=== PATIENT | female | born 1940 | race Asian ===

== ENCOUNTER 2016-08-21 21:12 | Inpatient (IN) | payer MEDICARE, OTHER ==
[~2016-08-21] VITALS: Ht 154.9 cm; Wt 58.5 kg
[~2016-08-21 21:12] MED LIST: AMLO-147 PO; ATOR80TA18 PO; BENA20TA65 PO; BISO5TAB21 PO; FERR325T31 PO; ISOS60TA52 PO; LAS20 PO; METF500T4 PO; POTA10CA PO; ULT50 PO; WARF2TAB78 PO
[2016-08-21] MEDS ORDERED: CEFEPIME 2GM/50 ML (PMX) 50 ML IVPB STA (21:14)
[2016-08-21] MEDS ORDERED: SOD CHLORIDE 0.9% 1,000 ML IV STA ×2 (21:14)
[2016-08-21] MEDS ORDERED: VANCOMYCIN 1 GM (PMX) 250 ML IVPB ONE (21:30)
--- NOTE | 2016-08-21 22:21 | RADRPT ---
PROCEDURE: XR Chest. CLINICAL INDICATION: Sepsis. TECHNIQUE: Single frontal chest x-ray. COMPARISON: None. FINDINGS: The patient status post sternotomy and valve replacement.. The heart is enlarged.. There are athero sclerotic calcifications of the aortic knob.. There is mild left basilar probable atelectasis.. Th ere is no pneumothorax. 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 IMPRESSION: Cardiomegaly. Status post sternotomy and valve replacement. Mild left basilar probable atelectasis . Partially visualized left humeral enchondroma versus bone infarct. RPTAT: HMVK .Alexander Grimes MD, MD Date Time Electronically viewed and signed by .Alexander Grimes MD, on 08/21/2016 22:21 .K/
[2016-08-21 23:33] LABS: EOSINOPHILS % 0.2 % (0.0-7.0); HEMATOCRIT 25.3 % (37.0-47.0); HEMOGLOBIN 8.4 g/dl (12.0-16.0); LYMPHOCYTES % 6.6 % (15.0-51.0); MEAN CORPUSCULAR HEMOGLOBIN 32.3 pg (29.0-33.0); MEAN CORPUSCULAR HGB CONC 33.1 g/dl (32.0-37.0); MEAN CORPUSCULAR VOLUME 97.6 fl (82.0-101.0); MEAN PLATELET VOLUME 8.9 fl (7.4-10.4); MONOCYTES % 6.5 % (0.0-11.0); NEUTROPHIL # 13.2 10^3/ul (1.6-7.5); NEUTROPHILS % 86.7 % (39.0-77.0); PLATELET COUNT 263 10^3/UL (140-440); RED BLOOD COUNT 2.59 10^6/ul (4.20-5.40); RED CELL DISTRIBUTION WIDTH 15.1 % (11.5-14.5); UNCORRECTED WBC 15.2 10^3/ul (4.8-10.8); WHITE BLOOD COUNT 15.2 10^3/ul (4.8-10.8)
[2016-08-21 23:41] LABS: CONDITION 1; LH ANALYZER COMMENTS 1
[2016-08-21 23:49] LABS: ALBUMIN 3.4 g/dl (3.3-4.9)
[2016-08-21 23:50] LABS: POTASSIUM 4.4 mmol/L (3.5-5.1)
[2016-08-21 23:52] LABS: BILIRUBIN,INDIRECT 0.9 mg/dl (0-1.1); BILIRUBIN,TOTAL 0.9 mg/dl (0.2-1.3); CREATININE 1.82 mg/dl (0.44-1.00)
[2016-08-21 23:53] LABS: ALBUMIN/GLOBULIN RATIO 1.25; CALCIUM 7.7 mg/dl (8.4-10.2); PARTIAL THROMBOPLASTIN TIME 49.3 Sec (25.0-35.0); TOTAL PROTEIN 6.1 g/dl (6.1-8.1)
[2016-08-21] MEDS ORDERED: INSULIN LISPRO 100 UNIT/ML VIAL SC STA (23:57)
[2016-08-22] VITALS (41 sets, daily range): BP systolic 87–161; BP diastolic 45–131; PULSE 89–141; RESP 18–30; Ht 154.9 cm; Wt 58.5 kg
[2016-08-22 00:04] LABS: TROPONIN-I 0.035 ng/ml (0.00-0.12)
[2016-08-22 00:17] LABS: INR 5.03; PROTIME 47.6 Sec (12.2-14.2); PT RATIO 3.7
--- NOTE | 2016-08-22 01:32 | RADRPT ---
PROCEDURE: CT brain without contrast. CLINICAL INDICATION: Altered mental status. TECHNIQUE: CT of the brain was performed using a PhotoManiapeed 64-slice VCT scann er. Contiguous axial images using 5-mm slice thickness were obtained from the skull base to the thomas marclela without contrast. Coronal and sagittal reformatted images were also obtained. Images were review ed on a PACS workstation. Exam CTD/vol = 44.63 mGy. Total exam DLP = 720.23 mGy-cm. COMPARISON: None. FINDINGS: The ventricles and cortical sulci are prominent consistent with moderate age related volume loss. T here are patchy areas of low attenuation within the periventricular and subcortical white matter con sistent with moderate chronic ischemic changes secondary to small vessel disease. There is no mass effect or midline shift. There is no intracranial hemorrhage or abnormal extra-axial collection. Th ere are atherosclerotic calcifications within bilateral distal internal carotid arteries. The calvarium is intact. There is no evidence of fracture. Visualized paranasal sinuses and mastoi d air cells are clear. IMPRESSION: No acute intracranial abnormality identified. Moderate age related volume loss and chronic ischemic white matter disease. Cerebral atherosclerosis. .Benigno Caal MD, MD Date Time Electronically viewed and signed by .Benigno Caal MD, MD on 08/22/2016 01:31 .T/
--- NOTE | 2016-08-22 01:38 | RADRPT ---
PROCEDURE: CT Abdomen and pelvis without contrast. CLINICAL INDICATION: Abdominal pain. TECHNIQUE: CT scan of the abdomen and pelvis was performed on the [employer] LightSpeed 6 4 slice VCT scanner. Contiguous axial images using 2.5 mm slice thickness were obtained from the jeannie ng bases to the ischial tuberosities without intravenous contrast. Coronal and sagittal reformatted images were also obtained. Images were reviewed on the PACS workstation. Exam CTD/vol = 10.33 mGy. Total exam DLP = 537.89 mGy-cm. COMPARISON: None. FINDINGS: Evaluation of the lung bases demonstrates mild bibasilar atelectasis and small left pleural effusion . The heart is moderately enlarged with coronary artery calcifications. There is a prosthetic mitr al valve. There is a small hiatal hernia. Abdomen: The liver is normal in size. There is a hepatic cyst measuring 3.9 x 4.5 cm. There is no dilatation of the biliary tree. The gallbladder is not distended. The spleen, pancreas and bilate ral adrenal glands are within normal limits. Bilateral kidneys are normal in size with no contour d eforming mass identified. There is no radiopaque renal or ureteral calculus identified. There is n o hydronephrosis or hydroureter. There is no retroperitoneal adenopathy. The abdominal aorta is of normal caliber with scattered atherosclerotic calcifications. There is a large complex collection within the retroperitoneum extending along the left posterolater al wall and involving the left distal psoas and iliacus muscles which are enlarged. The collection measures approximately 7.6 cm AP by 7.9 cm transverse by 18.1 cm sagittal and contains a fluid-fluid level. There is surrounding stranding. There is no bowel obstruction or free air. A normal appen pj is identified. There is no diverticulosis or diverticulitis. Pelvis: The bladder is unremarkable. The uterus and adnexa are within normal limits. There is mil d pelvic free fluid. There is no significant pelvic adenopathy. Evaluation of the osseous structures demonstrates no suspicious lytic or blastic lesion. IMPRESSION: Large fluid collection within the left retroperitoneum extending along the left posterior lateral wa ll measuring 7.6 x 7.9 x 18.1 cm. Findings could represent a hematoma or abscess. There is involvem ent of the left distal psoas and iliacus muscles which are enlarged. Mild pelvic free fluid. Mild bibasilar atelectasis and small left pleural effusion. Moderate cardiomegaly. Small hiatal hernia. Hepatic cyst. Vascular calcifications reflective of atherosclerosis. A call report was made to Dr. Russell at 01:35 a.m. .Benigno Caal MD, Date Time Electronically viewed and signed by .Benigno Caal MD, on 08/22/2016 01:38 .T/
[2016-08-22] MEDS ORDERED: SOD CHLORIDE 0.9% 250 ML IV ONE (01:40)
[2016-08-22] MEDS ORDERED: ONDANSETRON 4 MG INJ IV PRN ×2 (02:00→11:30)
[2016-08-22] MEDS ORDERED: PHYTONADIONE 10 MG/ML INJ SC ONE (02:00)
[2016-08-22] MEDS ORDERED: ACETAMINOPHEN 325 MG TAB PO PRN (02:00)
--- NOTE | 2016-08-22 03:02 | ERA ---
ER Documentation Chief Complaint Date/Time DATE: 08/22/16 TIME: 03:01 Chief Complaint generalized weakness, hypotension,L hip pain HPI Patient is a 75-year-old female with diabetes and atrial fibrillation who presents with weakness. She had generalized weakness as well as low blood pressure and tachycardia. The paramedics that she was warm to touch. She came from home. She was brought in by ambulance. She felt sick for the last few days. She was complaining of left-sided hip pain. She said that she felt dizzy and could not get up today. She had a cough but no urinary symptoms. Upon review of old medical records the patient one previous visit to the ER in 2011. ROS All systems reviewed and are negative except as per history of present illness. Medications Home Meds Reported Medications Metformin* (Glucophage*) 500 Mg Tab, 1 TAB PO BID 10/30/11 Furosemide (Lasix) 20 Mg Tab, 1 TAB PO DAILY 10/30/11 Warfarin Sodium* (Coumadin*) 2 Mg Tablet, 1 TAB PO DAILY 10/30/11 Benazepril Hcl* (Lotensin*) 20 Mg Tablet, 1 TAB PO DAILY 10/30/11 Amlodipine Besylate* (Amlodipine Besylate*) 10 Mg Tablet, 2 TAB PO DAILY 10/30/11 Potassium Chloride (Micro-K) 10 Meq Capsule.sa, 1 TAB PO DAILY 10/30/11 Tramadol HCl (Tramadol HCl) 50 Mg Tablet, 1 - 2 TAB PO Q6 10/30/11 Ferrous Sulfate (Ferosul) 325 Mg Tablet, 1 TAB PO DAILY 10/30/11 Atorvastatin (Lipitor) 80 Mg Tablet, 1 TAB PO DAILY 10/30/11 Bisoprolol Fumarate* (Bisoprolol Fumarate*) 5 Mg Tablet, 1 TAB PO DAILY 10/30/11 Isosorbide Mononitrate* (Imdur*) 60 Mg Tab.sr.24h, 60 MG PO DAILY 10/30/11 Allergies Allergies: Coded Allergies: Allopurinol (Verified Allergy, 10/30/11) PMhx/Soc History of Surgery: Yes (biat cataract sx,valvular replacement) Anesthesia Reaction: No Hx Neurological Disorder: No (TIAS) Hx Respiratory Disorders: Yes (HX OF CHF) Hx Cardiac Disorders: Yes (CARDIAC HTN, AFIF) Hx Psychiatric Problems: No Hx Miscellaneous Medical Probl: Yes (vertigo,htn, DM, gout) Hx Alcohol Use: No Hx Substance Use: No Hx Tobacco Use: No Smoking Status: Never smoker FmHx Family History: No diabetes Physical Exam Vitals Vital Signs Date Time Temp Pulse Resp B/P Pulse Ox O2 Delivery O2 Flow Rate FiO2 08/21/16 23:11 Nasal Cannula 2 08/21/16 21:18 96.7 61 18 111/66 97 Physical Exam Const: Mild distress Head: Atraumatic Eyes: Normal Conjunctiva ENT: Normal External Ears, Nose and Mouth. Neck: Full range of motion..~ No meningismus. Resp: Clear to auscultation bilaterally Cardio: Regular rate and rhythm, no murmurs Abd: Soft, non tender, non distended. Normal bowel sounds Skin: Pale, patient has a large ecchymotic area to the left lower quadrant with induration Back: No midline or flank tenderness Ext: No cyanosis, or edema Neur: Awake and alert Psych: Normal Mood and Affect Result Diagram: 08/21/160 08/21/162299 Results 24 hrs Laboratory Tests Test 08/21/16 23:00 08/22/16 01:10 08/22/16 01:12 Activated Partial Thromboplast Time 49.3Sec Alanine Aminotransferase (ALT/SGPT) 94IU/L Albumin 3.4g/dl Albumin/Globulin Ratio 1.25 Alkaline Phosphatase 65IU/L Anion Gap 19 Aspartate Amino Transf (AST/SGOT) 42IU/L Basophils # 0.010^3/ul Basophils % 0.0% Blood Morphology Comment Blood Urea Nitrogen 38mg/dl Calcium Level 7.7mg/dl Carbon Dioxide Level 18mmol/L Chloride Level 105mmol/L Creatinine 1.82mg/dl Direct Bilirubin 0.00mg/dl Eosinophils # 0.010^3/ul Eosinophils % 0.2% Globulin 2.70g/dl Glucose Level 254mg/dl Hematocrit 25.3% Hemoglobin 8.4g/dl INR International Normalized Ratio 5.03 Indirect Bilirubin 0.9mg/dl Lactic Acid Level 2.5mmol/L 2.2mmol/L Lipase 187U/L Lymphocytes # 1.010^3/ul Lymphocytes % 6.6% Mean Corpuscular Hemoglobin 32.3pg Mean Corpuscular Hemoglobin Concent 33.1g/dl Mean Corpuscular Volume 97.6fl Mean Platelet Volume 8.9fl Monocytes # 1.010^3/ul Monocytes % 6.5% Neutrophils # 13.210^3/ul Neutrophils % 86.7% Nucleated Red Blood Cells # 0.010^3/ul Nucleated Red Blood Cells % 0.0/100WBC Platelet Count 13878^3/UL Potassium Level 4.4mmol/L Prothrombin Time 47.6Sec Prothrombin Time Ratio 3.7 Red Blood Count 2.5910^6/ul Red Cell Distribution Width 15.1% Sodium Level 138mmol/L Total Bilirubin 0.9mg/dl Total Protein 6.1g/dl Troponin I 0.035ng/ml White Blood Count 15.210^3/ul Bedside Glucose 241mg/dL Current Medications Medications (Trade) Dose Ordered Sig/Vince Route PRN Reason Start Time Stop Time Status Last Admin Dose Admin Cefepime HCl 50 ml @ 100 mls/hr ONCE STAT IVPB 08/21/16 21:14 08/21/16 21:43 DC 08/21/16 23:26 Vancomycin HCl 250 ml @ 125 mls/hr ONCE ONCE IVPB 08/21/16 21:30 08/21/16 23:29 DC 08/22/16 00:38 Sodium Chloride 1,000 ml @ 1,000 mls/hr Q1H STAT IV 08/21/16 21:14 08/21/16 22:13 DC 08/21/16 23:27 Sodium Chloride (NS) 1,000 ml @ 1,000 mls/hr Q1H STAT IV 08/21/16 21:14 08/21/16 22:13 DC 08/22/16 00:38 Insulin Human Lispro 5 unit 5 unit ONCE STAT SC 08/21/16 23:57 08/21/16 23:58 DC 08/22/16 01:12 Sodium Chloride (NS) 250 ml @ 0 mls/hr Q0M ONCE IV 08/22/16 01:40 08/22/16 01:42 DC Phytonadione (Vitamin K) 10 mg ONCE ONCE SC 08/22/16 02:00 08/22/16 02:01 DC 08/22/16 02:39 Ondansetron HCl (Zofran Inj) 4 mg ER BRIDGE PRN IV NAUSEA AND/OR VOMITING 08/22/16 02:00 08/22/16 03:00 DC Acetaminophen (Tylenol Tab) 650 mg ER BRIDGE PRN PO MILD PAIN/FEVER 08/22/16 02:00 08/22/16 03:01 DC 08/22/16 02:38 Amlodipine Besylate (Norvasc) 10 mg DAILY PO 08/22/16 09:00 Atorvastatin Calcium (Lipitor) 20 mg DAILY PO 08/22/16 09:00 UNV Benazepril HCl (Lotensin) 20 mg DAILY PO 08/22/16 09:00 Bisoprolol Fumarate (Zebeta) 5 mg DAILY PO 08/22/16 09:00 Furosemide (Lasix) 40 mg DAILY@06 PO 08/22/16 06:00 UNV Isosorbide Mononitrate (Imdur) 60 mg DAILY PO 08/22/16 09:00 Tramadol HCl (Ultram) 50 mg Q6 PRN PO pain 08/22/16 03:00 Furosemide (Lasix) 40 mg DAILY@06 PO 08/22/16 06:00 Atorvastatin Calcium (Lipitor) 20 mg HS PO 08/22/16 21:00 Procedures/MDM CT scan shows large retroperitoneal hematoma versus abscess per radiology. Patient is a 75-year-old female with atrial fibrillation on Coumadin who presents with large retroperitoneal hematoma on CT scan. I believe this is likely caused by her INR which is greater than 5 showing coagulopathy. The patient was given reversal with vitamin K subcutaneous and 4 units of FFP. The patient will need admission to a telemetry bed. I spoke with Dr. Grewal from general surgery who will see the patient in consultation but does not feel the patient will need an operation at this time. I initially called Dr. Umaña for admission based on the financial information provided however we later found out the patient's primary doctor was Dr. Castillo and therefore I have called Dr. Castillo for admission. The patient has anemia with a hemoglobin of 8.4 but does not require transfusion at this time. However if she drops her hemoglobin any further she may require transfusion. Patient has hyperglycemia but no signs of diabetic ketoacidosis at this time. The patient has an elevated white blood cell count of 15.2 and initially I gave fluids and antibiotics for potential sepsis but at this point I doubt sepsis and feel this is most likely retroperitoneal hematoma causing her symptoms. Critical Care: Time: 35 minutes excluding all billable procedures. Treatments/Evaluations: Close monitoring and treatment of unstable vital signs, cardiorespiratory, and neurologic status, while maintaining tight balance of fluid, respiratory, and cardiac interventions. Departure Diagnosis: Primary Impression: Acute weakness Additional Impressions: Retroperitoneal hematoma Coagulopathy Condition: Serious MERRY FARRIS MD Aug 22, 2016 03:02
[2016-08-22 03:05] LABS: ADD UMIC YES; URINE BILIRUBIN (Dip) 2+ (NEGATIVE); URINE BLOOD (Dip) NEGATIVE (NEGATIVE); URINE COLOR AMBER (YELLOW); URINE GLUCOSE (Dip) NEGATIVE (NEGATIVE); URINE KETONES (Dip) TRACE (NEGATIVE); URINE LEUKOCYTE ESTERASE (Dip) NEGATIVE (NEGATIVE); URINE NITRITE (Dip) POSITIVE (NEGATIVE); URINE UROBILINOGEN (Dip) 1.0 E.U./dL (0.1-1.0)
[2016-08-22 03:14] LABS: ICTOTEST NEGATIVE (NEGATIVE)
[2016-08-22 03:16] LABS: URINE TOTAL PROTEIN (Dip) 1+ (NEGATIVE)
[2016-08-22 03:21] LABS: SQUAMOUS EPITHELIAL CELL,UR MODERATE
[2016-08-22 03:22] LABS: BACTERIA,URINE MANY
[2016-08-22] MEDS: traMADol 50 MG TAB PO PRN (03:55)
[2016-08-22] MEDS: morphine 2 MG INJ IV PRN ×3 (04:18→21:10)
[2016-08-22] MEDS ORDERED: FUROSEMIDE 20 MG TAB PO SCH (06:00)
[2016-08-22] MEDS ORDERED: FUROSEMIDE 40 MG TAB PO SCH (06:00)
[2016-08-22] MEDS: FUROSEMIDE 20 MG INJ IV SCH (06:57)
[2016-08-22] MEDS ORDERED: ATORVASTATIN 80 MG TAB PO SCH (09:00)
[2016-08-22 09:24] LABS: HEMATOCRIT 18.6 % (37.0-47.0); MEAN CORPUSCULAR HEMOGLOBIN 32.5 pg (29.0-33.0); MEAN CORPUSCULAR HGB CONC 33.4 g/dl (32.0-37.0); MEAN CORPUSCULAR VOLUME 97.3 fl (82.0-101.0); MEAN PLATELET VOLUME 8.9 fl (7.4-10.4); PLATELET COUNT 201 10^3/UL (140-440); RED BLOOD COUNT 1.91 10^6/ul (4.20-5.40); RED CELL DISTRIBUTION WIDTH 15.1 % (11.5-14.5); UNCORRECTED WBC 14.9 10^3/ul (4.8-10.8); WHITE BLOOD COUNT 14.9 10^3/ul (4.8-10.8)
[2016-08-22 09:28] LABS: CONDITION 1; HEMOGLOBIN 6.2 g/dl (12.0-16.0); LH ANALYZER COMMENTS 1
[2016-08-22 09:39] LABS: ALBUMIN 3.5 g/dl (3.3-4.9)
[2016-08-22 09:40] LABS: POTASSIUM 4.6 mmol/L (3.5-5.1)
[2016-08-22 09:42] LABS: ALBUMIN/GLOBULIN RATIO 1.25; BILIRUBIN,INDIRECT 0.6 mg/dl (0-1.1); BILIRUBIN,TOTAL 0.6 mg/dl (0.2-1.3); TOTAL PROTEIN 6.3 g/dl (6.1-8.1)
[2016-08-22 09:43] LABS: CALCIUM 7.2 mg/dl (8.4-10.2)
[2016-08-22] MEDS: BENAZEPRIL 20 MG TAB PO SCH (09:46)
[2016-08-22] MEDS: AMLODIPINE 10 MG TAB PO SCH (09:46)
[2016-08-22] MEDS: ISOSORBIDE MONONITRATE(SR)60 MG TAB PO SCH (09:46)
[2016-08-22] MEDS: BISOPROLOL 5 MG TAB PO SCH (09:47)
[2016-08-22 10:30] LABS: PLATELET ESTIMATE PLT APPEAR ADEQUATE
[2016-08-22 10:34] LABS: LYMPHOCYTES # 1.3 10^3/ul (0.8-2.9); MONOCYTE # 1.3 10^3/ul (0.3-0.9); NEUTROPHIL # 11.9 10^3/ul (1.6-7.5); NUCLEATED RED BLOOD CELLS% 2.1 /100WBC (0.0-0.0)
--- NOTE | 2016-08-22 10:53 | HP ---
DATE OF ADMISSION: 08/22/2016 PRESENTING COMPLAINT: Abdominal pain and weakness. HISTORY OF PRESENTING COMPLAINT: This is a 75-year-old female who was brought in by her family with complaints of left lower quadrant/left hip, abdominal pain with generalized weakness. The patient has a history of chronic atrial fibrillation and is on Coumadin therapy for that and her family has complaint of abdominal pain and there has been a bruise noted in the left lower quadrant/flank area. Preliminary imaging in the emergency room on CT scan revealed the presence of a large retrop eritoneal fluid collection though to be blood, and the patient also is noted to have a supratherapeu tic INR at 5. She is being admitted for surgical review, correction of coagulopathy and further man agement. PAST MEDICAL HISTORY: Positive for: 1. High blood pressure. 2. Atrial fibrillation. 3. Congestive heart failure. 4. Diabetes mellitus. 5. Gout. 6. History of transient ischemic attack in the past. PAST SURGICAL HISTORY: Includes bilateral cataract surgery and heart valve replacement. She also h as a history of dyslipidemia. ALLERGIES: THE PATIENT HAS NO DOCUMENTED DRUG ALLERGY AT THIS TIME. SOCIAL HISTORY: Patient denies tobacco, alcohol or illicit drug use. FAMILY HISTORY: Noncontributory. REVIEW OF SYSTEMS: I did a 12-point review of systems. The patient does not have any blood in her urine or in her stool. She also denies black stool. There has been no fever. The abdominal pain _ ____ nausea as well as cramping, but she has not had any diarrhea. She also notes generalized weakn ess. PHYSICAL EXAMINATION: VITAL SIGNS: She was found to have a temperature of 96.7, pulse 61, respirations 18, blood pressure 111/66 and saturation is 97% on room air. GENERAL: An elderly female in mild painful distress. HEENT: Head is normocephalic. Pupils are equal and reactive. Mucous membranes are slightly dry. Posterior pharynx clear of exudate. NECK: Supple. CHEST: Clear to auscultation with clear breath sounds. CARDIOVASCULAR: S1 and S2, no murmurs. ABDOMEN: She has an ecchymotic-like lesion in her left lower abdomen and that area is tender to brian ch as well. Overall, she has good bowel sounds and her abdomen is soft. EXTREMITIES: Negative for edema. SKIN: Apart from the abdominal skin findings, does not have diffuse rash or ecchymoses. NEUROLOGIC: She has no focal deficits, alert and oriented x3. PSYCHIATRIC: She is cooperative with exam if not somewhat anxious. LABORATORY VALUES: As mentioned earlier, her INR was 5.3. Her hemoglobin was 8.3. She also had el evated lactic acid levels and she does have leukocytosis. Her serum glucose was also elevated and h er serum creatinine was elevated as well. IMAGING STUDIES: A chest x-ray showed cardiomegaly and the patient is status post sternotomy and va lve replacement. Prior CT scan of the abdomen and pelvis, as mentioned earlier, showed a large left -sided retroperitoneal fluid collection concerning for blood. EKG showed AFib with rapid ventricula r response. IMPRESSION: A 75-year-old female with: 1. Retroperitoneal bleed with probable hematoma formation, likely secondary to #2, which is thought to be spontaneous. 2. Supratherapeutic INR causing coagulopathy causing #1. 3. Chronic atrial fibrillation, now with rapid ventricular response. 4. Reactive leukocytosis. 5. Elevated lactic acid level. 6. Acute renal failure on chronic kidney disease. 7. Diabetes mellitus type 2 with suboptimal control. 8. Anemia, likely secondary to chronic disease superimposed by recent bleed. 9. Status post cardiac valve replacement. PLAN: The plan at this time is to admit the patient right way for serial hemoglobin and hematocrit and coagulopathy correction. She is to get 4 units of fresh frozen plasma and has received vitamin K in the emergency room. Surgical consultation has been obtained with Dr. Jd Grewal and will de jalen to his further recommendations regarding management of the fluid collection itself; IR drainage versus observation versus open surgery. In the meantime, supportive care will include pain control, antiemetics and antipyretics if those become needed, and we will commence antibiotic therapy as wel l if that becomes indicated. In the meantime, we will use only SCDs for prophylaxis as well as PPI. At this point, we will keep patient on a clear liquid diet only with a low threshold to stop that if she continues to have pain or she develops nausea or vomiting. The patient is quite ill and is g oing to require very close monitoring and management. For further information and clarification, pl ease review the patient's chart and my orders. Further interventions will depend on her clinical co urse. Dictated By: SALO MANUEL MD, BA/CHRISTEL Conf#: [id number] DID#: [id number]
[2016-08-22 12:55] LABS: HEMATOCRIT 12.9 % (37.0-47.0)
[2016-08-22 13:05] LABS: HEMOGLOBIN 4.3 g/dl (12.0-16.0)
[2016-08-22] MEDS ORDERED: LIDOCAINE 1% (MDV) 20 ML INJ SC ONE (15:00)
--- NOTE | 2016-08-22 16:57 | RADRPT ---
PROCEDURE: Ultrasound guidance for placement of needle in right upper extremity vein. CLINICAL INDICATION: Venous access. TECHNIQUE: Limited sonography of the right upper extremity was performed. Ultrasound images were recorded and stored in the patient's medical record. COMPARISON: None. FINDINGS: The ultrasound images demonstrate a patent right upper extremity vein. The PICC line was inserted b y the PICC line nurse. IMPRESSION: 1. Ultrasound guidance for a needle placement in a right upper extremity vein. 2. The visualized right upper extremity vein is patent. RPTAT: QQ .Isaiah Khanna MD, MD Date Time Electronically viewed and signed by .Isaiah Khanna MD, MD on 08/22/2016 16:56 .R/
--- NOTE | 2016-08-22 17:20 | RADRPT ---
PROCEDURE: XR Chest. CLINICAL INDICATION: Check PICC line position. TECHNIQUE: Single frontal view. COMPARISON: 08/21/2016. FINDINGS: There is a right arm PICC line with the tip in the mid superior vena cava. There is mild atelectasi s at the lung bases, unchanged. The lungs are otherwise clear. The heart is enlarged. There are sternal wires and mitral valve replacement. Calcification is pres ent in the aorta consistent with atherosclerosis. There is no pleural effusion. There is no pneumothorax. IMPRESSION: 1. Satisfactory position of right arm PICC line. 2. No other change from 08/21/2016. RPTAT: QQ .Isaiah Khanna MD, MD Date Time Electronically viewed and signed by .Isaiah Khanna MD, MD on 08/22/2016 17:20 .R/
--- NOTE | 2016-08-22 17:56 | CONS ---
[facility] INITIAL INPATIENT CONSULTATION NOTE PLACE OF SERVICE: [facility], 6th floor. DATE OF CONSULTATION: 08/22/2016 ASSESSMENT AND PLAN: A very pleasant, but unfortunate 75-year-old lady with multiple comorbid issues; including atrial fibrillation requiring anticoagulation, congestive heart failure and perhaps other heart disease status post heart valve replacement, and a number of medical issues such as diabetes mellitus, hypertension, hyperlipidemia and gout, with TIA in the past; who is presenting with, what appears to be, a left flank hematoma that appears to extend from the left hip area to mid flank region. The patient's overall clinical picture is consistent with that of a hematoma and not an abscess. Her hemoglobin drop could be due to the hematoma, although dehydration and dilutional factors should be considered as well. The patient does represent enough need for telemetry and I would have a low threshold for transfer to ICU if she has any more decompensation than what she is showing us. I do not see any indication for acute surgical intervention, but we should be watching the patient carefully and have interventional radiology available for possible angiography, if the bleeding continues. I explained all this to the patient, as well as the team, in detail and answered all their questions to the best of my ability. I believe that the patient understands and agrees with the plans. Note, there was no family present during my discussions with the patient. With above assessment, I have recommend the followin. Continue telemetry observation with low threshold to transfer to ICU. 2. I agree with blood product transfusions. 3. Interventional radiology on standby, for possible need for angiography, if the patient decompensates further. 4. Reversal of INR. 5. Check labs. 6. Consider cardiology evaluation. Thank you again for allowing us to participate in the care of this very pleasant lady and I am certain her wonderful family. If there are any questions , please feel free to call me at [phone]. TOTAL VISIT TIME: 45 minutes, of which more than half was spent in face-to- face discussion with the patient, as well as coordination of care between multiple physicians and providers. HISTORY OF PRESENT ILLNESS: The patient is a very pleasant 75-year-old lady with comorbid issues including atrial fibrillation for which the patient was on anticoagulation, as well as history of congestive heart failure, diabetes mellitus, gout, history of TIA in the past, and hypertension; who presented to [facility] when she was found to be weak and imaging studies including a CT scan of the abdomen and pelvis showed the presence of a left- sided retroperitoneal hematoma that extended from the left hip up to mid abdominal area. The size of this was 7.6 x 7.9 x 18.1 cm. This was thought to be fluid and consistent with either hematoma or abscess. The distal psoas and iliacus muscles were thought to be enlarged. There was also benign-appearing hepatic cyst disease, and vascular calcifications, reflective of atherosclerosis. She was promptly admitted to the hospital and I was kindly asked to consult. When I visited with the patient, her main complaint was weakness and she had some nausea and vomiting, and some abdominal discomfort, mainly on the left side. No recent changes in bowel or bladder habits. No blood in the stool or urine, and no other major complaints. PAST MEDICAL HISTORY: 1. Atrial fibrillation requiring anticoagulation. 2. Hypertension. 3. Congestive heart failure. 4. Diabetes mellitus. 5. Gout. 6. History of transient ischemic attacks in the past. 7. Dyslipidemia. PAST SURGICAL HISTORY 1. Bilateral cataract surgery. 2. History of heart valve replacement. ALLERGIES: NO KNOWN DRUG ALLERGIES. MEDICATIONS: 1. Amlodipine. 2. Atorvastatin. 3. Benazepril. 4. Bisoprolol. 5. Ferrous sulfate. 6. Furosemide. 7. Isosorbide. 8. Metformin. 9. Potassium chloride. 10. Tramadol. 11. Warfarin. SOCIAL HISTORY: The patient lives with her family and does not report any significant smoking, drinking, or intravenous drug use. FAMILY HISTORY: There is no mention of significant pertinent positives or pertinent negatives in the family history, and no most major surgical, oncologic , or medical issues noted. REVIEW OF SYSTEMS: Other than the above-mentioned, there are no other pertinent positives or pertinent negatives in a complete 14-point review of systems. PHYSICAL EXAMINATION: GENERAL: The patient appears to be a very pleasant lady, of perhaps [place] descent, lying in bed, in mild distress, with an emesis bag to the right of her head, and otherwise breathing comfortably and appearing stable. VITAL SIGNS: Temperature was 97.4, blood pressure 127/64, heart rate 100, but it was in the 100 to 110 range, respiratory rate was 20, and oxygen saturation was 95% on room air. Note that this was around 11:00 a.m. ,when I initially saw the patient. BMI: 24.4. HEENT: Normocephalic and atraumatic. Extraocular muscles and hearing are grossly intact bilaterally and symmetrically. Sclerae are nonicteric. Oral cavity is clear; oral mucosa appear to be pink and moist. Dentition: fair. NECK: Supple. There is no lymphadenopathy or JVD. There is no submental, submandibular or supraclavicular lymphadenopathy. CHEST: Rises symmetrically with each breath; patient is breathing comfortably. There are no audible wheezes, rales or rhonchi on the gross exam. HEART: Pulse is regular and palpable on the right wrist. Capillary refill is normal. Carotid pulses are palpable bilaterally and symmetrically in the neck. EXTREMITIES: Lower extremities contain no pitting edema around the ankles bilaterally and symmetrically. ABDOMEN: Showed a soft and, for the most part, nontender abdomen; although some tenderness present on the left flank side. No significant distention, no organomegaly, or caput medusae. No evidence of ascites or engorged subcutaneous veins. There are no peritoneal signs or guarding. SKIN: Appears to be pink and feels warm to touch. NEUROLOGIC: Awake, alert, and follows commands appropriately. LABORATORY DATA: White blood cell count 14.9, down from 15.2, hemoglobin 6.2, down from 8.4, platelet count 201. CO2 16, creatinine 2.0. Lactic acid was 5.2. Calcium 7.2. LFTs showed total bilirubin 0.6, AST 32, ALT 74, alkaline phosphatase 63, albumin 3.5, lipase 187. INR 5.03. Urinalysis showed positive nitrite, but no leukocyte esterase. IMAGING: Pertinent images were reviewed above. Dictated By: ROSELYN JONES/CHRISTEL Conf#: [id number] DID#: [id number] MTDD
[2016-08-22] MEDS ORDERED: NORepinephrine 8MG/250 ML (PMX 250 ML IV SCH (18:00)
[2016-08-22 18:06] LABS: HEMATOCRIT 22.5 % (37.0-47.0); HEMOGLOBIN 7.6 g/dl (12.0-16.0)
[2016-08-22 18:16] LABS: INR 1.47; PROTIME 17.9 Sec (12.2-14.2); PT RATIO 1.4
[2016-08-22] MEDS ORDERED: GLUCOSE GEL 15 GRAM TUBE PO PRN ×2 (21:00)
[2016-08-22] MEDS ORDERED: GLUCOSE GEL 15 GRAM TUBE BUCCAL PRN (21:00)
[2016-08-22] MEDS ORDERED: GLUCAGON 1 MG INJ IM PRN (21:00)
[2016-08-22] MEDS ORDERED: DEXTROSE 50% 50 ML SYRINGE IV PRN ×2 (21:00)
[2016-08-22] MEDS: ATORVASTATIN 20 MG TAB PO SCH (21:20)
[2016-08-22] MEDS: DILTIAZEM-D5W 125MG/125ML DRIP 125 ML IV SCH (21:29)
[2016-08-22] MEDS: Insulin NOVOLOG SS MILD Algorithm (NPO/TPN/ENTERAL FEEDS) SC SCH (22:34)
[2016-08-23] VITALS (72 sets, daily range): BP systolic 65–147; BP diastolic 33–135; PULSE 61–128; RESP 18–33
[2016-08-23] MEDS ORDERED: INSULIN ASPART [NOVOLOG] 3 ML PEN SC SCH
[2016-08-23 00:32] LABS: HEMATOCRIT 20.1 % (37.0-47.0)
[2016-08-23 00:43] LABS: HEMOGLOBIN 6.8 g/dl (12.0-16.0)
[2016-08-23] MEDS ORDERED: FUROSEMIDE 20 MG INJ IV ONE (01:30)
[2016-08-23] MEDS ORDERED: ACCUCHECK XX SCH (02:00)
[2016-08-23] MEDS: morphine 2 MG INJ IV PRN (03:04)
[2016-08-23] MEDS: PANTOPRAZOLE 40 MG INJ IV SCH (05:42)
[2016-08-23] MEDS: FUROSEMIDE 20 MG INJ IV SCH ×3 (05:54→19:21)
[2016-08-23] MEDS: Insulin NOVOLOG SS MILD Algorithm (NPO/TPN/ENTERAL FEEDS) SC SCH ×2 (06:02)
[2016-08-23 06:58] LABS: ALBUMIN 3.1 g/dl (3.3-4.9)
[2016-08-23 06:59] LABS: ALBUMIN 3.2 g/dl (3.3-4.9)
[2016-08-23 07:00] LABS: POTASSIUM 4.9 mmol/L (3.5-5.1)
[2016-08-23 07:01] LABS: TOTAL PROTEIN 5.5 g/dl (6.1-8.1)
[2016-08-23] MEDS: DILTIAZEM-D5W 125MG/125ML DRIP 125 ML IV SCH (07:01)
[2016-08-23 07:02] LABS: ALBUMIN/GLOBULIN RATIO 1.33; CREATININE 3.04 mg/dl (0.44-1.00); TOTAL PROTEIN 5.6 g/dl (6.1-8.1)
[2016-08-23 07:03] LABS: CALCIUM 6.4 mg/dl (8.4-10.2)
[2016-08-23 07:11] LABS: INR 1.67; PARTIAL THROMBOPLASTIN TIME 30.3 Sec (25.0-35.0); PROTIME 19.8 Sec (12.2-14.2); PT RATIO 1.5
[2016-08-23 08:23] LABS: BASOPHIL # 0.1 10^3/ul (0.0-0.1); BASOPHILS % 0.4 % (0.0-2.0); HEMOGLOBIN 8.2 g/dl (12.0-16.0); LYMPHOCYTES # 0.6 10^3/ul (0.8-2.9); LYMPHOCYTES % 3.8 % (15.0-51.0); MEAN CORPUSCULAR HEMOGLOBIN 30.5 pg (29.0-33.0); MEAN CORPUSCULAR HGB CONC 34.1 g/dl (32.0-37.0); MEAN CORPUSCULAR VOLUME 89.6 fl (82.0-101.0); MEAN PLATELET VOLUME 9.1 fl (7.4-10.4); MONOCYTE # 1.3 10^3/ul (0.3-0.9); MONOCYTES % 7.4 % (0.0-11.0); NEUTROPHILS % 88.4 % (39.0-77.0); PLATELET COUNT 140 10^3/UL (140-440); RED BLOOD COUNT 2.68 10^6/ul (4.20-5.40); RED CELL DISTRIBUTION WIDTH 15.8 % (11.5-14.5)
[2016-08-23 08:25] LABS: CONDITION 1; LH ANALYZER COMMENTS 1
[2016-08-23] MEDS: BENAZEPRIL 20 MG TAB PO SCH (09:00)
[2016-08-23] MEDS: AMLODIPINE 10 MG TAB PO SCH (09:00)
[2016-08-23] MEDS: ISOSORBIDE MONONITRATE(SR)60 MG TAB PO SCH (09:04)
[2016-08-23] MEDS: DILTIAZEM 60 MG TAB PO SCH ×2 (09:04→18:00)
[2016-08-23] MEDS ORDERED: SOD CHLORIDE 0.9% 1,000 ML IV ONE (10:30)
[2016-08-23] MEDS: BISOPROLOL 5 MG TAB PO SCH (10:42)
--- NOTE | 2016-08-23 11:07 | PN ---
Date/Time of Note Date/Time of Note DATE: 08/23/16 TIME: 11:07 Assessment/Plan Lines/Catheters IV C[facility]ter Type (from [facility]): PICC Line Assessment/Plan Assessment/Plan [facility] In[facility] Progress Note Date of Service: 08/23/2016 Today's Assessment & Plan: Overall stable. I believe the hemorrhage stopped more than 12 hours ago. Patient 's hemoglobin seems to be responding to blood transfusions and most of morbid be observed appears to be dilutional. Of concern is the patient's rising creatinine and lactic acid. Abdomen appears to be benign. No indication for acute surgical intervention. Do not suspect that we need interventional radiology but we do need to observe the patient very carefully in the ICU. With above assessment, I've recommended the following for today: 1. Continue current cares 2. Careful observation otherwise in those 3. Low threshold for nephrology consultation 4. I've asked Dr. Wilkinson to follow the patient from a critical care standpoint (much appreciated the input) 5. We'll follow with you Thank you again for your great care of this very pleasant lady and I'm certain her wonderful family. If there are any questions, please feel free to call me at [phone]. TOTAL VISIT TIME: 20 minutes of which more than half was spent in usin-[id number]-lasp discussion with the patient as well as coordination of care between multiple physicians and providers. Disclaimer: Inadvertent spelling and grammatical errors are likely due to EHR/ dictation software use and do not reflect on the quality of delivered patient care. Also, please note that the electronic time recorded on this node does not necessarily reflect the actual time of the visit. Updated Clinical Summary: Very pleasant, but unfortunate 75-year-old lady with multiple comorbid issues; including atrial fibrillation requiring anticoagulation, congestive heart failure and perhaps other heart disease status post heart valve replacement, and a number of medical issues such as diabetes mellitus, hypertension, hyperlipidemia and gout, with TIA in the past; admitted to [facility] through the emergency department 08/21/2016 with a left flank hematoma that appeared to extend from the left hip area to mid flank region. Past and present comorbidity list: 1. Atrial fibrillation requiring anticoagulation. 2. Hypertension. 3. Congestive heart failure. 4. Diabetes mellitus. 5. Gout. 6. History of transient ischemic attacks in the past. 7. Dyslipidemia. 8. Bilateral cataract surgery. 9. History of heart valve replacement. Subjective: No major events or complaints other than being transferred to the ICU and getting blood product transfusions; no significant increase in abd pain and under control with medications; no n/v/d; no sob or cp; - flatus; - BM; - activity Objective: Vitals: See below I's & O's: See below Exam: GENERAL: On exam, the patient was lying in bed and appeared to be comfortable and in no acute distress. ABDOMEN: Soft, tender to palpation in the left flank and slightly more distended than yesterday. There are no peritoneal signs or guarding. SKIN: Skin appears to be pink and feels warm to touch. NEUROLOGIC: Patient is awake, alert, and follows commands appropriately. Labs: See below Exam/Review of Systems Vital Signs Vitals Vital Signs Date Time Temp Pulse Resp B/P Pulse Ox O2 Delivery O2 Flow Rate FiO2 08/23/16 08:45 76 18 109/68 92 Nasal Cannula 2.0 08/23/16 07:30 96.8 Intake and Output 08/22/16 08/22/16 08/23/16 15:00 23:00 07:00 Intake Total 880 ml 907.5 ml 70 ml Output Total 200 ml 100 ml Balance 880 ml 707.5 ml -30 ml Results Result Diagram: 08/23/16 0758 08/23/16 0620 ROSELYN WALLIS M.D. Aug 23, 2016 11:07
[2016-08-23] MEDS ORDERED: FUROSEMIDE 20 MG TAB PO ONE (12:30)
--- NOTE | 2016-08-23 13:10 | RADRPT ---
PROCEDURE: XR Chest. CLINICAL INDICATION: Follow-up, shortness of breath TECHNIQUE: Single frontal view of the chest was obtained. COMPARISON: 08/22/2016 FINDINGS: The cardiomediastinal silhouette is moderate to severely enlarged. There is a valve annuloplasty an d sternotomy wires. There is prominent aortic calcification. There appears to be a small to modera te left pleural effusion. There is hazy density through the left mid lung. There is a right PICC l ine extending to the cavoatrial junction region. There may be elevation of the left hemidiaphragm. The osseous structures and soft tissues are unremarkable. IMPRESSION: 1. Moderate to severe appearing cardiomegaly. Status post valve annuloplasty. 2. Small to moderate appearing left pleural effusion. Possible elevation of the left hemidiaphragm . 3. Left base atelectasis, versus infiltrate. 4. Right PICC line in place. RPTAT: DD .Les Abreu MD, MD Date Time Electronically viewed and signed by .Les Abreu MD, on 08/23/2016 13:09 .T/
[2016-08-23 13:38] LABS: HEMATOCRIT 21.8 % (37.0-47.0); HEMOGLOBIN 7.1 g/dl (12.0-16.0)
[2016-08-23 15:28] LABS: POTASSIUM 5.2 mmol/L (3.5-5.1)
[2016-08-23 15:30] LABS: CREATININE 3.33 mg/dl (0.44-1.00)
[2016-08-23] MEDS ORDERED: SOD CHLORIDE 0.9% 500 ML IV ONE (15:30)
[2016-08-23 15:31] LABS: CALCIUM 6.2 mg/dl (8.4-10.2)
--- NOTE | 2016-08-23 16:08 | CONS ---
DATE OF ADMISSION: 08/22/2016 DATE OF CONSULTATION: TYPE OF CONSULTATION: Pulmonary. REASON FOR CONSULTATION: Critical care management. HISTORY OF PRESENT ILLNESS: This is an unfortunate 75-year-old lady with multiple medical problems, came in with abdominal pain, nausea, found to have significant anemia and CT scan confirming signif icant retroperitoneal bleed. Patient was evaluated by general surgery for possible exploratory lapa rotomy; however, hemoglobin currently remains stable. The patient continues to complain of left fla nk pain in addition has been noted to have decreasing urine output with worsening creatinine and lisa dence of metabolic acidosis. The patient has been noted to have decreased urine output in addition. PAST MEDICAL HISTORY: Includes atrial fibrillation on anticoagulation, hypertension, hyperlipidemia , congestive cardiac failure, history of TIAs and a history of heart valve replacement. MEDICATIONS: Per chart. ALLERGIES: NONE. SOCIAL HISTORY: Nonsmoker, no alcohol, no history of drug use. FAMILY HISTORY: Noncontributory. SYSTEMS REVIEW: A 12-point review of systems was negative other than that mentioned above. PHYSICAL EXAMINATION: GENERAL: Elderly [place] lady, comfortable at rest, no acute distress. VITAL SIGNS: Temperature 98, pulse 65, blood pressure 98/52, O2 saturation 96% on 2 L nasal cannula . NECK: Supple. No JVD or lymphadenopathy. CARDIAC: S1, S2, no added sounds or murmurs. CHEST: Diminished air entry bilaterally. ABDOMEN: Soft, nontender. No guarding or rebound. EXTREMITIES: No cyanosis, clubbing, edema. NEUROLOGIC: Grossly intact. No focal deficits. LABORATORY DATA: White count 7.1. Lactic acid initially 6.1 now 3.9, BUN 55, creatinine 3.05 up fr om 1.8. IMPRESSION AND PLAN: 1. Retroperitoneal bleed. 2. Acute renal failure with metabolic acidosis. 3. Evidence of pneumonia on chest CT. 4. History of atrial fibrillation. 5. History of anticoagulation. PATIENT WILL NEED: 1. Peraza catheter placement. 2. Aggressive volume resuscitation. 3. Further transfusion of packed red blood cells for increasing renal perfusion and hopefully impro ving creatinine. 4. Deep vein thrombosis prophylaxis and GI prophylaxis. Dictated By: NAYELI FARAH/CHRISTEL Conf#: [id number] DID#: [id number]
[2016-08-23] MEDS: traMADol 50 MG TAB PO PRN (16:22)
[2016-08-23] MEDS ORDERED: SOD CHLORIDE 0.9% 1,000 ML IV SCH (17:30)
--- NOTE | 2016-08-23 17:48 | RADRPT ---
PROCEDURE: Renal US. CLINICAL INDICATION: Acute kidney injury. TECHNIQUE: Multiple sonographic images of the kidneys and urinary bladder were obtained. The imag es were reviewed on a PACS workstation. COMPARISON: CT scan of the abdomen and pelvis dated 08/21/2016 FINDINGS: The right kidney measures 7.3 cm. The left kidney measures 5.8 cm. There is no renal mass. There is no hydronephrosis. There is no renal calculus. Both kidneys are hyperechoic and have thinning of the renal parenchyma consistent with medical renal disease. Both kidneys are atrophic with left worse than right. The perirenal regions are normal with no fluid collection or mass. There is a Peraza catheter in the urinary bladder. As seen on prior CT scan, there is a large hetero geneous fluid collection in the left flank consistent with a probable hematoma measuring 16.4 x 11.9 x 10.8 cm. IMPRESSION: 1. Bilateral small hyperechoic kidneys consistent with medical renal disease. 2. No hydronephrosis. 3. Peraza catheter in the bladder. 4. Probable large hematoma in the left flank. RPTAT: QQ .Isaiah Khanna MD, Date Time Electronically viewed and signed by .Isaiah Khanna MD, on 08/23/2016 17:47 .R/
[2016-08-23] MEDS: INSULIN ASPART [NOVOLOG] 3 ML PEN SC SCH ×2 (17:52→20:34)
[2016-08-23 18:00] LABS: AADO2 Arterial 68.9 mmHg (7.0-24.0); Arterial Base Excess -14.1 mmol/L (-3.0-3); Arterial COHb 0.3 % (0.0-3.0); Arterial Fraction of Oxyhgb 90.9 % (93.0-99.0); Arterial HCO3 11.7 mmol/L (22.0-26.0); Arterial MetHb 0.4 % (0.0-1.5); Arterial Total Hemglobin 7.7 g/dl (12.0-18.0); MODE NASAL CANNULA
--- NOTE | 2016-08-23 18:07 | CONS ---
DATE OF ADMISSION: 08/22/2016 DATE OF CONSULTATION: TYPE OF CONSULTATION: Nephrology. REASON FOR CONSULTATION: Acute kidney injury. REQUESTING PHYSICIAN: Dr. Fuentes HISTORY OF PRESENT ILLNESS: This is a 75-year-old female with a past medical history of hypertensio n, history of AFib, CHF, diabetes, history of gout, history of chronic kidney disease with a baselin e EGFR around 50 mL/minute who presents to [facility] with abdominal pain and weak ness. The patient stated she had noted having left quadrant and hip pain. The patient's symptoms p rogressed with noted bruising over her left flank. As a result, she came into the emergency room fo r evaluation. A CT scan at that time showed a large retroperitoneal fluid collection felt to be blo od. The patient also noted to have a supratherapeutic INR of 5. In the emergency room, the patient was noted to be anemic with a hemoglobin initially of 8.4 which then dropped down to 4.3 g/dL. The patient was transferred to intensive care unit, where she has been transfused with multiple blood p roducts; given FFP, vitamin K. The patient has been seen by surgeon, Dr. Grewal, as well as pulmono logist, Dr. Wilkinson. The patient's chest x-ray did show findings consistent with possible pneumonia , and the patient has been on IV antibiotics. In terms of the patient's renal history, the patient states she has underlying CKD with a baseline GFR around 50 mL/minute. The patient on admission was noted to have a creatinine of 1.82 mg/dL. During the course of next 48 hours, creatinine has incre ased to 3.3 mg/dL. During this time, the patient had been oliguric with a urinary output approximat refugio 300 mL. The patient was noted also during this time to be hypotensive with systolic pressures i n the low 80s and to have severe anemia with a hemoglobin level of 4 g/dL. The patient has had no e pisodes of hemoptysis, hemetemesis, hematochezia. There have been no rashes, no frothy urine. PAST MEDICAL HISTORY: Stated above. History of chronic kidney disease stage III, history of hypert ension, AFib, CHF, diabetes, history of gout. PAST SURGICAL HISTORY: Status post heart valve replacement, status post bilateral cataract surgery. ALLERGIES: NO KNOWN DRUG ALLERGIES. SOCIAL HISTORY: She does not drink, smoke or do drugs. FAMILY HISTORY: Noncontributory. MEDICATIONS: The patient's medications have been reviewed. REVIEW OF SYSTEMS: A 14-point review of systems was conducted. Pertinent positives stated in HPI, otherwise negative. PHYSICAL EXAMINATION: VITAL SIGNS: Blood pressure is 98/52, respirations 26, pulse 65, temperature 98.6. INPUT AND OUTPUT: The patient had 1.8 L in with 300 mL out. HEENT: Head is normocephalic. NECK: Supple. HEART: Regular rate. LUNGS: Diminished breath sounds at the base. ABDOMEN: Soft. Positive tenderness to palpation. There are noted ecchymoses on the patient's left flank. DERMATOLOGIC: No rashes. NEUROLOGIC: No focal deficits. MUSCULOSKELETAL: No joint effusion. LABORATORY DATA: Sodium 139, potassium 5.2, chloride 107, bicarbonate 15, BUN 63, creatinine 3.33, lactic acid 3.9, calcium 6.2. BNP 8000. Total protein ____, albumin 3.1. White count 17.0, hemogl obin 8.2, hematocrit 24.0 and platelet count of 140. The patient's chest x-ray shows cardiomegaly, pleural effusions, atelectasis at the base. Initial urinalysis showed positive nitrites, +2 bilirubin, moderate granular casts, moderate squamou s cells. ASSESSMENT AND PLAN: This is a 75-year-old female who presents with: 1. Oligoanuric acute kidney injury on top of chronic kidney disease with a baseline epidermal growt h factor receptor around 50 mL/minute per patient. Etiology of acute kidney injury secondary to acu te tubular necrosis due to ischemic hypoperfusion from severe anemia, hemodynamics. The patient's u rinalysis shows evidence of hyaline and granular casts consistent with tubular injury. Urinalysis d oes not show any significant pyuria or hematuria. Therefore, lower suspicion at this point for acut e glomerulonephritis, vasculitis or interstitial nephritis. Plan at this point is, however, to chec k a renal ultrasound to rule out obstruction in the setting of a retroperitoneal bleed. Will repeat urinalysis and will check urine electrolytes, calculate a FENa. I agree with continued IV fluids a nd blood transfusions in order to maintain hemoglobin levels greater than 8 g/dL. The patient is cu rrently in injury phase of acute tubular necrosis, and if patient's renal function continues to decl ine over the next 1 to 2 days, would consider renal replacement therapy. 2. Hyperkalemia. Etiology secondary to acute kidney injury in conjunction with blood transfusion. Will continue to monitor serial potassium levels. If potassium level should continue to rise, medi juan management with Kayexalate, insulin, dextrose, calcium gluconate. If potassium levels do not re spond to medical management, will consider starting renal replacement therapy. ABG would also be ch ecked to see if the patient is acidemic, which may be a contributing factor to hyperkalemia. 3. Metabolic acidosis, anion gap, etiology secondary to acute kidney injury, lactic acidosis. Plan is check an ABG to see if the patient is appropriately compensated. If there is evidence of signif icant acidemia, will start the patient on bicarbonate drip. 4. Mineral bone disorder. Continue to monitor calcium, phosphorus levels. No need for phosphate b inders at this time. 5. Acute retroperitoneal bleed. Etiology is secondary to coagulopathy. The patient has currently been evaluated by General Surgery. No plan for surgical intervention at this time. Will continue t o monitor closely, continue to monitor H and H levels. The patient is receiving multiple blood whitmore sfusions. 6. Anemia. Etiology secondary to retroperitoneal bleed. The patient's H and H levels will be she tored q.6. Continue blood transfusion. The patient is status post FFP, vitamin K. 7. Diabetes. Continue Accu-Cheks and sliding scale. 8. Chronic atrial fibrillation, now currently rate controlled. Continue current medical management . 9. History of congestive heart failure. Will continue to monitor I's and O's closely. Continue me dical management. 10. History of cardiac valve replacement. Continue to monitor. Will follow up 2D echo, follow up with Cardiology. 11. Pneumonia. The patient is currently on antibiotics. Will continue to follow up blood cultures , sputum culture. 12. History of hypertension. The patient is now normotensive to hypotensive. Would recommend to h old blood pressure medications. Continue volume expansion. Thank you, Dr. Fuentes, for this interesting consultation. It will be a pleasure to follow patient wit h chicho throughout the hospital course. Dictated By: GARRETT FISHMAN/CHRISTEL Conf#: [id number] [facility]#: [id number]
[2016-08-23 18:47] LABS: ADD UMIC YES; URINE BILIRUBIN (Dip) NEGATIVE (NEGATIVE); URINE BLOOD (Dip) TRACE (NEGATIVE); URINE COLOR YELLOW (YELLOW); URINE GLUCOSE (Dip) NEGATIVE (NEGATIVE); URINE KETONES (Dip) TRACE (NEGATIVE); URINE LEUKOCYTE ESTERASE (Dip) NEGATIVE (NEGATIVE); URINE NITRITE (Dip) NEGATIVE (NEGATIVE); URINE TOTAL PROTEIN (Dip) NEGATIVE (NEGATIVE); URINE UROBILINOGEN (Dip) 0.2 E.U./dL (0.1-1.0)
[2016-08-23] MEDS ORDERED: NA BICARBONATE 8.4% 50 ML SYG IV ONE ×2 (19:00)
[2016-08-23 19:09] LABS: SQUAMOUS EPITHELIAL CELL,UR MANY; URINE RBCS 0-2 /HPF (0)
[2016-08-23 19:10] LABS: BACTERIA,URINE MODERATE
[2016-08-23 19:28] LABS: HEMATOCRIT 25.5 % (37.0-47.0); HEMOGLOBIN 8.6 g/dl (12.0-16.0)
[2016-08-23] MEDS: ATORVASTATIN 20 MG TAB PO SCH (20:32)
[2016-08-23] MEDS: SODIUM BICARBONATE (IV ADD) 50 MEQ in SOD CHLORIDE 0.45% 950 ML IV SCH (20:33)
--- NOTE | 2016-08-23 23:59 | PN ---
Date/Time of Note Date/Time of Note DATE: 08/23/16 TIME: 23:59 Assessment/Plan VTE Prophylaxis VTE Prophylaxis Intervention: SCD's Lines/Catheters IV Catheter Type (from Nrsg): PICC Line Central line still needed: Yes Urinary Cath still in place: Yes Reason Cath still needed: other (indicate) Assessment/Plan Assessment/Plan 1. Retroperitoneal bleed with probable hematoma formation, likely secondary to #2, which is thought to be spontaneous. 2. Supratherapeutic INR causing coagulopathy causing #1. 3. Chronic atrial fibrillation, now with rapid ventricular response. 4. Reactive leukocytosis. 5. Elevated lactic acid level. 6. Acute renal failure on chronic kidney disease. 7. Diabetes mellitus type 2 with suboptimal control. 8. Anemia, likely secondary to chronic disease superimposed by recent bleed. 9. Status post cardiac valve replacement. PLAN Monitor coags and correct as needed monitor hgb closely and transfuse as needed cont rate control for afib Nephrology for renal insufficiency cont oxygen and bronchodilators cont current medical mgmt Subjective 24 Hr Interval Summary Free Text/Dictation c/o pain and SOB Exam/Review of Systems Vital Signs Vitals Vital Signs Date Time Temp Pulse Resp B/P Pulse Ox O2 Delivery O2 Flow Rate FiO2 08/23/16 20:00 75 08/23/16 20:00 97.9 23 117/50 98 Nasal Cannula 3.0 Intake and Output 08/22/16 08/22/16 08/23/16 15:00 23:00 07:00 Intake Total 880 ml 907.5 ml 70 ml Output Total 200 ml 100 ml Balance 880 ml 707.5 ml -30 ml Exam Constitutional: other (appears weak) Head: atraumatic, normocephalic Eyes: EOMI, PERRL Neck: non-tender, supple Respiratory: diminished breath sounds Cardiovascular: irregular rhythm Gastrointestinal: other (left lower quad hematoma) Extremities: normal pulses Results Result Diagram: 08/23/16 1901 08/23/16 1510 Results 24 hrs Laboratory Tests Test 08/23/16 00:10 08/23/16 00:16 08/23/16 01:34 08/23/16 05:59 Hematocrit 20.1 L Hemoglobin 6.8 *L Bedside Glucose 225 H 199 Lactic Acid Level 2.5 H Test 08/23/16 06:20 08/23/16 06:55 08/23/16 07:58 08/23/16 12:03 Alanine Aminotransferase (ALT/SGPT) 66 Albumin 3.1 L Albumin/Globulin Ratio 1.33 Alkaline Phosphatase 49 Anion Gap 24 H Aspartate Amino Transf (AST/SGOT) 45 B-Type Natriuretic Peptide 8070 H Blood Urea Nitrogen 55 H Calcium Level 6.4 L Carbon Dioxide Level 15 L Chloride Level 106 Creatinine 3.04 #H Direct Bilirubin 0.00 Globulin 2.40 Glucose Level 227 H Indirect Bilirubin 1.0 Lactic Acid Level 6.1 *H 3.9 H Potassium Level 4.9 Sodium Level 140 Total Bilirubin 1.0 Total Protein 5.5 L Activated Partial Thromboplast Time 30.3 INR International Normalized Ratio 1.67 Prothrombin Time 19.8 H Prothrombin Time Ratio 1.5 Basophils # 0.1 Basophils % 0.4 Blood Morphology Comment Eosinophils # 0.0 Eosinophils % 0.0 Hematocrit 24.0 L Hemoglobin 8.2 #L Lymphocytes # 0.6 L Lymphocytes % 3.8 L Mean Corpuscular Hemoglobin 30.5 Mean Corpuscular Hemoglobin Concent 34.1 Mean Corpuscular Volume 89.6 Mean Platelet Volume 9.1 Monocytes # 1.3 H Monocytes % 7.4 Neutrophils # 15.0 H Neutrophils % 88.4 H Nucleated Red Blood Cells # 0.0 Nucleated Red Blood Cells % 0.0 Platelet Count 140 # Red Blood Count 2.68 #L Red Cell Distribution Width 15.8 H White Blood Count 17.0 H Test 08/23/16 12:30 08/23/16 13:20 08/23/16 15:10 08/23/16 16:48 Bedside Glucose 152 Hematocrit 21.8 L Hemoglobin 7.1 L Anion Gap 22 H Blood Urea Nitrogen 63 H Calcium Level 6.2 L Carbon Dioxide Level 15 L Chloride Level 107 Creatinine 3.33 H Glucose Level 167 Potassium Level 5.2 H Sodium Level 139 Arterial Blood HCO3 11.7 L Arterial Blood Base Excess -14.1 L Arterial Blood Oxygen Saturation 91.5 L Fab Test N/A Arterial Blood Gas Puncture Site LB Arterial Blood Carboxyhemoglobin 0.3 Arterial Blood Date Drawn 08/23/2016 5:30:12 PM Arterial Blood Methemoglobin 0.4 Arterial Blood pCO2 (Temp correct) 26.6 L Arterial Blood pH (Temp corrected) 7.260 *L Arterial Blood pO2 (Temp corrected) 70.6 L Blood Gas A-a O2 Differential 68.9 H Blood Gas Critical Value Read Back NAHEED VICTOR Blood Gas Modality NASAL CANNULA Blood Gas Notified Time 08/23/2016 5:55:57 PM Blood Gas Notified Whom CW Blood Gas Specimen Source Blood arterial Blood Gas Temperature 37.0 FiO2 24.0 Oxyhemoglobin Percent 90.9 L Total Hemoglobin 7.7 L Test 08/23/16 17:47 08/23/16 18:00 08/23/16 19:01 08/23/16 20:33 Bedside Glucose 160 170 Urine Amorphous Urates MODERATE Urine Bacteria MODERATE Urine Bilirubin NEGATIVE Urine Clarity SLIGHTLY CLOUDY Urine Color YELLOW Urine Glucose NEGATIVE Urine Hemoglobin TRACE Urine Hyaline Casts MANY Urine Ketones TRACE H Urine Leukocyte Esterase NEGATIVE Urine Microscopic RBC 0-2 Urine Microscopic WBC NONE SEEN Urine Nitrite NEGATIVE Urine Random Creatinine 164.69 Urine Random Sodium 27 L Urine Specific [place] >=1.030 H Urine Squamous Epithelial Cells MANY Urine Total Protein Urine Urobilinogen 0.2 E.U./dL Urine pH 5.0 Hematocrit 25.5 L Hemoglobin 8.6 #L Lactic Acid Level 3.5 H Medications Medications Current Medications Amlodipine Besylate (Norvasc) 10 mg DAILY PO Last administered on 08/22/16 09: 46; Admin Dose 10 MG; Start 08/22/16 at 09:00 Benazepril HCl (Lotensin) 20 mg DAILY PO Last administered on 08/22/16 09:46; Admin Dose 20 MG; Start 08/22/16 at 09:00; Status Future Hold Bisoprolol Fumarate (Zebeta) 5 mg DAILY PO Last administered on 08/23/16 10:42 ; Admin Dose 5 MG; Start 08/22/16 at 09:00 Isosorbide Mononitrate (Imdur) 60 mg DAILY PO Last administered on 08/23/16 09: 04; Admin Dose 60 MG; Start 08/22/16 at 09:00 Tramadol HCl (Ultram) 50 mg Q6 PRN PO pain Last administered on 08/23/16 16:22 ; Admin Dose 50 MG; Start 08/22/16 at 03:00 Atorvastatin Calcium (Lipitor) 20 mg HS PO Last administered on 08/23/16 20:32 ; Admin Dose 20 MG; Start 08/22/16 at 21:00 Morphine Sulfate (morphine) 2 mg Q4 PRN IV mod pain Last administered on 03:04; Admin Dose 2 MG; Start 08/22/16 at 04:30 Furosemide (Lasix) 20 mg DAILY@06 IV Last administered on 08/23/16 05:54; Admin Dose 20 MG; Start 08/22/16 at 07:00 Ondansetron HCl (Zofran Inj) 4 mg Q6H PRN IV NAUSEA AND/OR VOMITING Last administered on 08/22/16 13:20; Admin Dose 4 MG; Start 08/22/16 at 11:30 IV Flush 10 ml 10 ml PRN PRN IV IV PROTOCOL; Start 08/22/16 at 17:30 Diltiazem HCl (Cardizem-D5W 125 Mg/125 ml Drip) 125 ml @ 5 mls/hr TITRATE IV Last administered on 08/23/16 07:01; Admin Dose 5 MLS/HR; Start 08/22/16 at 20:30 Pantoprazole 40 mg 40 mg DAILY@06 IV Last administered on 08/23/16 05:42; Admin Dose 40 MG; Start 08/23/16 at 06:00 Norepinephrine/ Dextrose (Levophed/D5W) 500 ml @ 1.87 mls/hr TITRATE IV ; Start 08/22/16 at 21:00 Miscellaneous Information 1 ea NOTE XX ; Start 08/22/16 at 21:00 Glucose (Glutose) 15 gm Q15M PRN PO DECREASED GLUCOSE; Start 08/22/16 at 21:00 Glucose (Glutose) 22.5 gm Q15M PRN PO DECREASED GLUCOSE; Start 08/22/16 at 21:00 Dextrose (D50w Syringe) 25 ml Q15M PRN IV DECREASED GLUCOSE; Start 08/22/16 at 21:00 Dextrose (D50w Syringe) 50 ml Q15M PRN IV DECREASED GLUCOSE; Start 08/22/16 at 21:00 Glucagon (Glucagen) 1 mg Q15M PRN IM DECREASED GLUCOSE; Start 08/22/16 at 21:00 Glucose (Glutose) 15 gm Q15M PRN BUCCAL DECREASED GLUCOSE; Start 08/22/16 at 21: 00 Diltiazem HCl (Cardizem) 60 mg Q6 PO Last administered on 08/23/16 18:00; Admin Dose 60 MG; Start 08/23/16 at 09:00 Furosemide (Lasix) 20 mg Q6 IV Last administered on 08/23/16 19:21; Admin Dose 20 MG; Start 08/23/16 at 12:00; Stop 08/24/16 at 06:01 Diagnostic Test (Pha) 1 ea 1 ea 02 XX ; Start 08/24/16 at 02:00 Sodium Bicarbonate/ Sodium Chloride (Na Bicarb//2 NS) 1,000 ml @ 75 mls/hr [id number] IV Last administered on 08/23/16 20:33; Admin Dose 75 MLS/HR; Start 08/23/16 at 20:00 ANGEL ASHLEY MD Aug 23, 2016 23:59
[2016-08-24] VITALS (14 sets, daily range): BP systolic 94–127; BP diastolic 46–95; PULSE 63–85; RESP 16–26
[2016-08-24 00:58] LABS: HEMATOCRIT 23.2 % (37.0-47.0); HEMOGLOBIN 7.9 g/dl (12.0-16.0)
[2016-08-24] MEDS: FUROSEMIDE 20 MG INJ IV SCH ×3 (01:00→06:00)
[2016-08-24] MEDS: ACCUCHECK XX SCH (02:00)
[2016-08-24] MEDS: PANTOPRAZOLE 40 MG INJ IV SCH (05:39)
[2016-08-24] MEDS: DILTIAZEM 60 MG TAB PO SCH ×4 (05:40→18:14)
[2016-08-24 06:19] LABS: BASOPHILS % 0.1 % (0.0-2.0); HEMATOCRIT 22.1 % (37.0-47.0); HEMOGLOBIN 7.6 g/dl (12.0-16.0); LYMPHOCYTES # 0.7 10^3/ul (0.8-2.9); LYMPHOCYTES % 3.8 % (15.0-51.0); MEAN CORPUSCULAR HEMOGLOBIN 31.3 pg (29.0-33.0); MEAN CORPUSCULAR HGB CONC 34.5 g/dl (32.0-37.0); MEAN CORPUSCULAR VOLUME 90.9 fl (82.0-101.0); MEAN PLATELET VOLUME 8.2 fl (7.4-10.4); MONOCYTE # 1.3 10^3/ul (0.3-0.9); MONOCYTES % 7.6 % (0.0-11.0); NEUTROPHIL # 15.3 10^3/ul (1.6-7.5); NEUTROPHILS % 88.5 % (39.0-77.0); PLATELET COUNT 110 10^3/UL (140-440); RED BLOOD COUNT 2.43 10^6/ul (4.20-5.40); RED CELL DISTRIBUTION WIDTH 16.5 % (11.5-14.5); UNCORRECTED WBC 17.3 10^3/ul (4.8-10.8); WHITE BLOOD COUNT 17.3 10^3/ul (4.8-10.8)
[2016-08-24 06:20] LABS: INR 1.52; PROTIME 18.4 Sec (12.2-14.2); PT RATIO 1.4
[2016-08-24 06:21] LABS: PARTIAL THROMBOPLASTIN TIME 31.3 Sec (25.0-35.0)
[2016-08-24 06:41] LABS: CONDITION 1; LH ANALYZER COMMENTS 1
[2016-08-24 06:53] LABS: POTASSIUM 4.4 mmol/L (3.5-5.1)
[2016-08-24 06:55] LABS: CREATININE 3.03 mg/dl (0.44-1.00)
[2016-08-24 06:56] LABS: MAGNESIUM 1.6 mg/dl (1.7-2.5); PHOSPHORUS 6.4 mg/dl (2.5-4.9)
[2016-08-24 07:01] LABS: CALCIUM 5.5 mg/dl (8.4-10.2)
[2016-08-24] MEDS ORDERED: MAGNESIUM SULFATE 2 GM/50 ML 50 ML IVPB ONE (08:00)
[2016-08-24 08:07] LABS: AADO2 Arterial 145.3 mmHg (7.0-24.0); Allen Test ACCEPTAB; Arterial Base Excess -4.9 mmol/L (-3.0-3); Arterial COHb 0.1 % (0.0-3.0); Arterial Fraction of Oxyhgb 93.8 % (93.0-99.0); Arterial HCO3 19.2 mmol/L (22.0-26.0); Arterial MetHb 0.4 % (0.0-1.5); Arterial Total Hemglobin 7.1 g/dl (12.0-18.0); MODE NASAL CANNULA
[2016-08-24] MEDS: INSULIN ASPART [NOVOLOG] 3 ML PEN SC SCH ×4 (08:48→21:57)
--- NOTE | 2016-08-24 08:57 | RADRPT ---
PROCEDURE: XR Chest. CLINICAL INDICATION: Shortness of breath. TECHNIQUE: Single frontal view. COMPARISON: 08/23/2016. FINDINGS: There are sternal wires and a mitral valve replacement. There is a right arm PICC line with the tip in the cavoatrial junction region. The heart is enlarged. There is left basilar atelectasis. There are sternal wires. There is left basilar atelectasis and a possible left pleural effusion, unchanged. There is no pneumothorax. IMPRESSION: 1. No change from 08/23/2016. RPTAT: QQ .Isaiah Khanna MD, MD Date Time Electronically viewed and signed by .Isaiah Khanna MD, MD on 08/24/2016 08:56 .R/
--- NOTE | 2016-08-24 09:08 | PN ---
DATE: 08/24/2016 NEPHROLOGY FOLLOWUP NOTE SUBJECTIVE: The patient is clinically stable overnight. The patient received 2 units of PRBC, tole rated it well. Hemoglobin levels have remained stable around 7 g/dL. No other acute events noted. The patient's urinary output has improved overnight. No episodes of hemoptysis, hematemesis, or he matochezia. OBJECTIVE: VITAL SIGNS: Blood pressure is 127/95, respirations 24, pulse 84, temperature 97.8. I'S AND O'S: The patient had 3 L in with 590 mL out. HEENT: Head is normocephalic. NECK: Supple. HEART: Regular rate, positive mechanical click. LUNGS: Show diminished breath sounds at the base. ABDOMEN: Soft, nontender to palpation. Noted ecchymosis on the left flank. EXTREMITIES: Negative for clubbing, cyanosis, or edema. DERMATOLOGIC: No rashes. MUSCULOSKELETAL: No joint effusions. NEUROLOGIC: No focal deficits. LABORATORY DATA: Shows sodium 138, potassium 4.4, chloride 101, bicarbonate 24, BUN 69, creatinine 3.03, lactic acid 1.0, calcium 5.5, phosphorus 6.4, magnesium 1.6. White count 17.3, hemoglobin 7.6 , hematocrit 32.1, platelet count is 110. The patient's ABG showed a pH 7.260 with a pCO2 of 26, pO 2 of 70. Repeat urinalysis shows less than 1%, no pyuria, no hematuria. A renal ultrasound s hows bilateral hyperechoic kidneys, no hydronephrosis, large hematoma on the left flank. Chest x-ra y on August 23 shows cardiomegaly, stable-appearing left pleural effusion. ASSESSMENT AND PLAN: 1. Nonoliguric acute kidney injury on top of chronic kidney disease stage IIIB/IV with a baseline c reatinine around 1.7 to 2 mg/dL which gives an estimated GFR around 25 mL per minute per CKD-EPI for mulation. Etiology of current acute kidney injury is secondary to acute tubular necrosis due to isc hemic hypoperfusion, prerenal volume depletion from retroperitoneal bleed, severe anemia. The patie nt's urinalysis shows evidence of granular casts consistent with tubular injury. Urinalysis is othe rwise not inactive. There is no pyuria or hematuria. The patient's renal ultrasound also shows no evidence of obstruction, but does show increased renal parenchyma consistent with chronic kidney dis ease. The patient's renal function has improved in the last 24 hours with continued supportive care , IV fluids, and blood transfusion. At this point, would continue current treatment plan, continue IV hydration, maintain MAP above 65, continue transfusing PRBCs as needed to maintain hemoglobin lev els around 8 g/dL. Would otherwise continue supportive care, renally dose all medications, avoid ne phrotoxins. 2. Hyperkalemia. Etiology secondary to acute kidney injury, azotemia, and multiple blood transfusi ons. The patient's potassium levels have normalized. Will continue to monitor. 3. Metabolic anion gap acidosis with respiratory compensation. The patient had a pH of 7.26 with a pCO2 of 26, and a bicarbonate level 15. The patient was placed on bicarbonate drip. Plan is to re peat an ABG today. If acidemia is improved, will discontinue bicarbonate drip. 4. Mineral bone disorder. The patient is hypocalcemic. Will check an ionized calcium. If calcium levels remain low, will give the patient calcium gluconate. The patient currently appears asymptom atic. 5. Acute retroperitoneal bleed, etiology secondary to coagulopathy. The patient was evaluated by a general surgeon. No plan for surgery at this time. Continue to monitor H and H levels, continue b lood transfusions. 6. Anemia secondary to retroperitoneal bleed in the setting of Coumadin use and coagulopathy. The patient continues to receive blood transfusions. Continue to monitor H and H levels. 7. Mechanical cardiac valve. The patient is currently off anticoagulation in the setting of bleed. Will monitor closely. Would recommend a cardiology consult for evaluation. 8. History of congestive heart failure. The patient appears compensated. Monitor I's and O's clos refugio. 9. Chronic atrial fibrillation, currently rate controlled. Continue to monitor. 10. Diabetes. Continue Accu-Cheks and insulin sliding scale. 11. Possible pneumonia. The patient is on antibiotic therapy, continue to monitor. 12. History of hypertension. The patient is currently now normotensive. Continue IV fluids. Woul d continue blood pressure medications, monitor closely. Dictated By: GARRETT FISHMAN/CHRISTEL Conf#: [id number] DID#: [id number]
[2016-08-24] MEDS: AMLODIPINE 10 MG TAB PO SCH (09:22)
[2016-08-24] MEDS: ISOSORBIDE MONONITRATE(SR)60 MG TAB PO SCH (09:23)
[2016-08-24] MEDS: BISOPROLOL 5 MG TAB PO SCH (09:23)
[2016-08-24 10:11] LABS: AADO2 Arterial 142.1 mmHg (7.0-24.0); Allen Test ACCEPTAB; Arterial Base Excess -6.4 mmol/L (-3.0-3); Arterial COHb 0.3 % (0.0-3.0); Arterial Fraction of Oxyhgb 93.2 % (93.0-99.0); Arterial HCO3 18.3 mmol/L (22.0-26.0); Arterial MetHb 0.2 % (0.0-1.5); Arterial Total Hemglobin 9.3 g/dl (12.0-18.0); MODE NASAL CANNULA
--- NOTE | 2016-08-24 10:41 | CONS ---
Date/Time of Note Date/Time of Note DATE: 08/24/16 TIME: 10:38 Consult Date/Type/Reason Admit Date/Time Aug 22, 2016 at 01:44 Initial Consult Date Type of Consultation: pulmonary Subjective Patient continues to remain tachypneic Continues nasal cannula oxygen Remains hemodynamically stable Objective Vital Signs Date Time Temp Pulse Resp B/P Pulse Ox O2 Delivery O2 Flow Rate FiO2 08/24/16 08:00 81 08/24/16 07:00 24 127/95 96 Nasal Cannula 3.0 08/24/16 04:00 97.8 Intake and Output 08/23/16 08/23/16 08/24/16 15:00 23:00 07:00 Intake Total 1260 ml 1407.5 ml 675 ml Output Total 130 ml 435 ml Balance 1260 ml 1277.5 ml 240 ml GENERAL: Elderly [place] lady mild respiratory distress VITAL SIGNS: per chart NECK: Supple. No JVD or lymphadenopathy. CARDIAC EXAM: S1, S2. No added sounds or murmurs. CHEST: clear bilaterally, No added sounds, rales or wheezes ABDOMEN: Soft, nontender. No guarding or rebound. EXTREMITIES: No cyanosis, clubbing or edema. NEUROLOGIC: Generalized weakness. No focal deficits. Results/Medications Result Diagram: 08/24/16 0600 08/24/16 0600 Results 24 hrs Laboratory Tests Test 08/23/16 12:03 08/23/16 12:30 08/23/16 13:20 08/23/16 15:10 Lactic Acid Level 3.9 H Bedside Glucose 152 Hematocrit 21.8 L Hemoglobin 7.1 L Anion Gap 22 H Blood Urea Nitrogen 63 H Calcium Level 6.2 L Carbon Dioxide Level 15 L Chloride Level 107 Creatinine 3.33 H Glucose Level 167 Potassium Level 5.2 H Sodium Level 139 Test 08/23/16 16:48 08/23/16 17:47 08/23/16 18:00 08/23/16 19:01 Arterial Blood HCO3 11.7 L Arterial Blood Base Excess -14.1 L Arterial Blood Oxygen Saturation 91.5 L Fab Test N/A Arterial Blood Gas Puncture Site LB Arterial Blood Carboxyhemoglobin 0.3 Arterial Blood Date Drawn 08/23/2016 5:30:12 PM Arterial Blood Methemoglobin 0.4 Arterial Blood pCO2 (Temp correct) 26.6 L Arterial Blood pH (Temp corrected) 7.260 *L Arterial Blood pO2 (Temp corrected) 70.6 L Blood Gas A-a O2 Differential 68.9 H Blood Gas Critical Value Read Back NAHEED VICTOR Blood Gas Modality NASAL CANNULA Blood Gas Notified Time 08/23/2016 5:55:57 PM Blood Gas Notified Whom CW Blood Gas Specimen Source Blood arterial Blood Gas Temperature 37.0 FiO2 24.0 Oxyhemoglobin Percent 90.9 L Total Hemoglobin 7.7 L Bedside Glucose 160 Urine Amorphous Urates MODERATE Urine Bacteria MODERATE Urine Bilirubin NEGATIVE Urine Clarity SLIGHTLY CLOUDY Urine Color YELLOW Urine Glucose NEGATIVE Urine Hemoglobin TRACE Urine Hyaline Casts MANY Urine Ketones TRACE H Urine Leukocyte Esterase NEGATIVE Urine Microscopic RBC 0-2 Urine Microscopic WBC NONE SEEN Urine Nitrite NEGATIVE Urine Random Creatinine 164.69 Urine Random Sodium 27 L Urine Specific [place] >=1.030 H Urine Squamous Epithelial Cells MANY Urine Total Protein Urine Urobilinogen 0.2 E.U./dL Urine pH 5.0 Hematocrit 25.5 L Hemoglobin 8.6 #L Lactic Acid Level 3.5 H Test 08/23/16 20:33 08/24/16 00:30 08/24/16 06:00 08/24/16 07:00 Bedside Glucose 170 Hematocrit 23.2 L 22.1 L Hemoglobin 7.9 L 7.6 L Lactic Acid Level 1.5 1.0 Activated Partial Thromboplast Time 31.3 Anion Gap 17 H Basophils # 0.0 Basophils % 0.1 Blood Morphology Comment Blood Urea Nitrogen 69 H Calcium Level 5.5 *L Carbon Dioxide Level 24 Chloride Level 101 Creatinine 3.03 H Eosinophils # 0.0 Eosinophils % 0.0 Glucose Level 160 INR International Normalized Ratio 1.52 Lymphocytes # 0.7 L Lymphocytes % 3.8 L Magnesium Level 1.6 L Mean Corpuscular Hemoglobin 31.3 Mean Corpuscular Hemoglobin Concent 34.5 Mean Corpuscular Volume 90.9 Mean Platelet Volume 8.2 Monocytes # 1.3 H Monocytes % 7.6 Neutrophils # 15.3 H Neutrophils % 88.5 H Nucleated Red Blood Cells # 0.0 Nucleated Red Blood Cells % 0.0 Phosphorus Level 6.4 H Platelet Count 110 #L Potassium Level 4.4 Prothrombin Time 18.4 H Prothrombin Time Ratio 1.4 Red Blood Count 2.43 L Red Cell Distribution Width 16.5 H Sodium Level 138 White Blood Count 17.3 H Arterial Blood HCO3 19.2 L Arterial Blood Base Excess -4.9 L Arterial Blood Oxygen Saturation 94.3 L Fab Test ACCEPTAB Arterial Blood Gas Puncture Site Right Radial Arterial Blood Carboxyhemoglobin 0.1 Arterial Blood Date Drawn 08/24/2016 7:20:08 AM Arterial Blood Methemoglobin 0.4 Arterial Blood pCO2 (Temp correct) 31.4 L Arterial Blood pH (Temp corrected) 7.405 Arterial Blood pO2 (Temp corrected) 75.0 L Blood Gas A-a O2 Differential 145.3 H Blood Gas Modality NASAL CANNULA Blood Gas Notified Time 08/24/2016 8:07:41 AM Blood Gas Notified Whom JLD Blood Gas Specimen Source Blood arterial Blood Gas Temperature 37.0 FiO2 36.0 Oxyhemoglobin Percent 93.8 Total Hemoglobin 7.1 L Test 08/24/16 08:09 08/24/16 08:10 08/24/16 10:03 Ionized Calcium (Measured) 0.8 L Bedside Glucose 165 Arterial Blood HCO3 18.3 L Arterial Blood Base Excess -6.4 L Arterial Blood Oxygen Saturation 93.7 L Fab Test ACCEPTAB Arterial Blood Gas Puncture Site Right Radial Arterial Blood Carboxyhemoglobin 0.3 Arterial Blood Date Drawn 08/24/2016 10:00:10 AM Arterial Blood Methemoglobin 0.2 Arterial Blood pCO2 (Temp correct) 33.0 L Arterial Blood pH (Temp corrected) 7.361 Arterial Blood pO2 (Temp corrected) 76.3 L Blood Gas A-a O2 Differential 142.1 H Blood Gas Modality NASAL CANNULA Blood Gas Notified Time 08/24/2016 10:10:48 AM Blood Gas Notified Whom JLD Blood Gas Specimen Source Blood arterial Blood Gas Temperature 37.0 FiO2 36.0 Oxyhemoglobin Percent 93.2 Total Hemoglobin 9.3 L Medications Current Medications Amlodipine Besylate (Norvasc) 10 mg DAILY PO Last administered on 08/24/16 09: 22; Admin Dose 10 MG; Start 08/22/16 at 09:00 Benazepril HCl (Lotensin) 20 mg DAILY PO Last administered on 08/22/16 09:46; Admin Dose 20 MG; Start 08/22/16 at 09:00; Status Future Hold Bisoprolol Fumarate (Zebeta) 5 mg DAILY PO Last administered on 08/24/16 09:23 ; Admin Dose 5 MG; Start 08/22/16 at 09:00 Isosorbide Mononitrate (Imdur) 60 mg DAILY PO Last administered on 08/24/16 09: 23; Admin Dose 60 MG; Start 08/22/16 at 09:00 Tramadol HCl (Ultram) 50 mg Q6 PRN PO pain Last administered on 08/23/16 16:22 ; Admin Dose 50 MG; Start 08/22/16 at 03:00 Atorvastatin Calcium (Lipitor) 20 mg HS PO Last administered on 08/23/16 20:32 ; Admin Dose 20 MG; Start 08/22/16 at 21:00 Morphine Sulfate (morphine) 2 mg Q4 PRN IV mod pain Last administered on 03:04; Admin Dose 2 MG; Start 08/22/16 at 04:30 Furosemide (Lasix) 20 mg DAILY@06 IV Last administered on 08/24/16 05:41; Admin Dose 20 MG; Start 08/22/16 at 07:00 Ondansetron HCl (Zofran Inj) 4 mg Q6H PRN IV NAUSEA AND/OR VOMITING Last administered on 08/22/16 13:20; Admin Dose 4 MG; Start 08/22/16 at 11:30 IV Flush 10 ml 10 ml PRN PRN IV IV PROTOCOL; Start 08/22/16 at 17:30 Diltiazem HCl (Cardizem-D5W 125 Mg/125 ml Drip) 125 ml @ 5 mls/hr TITRATE IV Last administered on 08/23/16 07:01; Admin Dose 5 MLS/HR; Start 08/22/16 at 20:30 Pantoprazole 40 mg 40 mg DAILY@06 IV Last administered on 08/24/16 05:39; Admin Dose 40 MG; Start 08/23/16 at 06:00 Norepinephrine/ Dextrose (Levophed/D5W) 500 ml @ 1.87 mls/hr TITRATE IV ; Start 08/22/16 at 21:00 Miscellaneous Information 1 ea NOTE XX ; Start 08/22/16 at 21:00 Glucose (Glutose) 15 gm Q15M PRN PO DECREASED GLUCOSE; Start 08/22/16 at 21:00 Glucose (Glutose) 22.5 gm Q15M PRN PO DECREASED GLUCOSE; Start 08/22/16 at 21:00 Dextrose (D50w Syringe) 25 ml Q15M PRN IV DECREASED GLUCOSE; Start 08/22/16 at 21:00 Dextrose (D50w Syringe) 50 ml Q15M PRN IV DECREASED GLUCOSE; Start 08/22/16 at 21:00 Glucagon (Glucagen) 1 mg Q15M PRN IM DECREASED GLUCOSE; Start 08/22/16 at 21:00 Glucose (Glutose) 15 gm Q15M PRN BUCCAL DECREASED GLUCOSE; Start 08/22/16 at 21: 00 Diltiazem HCl (Cardizem) 60 mg Q6 PO Last administered on 08/24/16 05:40; Admin Dose 60 MG; Start 08/23/16 at 09:00 Diagnostic Test (Pha) 1 ea 1 ea 02 XX ; Start 08/24/16 at 02:00 Sodium Bicarbonate/ Sodium Chloride (Na Bicarb/08/22 NS) 1,000 ml @ 75 mls/hr [id number] IV Last administered on 08/23/16 20:33; Admin Dose 75 MLS/HR; Start 08/23/16 at 20:00 Assessment/Plan Chief Complaint/Hosp Course IMPRESSION AND PLAN: 1. Retroperitoneal bleed. With significant anemia 2. Acute renal failure with metabolic acidosis. Likely ATN injury no evidence of hydronephrosis 3. Evidence of pneumonia on chest CT. 4. History of atrial fibrillation. 5. History of anticoagulation. PATIENT WILL NEED: 1. Continue renal recommendations 2. Aggressive volume resuscitation. May require hemodialysis 3. Further transfusion of packed red blood cells for increasing renal perfusion 4. Deep vein thrombosis prophylaxis and GI prophylaxis. Prognosis remains guarded Problems: NAYELI CARPENTER MD, [facility] Aug 24, 2016 10:41
[2016-08-24] MEDS: SODIUM BICARBONATE (IV ADD) 50 MEQ in SOD CHLORIDE 0.45% 950 ML IV SCH ×2 (11:22→22:40)
[2016-08-24 13:26] LABS: HEMATOCRIT 22.7 % (37.0-47.0); HEMOGLOBIN 7.7 g/dl (12.0-16.0)
--- NOTE | 2016-08-24 18:02 | PN ---
DATE: 08/24/2016 SUBJECTIVE: The patient remains in the ICU. Currently, she is hemodynamically stable with acceptab le blood pressure as well as her rate is controlled. She complains of weakness, shortness of breath , and also pain in her abdomen. OBJECTIVE: VITAL SIGNS: Blood pressure on the monitor is 113/60, heart rate in the 80s, respiratory rate 20, t emperature earlier was 97.8, oxygen saturation 95% on 3 liters. GENERAL: No acute distress, but she appears weak and also at times noted to be having slight diffic ulty breathing when she speaks. HEENT: No obvious head deformity. Pupils are reactive to light. Extraocular muscles intact. CARDIOVASCULAR: Irregularly irregular. PULMONARY: Lungs have good air movement. No wheezes or rhonchi. ABDOMEN: Soft. There is a left-sided hematoma which is somehow tender to touch. There are positiv e bowel sounds. EXTREMITIES: No edema. LABORATORY DATA: WBC 17.3, hemoglobin 7.6, platelet count 110. Sodium 138, potassium 4.4, chloride 101, bicarbonate 24, BUN 69, creatinine 3.3, glucose 160, phosphorus 6.4, magnesium 1.6. IMAGING: Chest x-ray shows left basilar atelectatic and possible left pleural effusion which is unc hanged from the chest x-ray from yesterday. IMPRESSION: 1. Retroperitoneal bleeding/hematoma. 2. Chronic atrial fibrillation, currently rate controlled. 3. Acute on chronic kidney disease. 4. Anemia, secondary to #1. 5. Coagulopathy with elevated INR, corrected. 6. Possible left pleural effusion. PLAN: Continue to monitor hemoglobin closely and transfuse as needed. Her latest INR from today is 1.52, from 5 on admission. We will monitor closely. Currently, she is hemodynamically stable with out any pressor support. Her rate also has been controlled on oral diltiazem. We will continue her current medical management. Nephrology is managing her renal insufficiency. Dr. Grewal from [facility] is also on board given the retroperitoneal bleeding. As far as her diabetes is concerned, she valdez s been hyperglycemic today. We will add Lantus to her current regimen and adjust as needed. Further workup and management per clinical course. Total critical time spent is about 35 minutes. Dictated By: ANGEL ANG/CHRISTEL Conf#: [id number] DID#: [id number]
[2016-08-24 19:13] LABS: HEMATOCRIT 21.1 % (37.0-47.0); HEMOGLOBIN 7.1 g/dl (12.0-16.0)
[2016-08-24] MEDS: ATORVASTATIN 20 MG TAB PO SCH (21:51)
[2016-08-24] MEDS: INSULIN GLARGINE [LANtus] 3 ML PEN SC SCH (21:54)
--- NOTE | 2016-08-24 22:31 | PN ---
Date/Time of Note Date/Time of Note DATE: 08/24/16 TIME: 16:30 Assessment/Plan Lines/Catheters IV Catheter Type (from Nrs): PICC Line Peraza in Place (from Nrs): Yes Assessment/Plan Assessment/Plan [facility] Progress Note Date of Service: 08/24/2016 Today's Assessment & Plan: Overall stable. Bleeding seems contained and stopped. No indication for acute surgical intervention. With above assessment, I've recommended the following for today: 1. Continue current cares 2. Careful observation otherwise in those 3. Will follow with you Thank you again for your great care of this very pleasant lady and I'm certain her wonderful family. If there are any questions, please feel free to call me at [phone]. TOTAL VISIT TIME: 20 minutes of which more than half was spent in [id number] discussion with the patient as well as coordination of care between multiple physicians and providers. Disclaimer: Inadvertent spelling and grammatical errors are likely due to EHR/ dictation software use and do not reflect on the quality of delivered patient care. Also, please note that the electronic time recorded on this node does not necessarily reflect the actual time of the visit. Updated Clinical Summary: Very pleasant, but unfortunate 75-year-old lady with multiple comorbid issues; including atrial fibrillation requiring anticoagulation, congestive heart failure and perhaps other heart disease status post heart valve replacement, and a number of medical issues such as diabetes mellitus, hypertension, hyperlipidemia and gout, with TIA in the past; admitted to [facility] through the emergency department 08/21/2016 with a left flank hematoma that appeared to extend from the left hip area to mid flank region. Past and present comorbidity list: 1. Atrial fibrillation requiring anticoagulation. 2. Hypertension. 3. Congestive heart failure. 4. Diabetes mellitus. 5. Gout. 6. History of transient ischemic attacks in the past. 7. Dyslipidemia. 8. Bilateral cataract surgery. 9. History of heart valve replacement. Subjective: No major events or complaints; no significant increase in abd pain and under control with medications; no n/v/d; no sob or cp; - flatus; - BM; - activity Objective: Vitals: See below I's & O's: See below Exam: GENERAL: On exam, the patient was lying in bed and appeared to be comfortable and in no acute distress. ABDOMEN: Soft, mild to mod tender to palpation in the left flank and not sig distended. There are no peritoneal signs or guarding. SKIN: Skin appears to be pink and feels warm to touch. NEUROLOGIC: Patient is awake, alert, and follows commands appropriately. Labs: See below Exam/Review of Systems Vital Signs Vitals Vital Signs Date Time Temp Pulse Resp B/P Pulse Ox O2 Delivery O2 Flow Rate FiO2 08/24/16 20:08 76 08/24/16 20:00 98.1 20 114/58 93 08/24/16 08:00 Nasal Cannula 3.0 Intake and Output 08/23/16 08/23/16 08/24/16 15:00 23:00 07:00 Intake Total 1260 ml 1407.5 ml 675 ml Output Total 130 ml 435 ml Balance 1260 ml 1277.5 ml 240 ml Results Result Diagram: 08/24/16 1900 08/24/16 0600 ROSELYN WALLIS M.D. Aug 24, 2016 22:31
[2016-08-25] VITALS (12 sets, daily range): BP systolic 103–123; BP diastolic 53–68; PULSE 52–78; RESP 18–20
[2016-08-25 01:21] LABS: HEMATOCRIT 20.7 % (37.0-47.0)
[2016-08-25] MEDS: ACCUCHECK XX SCH (02:00)
[2016-08-25] MEDS: PANTOPRAZOLE 40 MG INJ IV SCH (06:31)
[2016-08-25] MEDS: DILTIAZEM 60 MG TAB PO SCH ×4 (06:32→17:11)
[2016-08-25] MEDS: FUROSEMIDE 20 MG INJ IV SCH ×2 (06:33→17:18)
[2016-08-25 06:53] LABS: BASOPHIL # 0.1 10^3/ul (0.0-0.1); BASOPHILS % 0.5 % (0.0-2.0); HEMATOCRIT 19.6 % (37.0-47.0); LYMPHOCYTES # 0.5 10^3/ul (0.8-2.9); LYMPHOCYTES % 3.8 % (15.0-51.0); MEAN CORPUSCULAR HEMOGLOBIN 31.9 pg (29.0-33.0); MEAN CORPUSCULAR HGB CONC 34.2 g/dl (32.0-37.0); MEAN CORPUSCULAR VOLUME 93.3 fl (82.0-101.0); MEAN PLATELET VOLUME 8.2 fl (7.4-10.4); MONOCYTES % 7.3 % (0.0-11.0); NEUTROPHIL # 12.2 10^3/ul (1.6-7.5); NEUTROPHILS % 88.4 % (39.0-77.0); PLATELET COUNT 108 10^3/UL (140-440); RED CELL DISTRIBUTION WIDTH 16.4 % (11.5-14.5); UNCORRECTED WBC 13.8 10^3/ul (4.8-10.8); WHITE BLOOD COUNT 13.8 10^3/ul (4.8-10.8)
[2016-08-25 06:55] LABS: POTASSIUM 4.1 mmol/L (3.5-5.1)
[2016-08-25 06:58] LABS: CREATININE 2.79 mg/dl (0.44-1.00)
[2016-08-25 06:59] LABS: MAGNESIUM 2.2 mg/dl (1.7-2.5); PHOSPHORUS 4.7 mg/dl (2.5-4.9)
[2016-08-25 07:00] LABS: CONDITION 1; LH ANALYZER COMMENTS 1
[2016-08-25 07:04] LABS: HEMOGLOBIN 6.7 g/dl (12.0-16.0)
[2016-08-25 07:06] LABS: CALCIUM 5.4 mg/dl (8.4-10.2)
[2016-08-25 08:40] LABS: AADO2 Arterial 119.2 mmHg (7.0-24.0); Allen Test ACCEPTAB; Arterial Base Excess -3.1 mmol/L (-3.0-3); Arterial COHb 0.3 % (0.0-3.0); Arterial Fraction of Oxyhgb 95.9 % (93.0-99.0); Arterial MetHb 0.4 % (0.0-1.5); Arterial Total Hemglobin 6.7 g/dl (12.0-18.0); MODE NASAL CANNULA
--- NOTE | 2016-08-25 09:01 | RADRPT ---
PROCEDURE: XR Chest. CLINICAL INDICATION: Pneumonia/congestive heart failure TECHNIQUE: Chest AP portable. COMPARISON: 08/24/2016 FINDINGS: Sternotomy and mitral valve replacement. Right arm PICC line with tip at SVC / RA junction. The mediastinal structures are unremarkable. There is calcification of the thoracic aorta (consiste nt with atherosclerosis). There is moderate cardiac enlargement. There is pulmonary venous hyperte nsion. There is no change in the LLL retrocardiac density (consolidation/atelectasis/effusion). Th ere are senescent changes of the axial skeleton. IMPRESSION: Moderate cardiac enlargement. Pulmonary venous hypertension. No change in LLL retrocardiac density (consolidation/atelectasis/effusion). RPTAT: HGDB .Tc Mckenna MD, Date Time Electronically viewed and signed by .Tc Mckenna MD, on 08/25/2016 09:00 .B/
[2016-08-25] MEDS: INSULIN ASPART [NOVOLOG] 3 ML PEN SC SCH ×4 (09:29→21:21)
[2016-08-25] MEDS: BISOPROLOL 5 MG TAB PO SCH (10:49)
[2016-08-25] MEDS: ISOSORBIDE MONONITRATE(SR)60 MG TAB PO SCH (10:50)
[2016-08-25] MEDS: AMLODIPINE 10 MG TAB PO SCH (10:51)
[2016-08-25 12:30] LABS: HEMATOCRIT 20.2 % (37.0-47.0)
[2016-08-25 12:36] LABS: HEMOGLOBIN 6.8 g/dl (12.0-16.0)
--- NOTE | 2016-08-25 13:28 | CONS ---
Date/Time of Note Date/Time of Note DATE: 08/25/16 TIME: 13:25 Consult Date/Type/Reason Admit Date/Time Aug 22, 2016 at 01:44 Type of Consultation: pulmonary Subjective No new events Objective Vital Signs Date Time Temp Pulse Resp B/P Pulse Ox O2 Delivery O2 Flow Rate FiO2 08/25/16 12:31 Nasal Cannula 3.0 08/25/16 12:24 78 08/25/16 12:20 20 98 08/25/16 11:37 97.7 109/68 Intake and Output 08/24/16 08/24/16 08/25/16 15:00 23:00 07:00 Intake Total 250 ml 240 ml 250 ml Output Total 125 ml 300 ml 550 ml Balance 125 ml -60 ml -300 ml GENERAL: Elderly [place] lady mild respiratory distress VITAL SIGNS: per chart NECK: Supple. No JVD or lymphadenopathy. CARDIAC EXAM: S1, S2. No added sounds or murmurs. CHEST: clear bilaterally, No added sounds, rales or wheezes ABDOMEN: Soft, nontender. No guarding or rebound. EXTREMITIES: No cyanosis, clubbing or edema. NEUROLOGIC: Generalized weakness. No focal deficits. Results/Medications Result Diagram: 08/25/16 1212 08/25/16 0540 Results 24 hrs Laboratory Tests Test 08/24/16 18:08 08/24/16 19:00 08/24/16 20:07 08/25/16 00:30 Bedside Glucose 164 221 H Hematocrit 21.1 L 20.7 L Hemoglobin 7.1 L 7.0 L Lactic Acid Level 1.2 0.8 Test 08/25/16 03:12 08/25/16 05:40 08/25/16 07:00 08/25/16 09:18 Bedside Glucose 185 171 Anion Gap 16 Basophils # 0.1 Basophils % 0.5 Blood Morphology Comment Blood Urea Nitrogen 71 H Calcium Level 5.4 *L Carbon Dioxide Level 24 Chloride Level 100 Creatinine 2.79 H Eosinophils # 0.0 Eosinophils % 0.0 Glucose Level 164 Hematocrit 19.6 L Hemoglobin 6.7 *L Hemoglobin A1c 6.1 H Lactic Acid Level 0.6 Lymphocytes # 0.5 L Lymphocytes % 3.8 L Magnesium Level 2.2 Mean Corpuscular Hemoglobin 31.9 Mean Corpuscular Hemoglobin Concent 34.2 Mean Corpuscular Volume 93.3 Mean Platelet Volume 8.2 Monocytes # 1.0 H Monocytes % 7.3 Neutrophils # 12.2 H Neutrophils % 88.4 H Nucleated Red Blood Cells # 0.0 Nucleated Red Blood Cells % 0.0 Phosphorus Level 4.7 Platelet Count 108 L Potassium Level 4.1 Red Blood Count 2.10 L Red Cell Distribution Width 16.4 H Sodium Level 136 White Blood Count 13.8 #H Arterial Blood HCO3 21.0 L Arterial Blood Base Excess -3.1 L Arterial Blood Oxygen Saturation 96.6 Fab Test ACCEPTAB Arterial Blood Gas Puncture Site Left Radial Arterial Blood Carboxyhemoglobin 0.3 Arterial Blood Date Drawn 08/25/2016 8:30:10 AM Arterial Blood Methemoglobin 0.4 Arterial Blood pCO2 (Temp correct) 32.7 L Arterial Blood pH (Temp corrected) 7.425 Arterial Blood pO2 (Temp corrected) 99.6 H Blood Gas A-a O2 Differential 119.2 H Blood Gas Critical Value Read Back Jen ELLIOTT RN Blood Gas Modality NASAL CANNULA Blood Gas Notified Time 08/25/2016 8:39:45 AM Blood Gas Notified Whom NOD Blood Gas Specimen Source Blood arterial Blood Gas Temperature 37.0 FiO2 36.0 Oxyhemoglobin Percent 95.9 Total Hemoglobin 6.7 L Test 08/25/16 12:12 08/25/16 13:12 Hematocrit 20.2 L Hemoglobin 6.8 *L Lactic Acid Level 0.8 Bedside Glucose 227 H Medications Current Medications Amlodipine Besylate (Norvasc) 10 mg DAILY PO Last administered on 08/25/16 10: 51; Admin Dose 10 MG; Start 08/22/16 at 09:00 Benazepril HCl (Lotensin) 20 mg DAILY PO Last administered on 08/22/16 09:46; Admin Dose 20 MG; Start 08/22/16 at 09:00; Status Future Hold Bisoprolol Fumarate (Zebeta) 5 mg DAILY PO Last administered on 08/25/16 10:49 ; Admin Dose 5 MG; Start 08/22/16 at 09:00 Isosorbide Mononitrate (Imdur) 60 mg DAILY PO Last administered on 08/25/16 10: 50; Admin Dose 60 MG; Start 08/22/16 at 09:00 Tramadol HCl (Ultram) 50 mg Q6 PRN PO pain Last administered on 08/23/16 16:22 ; Admin Dose 50 MG; Start 08/22/16 at 03:00 Atorvastatin Calcium (Lipitor) 20 mg HS PO Last administered on 08/24/16 21:51 ; Admin Dose 20 MG; Start 08/22/16 at 21:00 Morphine Sulfate (morphine) 2 mg Q4 PRN IV mod pain Last administered on 03:04; Admin Dose 2 MG; Start 08/22/16 at 04:30 Furosemide (Lasix) 20 mg DAILY@06 IV Last administered on 08/25/16 06:33; Admin Dose 20 MG; Start 08/22/16 at 07:00 Ondansetron HCl (Zofran Inj) 4 mg Q6H PRN IV NAUSEA AND/OR VOMITING Last administered on 08/22/16 13:20; Admin Dose 4 MG; Start 08/22/16 at 11:30 IV Flush 10 ml 10 ml PRN PRN IV IV PROTOCOL; Start 08/22/16 at 17:30 Diltiazem HCl (Cardizem-D5W 125 Mg/125 ml Drip) 125 ml @ 5 mls/hr TITRATE IV Last administered on 08/23/16 07:01; Admin Dose 5 MLS/HR; Start 08/22/16 at 20:30 Pantoprazole (Protonix Iv) 40 mg DAILY@06 IV Last administered on 08/25/16 06: 31; Admin Dose 40 MG; Start 08/23/16 at 06:00 Miscellaneous Information 1 ea NOTE XX ; Start 08/22/16 at 21:00 Glucose (Glutose) 15 gm Q15M PRN PO DECREASED GLUCOSE; Start 08/22/16 at 21:00 Glucose (Glutose) 22.5 gm Q15M PRN PO DECREASED GLUCOSE; Start 08/22/16 at 21:00 Dextrose (D50w Syringe) 25 ml Q15M PRN IV DECREASED GLUCOSE; Start 08/22/16 at 21:00 Dextrose (D50w Syringe) 50 ml Q15M PRN IV DECREASED GLUCOSE; Start 08/22/16 at 21:00 Glucagon (Glucagen) 1 mg Q15M PRN IM DECREASED GLUCOSE; Start 08/22/16 at 21:00 Glucose (Glutose) 15 gm Q15M PRN BUCCAL DECREASED GLUCOSE; Start 08/22/16 at 21: 00 Diltiazem HCl (Cardizem) 60 mg Q6 PO Last administered on 08/25/16 06:32; Admin Dose 60 MG; Start 08/23/16 at 09:00 Diagnostic Test (Pha) 1 ea 1 ea 02 XX ; Start 08/24/16 at 02:00 Sodium Bicarbonate/ Sodium Chloride (Na Bicarb/1/2 NS) 1,000 ml @ 75 mls/hr [id number] IV Last administered on 08/24/16 11:22; Admin Dose 75 MLS/HR; Start 08/23/16 at 20:00 Insulin Glargine (Lantus) 12 unit QHS SC Last administered on 08/24/16 21:54; Admin Dose 12 UNIT; Start 08/24/16 at 21:00 Assessment/Plan Chief Complaint/Hosp Course IMPRESSION AND PLAN: 1. Retroperitoneal bleed. With significant anemia 2. Acute renal failure with metabolic acidosis. Likely ATN injury no evidence of hydronephrosis 3. Evidence of pneumonia on chest CT. 4. History of atrial fibrillation. 5. History of anticoagulation. PATIENT WILL NEED: 1. Continue renal recommendations, improved bicarb noted. 2. Aggressive volume resuscitation. May require hemodialysis 3. Further transfusion of packed red blood cells for increasing renal perfusion 4. Deep vein thrombosis prophylaxis and GI prophylaxis. Prognosis remains guarded surgical recommendations, IR eval ? continued bleeding noted. Problems: NAYELI CARPENTER MD, [facility] Aug 25, 2016 13:28
--- NOTE | 2016-08-25 14:12 | CONS ---
Date/Time of Note Date/Time of Note DATE: 08/25/16 TIME: 14:07 Consult Date/Type/Reason Admit Date/Time Aug 22, 2016 at 01:44 Initial Consult Date Type of Consultation: neph Subjective The patient is clinically stable overnight. The patient received 2 units of PRBC, tolerated it well. Hemoglobin levels have remained stable around 7 g/dL. No other acute events noted. The patient's urinary output has improved overnight. No episodes of hemoptysis, hematemesis, or hematochezia. OBJECTIVE: VITAL SIGNS: Blood pressure is 127/95, respirations 24, pulse 84, temperature 97.8. I'S AND O'S: The patient had 3 L in with 590 mL out. HEENT: Head is normocephalic. NECK: Supple. HEART: Regular rate, positive mechanical click. LUNGS: Show diminished breath sounds at the base. ABDOMEN: Soft, nontender to palpation. Noted ecchymosis on the left flank. EXTREMITIES: Negative for clubbing, cyanosis, or edema. DERMATOLOGIC: No rashes. MUSCULOSKELETAL: No joint effusions. NEUROLOGIC: No focal deficits. ASSESSMENT AND PLAN: 1. Nonoliguric acute kidney injury on top of chronic kidney disease stage IIIB/ IV with a baseline creatinine around 1.7 to 2 mg/dL which gives an estimated GFR around 25 mL per minute per CKD-EPI formulation. Etiology of current acute kidney injury is secondary to acute tubular necrosis due to ischemic hypoperfusion, prerenal volume depletion from retroperitoneal bleed, severe anemia. The patient's urinalysis shows evidence of granular casts consistent with tubular injury. Urinalysis is otherwise not inactive. There is no pyuria or hematuria. The patient's renal ultrasound also shows no evidence of obstruction, but does show increased renal parenchyma consistent with chronic kidney disease. The patient's renal function has improved in the last 24 hours with continued supportive care, IV fluids, and recent blood transfusion. At this point, would continue current treatment plan, continue IV hydration, maintain MAP above 65, continue transfusing PRBCs as needed to maintain hemoglobin levels around 8 g/dL. Would otherwise continue supportive care, renally dose all medications, avoid nephrotoxins. 2. Hyperkalemia. Etiology secondary to acute kidney injury, azotemia, and multiple blood transfusions. The patient's potassium levels have normalized. Will continue to monitor. 3. Metabolic anion gap acidosis with respiratory compensation. improved. will dc hco3 4. Mineral bone disorder. The patient is hypocalcemic. Will check an ionized calcium. If calcium levels remain low, will give the patient calcium gluconate. The patient currently appears asymptomatic. 5. Acute retroperitoneal bleed, etiology secondary to coagulopathy. The patient was evaluated by a general surgeon. No plan for surgery at this time. Continue to monitor H and H levels, continue blood transfusions. 6. Anemia secondary to retroperitoneal bleed in the setting of Coumadin use and coagulopathy. The patient continues to receive blood transfusions. Continue to monitor H and H levels. 7. Mechanical cardiac valve. The patient is currently off anticoagulation in the setting of bleed. Will monitor closely. Would recommend a cardiology consult for evaluation. 8. History of congestive heart failure. The patient appears compensated. Monitor I's and O's closely. 9. Chronic atrial fibrillation, currently rate controlled. Continue to monitor. 10. Diabetes. Continue Accu-Cheks and insulin sliding scale. 11. Possible pneumonia. The patient is on antibiotic therapy, continue to monitor. 12. History of hypertension. The patient is currently now normotensive. Continue IV fluids. Would continue current blood pressure medications, monitor closely. Objective Vital Signs Date Time Temp Pulse Resp B/P Pulse Ox O2 Delivery O2 Flow Rate FiO2 08/25/16 12:31 Nasal Cannula 3.0 08/25/16 12:24 78 08/25/16 12:20 20 98 08/25/16 11:37 97.7 109/68 Intake and Output 08/24/16 08/24/16 08/25/16 15:00 23:00 07:00 Intake Total 250 ml 240 ml 250 ml Output Total 125 ml 300 ml 550 ml Balance 125 ml -60 ml -300 ml Results/Medications Result Diagram: 08/25/16 1212 08/25/16 0540 Results 24 hrs Laboratory Tests Test 08/24/16 18:08 08/24/16 19:00 08/24/16 20:07 08/25/16 00:30 Bedside Glucose 164 221 H Hematocrit 21.1 L 20.7 L Hemoglobin 7.1 L 7.0 L Lactic Acid Level 1.2 0.8 Test 08/25/16 03:12 08/25/16 05:40 08/25/16 07:00 08/25/16 09:18 Bedside Glucose 185 171 Anion Gap 16 Basophils # 0.1 Basophils % 0.5 Blood Morphology Comment Blood Urea Nitrogen 71 H Calcium Level 5.4 *L Carbon Dioxide Level 24 Chloride Level 100 Creatinine 2.79 H Eosinophils # 0.0 Eosinophils % 0.0 Glucose Level 164 Hematocrit 19.6 L Hemoglobin 6.7 *L Hemoglobin A1c 6.1 H Lactic Acid Level 0.6 Lymphocytes # 0.5 L Lymphocytes % 3.8 L Magnesium Level 2.2 Mean Corpuscular Hemoglobin 31.9 Mean Corpuscular Hemoglobin Concent 34.2 Mean Corpuscular Volume 93.3 Mean Platelet Volume 8.2 Monocytes # 1.0 H Monocytes % 7.3 Neutrophils # 12.2 H Neutrophils % 88.4 H Nucleated Red Blood Cells # 0.0 Nucleated Red Blood Cells % 0.0 Phosphorus Level 4.7 Platelet Count 108 L Potassium Level 4.1 Red Blood Count 2.10 L Red Cell Distribution Width 16.4 H Sodium Level 136 White Blood Count 13.8 #H Arterial Blood HCO3 21.0 L Arterial Blood Base Excess -3.1 L Arterial Blood Oxygen Saturation 96.6 Fab Test ACCEPTAB Arterial Blood Gas Puncture Site Left Radial Arterial Blood Carboxyhemoglobin 0.3 Arterial Blood Date Drawn 08/25/2016 8:30:10 AM Arterial Blood Methemoglobin 0.4 Arterial Blood pCO2 (Temp correct) 32.7 L Arterial Blood pH (Temp corrected) 7.425 Arterial Blood pO2 (Temp corrected) 99.6 H Blood Gas A-a O2 Differential 119.2 H Blood Gas Critical Value Read Back Jen ELLIOTT RN Blood Gas Modality NASAL CANNULA Blood Gas Notified Time 08/25/2016 8:39:45 AM Blood Gas Notified Whom VI Blood Gas Specimen Source Blood arterial Blood Gas Temperature 37.0 FiO2 36.0 Oxyhemoglobin Percent 95.9 Total Hemoglobin 6.7 L Test 08/25/16 12:12 08/25/16 13:12 Hematocrit 20.2 L Hemoglobin 6.8 *L Lactic Acid Level 0.8 Bedside Glucose 227 H Medications Current Medications Amlodipine Besylate (Norvasc) 10 mg DAILY PO Last administered on 08/25/16 10: 51; Admin Dose 10 MG; Start 08/22/16 at 09:00 Benazepril HCl (Lotensin) 20 mg DAILY PO Last administered on 08/22/16 09:46; Admin Dose 20 MG; Start 08/22/16 at 09:00; Status Future Hold Bisoprolol Fumarate (Zebeta) 5 mg DAILY PO Last administered on 08/25/16 10:49 ; Admin Dose 5 MG; Start 08/22/16 at 09:00 Isosorbide Mononitrate (Imdur) 60 mg DAILY PO Last administered on 08/25/16 10: 50; Admin Dose 60 MG; Start 08/22/16 at 09:00 Tramadol HCl (Ultram) 50 mg Q6 PRN PO pain Last administered on 08/23/16 16:22 ; Admin Dose 50 MG; Start 08/22/16 at 03:00 Atorvastatin Calcium (Lipitor) 20 mg HS PO Last administered on 08/24/16 21:51 ; Admin Dose 20 MG; Start 08/22/16 at 21:00 Morphine Sulfate (morphine) 2 mg Q4 PRN IV mod pain Last administered on 03:04; Admin Dose 2 MG; Start 08/22/16 at 04:30 Furosemide (Lasix) 20 mg DAILY@06 IV Last administered on 08/25/16 06:33; Admin Dose 20 MG; Start 08/22/16 at 07:00 Ondansetron HCl (Zofran Inj) 4 mg Q6H PRN IV NAUSEA AND/OR VOMITING Last administered on 08/22/16 13:20; Admin Dose 4 MG; Start 08/22/16 at 11:30 IV Flush 10 ml 10 ml PRN PRN IV IV PROTOCOL; Start 08/22/16 at 17:30 Diltiazem HCl (Cardizem-D5W 125 Mg/125 ml Drip) 125 ml @ 5 mls/hr TITRATE IV Last administered on 08/23/16 07:01; Admin Dose 5 MLS/HR; Start 08/22/16 at 20:30 Pantoprazole (Protonix Iv) 40 mg DAILY@06 IV Last administered on 08/25/16 06: 31; Admin Dose 40 MG; Start 08/23/16 at 06:00 Miscellaneous Information 1 ea NOTE XX ; Start 08/22/16 at 21:00 Glucose (Glutose) 15 gm Q15M PRN PO DECREASED GLUCOSE; Start 08/22/16 at 21:00 Glucose (Glutose) 22.5 gm Q15M PRN PO DECREASED GLUCOSE; Start 08/22/16 at 21:00 Dextrose (D50w Syringe) 25 ml Q15M PRN IV DECREASED GLUCOSE; Start 08/22/16 at 21:00 Dextrose (D50w Syringe) 50 ml Q15M PRN IV DECREASED GLUCOSE; Start 08/22/16 at 21:00 Glucagon (Glucagen) 1 mg Q15M PRN IM DECREASED GLUCOSE; Start 08/22/16 at 21:00 Glucose (Glutose) 15 gm Q15M PRN BUCCAL DECREASED GLUCOSE; Start 08/22/16 at 21: 00 Diltiazem HCl (Cardizem) 60 mg Q6 PO Last administered on 08/25/16 06:32; Admin Dose 60 MG; Start 08/23/16 at 09:00 Diagnostic Test (Pha) 1 ea 1 ea 02 XX ; Start 08/24/16 at 02:00 Sodium Bicarbonate/ Sodium Chloride (Na Bicarb/1/2 NS) 1,000 ml @ 75 mls/hr [id number] IV Last administered on 08/24/16 11:22; Admin Dose 75 MLS/HR; Start 08/23/16 at 20:00 Insulin Glargine (Lantus) 12 unit QHS SC Last administered on 08/24/16 21:54; Admin Dose 12 UNIT; Start 08/24/16 at 21:00 NATHAN BRITTON MD Aug 25, 2016 14:12
[2016-08-25] MEDS: SOD CHLORIDE 0.45% 1,000 ML IV SCH (14:30)
[2016-08-25 16:15] LABS: MICROALBUMIN 0.5 mg/dL
[2016-08-25] MEDS ORDERED: ALBUMIN HUMAN 25% 100 ML IV ONE (16:30)
--- NOTE | 2016-08-25 17:45 | PN ---
Date/Time of Note Date/Time of Note DATE: 08/25/16 TIME: 17:43 Assessment/Plan Lines/Catheters IV Catheter Type (from [facility]): PICC Line Per[facility] in Place (from [facility]): Yes Assessment/Plan Assessment/Plan [facility] Progress Note Date of Service: 08/25/2016 Today's Assessment & Plan: Overall stable. No further evidence of major hemorrhage. No indication for acute surgical intervention. No indication for interventional radiology intervention. Hemoglobin remains low but seems to be stable. Would recommend blood transfusion if patient is symptomatic or if deemed necessary by other physicians. With above assessment, I've recommended the following for today: 1. Continue current cares 2. Careful observation otherwise in those 3. Will follow with you Thank you again for your great care of this very pleasant lady and I'm certain her wonderful family. If there are any questions, please feel free to call me at [phone]. TOTAL VISIT TIME: 20 minutes of which more than half was spent in [id number] discussion with the patient as well as coordination of care between multiple physicians and providers. Disclaimer: Inadvertent spelling and grammatical errors are likely due to EHR/ dictation software use and do not reflect on the quality of delivered patient care. Also, please note that the electronic time recorded on this node does not necessarily reflect the actual time of the visit. Updated Clinical Summary: Very pleasant, but unfortunate 75-year-old lady with multiple comorbid issues; including atrial fibrillation requiring anticoagulation, congestive heart failure and perhaps other heart disease status post heart valve replacement, and a number of medical issues such as diabetes mellitus, hypertension, hyperlipidemia and gout, with TIA in the past; admitted to [facility] through the emergency department 08/21/2016 with a left flank hematoma that appeared to extend from the left hip area to mid flank region. Past and present comorbidity list: 1. Atrial fibrillation requiring anticoagulation. 2. Hypertension. 3. Congestive heart failure. 4. Diabetes mellitus. 5. Gout. 6. History of transient ischemic attacks in the past. 7. Dyslipidemia. 8. Bilateral cataract surgery. 9. History of heart valve replacement. Subjective: No major events or complaints; no significant increase in abd pain and under control with medications; no n/v/d; no sob or cp; - flatus; - BM; - activity; being visited by her son and family. Objective: Vitals: See below I's & O's: See below Exam: GENERAL: On exam, the patient was lying in bed and appeared to be comfortable and in no acute distress. ABDOMEN: Soft, mild to mod tender to palpation in the left flank and not sig distended. There are no peritoneal signs or guarding. SKIN: Skin appears to be pink and feels warm to touch. NEUROLOGIC: Patient is awake, alert, and follows commands appropriately. Labs: See below Exam/Review of Systems Vital Signs Vitals Vital Signs Date Time Temp Pulse Resp B/P Pulse Ox O2 Delivery O2 Flow Rate FiO2 08/25/16 16:47 76 08/25/16 16:07 98.6 20 109/53 98 08/25/16 12:31 Nasal Cannula 3.0 Intake and Output 08/24/16 08/24/16 08/25/16 15:00 23:00 07:00 Intake Total 250 ml 240 ml 250 ml Output Total 125 ml 300 ml 550 ml Balance 125 ml -60 ml -300 ml Results Result Diagram: 08/25/16 1212 08/25/16 0540 ROSELYN WALLIS M.D. Aug 25, 2016 17:45
[2016-08-25 18:59] LABS: HEMATOCRIT 20.4 % (37.0-47.0)
[2016-08-25 19:08] LABS: HEMOGLOBIN 6.8 g/dl (12.0-16.0)
[2016-08-25] MEDS: ATORVASTATIN 20 MG TAB PO SCH (21:20)
[2016-08-25] MEDS: INSULIN GLARGINE [LANtus] 3 ML PEN SC SCH (21:22)
--- NOTE | 2016-08-25 22:52 | PN ---
Date/Time of Note Date/Time of Note DATE: 08/25/16 TIME: 22:52 Assessment/Plan VTE Prophylaxis VTE Prophylaxis Intervention: SCD's Lines/Catheters IV [facility]ter Type (from [facility]): PICC Line Urinary Cath still in place: Yes Assessment/Plan Assessment/Plan IMPRESSION: 1. Retroperitoneal bleeding/hematoma. 2. Chronic atrial fibrillation, currently rate controlled. 3. Acute on chronic kidney disease. 4. Anemia, secondary to #1. 5. Coagulopathy with elevated INR, corrected. 6. Possible left pleural effusion. PLAN: will increase dose of lasix Continue to monitor hemoglobin closely and transfuse as needed. INR has been corrected We will monitor closely. Currently, she is hemodynamically stable without any pressor support. Her rate also has been controlled on oral diltiazem. We will continue her current medical management. Nephrology is managing her renal insufficiency. Dr. Grewal from surgery is also on board given the retroperitoneal bleeding. Cont insulin and adjust as needed Further workup and management per clinical course. Total critical time spent is about 35 minutes. Subjective 24 Hr Interval Summary Free Text/Dictation c/o shortness of breath Exam/Review of Systems Vital Signs Vitals Vital Signs Date Time Temp Pulse Resp B/P Pulse Ox O2 Delivery O2 Flow Rate FiO2 08/25/16 20:30 Nasal Cannula 3.0 08/25/16 20:28 71 08/25/16 20:00 98.2 19 103/53 94 Intake and Output 08/24/16 08/24/16 08/25/16 15:00 23:00 07:00 Intake Total 250 ml 240 ml 250 ml Output Total 125 ml 300 ml 550 ml Balance 125 ml -60 ml -300 ml Exam GENERAL: No acute distress, but she appears weak and also at times noted to be having slight difficulty breathing when she speaks. HEENT: No obvious head deformity. Pupils are reactive to light. Extraocular muscles intact. CARDIOVASCULAR: Irregularly irregular. PULMONARY: Lungs have good air movement. No wheezes or rhonchi. ABDOMEN: Soft. There is a left-sided hematoma which is somehow tender to touch. There are positive bowel sounds. EXTREMITIES: No edema. Results Result Diagram: 08/25/16 1839 08/25/16 0540 Results 24 hrs Laboratory Tests Test 08/25/16 00:30 08/25/16 03:12 08/25/16 05:40 08/25/16 07:00 Hematocrit 20.7 L 19.6 L Hemoglobin 7.0 L 6.7 *L Lactic Acid Level 0.8 0.6 Bedside Glucose 185 Anion Gap 16 Basophils # 0.1 Basophils % 0.5 Blood Morphology Comment Blood Urea Nitrogen 71 H Calcium Level 5.4 *L Carbon Dioxide Level 24 Chloride Level 100 Creatinine 2.79 H Eosinophils # 0.0 Eosinophils % 0.0 Glucose Level 164 Hemoglobin A1c 6.1 H Lymphocytes # 0.5 L Lymphocytes % 3.8 L Magnesium Level 2.2 Mean Corpuscular Hemoglobin 31.9 Mean Corpuscular Hemoglobin Concent 34.2 Mean Corpuscular Volume 93.3 Mean Platelet Volume 8.2 Monocytes # 1.0 H Monocytes % 7.3 Neutrophils # 12.2 H Neutrophils % 88.4 H Nucleated Red Blood Cells # 0.0 Nucleated Red Blood Cells % 0.0 Phosphorus Level 4.7 Platelet Count 108 L Potassium Level 4.1 Red Blood Count 2.10 L Red Cell Distribution Width 16.4 H Sodium Level 136 White Blood Count 13.8 #H Arterial Blood HCO3 21.0 L Arterial Blood Base Excess -3.1 L Arterial Blood Oxygen Saturation 96.6 Fab Test ACCEPTAB Arterial Blood Gas Puncture Site Left Radial Arterial Blood Carboxyhemoglobin 0.3 Arterial Blood Date Drawn 08/25/2016 8:30:10 AM Arterial Blood Methemoglobin 0.4 Arterial Blood pCO2 (Temp correct) 32.7 L Arterial Blood pH (Temp corrected) 7.425 Arterial Blood pO2 (Temp corrected) 99.6 H Blood Gas A-a O2 Differential 119.2 H Blood Gas Critical Value Read Back Jen ELLIOTT RN Blood Gas Modality NASAL CANNULA Blood Gas Notified Time 08/25/2016 8:39:45 AM Blood Gas Notified Whom VI Blood Gas Specimen Source Blood arterial Blood Gas Temperature 37.0 FiO2 36.0 Oxyhemoglobin Percent 95.9 Total Hemoglobin 6.7 L Test 08/25/16 09:18 08/25/16 12:12 08/25/16 13:12 08/25/16 17:20 Bedside Glucose 171 227 H 260 H Hematocrit 20.2 L Hemoglobin 6.8 *L Lactic Acid Level 0.8 Test 08/25/16 18:39 08/25/16 20:50 Hematocrit 20.4 L Hemoglobin 6.8 *L Lactic Acid Level 2.8 H Bedside Glucose 238 H Medications Medications Current Medications Amlodipine Besylate (Norvasc) 10 mg DAILY PO Last administered on 08/25/16 10: 51; Admin Dose 10 MG; Start 08/22/16 at 09:00 Benazepril HCl (Lotensin) 20 mg DAILY PO Last administered on 08/22/16 09:46; Admin Dose 20 MG; Start 08/22/16 at 09:00; Status Future Hold Bisoprolol Fumarate (Zebeta) 5 mg DAILY PO Last administered on 08/25/16 10:49 ; Admin Dose 5 MG; Start 08/22/16 at 09:00 Isosorbide Mononitrate (Imdur) 60 mg DAILY PO Last administered on 08/25/16 10: 50; Admin Dose 60 MG; Start 08/22/16 at 09:00 Tramadol HCl (Ultram) 50 mg Q6 PRN PO pain Last administered on 08/23/16 16:22 ; Admin Dose 50 MG; Start 08/22/16 at 03:00 Atorvastatin Calcium (Lipitor) 20 mg HS PO Last administered on 08/25/16 21:20 ; Admin Dose 20 MG; Start 08/22/16 at 21:00 Morphine Sulfate (morphine) 2 mg Q4 PRN IV mod pain Last administered on 03:04; Admin Dose 2 MG; Start 08/22/16 at 04:30 Ondansetron HCl (Zofran Inj) 4 mg Q6H PRN IV NAUSEA AND/OR VOMITING Last administered on 08/22/16 13:20; Admin Dose 4 MG; Start 08/22/16 at 11:30 IV Flush 10 ml 10 ml PRN PRN IV IV PROTOCOL; Start 08/22/16 at 17:30 Diltiazem HCl (Cardizem-D5W 125 Mg/125 ml Drip) 125 ml @ 5 mls/hr TITRATE IV Last administered on 08/23/16 07:01; Admin Dose 5 MLS/HR; Start 08/22/16 at 20:30 Pantoprazole (Protonix Iv) 40 mg DAILY@06 IV Last administered on 08/25/16 06: 31; Admin Dose 40 MG; Start 08/23/16 at 06:00 Miscellaneous Information 1 ea NOTE XX ; Start 08/22/16 at 21:00 Glucose (Glutose) 15 gm Q15M PRN PO DECREASED GLUCOSE; Start 08/22/16 at 21:00 Glucose (Glutose) 22.5 gm Q15M PRN PO DECREASED GLUCOSE; Start 08/22/16 at 21:00 Dextrose (D50w Syringe) 25 ml Q15M PRN IV DECREASED GLUCOSE; Start 08/22/16 at 21:00 Dextrose (D50w Syringe) 50 ml Q15M PRN IV DECREASED GLUCOSE; Start 08/22/16 at 21:00 Glucagon (Glucagen) 1 mg Q15M PRN IM DECREASED GLUCOSE; Start 08/22/16 at 21:00 Glucose (Glutose) 15 gm Q15M PRN BUCCAL DECREASED GLUCOSE; Start 08/22/16 at 21: 00 Diltiazem HCl (Cardizem) 60 mg Q6 PO Last administered on 08/25/16 17:11; Admin Dose 60 MG; Start 08/23/16 at 09:00 Diagnostic Test (Pha) (Accucheck) 1 ea 02 XX ; Start 08/24/16 at 02:00 Insulin Glargine 12 unit 12 unit QHS SC Last administered on 08/25/16 21:22; Admin Dose 12 UNIT; Start 08/24/16 at 21:00 Sodium Chloride (1/2 NS) 1,000 ml @ 50 mls/hr Q20H IV Last administered on 08/25 14:30; Admin Dose 50 MLS/HR; Start 08/25/16 at 14:30 ANGEL ASHLEY MD Aug 25, 2016 22:52
[2016-08-26] VITALS (11 sets, daily range): BP systolic 110–132; BP diastolic 53–67; PULSE 62–87; RESP 16–19
[2016-08-26] MEDS ORDERED: ALBUTEROL/IPRATROPIUM (NEB) 3 ML AMP HHN PRN (00:11)
[2016-08-26] MEDS: DILTIAZEM 60 MG TAB PO SCH ×4 (01:04→17:05)
[2016-08-26] MEDS: ACCUCHECK XX SCH (02:00)
[2016-08-26] MEDS: FUROSEMIDE 20 MG INJ IV SCH ×2 (06:45→17:10)
[2016-08-26] MEDS: PANTOPRAZOLE 40 MG INJ IV SCH (06:45)
[2016-08-26] MEDS: INSULIN ASPART [NOVOLOG] 3 ML PEN SC SCH ×4 (07:44→21:00)
[2016-08-26 07:50] LABS: BASOPHILS % 0.1 % (0.0-2.0); EOSINOPHILS % 0.1 % (0.0-7.0); HEMATOCRIT 18.1 % (37.0-47.0); LYMPHOCYTES # 0.5 10^3/ul (0.8-2.9); MEAN CORPUSCULAR HEMOGLOBIN 31.6 pg (29.0-33.0); MEAN CORPUSCULAR HGB CONC 33.8 g/dl (32.0-37.0); MEAN CORPUSCULAR VOLUME 93.4 fl (82.0-101.0); MONOCYTE # 0.9 10^3/ul (0.3-0.9); MONOCYTES % 9.2 % (0.0-11.0); NEUTROPHIL # 8.8 10^3/ul (1.6-7.5); NEUTROPHILS % 85.6 % (39.0-77.0); PLATELET COUNT 106 10^3/UL (140-440); RED BLOOD COUNT 1.94 10^6/ul (4.20-5.40); UNCORRECTED WBC 10.3 10^3/ul (4.8-10.8); WHITE BLOOD COUNT 10.3 10^3/ul (4.8-10.8)
[2016-08-26 07:59] LABS: POTASSIUM 3.5 mmol/L (3.5-5.1)
[2016-08-26 08:00] LABS: CONDITION 1; HEMOGLOBIN 6.1 g/dl (12.0-16.0); LH ANALYZER COMMENTS 1
[2016-08-26 08:02] LABS: CREATININE 2.39 mg/dl (0.44-1.00)
[2016-08-26 08:09] LABS: CALCIUM 5.5 mg/dl (8.4-10.2)
[2016-08-26] MEDS: AMLODIPINE 10 MG TAB PO SCH (09:00)
[2016-08-26] MEDS: ISOSORBIDE MONONITRATE(SR)60 MG TAB PO SCH (09:00)
[2016-08-26] MEDS: BISOPROLOL 5 MG TAB PO SCH (09:20)
[2016-08-26] MEDS ORDERED: FUROSEMIDE 20 MG INJ IV ONE (09:30)
[2016-08-26] MEDS: SOD CHLORIDE 0.45% 1,000 ML IV SCH (10:30)
--- NOTE | 2016-08-26 12:20 | CONS ---
Date/Time of Note Date/Time of Note DATE: 08/26/16 TIME: 12:17 Consult Date/Type/Reason Admit Date/Time Aug 22, 2016 at 01:44 Type of Consultation: Pulm Subjective Appears comfortable. denies shortness of breath Objective Vital Signs Date Time Temp Pulse Resp B/P Pulse Ox O2 Delivery O2 Flow Rate FiO2 08/26/16 11:21 97.8 65 16 120/60 96 08/26/16 08:10 Nasal Cannula 3.0 08/26/16 01:14 32 Intake and Output 08/25/16 08/25/16 08/26/16 14:59 22:59 06:59 Intake Total 360 ml 850 ml Output Total 2000 ml 1200 ml Balance -1640 ml -350 ml GENERAL: Elderly [place] lady no respiratory distress VITAL SIGNS: per chart NECK: Supple. No JVD or lymphadenopathy. CARDIAC EXAM: S1, S2. No added sounds or murmurs. CHEST: clear bilaterally, No added sounds, rales or wheezes ABDOMEN: Soft, nontender. No guarding or rebound. EXTREMITIES: No cyanosis, clubbing or edema. NEUROLOGIC: Generalized weakness. No focal deficits. Results/Medications Result Diagram: 08/26/1615 08/26/16 0715 Results 24 hrs Laboratory Tests Test 08/25/16 13:12 08/25/16 17:20 08/25/16 18:39 08/25/16 20:50 Bedside Glucose 227 H 260 H 238 H Hematocrit 20.4 L Hemoglobin 6.8 *L Lactic Acid Level 2.8 H Test 08/26/16 02:14 08/26/16 07:15 08/26/16 07:40 08/26/16 09:13 Bedside Glucose 256 H 231 H Anion Gap 13 Basophils # 0.0 Basophils % 0.1 Blood Morphology Comment Blood Urea Nitrogen 55 H Calcium Level 5.5 *L Carbon Dioxide Level 27 Chloride Level 101 Creatinine 2.39 H Differential Comment AUTO w/SCAN Eosinophils # 0.0 Eosinophils % 0.1 Glucose Level 186 Hematocrit 18.1 L Hemoglobin 6.1 *L Lymphocytes # 0.5 L Lymphocytes % 5.0 L Mean Corpuscular Hemoglobin 31.6 Mean Corpuscular Hemoglobin Concent 33.8 Mean Corpuscular Volume 93.4 Mean Platelet Volume 8.0 Monocytes # 0.9 Monocytes % 9.2 Neutrophils # 8.8 H Neutrophils % 85.6 H Nucleated Red Blood Cells # 0.0 Nucleated Red Blood Cells % 0.0 Platelet Count 106 L Potassium Level 3.5 Red Blood Count 1.94 L Red Cell Distribution Width 16.0 H Sodium Level 137 White Blood Count 10.3 # Lab Scanned Report REFERENCE LAB Test 08/26/16 11:38 Bedside Glucose 172 Medications Current Medications Amlodipine Besylate (Norvasc) 10 mg DAILY PO Last administered on 08/25/16 10: 51; Admin Dose 10 MG; Start 08/22/16 at 09:00 Benazepril HCl (Lotensin) 20 mg DAILY PO Last administered on 08/22/16 09:46; Admin Dose 20 MG; Start 08/22/16 at 09:00; Status Future Hold Bisoprolol Fumarate (Zebeta) 5 mg DAILY PO Last administered on 08/26/16 09:20 ; Admin Dose 5 MG; Start 08/22/16 at 09:00 Isosorbide Mononitrate (Imdur) 60 mg DAILY PO Last administered on 08/25/16 10: 50; Admin Dose 60 MG; Start 08/22/16 at 09:00 Tramadol HCl (Ultram) 50 mg Q6 PRN PO pain Last administered on 08/23/16 16:22 ; Admin Dose 50 MG; Start 08/22/16 at 03:00 Atorvastatin Calcium (Lipitor) 20 mg HS PO Last administered on 08/25/16 21:20 ; Admin Dose 20 MG; Start 08/22/16 at 21:00 Morphine Sulfate (morphine) 2 mg Q4 PRN IV mod pain Last administered on 03:04; Admin Dose 2 MG; Start 08/22/16 at 04:30 Ondansetron HCl (Zofran Inj) 4 mg Q6H PRN IV NAUSEA AND/OR VOMITING Last administered on 08/22/16 13:20; Admin Dose 4 MG; Start 08/22/16 at 11:30 IV Flush 10 ml 10 ml PRN PRN IV IV PROTOCOL; Start 08/22/16 at 17:30 Diltiazem HCl (Cardizem-D5W 125 Mg/125 ml Drip) 125 ml @ 5 mls/hr TITRATE IV Last administered on 08/23/16 07:01; Admin Dose 5 MLS/HR; Start 08/22/16 at 20:30 Pantoprazole (Protonix Iv) 40 mg DAILY@06 IV Last administered on 08/26/16 06: 45; Admin Dose 40 MG; Start 08/23/16 at 06:00 Miscellaneous Information 1 ea NOTE XX ; Start 08/22/16 at 21:00 Glucose (Glutose) 15 gm Q15M PRN PO DECREASED GLUCOSE; Start 08/22/16 at 21:00 Glucose (Glutose) 22.5 gm Q15M PRN PO DECREASED GLUCOSE; Start 08/22/16 at 21:00 Dextrose (D50w Syringe) 25 ml Q15M PRN IV DECREASED GLUCOSE; Start 08/22/16 at 21:00 Dextrose (D50w Syringe) 50 ml Q15M PRN IV DECREASED GLUCOSE; Start 08/22/16 at 21:00 Glucagon (Glucagen) 1 mg Q15M PRN IM DECREASED GLUCOSE; Start 08/22/16 at 21:00 Glucose (Glutose) 15 gm Q15M PRN BUCCAL DECREASED GLUCOSE; Start 08/22/16 at 21: 00 Diltiazem HCl (Cardizem) 60 mg Q6 PO Last administered on 08/26/16 11:44; Admin Dose 60 MG; Start 08/23/16 at 09:00 Diagnostic Test (Pha) (Accucheck) 1 ea 02 XX ; Start 08/24/16 at 02:00 Insulin Glargine 12 unit 12 unit QHS SC Last administered on 08/25/16 21:22; Admin Dose 12 UNIT; Start 08/24/16 at 21:00 Sodium Chloride (1/2 NS) 1,000 ml @ 50 mls/hr Q20H IV Last administered on 08/25 14:30; Admin Dose 50 MLS/HR; Start 08/25/16 at 14:30 Assessment/Plan Chief Complaint/Hosp Course IMPRESSION AND PLAN: 1. Retroperitoneal bleed. With significant anemia, Hb continues to drift down. 2. Acute renal failure with metabolic acidosis. Likely ATN injury no evidence of hydronephrosis 3. Evidence of pneumonia on chest CT. 4. History of atrial fibrillation. 5. History of anticoagulation. PATIENT WILL NEED: 1. Continue renal recommendations, improved bicarb noted. 2. Aggressive volume resuscitation. May require hemodialysis 3. Further transfusion of packed red blood cells for increasing renal perfusion. Consider repeat transfusion. 4. Deep vein thrombosis prophylaxis and GI prophylaxis. Problems: NAYELI CARPENTER MD, [facility] Aug 26, 2016 12:19
--- NOTE | 2016-08-26 13:37 | PN ---
Date/Time of Note Date/Time of Note DATE: 08/26/16 TIME: 13:32 Assessment/Plan Lines/Catheters IV Catheter Type (from [facility]): PICC Line [place] in Place (from [facility]): Yes Assessment/Plan Assessment/Plan [facility] Progress Note Date of Service: 08/26/2016 Today's Assessment & Plan: Overall stable. No indication for acute surgical intervention. No indication for interventional radiology intervention. Hemoglobin remains low and one unit PRBC (#5) being transfused. With above assessment, I've recommended the following for today: 1. Continue current cares 2. Careful observation otherwise in those 3. Non-con CT to survey abdomen/pelvis 4. Will follow with you Thank you again for your great care of this very pleasant lady and I'm certain her wonderful family. If there are any questions, please feel free to call me at [phone]. TOTAL VISIT TIME: 20 minutes of which more than half was spent in [id number] discussion with the patient as well as coordination of care between multiple physicians and providers. Disclaimer: Inadvertent spelling and grammatical errors are likely due to EHR/ dictation software use and do not reflect on the quality of delivered patient care. Also, please note that the electronic time recorded on this node does not necessarily reflect the actual time of the visit. Updated Clinical Summary: Very pleasant, but unfortunate 75-year-old lady with multiple comorbid issues; including atrial fibrillation requiring anticoagulation, congestive heart failure and perhaps other heart disease status post heart valve replacement, and a number of medical issues such as diabetes mellitus, hypertension, hyperlipidemia and gout, with TIA in the past; admitted to [facility] through the emergency department 08/21/2016 with a left flank hematoma that appeared to extend from the left hip area to mid flank region. Past and present comorbidity list: 1. Atrial fibrillation requiring anticoagulation. 2. Hypertension. 3. Congestive heart failure. 4. Diabetes mellitus. 5. Gout. 6. History of transient ischemic attacks in the past. 7. Dyslipidemia. 8. Bilateral cataract surgery. 9. History of heart valve replacement. Subjective: No major events or complaints; no significant abd pain and under control with medications; no n/v/d; no sob or cp; - flatus; - BM; - activity; being transfused. Objective: Vitals: See below I's & O's: See below Exam: GENERAL: On exam, the patient was lying in bed and appeared to be comfortable and in no acute distress. ABDOMEN: Soft, mild to mod tender to palpation in the left flank and not sig distended. There are no peritoneal signs or guarding. SKIN: Skin appears to be pink and feels warm to touch. NEUROLOGIC: Patient is awake, alert, and follows commands appropriately. Labs: See below Exam/Review of Systems Vital Signs Vitals Vital Signs Date Time Temp Pulse Resp B/P Pulse Ox O2 Delivery O2 Flow Rate FiO2 08/26/16 12:33 62 08/26/16 11:21 97.8 16 120/60 96 08/26/16 08:10 Nasal Cannula 3.0 08/26/16 01:14 32 Intake and Output 08/25/16 08/25/16 08/26/16 15:00 23:00 07:00 Intake Total 360 ml 850 ml Output Total 2000 ml 1200 ml Balance -1640 ml -350 ml Results Result Diagram: 08/26/16 0715 08/26/16 0715 ROSELYN WALLIS M.D. Aug 26, 2016 13:37
--- NOTE | 2016-08-26 16:08 | CONS ---
Date/Time of Note Date/Time of Note DATE: 08/26/16 TIME: 16:06 Consult Date/Type/Reason Admit Date/Time Aug 22, 2016 at 01:44 Type of Consultation: neph Subjective The patient is clinically stable overnight. The patient received 2 units of PRBC 2 days ago, tolerated it well. Hemoglobin levels have dropped a bit. No other acute events noted. The patient's urinary output has remained adequate overnight. No episodes of hemoptysis, hematemesis, or hematochezia. OBJECTIVE: VITAL SIGNS: Blood pressure is 127/95, respirations 24, pulse 84, temperature 97.8. I'S AND O'S: The patient had 3 L in with 590 mL out. HEENT: Head is normocephalic. NECK: Supple. HEART: Regular rate, positive mechanical click. LUNGS: Show diminished breath sounds at the base. ABDOMEN: Soft, nontender to palpation. Noted ecchymosis on the left flank. EXTREMITIES: Negative for clubbing, cyanosis, or edema. DERMATOLOGIC: No rashes. MUSCULOSKELETAL: No joint effusions. NEUROLOGIC: No focal deficits. Objective Vital Signs Date Time Temp Pulse Resp B/P Pulse Ox O2 Delivery O2 Flow Rate FiO2 08/26/16 16:02 64 08/26/16 15:36 98.3 18 123/67 97 08/26/16 08:10 Nasal Cannula 3.0 08/26/16 01:14 32 Intake and Output 08/25/16 08/25/16 08/26/16 15:00 23:00 07:00 Intake Total 360 ml 850 ml Output Total 2000 ml 1200 ml Balance -1640 ml -350 ml Results/Medications Result Diagram: 08/26/16 0715 08/26/16 0715 Results 24 hrs Laboratory Tests Test 08/25/16 17:20 08/25/16 18:39 08/25/16 20:50 08/26/16 02:14 Bedside Glucose 260 H 238 H 256 H Hematocrit 20.4 L Hemoglobin 6.8 *L Lactic Acid Level 2.8 H Test 08/26/16 07:15 08/26/16 07:40 08/26/16 09:13 08/26/16 11:38 Anion Gap 13 Basophils # 0.0 Basophils % 0.1 Blood Morphology Comment Blood Urea Nitrogen 55 H Calcium Level 5.5 *L Carbon Dioxide Level 27 Chloride Level 101 Creatinine 2.39 H Differential Comment AUTO w/SCAN Eosinophils # 0.0 Eosinophils % 0.1 Glucose Level 186 Hematocrit 18.1 L Hemoglobin 6.1 *L Lymphocytes # 0.5 L Lymphocytes % 5.0 L Mean Corpuscular Hemoglobin 31.6 Mean Corpuscular Hemoglobin Concent 33.8 Mean Corpuscular Volume 93.4 Mean Platelet Volume 8.0 Monocytes # 0.9 Monocytes % 9.2 Neutrophils # 8.8 H Neutrophils % 85.6 H Nucleated Red Blood Cells # 0.0 Nucleated Red Blood Cells % 0.0 Platelet Count 106 L Potassium Level 3.5 Red Blood Count 1.94 L Red Cell Distribution Width 16.0 H Sodium Level 137 White Blood Count 10.3 # Bedside Glucose 231 H 172 Lab Scanned Report REFERENCE LAB Medications Current Medications Amlodipine Besylate (Norvasc) 10 mg DAILY PO Last administered on 08/25/16 10: 51; Admin Dose 10 MG; Start 08/22/16 at 09:00 Benazepril HCl (Lotensin) 20 mg DAILY PO Last administered on 08/22/16 09:46; Admin Dose 20 MG; Start 08/22/16 at 09:00; Status Future Hold Bisoprolol Fumarate (Zebeta) 5 mg DAILY PO Last administered on 08/26/16 09:20 ; Admin Dose 5 MG; Start 08/22/16 at 09:00 Isosorbide Mononitrate (Imdur) 60 mg DAILY PO Last administered on 08/25/16 10: 50; Admin Dose 60 MG; Start 08/22/16 at 09:00 Tramadol HCl (Ultram) 50 mg Q6 PRN PO pain Last administered on 08/23/16 16:22 ; Admin Dose 50 MG; Start 08/22/16 at 03:00 Atorvastatin Calcium (Lipitor) 20 mg HS PO Last administered on 08/25/16 21:20 ; Admin Dose 20 MG; Start 08/22/16 at 21:00 Morphine Sulfate (morphine) 2 mg Q4 PRN IV mod pain Last administered on 03:04; Admin Dose 2 MG; Start 08/22/16 at 04:30 Ondansetron HCl (Zofran Inj) 4 mg Q6H PRN IV NAUSEA AND/OR VOMITING Last administered on 08/22/16 13:20; Admin Dose 4 MG; Start 08/22/16 at 11:30 IV Flush 10 ml 10 ml PRN PRN IV IV PROTOCOL; Start 08/22/16 at 17:30 Diltiazem HCl (Cardizem-D5W 125 Mg/125 ml Drip) 125 ml @ 5 mls/hr TITRATE IV Last administered on 08/23/16 07:01; Admin Dose 5 MLS/HR; Start 08/22/16 at 20:30 Pantoprazole (Protonix Iv) 40 mg DAILY@06 IV Last administered on 08/26/16 06: 45; Admin Dose 40 MG; Start 08/23/16 at 06:00 Miscellaneous Information 1 ea NOTE XX ; Start 08/22/16 at 21:00 Glucose (Glutose) 15 gm Q15M PRN PO DECREASED GLUCOSE; Start 08/22/16 at 21:00 Glucose (Glutose) 22.5 gm Q15M PRN PO DECREASED GLUCOSE; Start 08/22/16 at 21:00 Dextrose (D50w Syringe) 25 ml Q15M PRN IV DECREASED GLUCOSE; Start 08/22/16 at 21:00 Dextrose (D50w Syringe) 50 ml Q15M PRN IV DECREASED GLUCOSE; Start 08/22/16 at 21:00 Glucagon (Glucagen) 1 mg Q15M PRN IM DECREASED GLUCOSE; Start 08/22/16 at 21:00 Glucose (Glutose) 15 gm Q15M PRN BUCCAL DECREASED GLUCOSE; Start 08/22/16 at 21: 00 Diltiazem HCl (Cardizem) 60 mg Q6 PO Last administered on 08/26/16 11:44; Admin Dose 60 MG; Start 08/23/16 at 09:00 Diagnostic Test (Pha) (Accucheck) 1 ea 02 XX ; Start 08/24/16 at 02:00 Insulin Glargine 12 unit 12 unit QHS SC Last administered on 08/25/16 21:22; Admin Dose 12 UNIT; Start 08/24/16 at 21:00 Sodium Chloride (1/2 NS) 1,000 ml @ 50 mls/hr Q20H IV Last administered on 08/25 14:30; Admin Dose 50 MLS/HR; Start 08/25/16 at 14:30 Assessment/Plan Chief Complaint/Hosp Course 1. Nonoliguric acute kidney injury on top of chronic kidney disease stage IIIB/ IV with a baseline creatinine around 1.7 to 2 mg/dL which gives an estimated GFR around 25 mL per minute per CKD-EPI formulation. Etiology of current acute kidney injury is secondary to acute tubular necrosis due to ischemic hypoperfusion, prerenal volume depletion from retroperitoneal bleed, severe anemia. The patient's urinalysis shows evidence of granular casts consistent with tubular injury. Urinalysis is otherwise not inactive. There is no pyuria or hematuria. The patient's renal ultrasound also shows no evidence of obstruction, but does show increased renal parenchyma consistent with chronic kidney disease. The patient's renal function has improved in the last 24 hours again with continued supportive care, IV fluids, and recent blood transfusion. At this point, would continue current treatment plan, continue IV hydration, maintain MAP above 65, continue transfusing PRBCs as needed to maintain hemoglobin levels around 8 g/dL. Would otherwise continue supportive care, renally dose all medications, avoid nephrotoxins. 2. Hyperkalemia. Etiology secondary to acute kidney injury, azotemia, and multiple blood transfusions. The patient's potassium levels have normalized. Will continue to monitor. 3. Metabolic anion gap acidosis with respiratory compensation. improved. will dc [id number] 4. Mineral bone disorder. The patient is hypocalcemic. Will check an ionized calcium. If calcium levels remain low, will give the patient calcium gluconate. The patient currently appears asymptomatic. 5. Acute retroperitoneal bleed, etiology secondary to coagulopathy. The patient was evaluated by a general surgeon. No plan for surgery at this time. Continue to monitor H and H levels, continue blood transfusions. dropped some again today. per surg recs. 6. Anemia secondary to retroperitoneal bleed in the setting of Coumadin use and coagulopathy. The patient continues to receive blood transfusions. Continue to monitor H and H levels. 7. Mechanical cardiac valve. The patient is currently off anticoagulation in the setting of bleed. Will monitor closely. Would recommend a cardiology consult for evaluation. 8. History of congestive heart failure. The patient appears compensated. Monitor I's and O's closely. 9. Chronic atrial fibrillation, currently rate controlled. Continue to monitor. 10. Diabetes. Continue Accu-Cheks and insulin sliding scale. 11. Possible pneumonia. The patient is on antibiotic therapy, continue to monitor. 12. History of hypertension. The patient is currently now normotensive. Continue IV fluids. Would continue current blood pressure medications, monitor closely. Problems: NATHAN BRITTON MD Aug 26, 2016 16:08
--- NOTE | 2016-08-26 16:22 | RADRPT ---
PROCEDURE: CT Chest without contrast. CLINICAL INDICATION: Shortness of breath. Pleural effusion. TECHNIQUE: Helical axial sections were obtained through the chest without intravenous contrast enh ancement. Coronal and sagittal reformatted images were obtained from the axial source images. Total exam DLP is 121.10 mGy-cm. CTDIvol is 6.93 mGy. One or more of the following dose reduction tech niques were used: Automated exposure control, adjustment of the mA and/or kV according to patient si ze, use of iterative reconstruction technique. COMPARISON: None FINDINGS: There is mild atelectasis at the right lung base and there is a very small right pleural effusion. There is moderate atelectasis at the left lung base and a small left pleural effusion. The lungs ar e otherwise clear with no other airspace or interstitial disease. There is no pulmonary nodule or mass lesion. There is no mediastinal or hilar lymphadenopathy or mass. There is no axillary, supraclavicular, or internal mammary lymphadenopathy. The thoracic aorta is not dilated. There is calcification in the aorta consistent with atherosclero sis. There is a right arm PICC line with the tip in the lower superior vena cava. The heart is markedly enlarged. There is a mitral valve replacement and there are sternal wires. There is no pericardial effusion. Images through the upper abdomen demonstrate a benign cyst in the right hepatic lobe measuring 4 cm in maximal diameter. The visualized portions of the liver, spleen, and adrenals are otherwise yg l. The osseous structures are unremarkable with no fracture or lytic lesion. IMPRESSION: 1. Mild atelectasis at the right lung base. 2. Moderate atelectasis at the left lung base. 3. Very small right pleural effusion and small left pleural effusion. 4. Atherosclerosis. 5. Right arm PICC line tip in the lower superior vena cava. 6. Marked cardiomegaly. 7. Mitral valve replacement and sternal wires. 8. Benign hepatic cyst. 9. Otherwise unremarkable study. RPTAT: QQ .Isaiah Khanna MD, Date Time Electronically viewed and signed by .Isaiah Khanna MD, on 08/26/2016 16:22 .R/
[2016-08-26] MEDS: ATORVASTATIN 20 MG TAB PO SCH (20:57)
[2016-08-26] MEDS: INSULIN GLARGINE [LANtus] 3 ML PEN SC SCH (20:59)
--- NOTE | 2016-08-26 23:36 | PN ---
Date/Time of Note Date/Time of Note DATE: 08/26/16 TIME: 23:34 Assessment/Plan VTE Prophylaxis VTE Prophylaxis Intervention: SCD's Lines/Catheters IV Catheter Type (from [place]): PICC Line Central line still needed: Yes Urinary Cath still in place: Yes Reason Cath still needed: other (indicate) Assessment/Plan Assessment/Plan IMPRESSION: 1. Retroperitoneal bleeding/hematoma. 2. Chronic atrial fibrillation, currently rate controlled. 3. Acute on chronic kidney disease. 4. Anemia, secondary to #1. 5. Coagulopathy with elevated INR, corrected. 6. Possible left pleural effusion. PLAN: will increase dose of lasix Continue to monitor hemoglobin closely and transfuse as needed. will give 1 unit today, with lasix INR has been corrected We will monitor closely. Currently, she is hemodynamically stable without any pressor support. Her rate also has been controlled on oral diltiazem. We will continue her current medical management. Nephrology is managing her renal insufficiency. Dr. Grewal from surgery is also on board given the retroperitoneal bleeding. Cont insulin and adjust as needed Further workup and management per clinical course. Subjective 24 Hr Interval Summary Free Text/Dictation stated breathing is better Exam/Review of Systems Vital Signs Vitals Vital Signs Date Time Temp Pulse Resp B/P Pulse Ox O2 Delivery O2 Flow Rate FiO2 08/26/16 21:14 3.0 08/26/16 20:34 98.1 64 18 132/66 94 08/26/16 20:03 Nasal Cannula 08/26/16 01:14 32 Intake and Output 08/25/16 08/25/16 08/26/16 15:00 23:00 07:00 Intake Total 360 ml 850 ml Output Total 2000 ml 1200 ml Balance -1640 ml -350 ml Exam GENERAL: No acute distress, but she appears weak and also at times noted to be having slight difficulty breathing when she speaks. HEENT: No obvious head deformity. Pupils are reactive to light. Extraocular muscles intact. CARDIOVASCULAR: Irregularly irregular. PULMONARY: Lungs have good air movement. No wheezes or rhonchi. ABDOMEN: Soft. There is a left-sided hematoma which is somehow tender to touch. There are positive bowel sounds. EXTREMITIES: No edema. Results Result Diagram: 08/26/16 0715 08/26/16 0715 Results 24 hrs Laboratory Tests Test 08/26/16 02:14 08/26/16 07:15 08/26/16 07:40 08/26/16 09:13 Bedside Glucose 256 H 231 H Anion Gap 13 Basophils # 0.0 Basophils % 0.1 Blood Morphology Comment Blood Urea Nitrogen 55 H Calcium Level 5.5 *L Carbon Dioxide Level 27 Chloride Level 101 Creatinine 2.39 H Differential Comment AUTO w/SCAN Eosinophils # 0.0 Eosinophils % 0.1 Glucose Level 186 Hematocrit 18.1 L Hemoglobin 6.1 *L Lymphocytes # 0.5 L Lymphocytes % 5.0 L Mean Corpuscular Hemoglobin 31.6 Mean Corpuscular Hemoglobin Concent 33.8 Mean Corpuscular Volume 93.4 Mean Platelet Volume 8.0 Monocytes # 0.9 Monocytes % 9.2 Neutrophils # 8.8 H Neutrophils % 85.6 H Nucleated Red Blood Cells # 0.0 Nucleated Red Blood Cells % 0.0 Platelet Count 106 L Potassium Level 3.5 Red Blood Count 1.94 L Red Cell Distribution Width 16.0 H Sodium Level 137 White Blood Count 10.3 # Lab Scanned Report REFERENCE LAB Test 08/26/16 11:38 08/26/16 17:04 08/26/16 20:43 Bedside Glucose 172 178 176 Medications Medications Current Medications Amlodipine Besylate (Norvasc) 10 mg DAILY PO Last administered on 08/25/16 10: 51; Admin Dose 10 MG; Start 08/22/16 at 09:00 Benazepril HCl (Lotensin) 20 mg DAILY PO Last administered on 08/22/16 09:46; Admin Dose 20 MG; Start 08/22/16 at 09:00; Status Future Hold Bisoprolol Fumarate (Zebeta) 5 mg DAILY PO Last administered on 08/26/16 09:20 ; Admin Dose 5 MG; Start 08/22/16 at 09:00 Isosorbide Mononitrate (Imdur) 60 mg DAILY PO Last administered on 08/25/16 10: 50; Admin Dose 60 MG; Start 08/22/16 at 09:00 Tramadol HCl (Ultram) 50 mg Q6 PRN PO pain Last administered on 08/23/16 16:22 ; Admin Dose 50 MG; Start 08/22/16 at 03:00 Atorvastatin Calcium (Lipitor) 20 mg HS PO Last administered on 08/25/16 21:20 ; Admin Dose 20 MG; Start 08/22/16 at 21:00 Morphine Sulfate (morphine) 2 mg Q4 PRN IV mod pain Last administered on 03:04; Admin Dose 2 MG; Start 08/22/16 at 04:30 Ondansetron HCl (Zofran Inj) 4 mg Q6H PRN IV NAUSEA AND/OR VOMITING Last administered on 08/22/16 13:20; Admin Dose 4 MG; Start 08/22/16 at 11:30 IV Flush 10 ml 10 ml PRN PRN IV IV PROTOCOL; Start 08/22/16 at 17:30 Diltiazem HCl (Cardizem-D5W 125 Mg/125 ml Drip) 125 ml @ 5 mls/hr TITRATE IV Last administered on 08/23/16 07:01; Admin Dose 5 MLS/HR; Start 08/22/16 at 20:30 Pantoprazole (Protonix Iv) 40 mg DAILY@06 IV Last administered on 08/26/16 06: 45; Admin Dose 40 MG; Start 08/23/16 at 06:00 Miscellaneous Information 1 ea NOTE XX ; Start 08/22/16 at 21:00 Glucose (Glutose) 15 gm Q15M PRN PO DECREASED GLUCOSE; Start 08/22/16 at 21:00 Glucose (Glutose) 22.5 gm Q15M PRN PO DECREASED GLUCOSE; Start 08/22/16 at 21:00 Dextrose (D50w Syringe) 25 ml Q15M PRN IV DECREASED GLUCOSE; Start 08/22/16 at 21:00 Dextrose (D50w Syringe) 50 ml Q15M PRN IV DECREASED GLUCOSE; Start 08/22/16 at 21:00 Glucagon (Glucagen) 1 mg Q15M PRN IM DECREASED GLUCOSE; Start 08/22/16 at 21:00 Glucose (Glutose) 15 gm Q15M PRN BUCCAL DECREASED GLUCOSE; Start 08/22/16 at 21: 00 Diltiazem HCl (Cardizem) 60 mg Q6 PO Last administered on 08/26/16 17:05; Admin Dose 60 MG; Start 08/23/16 at 09:00 Diagnostic Test (Pha) (Accucheck) 1 ea 02 XX ; Start 08/24/16 at 02:00 Insulin Glargine 12 unit 12 unit QHS SC Last administered on 08/26/16 20:59; Admin Dose 12 UNIT; Start 08/24/16 at 21:00 Sodium Chloride (1/2 NS) 1,000 ml @ 50 mls/hr Q20H IV Last administered on 08/25 14:30; Admin Dose 50 MLS/HR; Start 08/25/16 at 14:30 ANGEL ASHLEY MD Aug 26, 2016 23:36
[2016-08-27] VITALS (12 sets, daily range): BP systolic 118–142; BP diastolic 56–63; PULSE 61–79; RESP 16–20
[2016-08-27] MEDS ORDERED: FUROSEMIDE 20 MG INJ IV ONE
[2016-08-27] MEDS: DILTIAZEM 60 MG TAB PO SCH ×4 (00:18→17:12)
[2016-08-27] MEDS: traMADol 50 MG TAB PO PRN ×2 (00:18→21:02)
[2016-08-27] MEDS: ACCUCHECK XX SCH (02:00)
[2016-08-27] MEDS: FUROSEMIDE 20 MG INJ IV SCH ×2 (05:34→17:12)
[2016-08-27] MEDS: PANTOPRAZOLE 40 MG INJ IV SCH (05:34)
[2016-08-27] MEDS: SOD CHLORIDE 0.45% 1,000 ML IV SCH (05:35)
[2016-08-27] MEDS: INSULIN ASPART [NOVOLOG] 3 ML PEN SC SCH ×4 (07:20→21:05)
[2016-08-27 07:47] LABS: BASOPHIL # 0.1 10^3/ul (0.0-0.1); BASOPHILS % 0.5 % (0.0-2.0); EOSINOPHILS % 0.3 % (0.0-7.0); HEMATOCRIT 26.3 % (37.0-47.0); LYMPHOCYTES # 0.2 10^3/ul (0.8-2.9); LYMPHOCYTES % 2.3 % (15.0-51.0); MEAN CORPUSCULAR HEMOGLOBIN 31.1 pg (29.0-33.0); MEAN CORPUSCULAR HGB CONC 34.2 g/dl (32.0-37.0); MEAN CORPUSCULAR VOLUME 91.1 fl (82.0-101.0); MEAN PLATELET VOLUME 7.8 fl (7.4-10.4); MONOCYTES % 10.1 % (0.0-11.0); NEUTROPHIL # 8.3 10^3/ul (1.6-7.5); NEUTROPHILS % 86.8 % (39.0-77.0); PLATELET COUNT 126 10^3/UL (140-440); RED BLOOD COUNT 2.89 10^6/ul (4.20-5.40); RED CELL DISTRIBUTION WIDTH 17.3 % (11.5-14.5); UNCORRECTED WBC 9.6 10^3/ul (4.8-10.8); WHITE BLOOD COUNT 9.6 10^3/ul (4.8-10.8)
[2016-08-27 07:54] LABS: CONDITION 1; LH ANALYZER COMMENTS 1
[2016-08-27 08:03] LABS: ALBUMIN 3.5 g/dl (3.3-4.9)
[2016-08-27 08:04] LABS: POTASSIUM 3.1 mmol/L (3.5-5.1)
[2016-08-27 08:06] LABS: ALBUMIN/GLOBULIN RATIO 1.29; BILIRUBIN,DIRECT 0.1 mg/dl (0.00-0.20); BILIRUBIN,INDIRECT 1.7 mg/dl (0-1.1); BILIRUBIN,TOTAL 1.8 mg/dl (0.2-1.3); CREATININE 1.98 mg/dl (0.44-1.00); TOTAL PROTEIN 6.2 g/dl (6.1-8.1)
[2016-08-27 08:07] LABS: CALCIUM 6.1 mg/dl (8.4-10.2)
[2016-08-27] MEDS: AMLODIPINE 10 MG TAB PO SCH (08:44)
[2016-08-27] MEDS: ISOSORBIDE MONONITRATE(SR)60 MG TAB PO SCH (08:44)
[2016-08-27] MEDS: BISOPROLOL 5 MG TAB PO SCH (08:47)
--- NOTE | 2016-08-27 09:34 | CONS ---
Date/Time of Note Date/Time of Note DATE: 08/27/16 TIME: 09:24 Consult Date/Type/Reason Admit Date/Time Aug 22, 2016 at 01:44 Type of Consultation: neph Subjective The patient is clinically stable overnight. The patient received total 3 units of PRBC, tolerated it well. Hemoglobin levels have dropped a bit. No other acute events noted. The patient's urinary output has remained adequate overnight. No episodes of hemoptysis, hematemesis, or hematochezia. HEENT: Head is normocephalic. NECK: Supple. HEART: Regular rate, positive mechanical click. LUNGS: Show diminished breath sounds at the base. ABDOMEN: Soft, nontender to palpation. Noted ecchymosis on the left flank. EXTREMITIES: Negative for clubbing, cyanosis, or edema. DERMATOLOGIC: No rashes. MUSCULOSKELETAL: No joint effusions. NEUROLOGIC: No focal deficits. Objective Vital Signs Date Time Temp Pulse Resp B/P Pulse Ox O2 Delivery O2 Flow Rate FiO2 08/27/16 08:20 77 08/27/16 07:39 98.1 16 119/58 96 08/26/16 21:14 3.0 08/26/16 20:03 Nasal Cannula 08/26/16 01:14 32 Intake and Output 08/26/16 08/26/16 08/27/16 15:00 23:00 07:00 Intake Total 200 ml Output Total 1600 ml 1600 ml Balance -1600 ml -1400 ml Results/Medications Result Diagram: 08/27/16 0710 08/27/16 0710 Results 24 hrs Laboratory Tests Test 08/26/16 11:38 08/26/16 17:04 08/26/16 20:43 08/27/16 07:10 Bedside Glucose 172 178 176 Alanine Aminotransferase (ALT/SGPT) 148 H Albumin 3.5 Albumin/Globulin Ratio 1.29 Alkaline Phosphatase 59 Anion Gap 17 H Aspartate Amino Transf (AST/SGOT) 81 H Basophils # 0.1 Basophils % 0.5 Blood Morphology Comment Blood Urea Nitrogen 46 H Calcium Level 6.1 L Carbon Dioxide Level 30 Chloride Level 98 Creatinine 1.98 H Direct Bilirubin 0.10 Eosinophils # 0.0 Eosinophils % 0.3 Globulin 2.70 Glucose Level 130 # Hematocrit 26.3 #L Hemoglobin 9.0 #L Indirect Bilirubin 1.7 H Lymphocytes # 0.2 L Lymphocytes % 2.3 L Mean Corpuscular Hemoglobin 31.1 Mean Corpuscular Hemoglobin Concent 34.2 Mean Corpuscular Volume 91.1 Mean Platelet Volume 7.8 Monocytes # 1.0 H Monocytes % 10.1 Neutrophils # 8.3 H Neutrophils % 86.8 H Nucleated Red Blood Cells # 0.0 Nucleated Red Blood Cells % 0.0 Platelet Count 126 L Potassium Level 3.1 L Red Blood Count 2.89 #L Red Cell Distribution Width 17.3 H Sodium Level 142 Total Bilirubin 1.8 H Total Protein 6.2 White Blood Count 9.6 Test 08/27/16 07:17 Bedside Glucose 142 Medications Current Medications Amlodipine Besylate (Norvasc) 10 mg DAILY PO Last administered on 08/25/16 10: 51; Admin Dose 10 MG; Start 08/22/16 at 09:00 Benazepril HCl (Lotensin) 20 mg DAILY PO Last administered on 08/22/16 09:46; Admin Dose 20 MG; Start 08/22/16 at 09:00; Status Future Hold Bisoprolol Fumarate (Zebeta) 5 mg DAILY PO Last administered on 08/27/16 08:47 ; Admin Dose 5 MG; Start 08/22/16 at 09:00 Isosorbide Mononitrate (Imdur) 60 mg DAILY PO Last administered on 08/25/16 10: 50; Admin Dose 60 MG; Start 08/22/16 at 09:00 Tramadol HCl (Ultram) 50 mg Q6 PRN PO pain Last administered on 08/27/16 00:18 ; Admin Dose 50 MG; Start 08/22/16 at 03:00 Atorvastatin Calcium (Lipitor) 20 mg HS PO Last administered on 08/25/16 21:20 ; Admin Dose 20 MG; Start 08/22/16 at 21:00 Morphine Sulfate (morphine) 2 mg Q4 PRN IV mod pain Last administered on 03:04; Admin Dose 2 MG; Start 08/22/16 at 04:30 Ondansetron HCl (Zofran Inj) 4 mg Q6H PRN IV NAUSEA AND/OR VOMITING Last administered on 08/22/16 13:20; Admin Dose 4 MG; Start 08/22/16 at 11:30 IV Flush 10 ml 10 ml PRN PRN IV IV PROTOCOL; Start 08/22/16 at 17:30 Diltiazem HCl (Cardizem-D5W 125 Mg/125 ml Drip) 125 ml @ 5 mls/hr TITRATE IV Last administered on 08/23/16 07:01; Admin Dose 5 MLS/HR; Start 08/22/16 at 20:30 Pantoprazole (Protonix Iv) 40 mg DAILY@06 IV Last administered on 08/27/16 05: 34; Admin Dose 40 MG; Start 08/23/16 at 06:00 Miscellaneous Information 1 ea NOTE XX ; Start 08/22/16 at 21:00 Glucose (Glutose) 15 gm Q15M PRN PO DECREASED GLUCOSE; Start 08/22/16 at 21:00 Glucose (Glutose) 22.5 gm Q15M PRN PO DECREASED GLUCOSE; Start 08/22/16 at 21:00 Dextrose (D50w Syringe) 25 ml Q15M PRN IV DECREASED GLUCOSE; Start 08/22/16 at 21:00 Dextrose (D50w Syringe) 50 ml Q15M PRN IV DECREASED GLUCOSE; Start 08/22/16 at 21:00 Glucagon (Glucagen) 1 mg Q15M PRN IM DECREASED GLUCOSE; Start 08/22/16 at 21:00 Glucose (Glutose) 15 gm Q15M PRN BUCCAL DECREASED GLUCOSE; Start 08/22/16 at 21: 00 Diltiazem HCl (Cardizem) 60 mg Q6 PO Last administered on 08/27/16 05:35; Admin Dose 60 MG; Start 08/23/16 at 09:00 Diagnostic Test (Pha) (Accucheck) 1 ea 02 XX ; Start 08/24/16 at 02:00 Insulin Glargine 12 unit 12 unit QHS SC Last administered on 08/26/16 20:59; Admin Dose 12 UNIT; Start 08/24/16 at 21:00 Sodium Chloride (1/2 NS) 1,000 ml @ 50 mls/hr Q20H IV Last administered on 08/27 05:35; Admin Dose 50 MLS/HR; Start 08/25/16 at 14:30 Assessment/Plan Chief Complaint/Hosp Course 1. Nonoliguric acute kidney injury on top of chronic kidney disease stage IIIB/ IV with a baseline creatinine around 1.7 to 2 mg/dL which gives an estimated GFR around 25 mL per minute per CKD-EPI formulation. Etiology of current acute kidney injury is secondary to acute tubular necrosis due to ischemic hypoperfusion, prerenal volume depletion from retroperitoneal bleed, severe anemia. The patient's urinalysis shows evidence of granular casts consistent with tubular injury. Urinalysis is otherwise not inactive. There is no pyuria or hematuria. The patient's renal ultrasound also shows no evidence of obstruction, but does show increased renal parenchyma consistent with chronic kidney disease. The patient's renal function has improved in the last 24 hours again with continued supportive care, IV fluids, and recent blood transfusion. At this point, would continue current treatment plan, continue IV hydration, maintain MAP above 65, continue transfusing PRBCs as needed to maintain hemoglobin levels around 8 g/dL. Would otherwise continue supportive care, renally dose all medications, avoid nephrotoxins. 2. Hyperkalemia. Etiology secondary to acute kidney injury, azotemia, and multiple blood transfusions. The patient's potassium levels have normalized. Will continue to monitor. 3. Metabolic anion gap acidosis with respiratory compensation. improved. will dc hco3 4. Mineral bone disorder. The patient is hypocalcemic. Will check an ionized calcium. If calcium levels remain low, will give the patient calcium gluconate. The patient currently appears asymptomatic. 5. Acute retroperitoneal bleed, etiology secondary to coagulopathy. The patient was evaluated by a general surgeon. No plan for surgery at this time. Continue to monitor H and H levels, continue blood transfusions. dropped some again today. per surg recs. 6. Anemia secondary to retroperitoneal bleed in the setting of Coumadin use and coagulopathy. The patient continues to receive blood transfusions. Continue to monitor H and H levels. 7. Mechanical cardiac valve. The patient is currently off anticoagulation in the setting of bleed. Will monitor closely. Would recommend a cardiology consult for evaluation. 8. History of congestive heart failure. The patient appears compensated. Monitor I's and O's closely. 9. Chronic atrial fibrillation, currently rate controlled. Continue to monitor. 10. Diabetes. Continue Accu-Cheks and insulin sliding scale. 11. Possible pneumonia. The patient is on antibiotic therapy, continue to monitor. 12. History of hypertension. The patient is currently now normotensive. Continue IV fluids. Would continue current blood pressure medications, monitor closely. Problems: NATHAN BRITTON MD Aug 27, 2016 09:34
--- NOTE | 2016-08-27 09:36 | CONS ---
Date/Time of Note Date/Time of Note DATE: 08/27/16 TIME: 09:36 Consult Date/Type/Reason Admit Date/Time Aug 22, 2016 at 01:44 Type of Consultation: neph Subjective The patient off BiPAP for st eval. The patient on hemodialysis today, tolerated it well. No acute events noted. No hemoptysis, hematemesis or hematochezia. OBJECTIVE: HEENT: Head is normocephalic. NECK: Supple. HEART: Regular rate. LUNGS: Show diminished breath sounds at base. ABDOMEN: Soft, nontender to palpation without rebound or guarding. EXTREMITIES: Negative for clubbing, cyanosis. Trace edema. DERMATOLOGIC: No rashes. MUSCULOSKELETAL: No joint effusions. NEUROLOGIC: No change in exam. Objective Vital Signs Date Time Temp Pulse Resp B/P Pulse Ox O2 Delivery O2 Flow Rate FiO2 08/27/16 08:20 77 08/27/16 07:39 98.1 16 119/58 96 08/26/16 21:14 3.0 08/26/16 20:03 Nasal Cannula 08/26/16 01:14 32 Intake and Output 08/26/16 08/26/16 08/27/16 15:00 23:00 07:00 Intake Total 200 ml Output Total 1600 ml 1600 ml Balance -1600 ml -1400 ml Results/Medications Result Diagram: 08/27/16 0710 08/27/16 0710 Results 24 hrs Laboratory Tests Test 08/26/16 11:38 08/26/16 17:04 08/26/16 20:43 08/27/16 07:10 Bedside Glucose 172 178 176 Alanine Aminotransferase (ALT/SGPT) 148 H Albumin 3.5 Albumin/Globulin Ratio 1.29 Alkaline Phosphatase 59 Anion Gap 17 H Aspartate Amino Transf (AST/SGOT) 81 H Basophils # 0.1 Basophils % 0.5 Blood Morphology Comment Blood Urea Nitrogen 46 H Calcium Level 6.1 L Carbon Dioxide Level 30 Chloride Level 98 Creatinine 1.98 H Direct Bilirubin 0.10 Eosinophils # 0.0 Eosinophils % 0.3 Globulin 2.70 Glucose Level 130 # Hematocrit 26.3 #L Hemoglobin 9.0 #L Indirect Bilirubin 1.7 H Lymphocytes # 0.2 L Lymphocytes % 2.3 L Mean Corpuscular Hemoglobin 31.1 Mean Corpuscular Hemoglobin Concent 34.2 Mean Corpuscular Volume 91.1 Mean Platelet Volume 7.8 Monocytes # 1.0 H Monocytes % 10.1 Neutrophils # 8.3 H Neutrophils % 86.8 H Nucleated Red Blood Cells # 0.0 Nucleated Red Blood Cells % 0.0 Platelet Count 126 L Potassium Level 3.1 L Red Blood Count 2.89 #L Red Cell Distribution Width 17.3 H Sodium Level 142 Total Bilirubin 1.8 H Total Protein 6.2 White Blood Count 9.6 Test 08/27/16 07:17 Bedside Glucose 142 Medications Current Medications Amlodipine Besylate (Norvasc) 10 mg DAILY PO Last administered on 08/25/16 10: 51; Admin Dose 10 MG; Start 08/22/16 at 09:00 Benazepril HCl (Lotensin) 20 mg DAILY PO Last administered on 08/22/16 09:46; Admin Dose 20 MG; Start 08/22/16 at 09:00; Status Future Hold Bisoprolol Fumarate (Zebeta) 5 mg DAILY PO Last administered on 08/27/16 08:47 ; Admin Dose 5 MG; Start 08/22/16 at 09:00 Isosorbide Mononitrate (Imdur) 60 mg DAILY PO Last administered on 08/25/16 10: 50; Admin Dose 60 MG; Start 08/22/16 at 09:00 Tramadol HCl (Ultram) 50 mg Q6 PRN PO pain Last administered on 08/27/16 00:18 ; Admin Dose 50 MG; Start 08/22/16 at 03:00 Atorvastatin Calcium (Lipitor) 20 mg HS PO Last administered on 08/25/16 21:20 ; Admin Dose 20 MG; Start 08/22/16 at 21:00 Morphine Sulfate (morphine) 2 mg Q4 PRN IV mod pain Last administered on 03:04; Admin Dose 2 MG; Start 08/22/16 at 04:30 Ondansetron HCl (Zofran Inj) 4 mg Q6H PRN IV NAUSEA AND/OR VOMITING Last administered on 08/22/16 13:20; Admin Dose 4 MG; Start 08/22/16 at 11:30 IV Flush 10 ml 10 ml PRN PRN IV IV PROTOCOL; Start 08/22/16 at 17:30 Diltiazem HCl (Cardizem-D5W 125 Mg/125 ml Drip) 125 ml @ 5 mls/hr TITRATE IV Last administered on 08/23/16 07:01; Admin Dose 5 MLS/HR; Start 08/22/16 at 20:30 Pantoprazole (Protonix Iv) 40 mg DAILY@06 IV Last administered on 08/27/16 05: 34; Admin Dose 40 MG; Start 08/23/16 at 06:00 Miscellaneous Information 1 ea NOTE XX ; Start 08/22/16 at 21:00 Glucose (Glutose) 15 gm Q15M PRN PO DECREASED GLUCOSE; Start 08/22/16 at 21:00 Glucose (Glutose) 22.5 gm Q15M PRN PO DECREASED GLUCOSE; Start 08/22/16 at 21:00 Dextrose (D50w Syringe) 25 ml Q15M PRN IV DECREASED GLUCOSE; Start 08/22/16 at 21:00 Dextrose (D50w Syringe) 50 ml Q15M PRN IV DECREASED GLUCOSE; Start 08/22/16 at 21:00 Glucagon (Glucagen) 1 mg Q15M PRN IM DECREASED GLUCOSE; Start 08/22/16 at 21:00 Glucose (Glutose) 15 gm Q15M PRN BUCCAL DECREASED GLUCOSE; Start 08/22/16 at 21: 00 Diltiazem HCl (Cardizem) 60 mg Q6 PO Last administered on 08/27/16 05:35; Admin Dose 60 MG; Start 08/23/16 at 09:00 Diagnostic Test (Pha) (Accucheck) 1 ea 02 XX ; Start 08/24/16 at 02:00 Insulin Glargine 12 unit 12 unit QHS SC Last administered on 08/26/16 20:59; Admin Dose 12 UNIT; Start 08/24/16 at 21:00 Sodium Chloride (1/2 NS) 1,000 ml @ 50 mls/hr Q20H IV Last administered on 08/27 05:35; Admin Dose 50 MLS/HR; Start 08/25/16 at 14:30 Assessment/Plan Chief Complaint/Hosp Course 1. Nonoliguric acute kidney injury on top of chronic kidney disease stage IIIB/ IV with a baseline creatinine around 1.7 to 2 mg/dL which gives an estimated GFR around 25 mL per minute per CKD-EPI formulation. Etiology of current acute kidney injury is secondary to acute tubular necrosis due to ischemic hypoperfusion, prerenal volume depletion from retroperitoneal bleed, severe anemia. The patient's urinalysis shows evidence of granular casts consistent with tubular injury. Urinalysis is otherwise not inactive. There is no pyuria or hematuria. The patient's renal ultrasound also shows no evidence of obstruction, but does show increased renal parenchyma consistent with chronic kidney disease. The patient's renal function has improved in the last 24 hours again with continued supportive care, IV fluids, and recent blood transfusion. At this point, would continue current treatment plan, continue IV hydration, maintain MAP above 65, continue transfusing PRBCs as needed to maintain hemoglobin levels around 8 g/dL. Would otherwise continue supportive care, renally dose all medications, avoid nephrotoxins. 2. Hyperkalemia. Etiology secondary to acute kidney injury, azotemia, and multiple blood transfusions. The patient's potassium levels have normalized. Will continue to monitor. 3. Metabolic anion gap acidosis with respiratory compensation. improved. will dc hco3 4. Mineral bone disorder. The patient is hypocalcemic. Will check an ionized calcium. If calcium levels remain low, will give the patient calcium gluconate. The patient currently appears asymptomatic. 5. Acute retroperitoneal bleed, etiology secondary to coagulopathy. The patient was evaluated by a general surgeon. No plan for surgery at this time. Continue to monitor H and H levels, continue blood transfusions. dropped some again today. per surg recs. 6. Anemia secondary to retroperitoneal bleed in the setting of Coumadin use and coagulopathy. The patient continues to receive blood transfusions. Continue to monitor H and H levels. 7. Mechanical cardiac valve. The patient is currently off anticoagulation in the setting of bleed. Will monitor closely. Would recommend a cardiology consult for evaluation. 8. History of congestive heart failure. The patient appears compensated. Monitor I's and O's closely. 9. Chronic atrial fibrillation, currently rate controlled. Continue to monitor. 10. Diabetes. Continue Accu-Cheks and insulin sliding scale. 11. Possible pneumonia. The patient is on antibiotic therapy, continue to monitor. 12. History of hypertension. The patient is currently now normotensive. Continue IV fluids. Would continue current blood pressure medications, monitor closely. Problems: NATHAN BRITTON MD Aug 27, 2016 09:36
--- NOTE | 2016-08-27 10:49 | RADRPT ---
PROCEDURE: CT abdomen and pelvis without contrast. CLINICAL INDICATION: Abdominal pain. Retroperitoneal hematoma. TECHNIQUE: CT scan of the abdomen and pelvis without contrast was performed and is reconstructed a t 2.5 mm contiguous axial intervals from the dome of the diaphragm to the inferior pubic rami.. The patient was scanned without intravenous contrast. Sagittal and coronal reformatted images were obt ained from the axial source images. The calculated radiation dose measures 653 mGy centimeters. The CTDI measures 12 mGy. COMPARISON: CT abdomen pelvis August 21, 2016. FINDINGS: The patient is post CABG. There is cardiomegaly. Coronary artery calcifications are seen. There i s a mitral valve prosthesis. Noted is collapse of the visualized portion of the left lower lobe. T here is atelectasis deep in the right costophrenic recess. Minimal confluent interstitial infiltrat e is seen on the dorsal aspect of the right middle lobe. There are small bilateral pleural effusion s, left greater than right. The liver is of normal size with no solid mass or ductal dilatation. Noted is a 3.5 cm cyst on the superior left lobe. There is a 5 mm cyst on the inferior aspect of the right lobe of the liver. No gallstones are detected. No splenic, adrenal or pancreatic abnormality is seen. Kidneys are of no rmal size and contour. No hydronephrosis, calculus or solid renal masses present. There is 1 cm co rtical cyst in the left kidney. Ureters are of normal course and caliber with no stone. [place]aza cath eter is present and an empty urinary bladder. Atrophic postmenopausal uterus appears normal. Calci fication is present in the aorta and the iliac arteries. No aneurysm is present. No bowel mass or obstruction is visualized. The appendix is normal. There is diverticulosis. Noted is a small volu me of indeterminate fluid in the cul-de-sac. This may represent trace hemoperitoneum. It is stable when compared with the prior study. Again noted is a large extraperitoneal left flank hematoma. The hematoma has increased in volume in the inter now measuring approximately 12.9 cm TR by 7.1 cm AP by 19.1 cm CC in maximum diameter. Th ere is complex fluid compatible with clot and liquefied blood. There is mass effect on the adjacent spleen, left kidney and bowel. Infiltration is seen within the subcutaneous fat with edema of the muscle superficial to the hematoma. There is posterior and medial displacement of the external alejandra c vessels. Senescent degenerative changes are again seen in the spine. No fracture is present. Impression: Enlarging extraperitoneal left flank hematoma when compared with prior study. Stable small volume in determinate fluid peritoneal cavity likely representing trace hemoperitoneum. Vascular calcifications. Cardiomegaly. Post mitral valve replacement. Collapse visualized portion left lower lobe. Right basilar atelectasis. Small bilateral pleural ef fusions. Hepatic cysts. Left renal cyst. Diverticulosis. IMPRESSION: No evidence of urolithiasis, obstructive uropathy, diverticulitis or appendicitis. .Abel Brock MD, MD Date Time Electronically viewed and signed by .Abel Brock MD, MD on 08/27/2016 10:48 .A/
--- NOTE | 2016-08-27 13:27 | CONS ---
Date/Time of Note Date/Time of Note DATE: 08/27/16 TIME: 13:18 Consult Date/Type/Reason Admit Date/Time Aug 22, 2016 at 01:44 Initial Consult Date Type of Consultation: Pulm Subjective No events. Serial H/H noted. Objective Vital Signs Date Time Temp Pulse Resp B/P Pulse Ox O2 Delivery O2 Flow Rate FiO2 08/27/16 11:41 97.6 61 18 120/56 98 08/27/16 08:00 Nasal Cannula 3.0 08/26/16 01:14 32 Intake and Output 08/26/16 08/26/16 08/27/16 15:00 23:00 07:00 Intake Total 200 ml Output Total 1600 ml 1600 ml Balance -1600 ml -1400 ml DENNY: Supple. No JVD or lymphadenopathy. CARDIAC EXAM: Irreg Irreg mechanical S1 CHEST: Bibasilar rales ABDOMEN: Soft, nontender. No guarding or rebound. EXTREMITIES: No cyanosis, clubbing or edema. Results/Medications Result Diagram: 08/27/16 0710 08/27/16 0710 Results 24 hrs Laboratory Tests Test 08/26/16 17:04 08/26/16 20:43 08/27/16 07:10 08/27/16 07:17 Bedside Glucose 178 176 142 Alanine Aminotransferase (ALT/SGPT) 148 H Albumin 3.5 Albumin/Globulin Ratio 1.29 Alkaline Phosphatase 59 Anion Gap 17 H Aspartate Amino Transf (AST/SGOT) 81 H Basophils # 0.1 Basophils % 0.5 Blood Morphology Comment Blood Urea Nitrogen 46 H Calcium Level 6.1 L Carbon Dioxide Level 30 Chloride Level 98 Creatinine 1.98 H Direct Bilirubin 0.10 Eosinophils # 0.0 Eosinophils % 0.3 Globulin 2.70 Glucose Level 130 # Hematocrit 26.3 #L Hemoglobin 9.0 #L Indirect Bilirubin 1.7 H Lymphocytes # 0.2 L Lymphocytes % 2.3 L Mean Corpuscular Hemoglobin 31.1 Mean Corpuscular Hemoglobin Concent 34.2 Mean Corpuscular Volume 91.1 Mean Platelet Volume 7.8 Monocytes # 1.0 H Monocytes % 10.1 Neutrophils # 8.3 H Neutrophils % 86.8 H Nucleated Red Blood Cells # 0.0 Nucleated Red Blood Cells % 0.0 Platelet Count 126 L Potassium Level 3.1 L Red Blood Count 2.89 #L Red Cell Distribution Width 17.3 H Sodium Level 142 Total Bilirubin 1.8 H Total Protein 6.2 White Blood Count 9.6 Test 08/27/16 11:35 Bedside Glucose 146 Medications Current Medications Amlodipine Besylate (Norvasc) 10 mg DAILY PO Last administered on 08/25/16 10: 51; Admin Dose 10 MG; Start 08/22/16 at 09:00 Benazepril HCl (Lotensin) 20 mg DAILY PO Last administered on 08/22/16 09:46; Admin Dose 20 MG; Start 08/22/16 at 09:00; Status Future Hold Bisoprolol Fumarate (Zebeta) 5 mg DAILY PO Last administered on 08/27/16 08:47 ; Admin Dose 5 MG; Start 08/22/16 at 09:00 Isosorbide Mononitrate (Imdur) 60 mg DAILY PO Last administered on 08/25/16 10: 50; Admin Dose 60 MG; Start 08/22/16 at 09:00 Tramadol HCl (Ultram) 50 mg Q6 PRN PO pain Last administered on 08/27/16 00:18 ; Admin Dose 50 MG; Start 08/22/16 at 03:00 Atorvastatin Calcium (Lipitor) 20 mg HS PO Last administered on 08/25/16 21:20 ; Admin Dose 20 MG; Start 08/22/16 at 21:00 Morphine Sulfate (morphine) 2 mg Q4 PRN IV mod pain Last administered on 03:04; Admin Dose 2 MG; Start 08/22/16 at 04:30 Ondansetron HCl (Zofran Inj) 4 mg Q6H PRN IV NAUSEA AND/OR VOMITING Last administered on 08/22/16 13:20; Admin Dose 4 MG; Start 08/22/16 at 11:30 IV Flush 10 ml 10 ml PRN PRN IV IV PROTOCOL; Start 08/22/16 at 17:30 Diltiazem HCl (Cardizem-D5W 125 Mg/125 ml Drip) 125 ml @ 5 mls/hr TITRATE IV Last administered on 08/23/16 07:01; Admin Dose 5 MLS/HR; Start 08/22/16 at 20:30 Pantoprazole (Protonix Iv) 40 mg DAILY@06 IV Last administered on 08/27/16 05: 34; Admin Dose 40 MG; Start 08/23/16 at 06:00 Miscellaneous Information 1 ea NOTE XX ; Start 08/22/16 at 21:00 Glucose (Glutose) 15 gm Q15M PRN PO DECREASED GLUCOSE; Start 08/22/16 at 21:00 Glucose (Glutose) 22.5 gm Q15M PRN PO DECREASED GLUCOSE; Start 08/22/16 at 21:00 Dextrose (D50w Syringe) 25 ml Q15M PRN IV DECREASED GLUCOSE; Start 08/22/16 at 21:00 Dextrose (D50w Syringe) 50 ml Q15M PRN IV DECREASED GLUCOSE; Start 08/22/16 at 21:00 Glucagon (Glucagen) 1 mg Q15M PRN IM DECREASED GLUCOSE; Start 08/22/16 at 21:00 Glucose (Glutose) 15 gm Q15M PRN BUCCAL DECREASED GLUCOSE; Start 08/22/16 at 21: 00 Diltiazem HCl (Cardizem) 60 mg Q6 PO Last administered on 08/27/16 12:52; Admin Dose 60 MG; Start 08/23/16 at 09:00 Diagnostic Test (Pha) (Accucheck) 1 ea 02 XX ; Start 08/24/16 at 02:00 Insulin Glargine 12 unit 12 unit QHS SC Last administered on 08/26/16 20:59; Admin Dose 12 UNIT; Start 08/24/16 at 21:00 Sodium Chloride (1/2 NS) 1,000 ml @ 50 mls/hr Q20H IV Last administered on 08/27 05:35; Admin Dose 50 MLS/HR; Start 08/25/16 at 14:30 Assessment/Plan Additional Assessment/Plan IMPRESSION: 1. Spontaneous Retroperitoneal bleed. 2. Acute renal failure with metabolic acidosis. 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 4. History of atrial fibrillation. RECS: 1. Continue to monitor H/H; follow each PRBC with lasix 20 mg 2. Having a mechanical MV makes her very high risk being off anticoagulation, therefore, would consider upgrading her to a higher level of care (ie. ICU) once we have clearance from surgery to start heparin gtt. JOSE LOPEZ MD Aug 27, 2016 13:27
--- NOTE | 2016-08-27 14:35 | PN ---
Date/Time of Note Date/Time of Note DATE: 08/27/16 TIME: 14:12 Assessment/Plan Lines/Catheters IV Catheter Type (from [facility]): PICC Line Per[facility] in Place (from [facility]): Yes Assessment/Plan Assessment/Plan [facility] In[facility] Progress Note Date of Service: 08/27/2016 Today's Assessment & Plan: Overall stable. No indication for acute surgical intervention. No indication for interventional radiology intervention. Hemoglobin responding to PRBC. Repeat CT shows expected increase in size of hematoma but no other major new changes. Agree with start of anticoagulation and recommend starting with heparin and transitioning carefully to warfarin. With above assessment, I've recommended the following for today: 1. Continue current cares 2. Careful observation otherwise in those 3. Agree with start of anticoagulation for heart 4. Will follow with you Thank you again for your great care of this very pleasant lady and I'm certain her wonderful family. If there are any questions, please feel free to call me at [phone]. TOTAL VISIT TIME: 20 minutes of which more than half was spent in [id number] discussion with the patient as well as coordination of care between multiple physicians and providers. Disclaimer: Inadvertent spelling and grammatical errors are likely due to EHR/ dictation software use and do not reflect on the quality of delivered patient care. Also, please note that the electronic time recorded on this node does not necessarily reflect the actual time of the visit. Updated Clinical Summary: Very pleasant, but unfortunate 75-year-old lady with multiple comorbid issues; including atrial fibrillation requiring anticoagulation, congestive heart failure and perhaps other heart disease status post heart valve replacement, and a number of medical issues such as diabetes mellitus, hypertension, hyperlipidemia and gout, with TIA in the past; admitted to [facility] through the emergency department 08/21/2016 with a left flank hematoma that appeared to extend from the left hip area to mid flank region. Past and present comorbidity list: 1. Atrial fibrillation requiring anticoagulation. 2. Hypertension. 3. Congestive heart failure. 4. Diabetes mellitus. 5. Gout. 6. History of transient ischemic attacks in the past. 7. Dyslipidemia. 8. Bilateral cataract surgery. 9. History of heart valve replacement. Subjective: No major events or complaints; no significant abd pain and under control with medications; reports feeling well; no n/v/d; no sob or cp; - flatus; - BM; - activity; Objective: Vitals: See below I's & O's: See below Exam: GENERAL: On exam, the patient was lying in bed and appeared to be comfortable and in no acute distress. ABDOMEN: Soft, mild to mod tender to palpation in the left flank and not sig distended. There are no peritoneal signs or guarding. SKIN: Skin appears to be pink and feels warm to touch. NEUROLOGIC: Patient is awake, alert, and follows commands appropriately. Labs: See below Exam/Review of Systems Vital Signs Vitals Vital Signs Date Time Temp Pulse Resp B/P Pulse Ox O2 Delivery O2 Flow Rate FiO2 08/27/16 13:33 61 08/27/16 11:41 97.6 18 120/56 98 08/27/16 08:00 Nasal Cannula 3.0 08/26/16 01:14 32 Intake and Output 08/26/16 08/26/16 08/27/16 15:00 23:00 07:00 Intake Total 200 ml Output Total 1600 ml 1600 ml Balance -1600 ml -1400 ml Results Result Diagram: 08/27/16 0710 08/27/16 0710 ROSELYN WALLIS M.D. Aug 27, 2016 14:29
[2016-08-27] MEDS ORDERED: POTASSIUM CHLORIDE (SR) 20 MEQ TAB PO STA (15:41)
[2016-08-27] MEDS: ATORVASTATIN 20 MG TAB PO SCH (21:01)
[2016-08-27] MEDS: INSULIN GLARGINE [LANtus] 3 ML PEN SC SCH (21:04)
--- NOTE | 2016-08-27 23:58 | PN ---
Date/Time of Note Date/Time of Note DATE: 08/27/16 TIME: 23:58 Assessment/Plan VTE Prophylaxis VTE Prophylaxis Intervention: SCD's Lines/Catheters IV Catheter Type (from Nrs): PICC Line Central line still needed: Yes Urinary Cath still in place: Yes Reason Cath still needed: other (indicate) Assessment/Plan Assessment/Plan IMPRESSION: 1. Retroperitoneal bleeding/hematoma. 2. Chronic atrial fibrillation, currently rate controlled. 3. Acute on chronic kidney disease. 4. Anemia, secondary to #1. 5. Coagulopathy with elevated INR, corrected. 6. Possible left pleural effusion. 7. Hx of cardiac Valve replacement PLAN: Will place CT surg consult. Pt needs to be anticoagulated. Will need to decide when will be a good time to re-start anticoagulation will increase dose of lasix as needed. resp symptom is better Continue to monitor hemoglobin closely and transfuse as needed. will give 1 unit today, with lasix INR has been corrected We will monitor closely. Currently, she is hemodynamically stable without any pressor support. Her rate also has been controlled on oral diltiazem. We will continue her current medical management. Nephrology is managing her renal insufficiency. Dr. Grewal from surgery is also on board given the retroperitoneal bleeding. Cont insulin and adjust as needed Further workup and management per clinical course. Subjective 24 Hr Interval Summary Free Text/Dictation stated SOB is better. c/o intermittent abd pain Exam/Review of Systems Vital Signs Vitals Vital Signs Date Time Temp Pulse Resp B/P Pulse Ox O2 Delivery O2 Flow Rate FiO2 08/27/16 22:00 3.0 08/27/16 21:43 Nasal Cannula 08/27/16 20:29 98.3 66 16 130/58 100 08/26/16 01:14 32 Intake and Output 08/26/16 08/26/16 08/27/16 15:00 23:00 07:00 Intake Total 200 ml Output Total 1600 ml 1600 ml Balance -1600 ml -1400 ml Exam GENERAL: No acute distress, but she appears weak and also at times noted to be having slight difficulty breathing when she speaks. HEENT: No obvious head deformity. Pupils are reactive to light. Extraocular muscles intact. CARDIOVASCULAR: Irregularly irregular. PULMONARY: Lungs have good air movement. No wheezes or rhonchi. ABDOMEN: Soft. There is a left-sided hematoma which is somehow tender to touch. There are positive bowel sounds. EXTREMITIES: No edema. Results Result Diagram: 08/27/16 0710 08/27/16 0710 Results 24 hrs Laboratory Tests Test 08/27/16 07:10 08/27/16 07:17 08/27/16 11:35 08/27/16 17:10 Alanine Aminotransferase (ALT/SGPT) 148 H Albumin 3.5 Albumin/Globulin Ratio 1.29 Alkaline Phosphatase 59 Anion Gap 17 H Aspartate Amino Transf (AST/SGOT) 81 H Basophils # 0.1 Basophils % 0.5 Blood Morphology Comment Blood Urea Nitrogen 46 H Calcium Level 6.1 L Carbon Dioxide Level 30 Chloride Level 98 Creatinine 1.98 H Direct Bilirubin 0.10 Eosinophils # 0.0 Eosinophils % 0.3 Globulin 2.70 Glucose Level 130 # Hematocrit 26.3 #L Hemoglobin 9.0 #L Indirect Bilirubin 1.7 H Lymphocytes # 0.2 L Lymphocytes % 2.3 L Mean Corpuscular Hemoglobin 31.1 Mean Corpuscular Hemoglobin Concent 34.2 Mean Corpuscular Volume 91.1 Mean Platelet Volume 7.8 Monocytes # 1.0 H Monocytes % 10.1 Neutrophils # 8.3 H Neutrophils % 86.8 H Nucleated Red Blood Cells # 0.0 Nucleated Red Blood Cells % 0.0 Platelet Count 126 L Potassium Level 3.1 L Red Blood Count 2.89 #L Red Cell Distribution Width 17.3 H Sodium Level 142 Total Bilirubin 1.8 H Total Protein 6.2 White Blood Count 9.6 Bedside Glucose 142 146 154 Test 08/27/16 20:59 Bedside Glucose 224 H Medications Medications Current Medications Amlodipine Besylate (Norvasc) 10 mg DAILY PO Last administered on 08/25/16 10: 51; Admin Dose 10 MG; Start 08/22/16 at 09:00 Benazepril HCl (Lotensin) 20 mg DAILY PO Last administered on 08/22/16 09:46; Admin Dose 20 MG; Start 08/22/16 at 09:00; Status Future Hold Bisoprolol Fumarate (Zebeta) 5 mg DAILY PO Last administered on 08/27/16 08:47 ; Admin Dose 5 MG; Start 08/22/16 at 09:00 Isosorbide Mononitrate (Imdur) 60 mg DAILY PO Last administered on 08/25/16 10: 50; Admin Dose 60 MG; Start 08/22/16 at 09:00 Tramadol HCl (Ultram) 50 mg Q6 PRN PO pain Last administered on 08/27/16 21:02 ; Admin Dose 50 MG; Start 08/22/16 at 03:00 Atorvastatin Calcium (Lipitor) 20 mg HS PO Last administered on 08/27/16 21:01 ; Admin Dose 20 MG; Start 08/22/16 at 21:00 Morphine Sulfate (morphine) 2 mg Q4 PRN IV mod pain Last administered on 03:04; Admin Dose 2 MG; Start 08/22/16 at 04:30 Ondansetron HCl (Zofran Inj) 4 mg Q6H PRN IV NAUSEA AND/OR VOMITING Last administered on 08/22/16 13:20; Admin Dose 4 MG; Start 08/22/16 at 11:30 IV Flush 10 ml 10 ml PRN PRN IV IV PROTOCOL; Start 08/22/16 at 17:30 Diltiazem HCl (Cardizem-D5W 125 Mg/125 ml Drip) 125 ml @ 5 mls/hr TITRATE IV Last administered on 08/23/16 07:01; Admin Dose 5 MLS/HR; Start 08/22/16 at 20:30 Pantoprazole (Protonix Iv) 40 mg DAILY@06 IV Last administered on 08/27/16 05: 34; Admin Dose 40 MG; Start 08/23/16 at 06:00 Miscellaneous Information 1 ea NOTE XX ; Start 08/22/16 at 21:00 Glucose (Glutose) 15 gm Q15M PRN PO DECREASED GLUCOSE; Start 08/22/16 at 21:00 Glucose (Glutose) 22.5 gm Q15M PRN PO DECREASED GLUCOSE; Start 08/22/16 at 21:00 Dextrose (D50w Syringe) 25 ml Q15M PRN IV DECREASED GLUCOSE; Start 08/22/16 at 21:00 Dextrose (D50w Syringe) 50 ml Q15M PRN IV DECREASED GLUCOSE; Start 08/22/16 at 21:00 Glucagon (Glucagen) 1 mg Q15M PRN IM DECREASED GLUCOSE; Start 08/22/16 at 21:00 Glucose (Glutose) 15 gm Q15M PRN BUCCAL DECREASED GLUCOSE; Start 08/22/16 at 21: 00 Diltiazem HCl (Cardizem) 60 mg Q6 PO Last administered on 08/27/16 17:12; Admin Dose 60 MG; Start 08/23/16 at 09:00 Diagnostic Test (Pha) (Accucheck) 1 ea 02 XX ; Start 08/24/16 at 02:00 Insulin Glargine 12 unit 12 unit QHS SC Last administered on 08/27/16 21:04; Admin Dose 12 UNIT; Start 08/24/16 at 21:00 Sodium Chloride (1/2 NS) 1,000 ml @ 50 mls/hr Q20H IV Last administered on 08/27 05:35; Admin Dose 50 MLS/HR; Start 08/25/16 at 14:30 ANGEL ASHLEY MD Aug 27, 2016 23:58
[2016-08-28] VITALS (12 sets, daily range): BP systolic 119–133; BP diastolic 57–61; PULSE 64–90; RESP 18–20
[2016-08-28] MEDS: DILTIAZEM 60 MG TAB PO SCH ×4 (00:43→17:08)
[2016-08-28] MEDS: SOD CHLORIDE 0.45% 1,000 ML IV SCH (01:59)
[2016-08-28] MEDS: ACCUCHECK XX SCH (01:59)
[2016-08-28] MEDS: PANTOPRAZOLE 40 MG INJ IV SCH (05:32)
[2016-08-28] MEDS: FUROSEMIDE 20 MG INJ IV SCH ×2 (05:32→17:09)
[2016-08-28] MEDS: traMADol 50 MG TAB PO PRN ×2 (05:32→11:45)
[2016-08-28] MEDS: INSULIN ASPART [NOVOLOG] 3 ML PEN SC SCH ×4 (07:22→21:00)
[2016-08-28 07:57] LABS: ALBUMIN 3.3 g/dl (3.3-4.9)
[2016-08-28 07:58] LABS: POTASSIUM 3.3 mmol/L (3.5-5.1)
[2016-08-28 08:00] LABS: ALBUMIN/GLOBULIN RATIO 1.17; BILIRUBIN,DIRECT 0.3 mg/dl (0.00-0.20); BILIRUBIN,INDIRECT 1.8 mg/dl (0-1.1); BILIRUBIN,TOTAL 2.1 mg/dl (0.2-1.3); CREATININE 1.67 mg/dl (0.44-1.00); TOTAL PROTEIN 6.1 g/dl (6.1-8.1)
[2016-08-28 08:16] LABS: CALCIUM 5.7 mg/dl (8.4-10.2)
[2016-08-28 08:18] LABS: BASOPHILS % 0.1 % (0.0-2.0); EOSINOPHILS % 0.2 % (0.0-7.0); HEMATOCRIT 25.6 % (37.0-47.0); HEMOGLOBIN 8.8 g/dl (12.0-16.0); LYMPHOCYTES # 0.6 10^3/ul (0.8-2.9); LYMPHOCYTES % 5.7 % (15.0-51.0); MEAN CORPUSCULAR HEMOGLOBIN 31.5 pg (29.0-33.0); MEAN CORPUSCULAR HGB CONC 34.3 g/dl (32.0-37.0); MEAN CORPUSCULAR VOLUME 91.7 fl (82.0-101.0); MEAN PLATELET VOLUME 7.8 fl (7.4-10.4); MONOCYTE # 0.8 10^3/ul (0.3-0.9); MONOCYTES % 7.9 % (0.0-11.0); NEUTROPHIL # 8.8 10^3/ul (1.6-7.5); NEUTROPHILS % 86.1 % (39.0-77.0); PLATELET COUNT 142 10^3/UL (140-440); RED BLOOD COUNT 2.79 10^6/ul (4.20-5.40); RED CELL DISTRIBUTION WIDTH 17.5 % (11.5-14.5); UNCORRECTED WBC 10.2 10^3/ul (4.8-10.8); WHITE BLOOD COUNT 10.2 10^3/ul (4.8-10.8)
[2016-08-28 08:27] LABS: CONDITION 1; LH ANALYZER COMMENTS 1
[2016-08-28] MEDS: AMLODIPINE 10 MG TAB PO SCH (09:00)
[2016-08-28] MEDS: ISOSORBIDE MONONITRATE(SR)60 MG TAB PO SCH (09:00)
[2016-08-28] MEDS: BISOPROLOL 5 MG TAB PO SCH (09:18)
--- NOTE | 2016-08-28 11:11 | CONS ---
Date/Time of Note Date/Time of Note DATE: 08/28/16 TIME: 11:08 Consult Date/Type/Reason Admit Date/Time Aug 22, 2016 at 01:44 Type of Consultation: neph Subjective The patient is clinically stable overnight. The patient received total 3 units of PRBC, tolerated it well. Hemoglobin levels have dropped a bit. No other acute events noted. The patient's urinary output has remained adequate overnight. No episodes of hemoptysis, hematemesis, or hematochezia. HEENT: Head is normocephalic. NECK: Supple. HEART: Regular rate, positive mechanical click. LUNGS: Show diminished breath sounds at the base. ABDOMEN: Soft, nontender to palpation. Noted ecchymosis on the left flank. EXTREMITIES: Negative for clubbing, cyanosis, or edema. DERMATOLOGIC: No rashes. MUSCULOSKELETAL: No joint effusions. NEUROLOGIC: No focal deficits. Objective Vital Signs Date Time Temp Pulse Resp B/P Pulse Ox O2 Delivery O2 Flow Rate FiO2 08/28/16 08:19 64 08/28/16 08:10 Nasal Cannula 3.0 08/28/16 08:10 98.3 20 125/61 99 08/26/16 01:14 32 Intake and Output 08/27/16 08/27/16 08/28/16 15:00 23:00 07:00 Intake Total 400 ml 500 ml 650 ml Output Total 800 ml 750 ml Balance 400 ml -300 ml -100 ml Results/Medications Result Diagram: 08/28/16 0705 08/28/16 0705 Results 24 hrs Laboratory Tests Test 08/27/16 11:35 08/27/16 17:10 08/27/16 20:59 08/28/16 01:52 Bedside Glucose 146 154 224 H 119 Test 08/28/16 07:05 08/28/16 07:21 Alanine Aminotransferase (ALT/SGPT) 110 H Albumin 3.3 Albumin/Globulin Ratio 1.17 Alkaline Phosphatase 65 Anion Gap 14 Aspartate Amino Transf (AST/SGOT) 51 H Basophils # 0.0 Basophils % 0.1 Blood Morphology Comment Blood Urea Nitrogen 36 H Calcium Level 5.7 *L Carbon Dioxide Level 32 H Chloride Level 97 Creatinine 1.67 H Direct Bilirubin 0.30 #H Eosinophils # 0.0 Eosinophils % 0.2 Globulin 2.80 Glucose Level 78 # Hematocrit 25.6 L Hemoglobin 8.8 L Indirect Bilirubin 1.8 H Lymphocytes # 0.6 L Lymphocytes % 5.7 L Mean Corpuscular Hemoglobin 31.5 Mean Corpuscular Hemoglobin Concent 34.3 Mean Corpuscular Volume 91.7 Mean Platelet Volume 7.8 Monocytes # 0.8 Monocytes % 7.9 Neutrophils # 8.8 H Neutrophils % 86.1 H Nucleated Red Blood Cells # 0.0 Nucleated Red Blood Cells % 0.0 Platelet Count 142 Potassium Level 3.3 L Red Blood Count 2.79 L Red Cell Distribution Width 17.5 H Sodium Level 140 Total Bilirubin 2.1 H Total Protein 6.1 White Blood Count 10.2 Bedside Glucose 124 Medications Current Medications Amlodipine Besylate (Norvasc) 10 mg DAILY PO Last administered on 08/25/16 10: 51; Admin Dose 10 MG; Start 08/22/16 at 09:00 Benazepril HCl (Lotensin) 20 mg DAILY PO Last administered on 08/22/16 09:46; Admin Dose 20 MG; Start 08/22/16 at 09:00; Status Future Hold Bisoprolol Fumarate (Zebeta) 5 mg DAILY PO Last administered on 08/28/16 09:18 ; Admin Dose 5 MG; Start 08/22/16 at 09:00 Isosorbide Mononitrate (Imdur) 60 mg DAILY PO Last administered on 08/25/16 10: 50; Admin Dose 60 MG; Start 08/22/16 at 09:00 Tramadol HCl (Ultram) 50 mg Q6 PRN PO pain Last administered on 08/28/16 05:32 ; Admin Dose 50 MG; Start 08/22/16 at 03:00 Atorvastatin Calcium (Lipitor) 20 mg HS PO Last administered on 08/27/16 21:01 ; Admin Dose 20 MG; Start 08/22/16 at 21:00 Morphine Sulfate (morphine) 2 mg Q4 PRN IV mod pain Last administered on 03:04; Admin Dose 2 MG; Start 08/22/16 at 04:30 Ondansetron HCl (Zofran Inj) 4 mg Q6H PRN IV NAUSEA AND/OR VOMITING Last administered on 08/22/16 13:20; Admin Dose 4 MG; Start 08/22/16 at 11:30 IV Flush 10 ml 10 ml PRN PRN IV IV PROTOCOL; Start 08/22/16 at 17:30 Diltiazem HCl (Cardizem-D5W 125 Mg/125 ml Drip) 125 ml @ 5 mls/hr TITRATE IV Last administered on 08/23/16 07:01; Admin Dose 5 MLS/HR; Start 08/22/16 at 20:30 Pantoprazole (Protonix Iv) 40 mg DAILY@06 IV Last administered on 08/28/16 05: 32; Admin Dose 40 MG; Start 08/23/16 at 06:00 Miscellaneous Information 1 ea NOTE XX ; Start 08/22/16 at 21:00 Glucose (Glutose) 15 gm Q15M PRN PO DECREASED GLUCOSE; Start 08/22/16 at 21:00 Glucose (Glutose) 22.5 gm Q15M PRN PO DECREASED GLUCOSE; Start 08/22/16 at 21:00 Dextrose (D50w Syringe) 25 ml Q15M PRN IV DECREASED GLUCOSE; Start 08/22/16 at 21:00 Dextrose (D50w Syringe) 50 ml Q15M PRN IV DECREASED GLUCOSE; Start 08/22/16 at 21:00 Glucagon (Glucagen) 1 mg Q15M PRN IM DECREASED GLUCOSE; Start 08/22/16 at 21:00 Glucose (Glutose) 15 gm Q15M PRN BUCCAL DECREASED GLUCOSE; Start 08/22/16 at 21: 00 Diltiazem HCl (Cardizem) 60 mg Q6 PO Last administered on 08/28/16 05:32; Admin Dose 60 MG; Start 08/23/16 at 09:00 Diagnostic Test (Pha) (Accucheck) 1 ea 02 XX ; Start 08/24/16 at 02:00 Insulin Glargine 12 unit 12 unit QHS SC Last administered on 08/27/16 21:04; Admin Dose 12 UNIT; Start 08/24/16 at 21:00 Sodium Chloride (1/2 NS) 1,000 ml @ 50 mls/hr Q20H IV Last administered on 08/28 01:59; Admin Dose 50 MLS/HR; Start 08/25/16 at 14:30 Assessment/Plan Chief Complaint/Hosp Course 1. Nonoliguric acute kidney injury on top of chronic kidney disease stage IIIB/ IV with a baseline creatinine around 1.7 to 2 mg/dL which gives an estimated GFR around 25 mL per minute per CKD-EPI formulation. Etiology of current acute kidney injury is secondary to acute tubular necrosis due to ischemic hypoperfusion, prerenal volume depletion from retroperitoneal bleed, severe anemia. The patient's urinalysis shows evidence of granular casts consistent with tubular injury. Urinalysis is otherwise not inactive. There is no pyuria or hematuria. The patient's renal ultrasound also shows no evidence of obstruction, but does show increased renal parenchyma consistent with chronic kidney disease. The patient's renal function has improved in the last 24 hours again with continued supportive care, IV fluids, and recent blood transfusion. At this point, would continue current treatment plan, continue IV hydration, maintain MAP above 65, continue transfusing PRBCs as needed to maintain hemoglobin levels around 8 g/dL. Would otherwise continue supportive care, renally dose all medications, avoid nephrotoxins. 2. Hyperkalemia. Etiology secondary to acute kidney injury, azotemia, and multiple blood transfusions. The patient's potassium levels have normalized. Will continue to monitor. 3. Metabolic anion gap acidosis with respiratory compensation. improved. have already dced hco3 4. Mineral bone disorder. The patient is hypocalcemic. Will check an ionized calcium. If calcium levels remain low, will give the patient calcium gluconate. The patient currently appears asymptomatic. 5. Acute retroperitoneal bleed, etiology secondary to coagulopathy. The patient was evaluated by a general surgeon. No plan for surgery at this time. Continue to monitor H and H levels, continue blood transfusions. dropped some again today. per surg recs. 6. Anemia secondary to retroperitoneal bleed in the setting of Coumadin use and coagulopathy. The patient continues to receive blood transfusions. Continue to monitor H and H levels. 7. Mechanical cardiac valve. The patient is currently off anticoagulation in the setting of bleed. Will monitor closely. Would recommend a cardiology consult for evaluation. 8. History of congestive heart failure. The patient appears compensated. Monitor I's and O's closely. 9. Chronic atrial fibrillation, currently rate controlled. Continue to monitor. 10. Diabetes. Continue Accu-Cheks and insulin sliding scale. 11. Possible pneumonia. The patient is on antibiotic therapy, continue to monitor. 12. History of hypertension. The patient is currently now normotensive. Continue IV fluids. Would continue current blood pressure medications, monitor closely. Problems: NATHAN BRITTON MD Aug 28, 2016 11:11
[2016-08-28] MEDS: morphine 2 MG INJ IV PRN (11:31)
[2016-08-28] MEDS ORDERED: HEPARIN 1000 UNITS/ML 10 ML INJ IV ONE (12:30)
[2016-08-28] MEDS ORDERED: HEPARIN 1000 UNITS/ML 10 ML INJ IV PRN (12:30)
[2016-08-28] MEDS ORDERED: POTASSIUM CHLORIDE (SR) 20 MEQ TAB PO STA (12:35)
--- NOTE | 2016-08-28 12:35 | PN ---
Date/Time of Note Date/Time of Note DATE: 08/28/16 TIME: 12:31 Assessment/Plan VTE Prophylaxis VTE Prophylaxis Intervention: heparin Lines/Catheters IV Catheter Type (from Nrsg): PICC Line Central line still needed: Yes Urinary Cath still in place: Yes Reason Cath still needed: urinary retention Assessment/Plan Assessment/Plan 1. Retroperitoneal bleeding/hematoma - enlarging as per CT findings, monitor changes 2. Chronic atrial fibrillation, currently rate controlled - restarted heparin for now 3. Acute on chronic kidney disease - improving from ATN for possible CHF 4. Anemia, secondary to #1 - stable monitor for acute bleeding 5. Coagulopathy with elevated INR, corrected - stable currently 6. Possible left pleural effusion - improving 7. Hx of cardiac Valve replacement - appreciate cardiology consult, ECHO ordered 8. GI ppx - pepcid po 9. DVT ppx - heparin gtt dispo - f/u recs, as per clinical course. heparin gtt this progress note took greater than 30 minutes to complete Subjective 24 Hr Interval Summary Free Text/Dictation Patient had no overnight events. Spoke to the nurse in regards to the care plan. 15 minutes spent. Exam/Review of Systems Vital Signs Vitals Vital Signs Date Time Temp Pulse Resp B/P Pulse Ox O2 Delivery O2 Flow Rate FiO2 08/28/16 12:13 99.4 90 20 121/59 97 08/28/16 08:10 Nasal Cannula 3.0 08/26/16 01:14 32 Intake and Output 08/27/16 08/27/16 08/28/16 15:00 23:00 07:00 Intake Total 400 ml 500 ml 650 ml Output Total 800 ml 750 ml Balance 400 ml -300 ml -100 ml Exam Gen Kate: mild distress 2/2 to left sided abdominal pain, AAOx4 HEENT: NC/AT, PERRLA, EOMI, no pharyngeal erythema, no tonsillar exudates, no lymphadenopathy, no JVD, no carotid bruits NECK: supple, no thyromegaly THORAX: symmetrical, no obvious deformities CV: S1S2, RRR, no M/G/R Lungs: CTAB no W/C/R/R Abd: soft, ND, +BS, no rebound, no guarding, neg HSM, left ttp 2/2 to hematoma EXT: no edema, no ecchymosis, no clubbing, FROM Neuro: CN II-XII grossly intact, no focal deficits Psych: depressed mood Skin: C/D/I Results Result Diagram: 08/28/16 0705 08/28/16 07 Results 24 hrs Laboratory Tests Test 08/27/16 17:10 08/27/16 20:59 08/28/16 01:52 08/28/16 07:05 Bedside Glucose 154 224 H 119 Alanine Aminotransferase (ALT/SGPT) 110 H Albumin 3.3 Albumin/Globulin Ratio 1.17 Alkaline Phosphatase 65 Anion Gap 14 Aspartate Amino Transf (AST/SGOT) 51 H Basophils # 0.0 Basophils % 0.1 Blood Morphology Comment Blood Urea Nitrogen 36 H Calcium Level 5.7 *L Carbon Dioxide Level 32 H Chloride Level 97 Creatinine 1.67 H Direct Bilirubin 0.30 #H Eosinophils # 0.0 Eosinophils % 0.2 Globulin 2.80 Glucose Level 78 # Hematocrit 25.6 L Hemoglobin 8.8 L Indirect Bilirubin 1.8 H Lymphocytes # 0.6 L Lymphocytes % 5.7 L Mean Corpuscular Hemoglobin 31.5 Mean Corpuscular Hemoglobin Concent 34.3 Mean Corpuscular Volume 91.7 Mean Platelet Volume 7.8 Monocytes # 0.8 Monocytes % 7.9 Neutrophils # 8.8 H Neutrophils % 86.1 H Nucleated Red Blood Cells # 0.0 Nucleated Red Blood Cells % 0.0 Platelet Count 142 Potassium Level 3.3 L Red Blood Count 2.79 L Red Cell Distribution Width 17.5 H Sodium Level 140 Total Bilirubin 2.1 H Total Protein 6.1 White Blood Count 10.2 Test 08/28/16 07:21 08/28/16 11:28 Bedside Glucose 124 134 Medications Medications Current Medications Amlodipine Besylate (Norvasc) 10 mg DAILY PO Last administered on 08/25/16 10: 51; Admin Dose 10 MG; Start 08/22/16 at 09:00 Benazepril HCl (Lotensin) 20 mg DAILY PO Last administered on 08/22/16 09:46; Admin Dose 20 MG; Start 08/22/16 at 09:00; Status Future Hold Bisoprolol Fumarate (Zebeta) 5 mg DAILY PO Last administered on 08/28/16 09:18 ; Admin Dose 5 MG; Start 08/22/16 at 09:00 Isosorbide Mononitrate (Imdur) 60 mg DAILY PO Last administered on 08/25/16 10: 50; Admin Dose 60 MG; Start 08/22/16 at 09:00 Tramadol HCl (Ultram) 50 mg Q6 PRN PO pain Last administered on 08/28/16 11:45 ; Admin Dose 50 MG; Start 08/22/16 at 03:00 Atorvastatin Calcium (Lipitor) 20 mg HS PO Last administered on 08/27/16 21:01 ; Admin Dose 20 MG; Start 08/22/16 at 21:00 Morphine Sulfate (morphine) 2 mg Q4 PRN IV mod pain Last administered on 11:31; Admin Dose 2 MG; Start 08/22/16 at 04:30 Ondansetron HCl (Zofran Inj) 4 mg Q6H PRN IV NAUSEA AND/OR VOMITING Last administered on 08/22/16 13:20; Admin Dose 4 MG; Start 08/22/16 at 11:30 IV Flush 10 ml 10 ml PRN PRN IV IV PROTOCOL; Start 08/22/16 at 17:30 Diltiazem HCl (Cardizem-D5W 125 Mg/125 ml Drip) 125 ml @ 5 mls/hr TITRATE IV Last administered on 08/23/16 07:01; Admin Dose 5 MLS/HR; Start 08/22/16 at 20:30 Pantoprazole (Protonix Iv) 40 mg DAILY@06 IV Last administered on 08/28/16 05: 32; Admin Dose 40 MG; Start 08/23/16 at 06:00 Miscellaneous Information 1 ea NOTE XX ; Start 08/22/16 at 21:00 Glucose (Glutose) 15 gm Q15M PRN PO DECREASED GLUCOSE; Start 08/22/16 at 21:00 Glucose (Glutose) 22.5 gm Q15M PRN PO DECREASED GLUCOSE; Start 08/22/16 at 21:00 Dextrose (D50w Syringe) 25 ml Q15M PRN IV DECREASED GLUCOSE; Start 08/22/16 at 21:00 Dextrose (D50w Syringe) 50 ml Q15M PRN IV DECREASED GLUCOSE; Start 08/22/16 at 21:00 Glucagon (Glucagen) 1 mg Q15M PRN IM DECREASED GLUCOSE; Start 08/22/16 at 21:00 Glucose (Glutose) 15 gm Q15M PRN BUCCAL DECREASED GLUCOSE; Start 08/22/16 at 21: 00 Diltiazem HCl (Cardizem) 60 mg Q6 PO Last administered on 08/28/16 05:32; Admin Dose 60 MG; Start 08/23/16 at 09:00 Diagnostic Test (Pha) (Accucheck) 1 ea 02 XX ; Start 08/24/16 at 02:00 Insulin Glargine 12 unit 12 unit QHS SC Last administered on 08/27/16 21:04; Admin Dose 12 UNIT; Start 08/24/16 at 21:00 Sodium Chloride (1/2 NS) 1,000 ml @ 50 mls/hr Q20H IV Last administered on 08/28 01:59; Admin Dose 50 MLS/HR; Start 08/25/16 at 14:30 LANRE LEMUS MD Aug 28, 2016 12:35
--- NOTE | 2016-08-28 12:45 | CONS ---
Date/Time of Note Date/Time of Note DATE: 08/28/16 TIME: 12:36 Assessment/Plan Assessment/Plan Chief Complaint/Hosp Course Mechanical mitral valve: Though the valve is from ~10 yrs ago (newer valves have slightly lower risk of thrombosis), it is in the mitral position which is at higher risk for thrombosis. Furthermore her afib will cause stagnant atrial flow and further increase her risk. Anticoagulation has appropriately been held due to to significant retroperitoneal bleeding but most recent note from surgeon , Dr. Grewal, comments that it would be ok to restart anticoagulation. Acute on chronic ?diastolic heart failure: likely from blood products and not valve thrombosis/dysfunction. Will check echo. Diurese Chronic afib: rates controlled Retroperitoneal bleed: spontaneous in setting of supratherapeutic INR. Managed conservatively CKD DM HTN h/o TIA -start heparin drip as ok per surgery (consider starting with half dose bolus) -observe closely for bleeding -possibly start coumadin tomorrow if Hgb stable -check echo -increase lasix to 40mg IV BID -stop IV fluids -bisoprolol, diltiazem for rate control Problems: Consultation Date/Type/Reason Admit Date/Time Aug 22, 2016 at 01:44 Date of Consultation: Aug 28, 2016 Type of Consultation: Cardiology Reason for Consultation mechanical MVR Referring Provider: LANRE LEMUS MD Hx of Present Illness 75 yo F with a h/o mechanical MVR (2005), diastolic heart failure, chronic afib , CKD, DM, TIA, who presented with flank/abdominal hematoma and was found to have a retroperitoneal hematoma (INR 5) which was managed conservatively. Cardiology is being consulted for comment on anticoagulation. The patient notes that besides pain in her abdomen/flank, she also has mild SOB. No chest pain. per HPI Social History Smoking Status: Never smoker Exam/Review of Systems Vital Signs Vitals Vital Signs Date Time Temp Pulse Resp B/P Pulse Ox O2 Delivery O2 Flow Rate FiO2 08/28/16 12:12 90 08/28/16 08:10 Nasal Cannula 3.0 08/28/16 08:10 98.3 20 125/61 99 08/26/16 01:14 32 Intake and Output 08/27/16 08/27/16 08/28/16 14:59 22:59 06:59 Intake Total 400 ml 500 ml 650 ml Output Total 800 ml 750 ml Balance 400 ml -300 ml -100 ml Exam Constitutional: alert, oriented Psych: nl mood/affect Head: atraumatic, normocephalic Neck: jvd (10cm) Respiratory: crackles/rales, No clear to auscultation Cardiovascular: other (crisp mechanical S1), systolic murmur (2/6), No regular rate and rhythm Gastrointestinal: other (abdominal wall hematoma noted ), soft Extremities: edema (1+) Neurological: nl mental status, nl speech Skin: No rash or lesions Results Result Diagram: 08/28/1670408/28/16704 Results 24 hrs Laboratory Tests Test 08/27/16 17:10 08/27/16 20:59 08/28/16 01:52 08/28/16 07:05 Bedside Glucose 154 224 H 119 Alanine Aminotransferase (ALT/SGPT) 110 H Albumin 3.3 Albumin/Globulin Ratio 1.17 Alkaline Phosphatase 65 Anion Gap 14 Aspartate Amino Transf (AST/SGOT) 51 H Basophils # 0.0 Basophils % 0.1 Blood Morphology Comment Blood Urea Nitrogen 36 H Calcium Level 5.7 *L Carbon Dioxide Level 32 H Chloride Level 97 Creatinine 1.67 H Direct Bilirubin 0.30 #H Eosinophils # 0.0 Eosinophils % 0.2 Globulin 2.80 Glucose Level 78 # Hematocrit 25.6 L Hemoglobin 8.8 L Indirect Bilirubin 1.8 H Lymphocytes # 0.6 L Lymphocytes % 5.7 L Mean Corpuscular Hemoglobin 31.5 Mean Corpuscular Hemoglobin Concent 34.3 Mean Corpuscular Volume 91.7 Mean Platelet Volume 7.8 Monocytes # 0.8 Monocytes % 7.9 Neutrophils # 8.8 H Neutrophils % 86.1 H Nucleated Red Blood Cells # 0.0 Nucleated Red Blood Cells % 0.0 Platelet Count 142 Potassium Level 3.3 L Red Blood Count 2.79 L Red Cell Distribution Width 17.5 H Sodium Level 140 Total Bilirubin 2.1 H Total Protein 6.1 White Blood Count 10.2 Test 08/28/16 07:21 08/28/16 11:28 Bedside Glucose 124 134 Medications Medications Current Medications Amlodipine Besylate (Norvasc) 10 mg DAILY PO Last administered on 08/25/16t 10: 51; Admin Dose 10 MG; Start 08/22/16 at 09:00 Benazepril HCl (Lotensin) 20 mg DAILY PO Last administered on 08/22/16 09:46; Admin Dose 20 MG; Start 08/22/16 at 09:00; Status Future Hold Bisoprolol Fumarate (Zebeta) 5 mg DAILY PO Last administered on 08/28/16 09:18 ; Admin Dose 5 MG; Start 08/22/16 at 09:00 Isosorbide Mononitrate (Imdur) 60 mg DAILY PO Last administered on 08/25/16 10: 50; Admin Dose 60 MG; Start 08/22/16 at 09:00 Tramadol HCl (Ultram) 50 mg Q6 PRN PO pain Last administered on 08/28/16 11:45 ; Admin Dose 50 MG; Start 08/22/16 at 03:00 Atorvastatin Calcium (Lipitor) 20 mg HS PO Last administered on 08/27/16 21:01 ; Admin Dose 20 MG; Start 08/22/16 at 21:00 Morphine Sulfate (morphine) 2 mg Q4 PRN IV mod pain Last administered on 11:31; Admin Dose 2 MG; Start 08/22/16 at 04:30 Ondansetron HCl (Zofran Inj) 4 mg Q6H PRN IV NAUSEA AND/OR VOMITING Last administered on 08/22/16 13:20; Admin Dose 4 MG; Start 08/22/16 at 11:30 IV Flush 10 ml 10 ml PRN PRN IV IV PROTOCOL; Start 08/22/16 at 17:30 Diltiazem HCl (Cardizem-D5W 125 Mg/125 ml Drip) 125 ml @ 5 mls/hr TITRATE IV Last administered on 08/23/16 07:01; Admin Dose 5 MLS/HR; Start 08/22/16 at 20:30 Pantoprazole (Protonix Iv) 40 mg DAILY@06 IV Last administered on 08/28/16 05: 32; Admin Dose 40 MG; Start 08/23/16 at 06:00 Miscellaneous Information 1 ea NOTE XX ; Start 08/22/16 at 21:00 Glucose (Glutose) 15 gm Q15M PRN PO DECREASED GLUCOSE; Start 08/22/16 at 21:00 Glucose (Glutose) 22.5 gm Q15M PRN PO DECREASED GLUCOSE; Start 08/22/16 at 21:00 Dextrose (D50w Syringe) 25 ml Q15M PRN IV DECREASED GLUCOSE; Start 08/22/16 at 21:00 Dextrose (D50w Syringe) 50 ml Q15M PRN IV DECREASED GLUCOSE; Start 08/22/16 at 21:00 Glucagon (Glucagen) 1 mg Q15M PRN IM DECREASED GLUCOSE; Start 08/22/16 at 21:00 Glucose (Glutose) 15 gm Q15M PRN BUCCAL DECREASED GLUCOSE; Start 08/22/16 at 21: 00 Diltiazem HCl (Cardizem) 60 mg Q6 PO Last administered on 08/28/16 05:32; Admin Dose 60 MG; Start 08/23/16 at 09:00 Diagnostic Test (Pha) (Accucheck) 1 ea 02 XX ; Start 08/24/16 at 02:00 Insulin Glargine 12 unit 12 unit QHS SC Last administered on 08/27/16 21:04; Admin Dose 12 UNIT; Start 08/24/16 at 21:00 Sodium Chloride (1/2 NS) 1,000 ml @ 50 mls/hr Q20H IV Last administered on 08/28 01:59; Admin Dose 50 MLS/HR; Start 08/25/16 at 14:30 FR[place] Aug 28, 2016 12:45
[2016-08-28 15:03] LABS: BASOPHILS % 0.2 % (0.0-2.0); EOSINOPHILS % 0.2 % (0.0-7.0); HEMATOCRIT 26.8 % (37.0-47.0); LYMPHOCYTES # 0.5 10^3/ul (0.8-2.9); LYMPHOCYTES % 4.6 % (15.0-51.0); MEAN CORPUSCULAR HEMOGLOBIN 30.8 pg (29.0-33.0); MEAN CORPUSCULAR HGB CONC 33.5 g/dl (32.0-37.0); MEAN CORPUSCULAR VOLUME 92.1 fl (82.0-101.0); MEAN PLATELET VOLUME 7.9 fl (7.4-10.4); MONOCYTE # 0.8 10^3/ul (0.3-0.9); MONOCYTES % 6.5 % (0.0-11.0); NEUTROPHIL # 10.2 10^3/ul (1.6-7.5); NEUTROPHILS % 88.5 % (39.0-77.0); PLATELET COUNT 153 10^3/UL (140-440); RED BLOOD COUNT 2.91 10^6/ul (4.20-5.40); RED CELL DISTRIBUTION WIDTH 17.4 % (11.5-14.5); UNCORRECTED WBC 11.5 10^3/ul (4.8-10.8); WHITE BLOOD COUNT 11.5 10^3/ul (4.8-10.8)
[2016-08-28 15:12] LABS: CONDITION 1; LH ANALYZER COMMENTS 1
[2016-08-28 15:13] LABS: INR 1.14; PROTIME 14.6 Sec (12.2-14.2); PT RATIO 1.1
[2016-08-28 15:14] LABS: PARTIAL THROMBOPLASTIN TIME 32.6 Sec (25.0-35.0)
[2016-08-28] MEDS: HEPARIN 25000 UNITS/250 ML 250 ML IV SCH (15:49)
--- NOTE | 2016-08-28 16:15 | CONS ---
Date/Time of Note Date/Time of Note DATE: 08/28/16 TIME: 16:14 Consult Date/Type/Reason Admit Date/Time Aug 22, 2016 at 01:44 Type of Consultation: Pulm Ordering Provider: LANRE LEMUS MD Subjective Hgb stable. Started on heparin gtt Objective Vital Signs Date Time Temp Pulse Resp B/P Pulse Ox O2 Delivery O2 Flow Rate FiO2 08/28/16 12:13 99.4 90 20 121/59 97 08/28/16 08:10 Nasal Cannula 3.0 08/26/16 01:14 32 Intake and Output 08/27/16 08/27/16 08/28/16 15:00 23:00 07:00 Intake Total 400 ml 500 ml 650 ml Output Total 800 ml 750 ml Balance 400 ml -300 ml -100 ml DENNY: Supple. No JVD or lymphadenopathy. CARDIAC EXAM: Irreg Irreg mechanical S1 CHEST: Bibasilar rales ABDOMEN: Soft, nontender. No guarding or rebound. EXTREMITIES: No cyanosis, clubbing or edema. Results/Medications Result Diagram: 08/28/16 1340 08/28/16 0705 Results 24 hrs Laboratory Tests Test 08/27/16 17:10 08/27/16 20:59 08/28/16 01:52 08/28/16 07:05 Bedside Glucose 154 224 H 119 Alanine Aminotransferase (ALT/SGPT) 110 H Albumin 3.3 Albumin/Globulin Ratio 1.17 Alkaline Phosphatase 65 Anion Gap 14 Aspartate Amino Transf (AST/SGOT) 51 H Basophils # 0.0 Basophils % 0.1 Blood Morphology Comment Blood Urea Nitrogen 36 H Calcium Level 5.7 *L Carbon Dioxide Level 32 H Chloride Level 97 Creatinine 1.67 H Direct Bilirubin 0.30 #H Eosinophils # 0.0 Eosinophils % 0.2 Globulin 2.80 Glucose Level 78 # Hematocrit 25.6 L Hemoglobin 8.8 L Indirect Bilirubin 1.8 H Lymphocytes # 0.6 L Lymphocytes % 5.7 L Mean Corpuscular Hemoglobin 31.5 Mean Corpuscular Hemoglobin Concent 34.3 Mean Corpuscular Volume 91.7 Mean Platelet Volume 7.8 Monocytes # 0.8 Monocytes % 7.9 Neutrophils # 8.8 H Neutrophils % 86.1 H Nucleated Red Blood Cells # 0.0 Nucleated Red Blood Cells % 0.0 Platelet Count 142 Potassium Level 3.3 L Red Blood Count 2.79 L Red Cell Distribution Width 17.5 H Sodium Level 140 Total Bilirubin 2.1 H Total Protein 6.1 White Blood Count 10.2 Test 08/28/16 07:21 08/28/16 11:28 08/28/16 13:40 Bedside Glucose 124 134 Activated Partial Thromboplast Time 32.6 Basophils # 0.0 Basophils % 0.2 Blood Morphology Comment Eosinophils # 0.0 Eosinophils % 0.2 Hematocrit 26.8 L Hemoglobin 9.0 L INR International Normalized Ratio 1.14 Lymphocytes # 0.5 L Lymphocytes % 4.6 L Mean Corpuscular Hemoglobin 30.8 Mean Corpuscular Hemoglobin Concent 33.5 Mean Corpuscular Volume 92.1 Mean Platelet Volume 7.9 Monocytes # 0.8 Monocytes % 6.5 Neutrophils # 10.2 H Neutrophils % 88.5 H Nucleated Red Blood Cells # 0.0 Nucleated Red Blood Cells % 0.0 Platelet Count 153 Prothrombin Time 14.6 #H Prothrombin Time Ratio 1.1 Red Blood Count 2.91 L Red Cell Distribution Width 17.4 H White Blood Count 11.5 H Medications Current Medications Amlodipine Besylate (Norvasc) 10 mg DAILY PO Last administered on 08/25/16 10: 51; Admin Dose 10 MG; Start 08/22/16 at 09:00 Benazepril HCl (Lotensin) 20 mg DAILY PO Last administered on 08/22/16 09:46; Admin Dose 20 MG; Start 08/22/16 at 09:00; Status Future Hold Bisoprolol Fumarate (Zebeta) 5 mg DAILY PO Last administered on 08/28/16 09:18 ; Admin Dose 5 MG; Start 08/22/16 at 09:00 Isosorbide Mononitrate (Imdur) 60 mg DAILY PO Last administered on 08/25/16 10: 50; Admin Dose 60 MG; Start 08/22/16 at 09:00 Tramadol HCl (Ultram) 50 mg Q6 PRN PO pain Last administered on 08/28/16 11:45 ; Admin Dose 50 MG; Start 08/22/16 at 03:00 Atorvastatin Calcium (Lipitor) 20 mg HS PO Last administered on 08/27/16 21:01 ; Admin Dose 20 MG; Start 08/22/16 at 21:00 Morphine Sulfate (morphine) 2 mg Q4 PRN IV mod pain Last administered on 11:31; Admin Dose 2 MG; Start 08/22/16 at 04:30 Ondansetron HCl (Zofran Inj) 4 mg Q6H PRN IV NAUSEA AND/OR VOMITING Last administered on 08/22/16 13:20; Admin Dose 4 MG; Start 08/22/16 at 11:30 IV Flush 10 ml 10 ml PRN PRN IV IV PROTOCOL; Start 08/22/16 at 17:30 Diltiazem HCl (Cardizem-D5W 125 Mg/125 ml Drip) 125 ml @ 5 mls/hr TITRATE IV Last administered on 08/23/16 07:01; Admin Dose 5 MLS/HR; Start 08/22/16 at 20:30 Pantoprazole (Protonix Iv) 40 mg DAILY@06 IV Last administered on 08/28/16 05: 32; Admin Dose 40 MG; Start 08/23/16 at 06:00 Miscellaneous Information 1 ea NOTE XX ; Start 08/22/16 at 21:00 Glucose (Glutose) 15 gm Q15M PRN PO DECREASED GLUCOSE; Start 08/22/16 at 21:00 Glucose (Glutose) 22.5 gm Q15M PRN PO DECREASED GLUCOSE; Start 08/22/16 at 21:00 Dextrose (D50w Syringe) 25 ml Q15M PRN IV DECREASED GLUCOSE; Start 08/22/16 at 21:00 Dextrose (D50w Syringe) 50 ml Q15M PRN IV DECREASED GLUCOSE; Start 08/22/16 at 21:00 Glucagon (Glucagen) 1 mg Q15M PRN IM DECREASED GLUCOSE; Start 08/22/16 at 21:00 Glucose (Glutose) 15 gm Q15M PRN BUCCAL DECREASED GLUCOSE; Start 08/22/16 at 21: 00 Diltiazem HCl (Cardizem) 60 mg Q6 PO Last administered on 08/28/16 12:41; Admin Dose 60 MG; Start 08/23/16 at 09:00 Diagnostic Test (Pha) (Accucheck) 1 ea 02 XX ; Start 08/24/16 at 02:00 Insulin Glargine (Lantus) 12 unit QHS SC Last administered on 08/27/16 21:04; Admin Dose 12 UNIT; Start 08/24/16 at 21:00 Assessment/Plan Additional Assessment/Plan IMPRESSION: 1. Spontaneous Retroperitoneal bleed. 2. Acute renal failure with metabolic acidosis. Likely ATN injurys 3. 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 4. History of atrial fibrillation. RECS: 1. Continue to monitor H/H; follow each PRBC with lasix 20 mg 2. Having a mechanical MV makes her very high risk being off anticoagulation. Now on heparin--will monitor closely JOSE LOPEZ MD Aug 28, 2016 16:15
[2016-08-28] MEDS: ATORVASTATIN 20 MG TAB PO SCH (21:19)
[2016-08-28] MEDS: INSULIN GLARGINE [LANtus] 3 ML PEN SC SCH (21:20)
[2016-08-29] VITALS (12 sets, daily range): BP systolic 115–127; BP diastolic 56–63; PULSE 70–93; RESP 19–20
[2016-08-29] MEDS: DILTIAZEM 60 MG TAB PO SCH ×5 (00:52→23:51)
[2016-08-29] MEDS: HEPARIN 25000 UNITS/250 ML 250 ML IV SCH ×2 (00:57→12:30)
[2016-08-29] MEDS: ACCUCHECK XX SCH (02:00)
[2016-08-29] MEDS: PANTOPRAZOLE 40 MG INJ IV SCH (05:21)
[2016-08-29] MEDS: FUROSEMIDE 20 MG INJ IV SCH ×2 (05:21→17:09)
[2016-08-29 07:32] LABS: BASOPHILS % 0.1 % (0.0-2.0); EOSINOPHILS % 0.1 % (0.0-7.0); HEMATOCRIT 26.6 % (37.0-47.0); HEMOGLOBIN 9.2 g/dl (12.0-16.0); LYMPHOCYTES # 0.8 10^3/ul (0.8-2.9); LYMPHOCYTES % 6.8 % (15.0-51.0); MEAN CORPUSCULAR HEMOGLOBIN 31.5 pg (29.0-33.0); MEAN CORPUSCULAR HGB CONC 34.6 g/dl (32.0-37.0); MEAN CORPUSCULAR VOLUME 91.1 fl (82.0-101.0); MEAN PLATELET VOLUME 7.6 fl (7.4-10.4); MONOCYTE # 1.4 10^3/ul (0.3-0.9); MONOCYTES % 12.5 % (0.0-11.0); NEUTROPHIL # 8.9 10^3/ul (1.6-7.5); NEUTROPHILS % 80.5 % (39.0-77.0); PLATELET COUNT 166 10^3/UL (140-440); RED BLOOD COUNT 2.93 10^6/ul (4.20-5.40); RED CELL DISTRIBUTION WIDTH 17.6 % (11.5-14.5); UNCORRECTED WBC 11.1 10^3/ul (4.8-10.8); WHITE BLOOD COUNT 11.1 10^3/ul (4.8-10.8)
[2016-08-29 07:35] LABS: CONDITION 1; LH ANALYZER COMMENTS 1
[2016-08-29 07:48] LABS: ALBUMIN 3.3 g/dl (3.3-4.9)
[2016-08-29 07:49] LABS: POTASSIUM 3.3 mmol/L (3.5-5.1)
[2016-08-29 07:51] LABS: ALBUMIN/GLOBULIN RATIO 1.1; BILIRUBIN,DIRECT 1.5 mg/dl (0.00-0.20); BILIRUBIN,INDIRECT 2.2 mg/dl (0-1.1); BILIRUBIN,TOTAL 3.7 mg/dl (0.2-1.3); CREATININE 1.65 mg/dl (0.44-1.00); TOTAL PROTEIN 6.3 g/dl (6.1-8.1)
[2016-08-29 08:00] LABS: CALCIUM 5.6 mg/dl (8.4-10.2)
[2016-08-29] MEDS: INSULIN ASPART [NOVOLOG] 3 ML PEN SC SCH ×4 (08:00→21:05)
[2016-08-29] MEDS: AMLODIPINE 10 MG TAB PO SCH ×2 (08:16→08:21)
[2016-08-29] MEDS: ISOSORBIDE MONONITRATE(SR)60 MG TAB PO SCH (08:17)
[2016-08-29] MEDS: BISOPROLOL 5 MG TAB PO SCH (08:17)
[2016-08-29] MEDS ORDERED: POTASSIUM CHLORIDE (SR) 20 MEQ TAB PO STA (09:08)
[2016-08-29] MEDS: CALCIUM CARBONATE 1.25 GM TAB PO SCH (10:40)
[2016-08-29] MEDS: CALCITRIOL 0.25 MCG CAP PO SCH (10:40)
--- NOTE | 2016-08-29 11:33 | PN ---
DATE: 08/29/2016 SUBJECTIVE: The patient is stable, no acute events overnight. No fevers, chills, nausea, vomiting. OBJECTIVE: VITAL SIGNS: Blood pressure 120/58, respirations 20, pulse 83, temperature 98.2. HEENT: Head is normocephalic. NECK: Supple. HEART: Regular rate. LUNGS: Show diminished breath sounds at the base. ABDOMEN: Soft, nontender to palpation. No rebound or guarding. EXTREMITIES: Negative for clubbing, cyanosis, no edema. DERMATOLOGIC: No rashes. MUSCULOSKELETAL: No joint effusions. NEUROLOGIC: No change in exam. MEDICATIONS: The patient's medications have been reviewed. LABORATORY DATA: Shows a sodium 138, potassium is 3.3, chloride 96, BUN 34, creatinine 1.65. White count 11.1, hemoglobin 9.2, hematocrit 26.6, platelet count 166. ASSESSMENT AND PLAN: 1. Nonoliguric acute kidney injury on top of chronic kidney disease stage IIIB/IV with a baseline c reatinine of 1.7 to 2 mg/dL. Etiology of acute kidney injury is secondary to acute tubular necrosis . The patient's renal function has improved. At this point, will continue current treatment plan, supportive care, renally dose all meds, avoid nephrotoxins. 2. Hyperkalemia secondary to acute kidney injury, resolved. 3. Metabolic acidosis, improved. Will continue to monitor. 4. Hypokalemia. Replete potassium chloride. 5. Mineral bone disorder. The patient remains hypocalcemic. Will start the patient on vitamin D a nalogs, calcitriol, vitamin D supplementation, and calcium carbonate. 6. Acute retroperitoneal bleed secondary to coagulopathy improved. Will continue to monitor H and H levels. 7. Mechanical cardiac valve. The patient is on heparin drip. Will continue. [facility]. 8. History of congestive heart failure. Continue to monitor I's and O's closely. 9. Chronic atrial fibrillation, currently rate controlled. Continue to monitor. 10. Diabetes, continue Accu-Cheks and insulin sliding scale. 11. Possible pneumonia. The patient is on antibiotics, continue. 12. Hypertension. Continue current medical management. Dictated By: GARRETT FISHMAN/CHRISTEL Conf#: [id number] DID#: [id number]
--- NOTE | 2016-08-29 16:13 | RADRPT ---
Echocardiogram Report Patient Name: DYLAN ABEBE Gender: Female Date: 1940 Study Date: 29-Aug-2016 Mathematics Education Professor: Leslie Liang [facility] Location: 5545 Ref. Physician: FREDDY [place] Quality: Adequate Procedures: Transthoracic echocardiogram with complete 2D, M-Mode, and doppler examination. Indications: Congestive Heart Failure. Mechanical Mitral Valve Replacement. 2D/M Mode Doppler Measurement Value Normal Ranges Measurement Value Normal Ranges LVIDd 2D 4.8 3.5 - 5.6 cm BRETT Vmax 1.8 cm2 LVIDs 2D 3.6 2.1 - 4.1 cm BRETT VTI 1.6 cm2 FS 2D 25.5 % AV Mean Jose 1.5 m/sec LVPWd 2D 0.9 0.6 - 1.1 cm AV Mean PG 10.0 mmHg IVSd 2D 0.8 0.6 - 1.1 cm AV Peak Jose 2.2 m/sec IVS/LVPW 2D 0.9 AV Peak PG 19.0 mmHg AoR Diam 2D 2.8 2.0 - 3.7 cm AV VTI 38.9 cm LA/Ao 2D 2 0 - 1 AI Peak PG 77.0 mmHg EDV 2D 112.0 cm3 AI Peak Jose 4.4 m/sec ESV 2D 46.3 cm3 AI PHT 423.0 msec LA Dimen 2D 6.4 2.3 - 4.0 cm LVOT Mean Jose 0.9 m/sec LVOT Diam 1.9 cm LVOT Mean PG 4.0 mmHg LVOT Area 2.8 cm2 LVOT Peak Jose 1.4 m/sec LVOT Peak PG 7.0 mmHg LVOT VTI 22.5 cm MV E Peak Jose 1.6 m/sec MV PHT 69.0 msec MV Peak Jose 2.0 m/sec MV Peak PG 16.0 mmHg MV Mean Jose 0.9 m/sec MV Mean PG 4.0 mmHg MV Decel Time 201 msec MV Decel Barber 8 MV PHT Peak Jose 1.9 m/sec MV PHT 69.0 msec MV VTI 34.0 cm MVA PHT 3.2 cm2 MVA VTI 1.9 cm TR Peak Jose 3.5 m/sec TR Peak PG 48.0 mmHg RVSP 56.0 mmHg Findings Left Ventricle: Normal left ventricular cavity size. Normal left ventricular wall thickness. Moderate left ventricular systolic dysfunction. Ejection fraction is visually estimated at 4045 %. Tissue Doppler/Mitral Doppler indices are indeterminate in this study due to the presence of mitral valve replacement. These segments of the LV are akinetic mid septum segment and anteroseptum mid segment. Right Ventricle: Normal right ventricular size. Normal right ventricular systolic function. Left Atrium: There is severe enlargement of left atrium. Right Atrium: There is severe enlargement of right atrium. Mitral Valve: Mitral Valve Mechanical Prosthesis. Mitral valve Max Velocity 2.02 m/sec. MaxPG 16.00 mmHg. MeanPG 4.00 mmHg. Aortic Valve: Mild aortic stenosis. Aortic valve Max velocity 2.19 m/sec. Max PG 19.00 mmHg. Mean PG 10.00 mmHg. Aortic cusps appear moderately calcified. Moderate aortic valve regurgitation. Tricuspid Valve: Normal appearance of the tricuspid valve. Estimated peak PA systolic pressure 56 mmHg. There is moderate to severe tricuspid regurgitation. Pulmonic Valve: There is mild pulmonic regurgitation. Pericardium: Trivial pericardial effusion. Aorta: Normal aortic root. IVC: Normal size and normal respiratory collapse consistent with normal right atrial pressure. Conclusions 1.The left ventricle is normal in size with moderately reduced systolic function. The mid septum and mid anteroseptum are akinetic. 2.Estimated left ventricular ejection fraction of 40-45%. 3.Borderline to mild aortic stenosis. Moderate aortic regurgitation. 4.Mechanical mitral prosthesis with normal function. 5.Moderate to severe tricuspid regurgitation. 6.Severe bi-atrial enlargement. 7.Pulmonary hypertension with estimated RVSP of 56 mmHg. Electronically Signed By: Blayne Malcolm 29-Aug-2016 16:12:19 -0800 Patient Name: DYLAN ABEBE Study Date: 29-Aug-[id number]
--- NOTE | 2016-08-29 18:16 | CONS ---
Date/Time of Note Date/Time of Note DATE: 08/29/16 TIME: 18:11 Assessment/Plan Assessment/Plan Chief Complaint/Hosp Course Mechanical mitral valve replacement: normal function on echocardiogram Acute on chronic systolic and diastolic heart failure: LVEF 40-45% on echocardiogram Chronic atrial fibrillation: rates controlled Retroperitoneal bleed: spontaneous in setting of supratherapeutic INR, managed conservatively and now stable Acute kidney injury on chronic kidney disease Diabetes mellitus Hypertension History of transient ischemic attack -continue heparin drip and transition back to warfarin with goal INR 2.5-3.5, monitor for bleeding -continue Lasix 40mg IV BID -continue bisoprolol, diltiazem for rate control -echocardiogram reviewed Problems: Consultation Date/Type/Reason Admit Date/Time Aug 22, 2016 at 01:44 Initial Consult Date 08/28/16 Type of Consultation: Cardiology 24 HR Interval Summary Free Text/Dictation Shortness of breath improving. Detailed Summary Additional Comments 14 point review of systems without changes. Exam/Review of Systems Vital Signs Vitals Vital Signs Date Time Temp Pulse Resp B/P Pulse Ox O2 Delivery O2 Flow Rate FiO2 08/29/16 16:32 71 08/29/16 15:32 97.8 20 116/63 97 08/29/16 08:10 Nasal Cannula 3.0 08/26/16 01:14 32 Intake and Output 08/28/16 08/28/16 08/29/16 15:00 23:00 07:00 Intake Total 494 ml 275 ml Output Total 1000 ml 1200 ml Balance -506 ml -925 ml Exam Constitutional: alert, oriented Psych: nl mood/affect Head: atraumatic, normocephalic Neck: jvd (10cm) Respiratory: crackles/rales, No clear to auscultation Cardiovascular: other (crisp mechanical S1), systolic murmur (2/6), No regular rate and rhythm Gastrointestinal: other (abdominal wall hematoma noted ), soft Extremities: edema (1+) Neurological: nl mental status, nl speech Skin: No rash or lesions Results Result Diagram: 08/29/16 0705 08/29/16 0705 Results 24 hrs Laboratory Tests Test 08/28/16 21:18 08/28/16 22:22 08/29/16 07:05 08/29/16 08:09 Bedside Glucose 127 55 L Activated Partial Thromboplast Time 55.2 H > 180.0 *H Alanine Aminotransferase (ALT/SGPT) 83 H Albumin 3.3 Albumin/Globulin Ratio 1.10 Alkaline Phosphatase 66 Anion Gap 16 Aspartate Amino Transf (AST/SGOT) 41 Basophils # 0.0 Basophils % 0.1 Blood Morphology Comment Blood Urea Nitrogen 34 H Calcium Level 5.6 *L Carbon Dioxide Level 29 Chloride Level 96 L Creatinine 1.65 H Direct Bilirubin 1.50 #H Eosinophils # 0.0 Eosinophils % 0.1 Globulin 3.00 Glucose Level 73 Hematocrit 26.6 L Hemoglobin 9.2 L Indirect Bilirubin 2.2 H Lymphocytes # 0.8 Lymphocytes % 6.8 L Mean Corpuscular Hemoglobin 31.5 Mean Corpuscular Hemoglobin Concent 34.6 Mean Corpuscular Volume 91.1 Mean Platelet Volume 7.6 Monocytes # 1.4 H Monocytes % 12.5 H Neutrophils # 8.9 H Neutrophils % 80.5 H Nucleated Red Blood Cells # 0.0 Nucleated Red Blood Cells % 0.0 Platelet Count 166 Potassium Level 3.3 L Red Blood Count 2.93 L Red Cell Distribution Width 17.6 H Sodium Level 138 Total Bilirubin 3.7 H Total Protein 6.3 White Blood Count 11.1 H Test 08/29/16 09:01 08/29/16 11:23 08/29/16 12:02 08/29/16 17:02 Bedside Glucose 70 196 133 Activated Partial Thromboplast Time 37.7 H Medications Medications Current Medications Amlodipine Besylate (Norvasc) 10 mg DAILY PO Last administered on 08/25/16 10: 51; Admin Dose 10 MG; Start 08/22/16 at 09:00 Benazepril HCl (Lotensin) 20 mg DAILY PO Last administered on 08/22/16 09:46; Admin Dose 20 MG; Start 08/22/16 at 09:00; Status Future Hold Bisoprolol Fumarate (Zebeta) 5 mg DAILY PO Last administered on 08/29/16 08:17 ; Admin Dose 5 MG; Start 08/22/16 at 09:00 Isosorbide Mononitrate (Imdur) 60 mg DAILY PO Last administered on 08/25/16 10: 50; Admin Dose 60 MG; Start 08/22/16 at 09:00 Tramadol HCl (Ultram) 50 mg Q6 PRN PO pain Last administered on 08/28/16 11:45 ; Admin Dose 50 MG; Start 08/22/16 at 03:00 Atorvastatin Calcium (Lipitor) 20 mg HS PO Last administered on 08/28/16 21:19 ; Admin Dose 20 MG; Start 08/22/16 at 21:00; Status Future Hold Morphine Sulfate (morphine) 2 mg Q4 PRN IV mod pain Last administered on 11:31; Admin Dose 2 MG; Start 08/22/16 at 04:30 Ondansetron HCl (Zofran Inj) 4 mg Q6H PRN IV NAUSEA AND/OR VOMITING Last administered on 08/22/16 13:20; Admin Dose 4 MG; Start 08/22/16 at 11:30 IV Flush 10 ml 10 ml PRN PRN IV IV PROTOCOL; Start 08/22/16 at 17:30 Diltiazem HCl (Cardizem-D5W 125 Mg/125 ml Drip) 125 ml @ 5 mls/hr TITRATE IV Last administered on 08/23/16 07:01; Admin Dose 5 MLS/HR; Start 08/22/16 at 20:30 Pantoprazole (Protonix Iv) 40 mg DAILY@06 IV Last administered on 08/29/16 05: 21; Admin Dose 40 MG; Start 08/23/16 at 06:00 Miscellaneous Information 1 ea NOTE XX ; Start 08/22/16 at 21:00 Glucose (Glutose) 15 gm Q15M PRN PO DECREASED GLUCOSE Last administered on 08:16; Admin Dose 15 GM; Start 08/22/16 at 21:00 Glucose (Glutose) 22.5 gm Q15M PRN PO DECREASED GLUCOSE; Start 08/22/16 at 21:00 Dextrose (D50w Syringe) 25 ml Q15M PRN IV DECREASED GLUCOSE; Start 08/22/16 at 21:00 Dextrose (D50w Syringe) 50 ml Q15M PRN IV DECREASED GLUCOSE; Start 08/22/16 at 21:00 Glucagon (Glucagen) 1 mg Q15M PRN IM DECREASED GLUCOSE; Start 08/22/16 at 21:00 Glucose (Glutose) 15 gm Q15M PRN BUCCAL DECREASED GLUCOSE; Start 08/22/16 at 21: 00 Diltiazem HCl (Cardizem) 60 mg Q6 PO Last administered on 08/29/16 17:10; Admin Dose 60 MG; Start 08/23/16 at 09:00 Diagnostic Test (Pha) (Accucheck) 1 ea 02 XX ; Start 08/24/16 at 02:00 Insulin Glargine (Lantus) 12 unit QHS SC Last administered on 08/28/16 21:20; Admin Dose 12 UNIT; Start 08/24/16 at 21:00 Calcitriol (Rocaltrol) 0.25 mcg DAILY PO Last administered on 08/29/16 10:40; Admin Dose 0.25 MCG; Start 08/29/16 at 10:00 Calcium Carbonate (Oyster Shell Calcium) 1.25 gm DAILY PO Last administered on 08/29/16 10:40; Admin Dose 1.25 GM; Start 08/29/16 at 09:30 ARLYN LARIOS MD Aug 29, 2016 18:16
--- NOTE | 2016-08-29 18:31 | PN ---
DATE: 08/29/2016 SUBJECTIVE DATA: Denies any chest pain. OBJECTIVE DATA: VITAL SIGNS: Temperature 97.9, pulse rate 70, respiratory rate 20, blood pressure 115/60, oxygen saturation 97% on low flow O2. GENERAL: This is a thin, frail-looking [place] female lying in bed in no apparent distress. HEENT: Head normocephalic and atraumatic. Eyes: Icteric sclerae. Conjunctivae clear. ENT: Nasal septum is midline. Oral mucosa is moist. NECK: Supple. No JVD noticed. RESPIRATORY: Bilaterally diminished breath sounds. Use of accessory muscles of respiration (minimal). CARDIAC: Irregularly irregular rhythm. Grade II/ systolic ejection murmur heard at the left sternal border. ABDOMEN: Soft, nontender, and nondistended. Bowel sounds positive in all 4 quadrants. GENITOURINARY: Deferred. EXTREMITIES: No cyanosis, no clubbing, no edema. Peripheral pulses are palpable. NEUROLOGIC: The patient is awake, alert, and oriented. Cranial nerves are grossly intact. LABORATORY AND DIAGNOSTIC DATA: WBC 11.1, hemoglobin 9.0, hematocrit 26.6, platelet count 156. Sodium 138, potassium 3.3, chloride 96, carbon dioxide 20, anion gap 16, BUN 34, creatinine 1.6, glucose 103, calcium 5.6. Total bilirubin 3.7, direct bilirubin 1.5, indirect bilirubin 2.2. AST 41, ALT 83, alkaline phosphatase 66. ASSESSMENT AND PLAN: 1. Spontaneous retroperitoneal bleeding. Continue to monitor. General surgery on board. 2. Chronic atrial fibrillation. Rate controlled. On heparin drip. 3. Status post mitral valve replacement. Continue anticoagulation. 4. Acute on chronic kidney disease. Being followed by nephrology. Continue to monitor the BUN and creatinine closely. Avoid nephrotoxic medications. 5. Normocytic normochromic anemia. Acute. Most probably secondary to underlying bleeding. Status post 4 units of packed red blood cells transfusion. Stable hemoglobin and hematocrit. 6. Coagulopathy with elevated INR. Resolved. 7. Left pleural effusion. Continue diuretics. 8. Type 2 diabetes mellitus. Hemoglobin A1c 6.1. Continue sliding scale insulin. 9. Cardiomyopathy with ejection fraction of 40% to 45%. Continue beta- blockers. QUE inhibitors on hold because of worsening renal function. 10. Pulmonary hypertension. Pulmonary artery pressure of 56 mmHg as per 2D echocardiogram. Continue supplemental oxygen. Continue calcium channel blockers. 11. Hyperbilirubinemia. Etiology unclear. Will hold hepatotoxic medications. Will trend LFTs. 12. Hypocalcemia. Continue calcium supplements. Monitor for any tetany. 13. Fluid, electrolytes, and nutrition. Carbohydrate controlled, low cholesterol diet. 14. Deep venous thrombosis prophylaxis, on heparin drip. 15. Gastrointestinal prophylaxis. Proton pump inhibitors. 16. Continue current management. Will hold statins because of transaminitis and hyperbilirubinemia. Case discussed with Dr. Manuel. VIN MANUEL MD, AM/CHRISTEL Conf#: [id number] DID#: [id number] MTDD
[2016-08-29] MEDS: WARFARIN 5 MG TAB PO SCH (18:34)
[2016-08-29] MEDS: traMADol 50 MG TAB PO PRN (20:58)
[2016-08-29] MEDS: INSULIN GLARGINE [LANtus] 3 ML PEN SC SCH (21:04)
[2016-08-30] VITALS (13 sets, daily range): BP systolic 114–130; BP diastolic 57–71; PULSE 68–81; RESP 16–20
[2016-08-30] MEDS: ACCUCHECK XX SCH (01:37)
[2016-08-30 03:47] LABS: BASOPHILS % 0.1 % (0.0-2.0); EOSINOPHILS % 0.2 % (0.0-7.0); HEMATOCRIT 27.8 % (37.0-47.0); HEMOGLOBIN 9.6 g/dl (12.0-16.0); LYMPHOCYTES # 0.8 10^3/ul (0.8-2.9); LYMPHOCYTES % 9.4 % (15.0-51.0); MEAN CORPUSCULAR HEMOGLOBIN 31.3 pg (29.0-33.0); MEAN CORPUSCULAR HGB CONC 34.5 g/dl (32.0-37.0); MEAN CORPUSCULAR VOLUME 90.6 fl (82.0-101.0); MEAN PLATELET VOLUME 7.2 fl (7.4-10.4); MONOCYTE # 0.6 10^3/ul (0.3-0.9); MONOCYTES % 6.8 % (0.0-11.0); NEUTROPHIL # 7.5 10^3/ul (1.6-7.5); NEUTROPHILS % 83.5 % (39.0-77.0); PLATELET COUNT 191 10^3/UL (140-440); RED BLOOD COUNT 3.07 10^6/ul (4.20-5.40); RED CELL DISTRIBUTION WIDTH 17.9 % (11.5-14.5); UNCORRECTED WBC 8.9 10^3/ul (4.8-10.8); WHITE BLOOD COUNT 8.9 10^3/ul (4.8-10.8)
[2016-08-30 03:48] LABS: CONDITION 1; LH ANALYZER COMMENTS 1
[2016-08-30 03:58] LABS: ALBUMIN 3.4 g/dl (3.3-4.9)
[2016-08-30 04:01] LABS: ALBUMIN/GLOBULIN RATIO 1.09; BILIRUBIN,DIRECT 1.8 mg/dl (0.00-0.20); BILIRUBIN,INDIRECT 2.2 mg/dl (0-1.1); CREATININE 1.69 mg/dl (0.44-1.00); TOTAL PROTEIN 6.5 g/dl (6.1-8.1)
[2016-08-30 04:05] LABS: CALCIUM 5.7 mg/dl (8.4-10.2)
[2016-08-30] MEDS: traMADol 50 MG TAB PO PRN (04:13)
[2016-08-30 04:28] LABS: MAGNESIUM 1.3 mg/dl (1.7-2.5); PHOSPHORUS 2.6 mg/dl (2.5-4.9)
[2016-08-30 05:17] LABS: PROTIME 16.6 Sec (12.2-14.2); PT RATIO 1.3
[2016-08-30 05:18] LABS: INR 1.33
[2016-08-30] MEDS: PANTOPRAZOLE (EC) 40 MG TAB PO SCH (05:34)
[2016-08-30] MEDS: DILTIAZEM 60 MG TAB PO SCH ×4 (05:35→23:57)
[2016-08-30] MEDS: FUROSEMIDE 20 MG INJ IV SCH ×2 (05:35→17:29)
[2016-08-30] MEDS: INSULIN ASPART [NOVOLOG] 3 ML PEN SC SCH ×4 (08:00→21:09)
--- NOTE | 2016-08-30 08:47 | PN ---
Date/Time of Note Date/Time of Note DATE: 08/30/16 TIME: 08:41 Assessment/Plan Lines/Catheters IV Catheter Type (from Nrs): PICC Line [place] in Place (from Nrs): Yes Assessment/Plan Assessment/Plan [facility] In[facility] Progress Note Date of Service: 08/30/2016 Today's Assessment & Plan: Overall stable. No indication for acute surgical intervention. No indication for interventional radiology intervention. Hemoglobin responded to PRBC (2 units 08/22/16; 2 units 08/23/16; 1 unit 08/26/16) and stable. Mobility and lack of activity is a concern. Can likely benefit from PT. ? overall d/c plans (medical at this point). With above assessment, I've recommended the following for today: 1. Continue current cares 2. Consider PT and increase activity 3. Cont anticoagulation for heart 4. Will follow with you 5. D/c planning per primary team 6. L arm pain eval (? need for US) Thank you again for your great care of this very pleasant lady and I'm certain her wonderful family. If there are any questions, please feel free to call me at [phone]. TOTAL VISIT TIME: 20 minutes of which more than half was spent in [id number] discussion with the patient as well as coordination of care between multiple physicians and providers. Disclaimer: Inadvertent spelling and grammatical errors are likely due to EHR/ dictation software use and do not reflect on the quality of delivered patient care. Also, please note that the electronic time recorded on this node does not necessarily reflect the actual time of the visit. Updated Clinical Summary: Very pleasant, but unfortunate 75-year-old lady with multiple comorbid issues; including atrial fibrillation requiring anticoagulation, congestive heart failure and perhaps other heart disease status post heart valve replacement, and a number of medical issues such as diabetes mellitus, hypertension, hyperlipidemia and gout, with TIA in the past; admitted to [facility] through the emergency department 08/21/2016 with a left flank hematoma that appeared to extend from the left hip area to mid flank region. Past and present comorbidity list: 1. Atrial fibrillation requiring anticoagulation. 2. Hypertension. 3. Congestive heart failure. 4. Diabetes mellitus. 5. Gout. 6. History of transient ischemic attacks in the past. 7. Dyslipidemia. 8. Bilateral cataract surgery. 9. History of heart valve replacement. Subjective: No major events or complaints; no significant abd pain and under control with medications; reports feeling well; no n/v/d; no sob or cp; + flatus; + BM; - activity; ? left arm pain Objective: Vitals: See below I's & O's: See below Exam: GENERAL: On exam, the patient was lying in bed and appeared to be comfortable and in no acute distress. ABDOMEN: Soft, mild to no tender to palpation in the left flank and not distended. There are no peritoneal signs or guarding. SKIN: Skin appears to be pink and feels warm to touch. NEUROLOGIC: Patient is awake, alert, and follows commands appropriately. Labs: See below Exam/Review of Systems Vital Signs Vitals Vital Signs Date Time Temp Pulse Resp B/P Pulse Ox O2 Delivery O2 Flow Rate FiO2 08/30/16 08:18 3.0 08/30/16 08:08 70 08/30/16 08:07 98.0 18 119/60 98 08/29/16 19:30 Nasal Cannula Intake and Output 08/29/16 08/29/16 08/30/16 15:00 23:00 07:00 Intake Total 420 ml 269.0 ml Output Total 500 ml 1000 ml Balance -80 ml -731.0 ml Results Result Diagram: 08/30/16 0330 08/30/16 033 ROSELYN WALLIS M.D. Aug 30, 2016 08:47
[2016-08-30] MEDS: CALCITRIOL 0.25 MCG CAP PO SCH (08:53)
[2016-08-30] MEDS: AMLODIPINE 10 MG TAB PO SCH (08:54)
[2016-08-30] MEDS: ISOSORBIDE MONONITRATE(SR)60 MG TAB PO SCH (08:54)
[2016-08-30] MEDS: CALCIUM CARBONATE 1.25 GM TAB PO SCH (08:55)
[2016-08-30] MEDS: BISOPROLOL 5 MG TAB PO SCH (08:56)
[2016-08-30] MEDS: HEPARIN 25000 UNITS/250 ML 250 ML IV SCH ×2 (09:02→13:17)
[2016-08-30] MEDS ORDERED: MAGNESIUM SULFATE 2 GM/50 ML 50 ML IVPB ONE (10:00)
[2016-08-30 10:56] LABS: HAAIG REFLEX REFLEX FILED
[2016-08-30] MEDS ORDERED: CALCIUM GLUCONATE 10% 1 GM in SOD CHLORIDE 0.9% 100 ML IVPB ONE (11:00)
--- NOTE | 2016-08-30 11:05 | PN ---
DATE: 08/30/2016 SUBJECTIVE: The patient is stable, no acute events overnight. No fevers, chills, nausea or vomitin g. No shortness of breath. OBJECTIVE: VITAL SIGNS: Blood pressure 119/60, respiration 18, pulse 76, temperature 98.0. HEENT: Head is normocephalic. NECK: Supple. HEART: Regular rate. Positive mechanical click. LUNGS: Show diminished breath sounds at the base. ABDOMEN: Soft, nontender to palpation. No rebound or guarding. EXTREMITIES: Negative for clubbing, cyanosis. No edema. DERMATOLOGIC: No rashes. MUSCULOSKELETAL: No joint effusions. NEUROLOGIC: No change in exam. MEDICATIONS: The patient's medications have been reviewed. LABORATORY DATA: Shows sodium 137, potassium 4.0, chloride 95, BUN 34, creatinine 1.69, calcium 5.7 , magnesium 1.3. White count 8.9, hemoglobin 9.6, hematocrit 27.8, platelet count is 191. ASSESSMENT AND PLAN: 1. Nonoliguric acute kidney injury on top of chronic kidney disease stage IIIB/IV, with previous ba seline creatinine between 1.7 to 2 mg/dL. Etiology of acute kidney injury is secondary to acute tub ular necrosis. Renal function has stabilized. We will continue current treatment plan, supportive care, and renally dose all meds. 2. Hyperkalemia secondary to acute kidney injury, resolved. 3. Metabolic acidosis, improved. 4. Mineral bone disorder. The patient remains hypocalcemic. We will continue vitamin D analogs, C alcitriol and vitamin D supplementation and calcium carbonate. Please note that diuretic therapy is a contributing cause as it causes renal potassium wasting. We will monitor closely. 5. Acute retroperitoneal bleed secondary to coagulopathy, improved. Hemoglobin levels have been st able. 6. Mechanical cardiac valve. Continue heparin drip. Continue Coumadin. 7. History of congestive heart failure. The patient appears euvolemic. We will deescalate Lasix 2 0 mg b.i.d. 8. Chronic atrial fibrillation, continue current medical management. 9. Diabetes. Continue Accu-Cheks and sliding scale. 10. Possible pneumonia. The patient is completing antibiotic course. 11. Hypertension. Continue current blood pressure regimen. Dictated By: GARRETT FISHMAN/CHRISTEL Conf#: [id number] [facility]#: [id number]
[2016-08-30 12:37] LABS: HEPATITIS B CORE ANTIBODY NEGATIVE (NEGATIVE)
--- NOTE | 2016-08-30 13:13 | PN ---
Date/Time of Note Date/Time of Note DATE: 08/30/16 TIME: 13:10 Assessment/Plan VTE Prophylaxis VTE Prophylaxis Intervention: heparin Lines/Catheters IV C[facility] Type (from [facility]): PICC Line Central line still needed: Yes Urinary Cath still in place: Yes Reason Cath still needed: other (indicate) Assessment/Plan Chief Complaint/Hosp Course 1. Spontaneous retroperitoneal bleeding. Continue to monitor. General surgery on board. 2. Chronic atrial fibrillation. Rate controlled. On heparin drip. 3. Status post mitral valve replacement. Continue anticoagulation. 4. Acute on chronic kidney disease. Being followed by nephrology. Continue to monitor the BUN and creatinine closely. Avoid nephrotoxic medications. 5. Normocytic normochromic anemia. Acute. Most probably secondary to underlying bleeding. Status post 4 units of packed red blood cells transfusion. Stable hemoglobin and hematocrit. 6. Coagulopathy with elevated INR. Resolved. 7. Left pleural effusion. Continue diuretics. 8. Type 2 diabetes mellitus. Hemoglobin A1c 6.1. Continue sliding scale insulin. 9. Cardiomyopathy with ejection fraction of 40% to 45%. Continue beta- blockers. QUE inhibitors on hold because of worsening renal function. 10. Pulmonary hypertension. Pulmonary artery pressure of 56 mmHg as per 2D echocardiogram. Continue supplemental oxygen. Continue calcium channel blockers. 11. Hyperbilirubinemia. Etiology unclear. Will hold hepatotoxic medications. Will trend LFTs. 12. Hypocalcemia. Continue calcium supplements. Monitor fo any signs of tetany. 13. Fluid, electrolytes, and nutrition. Carbohydrate controlled, low cholesterol diet. 14. Deep venous thrombosis prophylaxis, on heparin drip. 15. Gastrointestinal prophylaxis. Proton pump inhibitors. 16. Plan. Continue current management. Replete magnesium. Case discussed with Dr. Umaña. Problems: Subjective 24 Hr Interval Summary Free Text/Dictation Denies any abdominal pain. Exam/Review of Systems Vital Signs Vitals Vital Signs Date Time Temp Pulse Resp B/P Pulse Ox O2 Delivery O2 Flow Rate FiO2 08/30/16 12:49 98.0 67 18 123/57 98 08/30/16 08:18 3.0 08/30/16 08:00 Nasal Cannula Intake and Output 08/29/16 08/29/16 08/30/16 15:00 23:00 07:00 Intake Total 420 ml 269.0 ml Output Total 500 ml 1000 ml Balance -80 ml -731.0 ml Exam GENERAL: This is a thin, frail-looking [place] female lying in bed in no apparent distress. HEENT: Head normocephalic and atraumatic. Eyes: Icteric sclerae. Conjunctivae clear. ENT: Nasal septum is midline. Oral mucosa is moist. NECK: Supple. No JVD noticed. RESPIRATORY: Bilaterally diminished breath sounds. Use of accessory muscles of respiration (minimal). CARDIAC: Irregularly irregular rhythm with a grade II/ systolic ejection murmur heard at the left sternal border. ABDOMEN: Soft, nontender, and nondistended. Bowel sounds positive in all 4 quadrants. GENITOURINARY: Deferred. EXTREMITIES: No cyanosis, no clubbing, no edema. Peripheral pulses are palpable. NEUROLOGIC: The patient is awake, alert, and oriented. Cranial nerves are grossly intact. Results Result Diagram: 08/30/16 0330 08/30/16 0330 Results 24 hrs Laboratory Tests Test 08/29/16 17:02 08/29/16 19:00 08/29/16 20:56 08/30/16 01:34 Bedside Glucose 133 223 H 205 Activated Partial Thromboplast Time 60.1 H Test 08/30/16 03:30 08/30/16 08:18 08/30/16 10:44 08/30/16 12:11 Activated Partial Thromboplast Time 49.2 H 134.5 *H Alanine Aminotransferase (ALT/SGPT) 69 Albumin 3.4 Albumin/Globulin Ratio 1.09 Alkaline Phosphatase 73 Anion Gap 19 H Aspartate Amino Transf (AST/SGOT) 35 Basophils # 0.0 Basophils % 0.1 Blood Morphology Comment Blood Urea Nitrogen 34 H Calcium Level 5.7 *L Carbon Dioxide Level 27 Chloride Level 95 L Creatinine 1.69 H Direct Bilirubin 1.80 H Eosinophils # 0.0 Eosinophils % 0.2 Globulin 3.10 Glucose Level 153 Hematocrit 27.8 L Hemoglobin 9.6 L INR International Normalized Ratio 1.33 Indirect Bilirubin 2.2 H Lymphocytes # 0.8 Lymphocytes % 9.4 L Magnesium Level 1.3 L Mean Corpuscular Hemoglobin 31.3 Mean Corpuscular Hemoglobin Concent 34.5 Mean Corpuscular Volume 90.6 Mean Platelet Volume 7.2 L Monocytes # 0.6 Monocytes % 6.8 Neutrophils # 7.5 Neutrophils % 83.5 H Nucleated Red Blood Cells # 0.0 Nucleated Red Blood Cells % 0.0 Phosphorus Level 2.6 Platelet Count 191 Potassium Level 4.0 Prothrombin Time 16.6 H Prothrombin Time Ratio 1.3 Red Blood Count 3.07 L Red Cell Distribution Width 17.9 H Sodium Level 137 Total Bilirubin 4.0 H Total Protein 6.5 White Blood Count 8.9 Bedside Glucose 123 137 Hepatitis B Core Total Antibody NEGATIVE Hepatitis B Surface Antigen NEGATIVE Hepatitis C Antibody Pending Medications Medications Current Medications Amlodipine Besylate (Norvasc) 10 mg DAILY PO Last administered on 08/25/16 10: 51; Admin Dose 10 MG; Start 08/22/16 at 09:00 Benazepril HCl (Lotensin) 20 mg DAILY PO Last administered on 08/22/16 09:46; Admin Dose 20 MG; Start 08/22/16 at 09:00; Status Future Hold Bisoprolol Fumarate (Zebeta) 5 mg DAILY PO Last administered on 08/30/16 08:56 ; Admin Dose 5 MG; Start 08/22/16 at 09:00 Isosorbide Mononitrate (Imdur) 60 mg DAILY PO Last administered on 08/25/16 10: 50; Admin Dose 60 MG; Start 08/22/16 at 09:00 Tramadol HCl (Ultram) 50 mg Q6 PRN PO pain Last administered on 08/30/16 04:13 ; Admin Dose 50 MG; Start 08/22/16 at 03:00 Atorvastatin Calcium (Lipitor) 20 mg HS PO Last administered on 08/28/16 21:19 ; Admin Dose 20 MG; Start 08/22/16 at 21:00; Status Future Hold Morphine Sulfate (morphine) 2 mg Q4 PRN IV mod pain Last administered on 11:31; Admin Dose 2 MG; Start 08/22/16 at 04:30 Ondansetron HCl (Zofran Inj) 4 mg Q6H PRN IV NAUSEA AND/OR VOMITING Last administered on 08/22/16 13:20; Admin Dose 4 MG; Start 08/22/16 at 11:30 IV Flush 10 ml 10 ml PRN PRN IV IV PROTOCOL; Start 08/22/16 at 17:30 Diltiazem HCl (Cardizem-D5W 125 Mg/125 ml Drip) 125 ml @ 5 mls/hr TITRATE IV Last administered on 08/23/16 07:01; Admin Dose 5 MLS/HR; Start 08/22/16 at 20:30 Miscellaneous Information 1 ea NOTE XX ; Start 08/22/16 at 21:00 Glucose (Glutose) 15 gm Q15M PRN PO DECREASED GLUCOSE Last administered on 08:16; Admin Dose 15 GM; Start 08/22/16 at 21:00 Glucose (Glutose) 22.5 gm Q15M PRN PO DECREASED GLUCOSE; Start 08/22/16 at 21:00 Dextrose (D50w Syringe) 25 ml Q15M PRN IV DECREASED GLUCOSE; Start 08/22/16 at 21:00 Dextrose (D50w Syringe) 50 ml Q15M PRN IV DECREASED GLUCOSE; Start 08/22/16 at 21:00 Glucagon (Glucagen) 1 mg Q15M PRN IM DECREASED GLUCOSE; Start 08/22/16 at 21:00 Glucose (Glutose) 15 gm Q15M PRN BUCCAL DECREASED GLUCOSE; Start 08/22/16 at 21: 00 Diltiazem HCl (Cardizem) 60 mg Q6 PO Last administered on 08/30/16 12:12; Admin Dose 60 MG; Start 08/23/16 at 09:00 Diagnostic Test (Pha) (Accucheck) 1 ea 02 XX Last administered on 08/30/16 01: 37; Admin Dose 1 EA; Start 08/24/16 at 02:00 Insulin Glargine (Lantus) 12 unit QHS SC Last administered on 08/29/16 21:04; Admin Dose 12 UNIT; Start 08/24/16 at 21:00 Calcitriol (Rocaltrol) 0.25 mcg DAILY PO Last administered on 08/30/16 08:53; Admin Dose 0.25 MCG; Start 08/29/16 at 10:00 Calcium Carbonate (Oyster Shell Calcium) 1.25 gm DAILY PO Last administered on 08/30/16 08:55; Admin Dose 1.25 GM; Start 08/29/16 at 09:30 Warfarin Sodium (Coumadin) 5 mg DAILY@17 PO Last administered on 08/29/16 18:34 ; Admin Dose 5 MG; Start 08/29/16 at 18:30 Pantoprazole (Protonix Tab) 40 mg DAILY@06 PO Last administered on 08/30/16 05 :34; Admin Dose 40 MG; Start 08/30/16 at 06:00 VIN GALLEGO NP Aug 30, 2016 13:12
[2016-08-30] MEDS ORDERED: BISACODYL (EC) 5 MG TAB PO PRN (13:30)
--- NOTE | 2016-08-30 14:56 | RADRPT ---
PROCEDURE: XR Chest. CLINICAL INDICATION: Shortness of breath. TECHNIQUE: Single frontal view. COMPARISON: 08/25/2016. FINDINGS: There is mild atelectasis at the lung bases, improved. The lungs are otherwise clear. The heart is enlarged. There is calcification in the aorta consistent with atherosclerosis. There is enlargement of the central pulmonary arteries consistent with pulmonary artery hypertension. The re are sternal wires and a mitral valve prosthesis. There is splaying of the autumn consistent with left atrial enlargement. There is no pleural effusion. There is no pneumothorax. IMPRESSION: 1. Improved appearance of the lungs. 2. No other change from 08/25/2016. RPTAT: QQ .Isaiah Khanna MD, MD Date Time Electronically viewed and signed by .Isaiah Khanna MD, on 08/30/2016 14:56 .R/
[2016-08-30] MEDS: WARFARIN 5 MG TAB PO SCH (17:28)
[2016-08-30] MEDS: POLYETHYLENE GLYCOL 17 GM PACKET PO SCH (20:59)
[2016-08-30] MEDS: DOCUSATE SODIUM 100 MG CAP PO SCH (21:00)
[2016-08-30] MEDS: INSULIN GLARGINE [LANtus] 3 ML PEN SC SCH (21:10)
[2016-08-31] VITALS (12 sets, daily range): BP systolic 100–132; BP diastolic 49–73; PULSE 73–90; RESP 18–21
[2016-08-31] MEDS: ACCUCHECK XX SCH (02:41)
[2016-08-31 03:56] LABS: BASOPHILS % 0.2 % (0.0-2.0); EOSINOPHILS % 0.4 % (0.0-7.0); HEMATOCRIT 26.4 % (37.0-47.0); HEMOGLOBIN 9.1 g/dl (12.0-16.0); LYMPHOCYTES # 0.4 10^3/ul (0.8-2.9); LYMPHOCYTES % 3.9 % (15.0-51.0); MEAN CORPUSCULAR HGB CONC 34.4 g/dl (32.0-37.0); MEAN CORPUSCULAR VOLUME 90.1 fl (82.0-101.0); MEAN PLATELET VOLUME 7.1 fl (7.4-10.4); MONOCYTE # 0.8 10^3/ul (0.3-0.9); NEUTROPHIL # 8.2 10^3/ul (1.6-7.5); NEUTROPHILS % 86.5 % (39.0-77.0); PLATELET COUNT 223 10^3/UL (140-440); RED BLOOD COUNT 2.93 10^6/ul (4.20-5.40); RED CELL DISTRIBUTION WIDTH 17.8 % (11.5-14.5); UNCORRECTED WBC 9.4 10^3/ul (4.8-10.8); WHITE BLOOD COUNT 9.4 10^3/ul (4.8-10.8)
[2016-08-31 03:59] LABS: CONDITION 1; LH ANALYZER COMMENTS 1
[2016-08-31 04:06] LABS: INR 1.65; PROTIME 19.6 Sec (12.2-14.2); PT RATIO 1.5
[2016-08-31 04:07] LABS: POTASSIUM 3.7 mmol/L (3.5-5.1)
[2016-08-31 04:09] LABS: CREATININE 1.84 mg/dl (0.44-1.00)
[2016-08-31 04:10] LABS: PHOSPHORUS 3.3 mg/dl (2.5-4.9)
[2016-08-31 04:32] LABS: CALCIUM 5.9 mg/dl (8.4-10.2)
[2016-08-31] MEDS: PANTOPRAZOLE (EC) 40 MG TAB PO SCH (05:36)
[2016-08-31] MEDS: DILTIAZEM 60 MG TAB PO SCH ×4 (05:36→23:34)
[2016-08-31] MEDS: FUROSEMIDE 20 MG INJ IV SCH (05:36)
[2016-08-31 06:35] LABS: ALBUMIN 3.3 g/dl (3.3-4.9)
[2016-08-31 06:37] LABS: BILIRUBIN,DIRECT 2.5 mg/dl (0.00-0.20); BILIRUBIN,TOTAL 4.5 mg/dl (0.2-1.3); TOTAL PROTEIN 6.7 g/dl (6.1-8.1)
[2016-08-31] MEDS: INSULIN ASPART [NOVOLOG] 3 ML PEN SC SCH ×4 (08:00→20:30)
--- NOTE | 2016-08-31 09:24 | PN ---
Date/Time of Note Date/Time of Note DATE: 08/31/16 TIME: 09:18 Assessment/Plan Lines/Catheters IV Catheter Type (from [facility]): PICC Line Peraza in Place (from [facility]): Yes Assessment/Plan Assessment/Plan [facility] In[facility] Progress Note Date of Service: 08/31/2016 Today's Assessment & Plan: Overall stable and doing well. No indication for acute surgical intervention. No indication for interventional radiology intervention. Hemoglobin stable on anticoagulation. ? overall d/c plans (medical at this point). With above assessment, I've recommended the following for today: 1. Cont current cares 2. Cont PT and increase activity 3. Cont anticoagulation for heart 4. Will follow with you 5. D/c planning per primary team Thank you again for your great care of this very pleasant lady and I'm certain her wonderful family. If there are any questions, please feel free to call me at [phone]. TOTAL VISIT TIME: 20 minutes of which more than half was spent in [id number] discussion with the patient as well as coordination of care between multiple physicians and providers. Disclaimer: Inadvertent spelling and grammatical errors are likely due to EHR/ dictation software use and do not reflect on the quality of delivered patient care. Also, please note that the electronic time recorded on this node does not necessarily reflect the actual time of the visit. Updated Clinical Summary: Very pleasant, but unfortunate 75-year-old lady with multiple comorbid issues; including atrial fibrillation requiring anticoagulation, congestive heart failure and perhaps other heart disease status post heart valve replacement, and a number of medical issues such as diabetes mellitus, hypertension, hyperlipidemia and gout, with TIA in the past; admitted to [facility] through the emergency department 08/21/2016 with a left flank hematoma that appeared to extend from the left hip area to mid flank region. Hemoglobin responded to PRBC (2 units 08/22/16; 2 units 08/23/16; 1 unit 08/26/16) and remained stable. Past and present comorbidity list: 1. Atrial fibrillation requiring anticoagulation. 2. Hypertension. 3. Congestive heart failure. 4. Diabetes mellitus. 5. Gout. 6. History of transient ischemic attacks in the past. 7. Dyslipidemia. 8. Bilateral cataract surgery. 9. History of heart valve replacement. Subjective: No major events or complaints; no significant abd pain and under control with medications; reports feeling well; no n/v/d; no sob or cp; + flatus; + BM; + activity; no left arm pain complaint this am Objective: Vitals: See below I's & O's: See below Exam: GENERAL: On exam, the patient was lying in bed and appeared to be comfortable and in no acute distress. ABDOMEN: Soft, non-tender to palpation in the left flank and not distended. There are no peritoneal signs or guarding. SKIN: Skin appears to be pink and feels warm to touch. NEUROLOGIC: Patient is awake, alert, and follows commands appropriately. Labs: See below Exam/Review of Systems Vital Signs Vitals Vital Signs Date Time Temp Pulse Resp B/P Pulse Ox O2 Delivery O2 Flow Rate FiO2 08/31/16 08:14 86 08/31/16 07:59 99.0 18 121/60 98 08/31/16 05:51 3.0 08/30/16 19:00 Nasal Cannula Intake and Output 08/30/16 08/30/16 08/31/16 15:00 23:00 07:00 Intake Total 192.5 ml 728.5 ml 550 ml Output Total 1400 ml 800 ml Balance 192.5 ml -671.5 ml -250 ml Results Result Diagram: 08/31/16 0340 08/31/16 0340 ROSELYN WALLIS M.D. Aug 31, 2016 09:24
[2016-08-31] MEDS: DOCUSATE SODIUM 100 MG CAP PO SCH ×2 (09:29→20:28)
[2016-08-31] MEDS: CALCITRIOL 0.25 MCG CAP PO SCH (09:29)
[2016-08-31] MEDS: ISOSORBIDE MONONITRATE(SR)60 MG TAB PO SCH (09:30)
[2016-08-31] MEDS: POLYETHYLENE GLYCOL 17 GM PACKET PO SCH ×2 (09:30→20:27)
[2016-08-31] MEDS: BISOPROLOL 5 MG TAB PO SCH (09:30)
[2016-08-31] MEDS: AMLODIPINE 10 MG TAB PO SCH (09:30)
[2016-08-31] MEDS: CALCIUM CARBONATE 1.25 GM TAB PO SCH (09:30)
[2016-08-31] MEDS ORDERED: CALCIUM GLUCONATE 10% 1 GM in SOD CHLORIDE 0.9% 100 ML IVPB SCH (10:30)
--- NOTE | 2016-08-31 11:30 | PN ---
DATE: 08/31/2016 SUBJECTIVE: The patient is clinically stable, no acute events overnight. No fevers, chills, nausea , vomiting, no shortness of breath. OBJECTIVE: VITAL SIGNS: Blood pressure is 120/60, respirations 18, pulse 75, temperature 99.0. HEENT: Head is normocephalic. NECK: Supple. HEART: Regular rate. LUNGS: Show diminished breath sounds at the base. ABDOMEN: Soft, nontender to palpation. No rebound or guarding. EXTREMITIES: Negative for clubbing, cyanosis, no edema. DERMATOLOGIC: No rashes. MUSCULOSKELETAL: No joint effusions. NEUROLOGIC: No change in exam. MEDICATIONS: The patient's medications have been reviewed. LABORATORY DATA: Sodium 135, potassium 3.7, chloride 94, BUN 37, creatinine 1.84. White count 9.4, hemoglobin 9.1, hematocrit 26.4, platelet count 223. ASSESSMENT AND PLAN: 1. Nonoliguric acute kidney injury on top of chronic kidney disease stage IIIB/IV, with previous ba seline creatinine 1.72 mg/dL. Etiology of acute kidney injury is secondary to acute tubular necrosi s. Renal function has stabilized. Continue current treatment plans for care, renally dose all meds , avoid nephrotoxins. 2. Mineral bone disorder. The patient remains hypocalcemic. Will continue vitamin D analogs, calc itriol, vitamin D supplementation, calcium carbonate. Will give an additional dose of calcium gluco pratik and monitor closely. 3. Acute retroperitoneal bleed, improved. Continue to monitor hemoglobin and hematocrit levels. 4. Mechanical cardiac valve. Continue Coumadin. 5. History of congestive heart failure. The patient appears euvolemic. Continue Lasix at a curren t dose. 6. Chronic atrial fibrillation, continue current medical management. 7. Diabetes. Continue Accu-Chek and insulin sliding scale. 8. Pneumonia. The patient is completing an antibiotic course hypertension. 9. Hypertension. Continue current blood pressure regimen. Dictated By: GARRETT FISHMAN/CHRISTEL Conf#: [id number] DID#: [id number]
--- NOTE | 2016-08-31 12:29 | PN ---
Date/Time of Note Date/Time of Note DATE: 08/31/16 TIME: 12:25 Assessment/Plan VTE Prophylaxis VTE Prophylaxis Intervention: heparin Lines/Catheters IV C[facility] Type ([facility] PICC Line Central line still needed: Yes Urinary Cath still in place: Yes Reason Cath still needed: other (indicate) Assessment/Plan Chief Complaint/Hosp Course 1. Spontaneous retroperitoneal bleeding. Continue to monitor. General surgery on board. 2. Chronic atrial fibrillation. Rate controlled. On heparin drip. 3. Status post mitral valve replacement. Continue anticoagulation. 4. Acute on chronic kidney disease. Being followed by nephrology. Continue to monitor the BUN and creatinine closely. Avoid nephrotoxic medications. 5. Normocytic normochromic anemia. Acute. Most probably secondary to underlying bleeding. Status post 4 units of packed red blood cells transfusion. Stable hemoglobin and hematocrit. 6. Coagulopathy with elevated INR. Resolved. 7. Left pleural effusion. Continue diuretics. 8. Type 2 diabetes mellitus. Hemoglobin A1c 6.1. Continue sliding scale insulin. 9. Cardiomyopathy with ejection fraction of 40% to 45%. Continue beta- blockers. QUE inhibitors on hold because of worsening renal function. 10. Pulmonary hypertension. Pulmonary artery pressure of 56 mmHg as per 2D echocardiogram. Continue supplemental oxygen. Continue calcium channel blockers. 11. Hyperbilirubinemia. Etiology unclear. Will hold hepatotoxic medications. Will trend LFTs. 12. Hypocalcemia. Continue calcium supplements. Monitor fo any signs of tetany. 13. Fluid, electrolytes, and nutrition. Carbohydrate controlled, low cholesterol diet. 14. Deep venous thrombosis prophylaxis, on heparin drip. 15. Gastrointestinal prophylaxis. Proton pump inhibitors. 16. Plan. Continue current management. Order PT evaluation. Case discussed with Dr. Umaña. Problems: Subjective 24 Hr Interval Summary Free Text/Dictation Denies any pain. Remains on Heparin gtt. Exam/Review of Systems Vital Signs Vitals Vital Signs Date Time Temp Pulse Resp B/P Pulse Ox O2 Delivery O2 Flow Rate FiO2 08/31/16 12:20 97.0 70 18 125/73 98 08/31/16 08:20 Nasal Cannula 3.0 Intake and Output 08/30/16 08/30/16 08/31/16 15:00 23:00 07:00 Intake Total 192.5 ml 728.5 ml 550 ml Output Total 1400 ml 800 ml Balance 192.5 ml -671.5 ml -250 ml Exam GENERAL: This is a thin, frail-looking [place] female lying in bed in no apparent distress. HEENT: Head normocephalic and atraumatic. Eyes: Icteric sclerae. Conjunctivae clear. ENT: Nasal septum is midline. Oral mucosa is moist. NECK: Supple. No JVD noticed. RESPIRATORY: Bilaterally diminished breath sounds. Use of accessory muscles of respiration (minimal). CARDIAC: Irregularly irregular rhythm with a grade II/ systolic ejection murmur heard at the left sternal border. ABDOMEN: Soft, nontender, and nondistended. Bowel sounds positive in all 4 quadrants. GENITOURINARY: Deferred. EXTREMITIES: No cyanosis, no clubbing, no edema. Peripheral pulses are palpable. NEUROLOGIC: The patient is awake, alert, and oriented. Cranial nerves are grossly intact. Results Result Diagram: 08/31/16 0340 08/31/16 0340 Results 24 hrs Laboratory Tests Test 08/30/16 16:58 08/30/16 19:10 08/30/16 21:03 08/31/16 02:37 Bedside Glucose 170 227 H 143 Activated Partial Thromboplast Time 50.2 H Test 08/31/16 03:40 08/31/16 08:25 08/31/16 11:40 08/31/16 12:01 Activated Partial Thromboplast Time 67.8 H 69.0 H Alanine Aminotransferase (ALT/SGPT) 54 Albumin 3.3 Alkaline Phosphatase 76 Anion Gap 16 Aspartate Amino Transf (AST/SGOT) 45 Basophils # 0.0 Basophils % 0.2 Blood Morphology Comment Blood Urea Nitrogen 37 H Calcium Level 5.9 *L Carbon Dioxide Level 29 Chloride Level 94 L Creatinine 1.84 H Direct Bilirubin 2.50 H Eosinophils # 0.0 Eosinophils % 0.4 Glucose Level 110 # Hematocrit 26.4 L Hemoglobin 9.1 L INR International Normalized Ratio 1.65 Indirect Bilirubin 2.0 H Lymphocytes # 0.4 L Lymphocytes % 3.9 L Magnesium Level 2.0 Mean Corpuscular Hemoglobin 31.0 Mean Corpuscular Hemoglobin Concent 34.4 Mean Corpuscular Volume 90.1 Mean Platelet Volume 7.1 L Monocytes # 0.8 Monocytes % 9.0 Neutrophils # 8.2 H Neutrophils % 86.5 H Nucleated Red Blood Cells # 0.0 Nucleated Red Blood Cells % 0.0 Phosphorus Level 3.3 Platelet Count 223 Potassium Level 3.7 Prothrombin Time 19.6 H Prothrombin Time Ratio 1.5 Red Blood Count 2.93 L Red Cell Distribution Width 17.8 H Sodium Level 135 Total Bilirubin 4.5 H Total Protein 6.7 White Blood Count 9.4 Bedside Glucose 86 110 Medications Medications Current Medications Amlodipine Besylate (Norvasc) 10 mg DAILY PO Last administered on 08/31/16 09: 30; Admin Dose 10 MG; Start 08/22/16 at 09:00 Benazepril HCl (Lotensin) 20 mg DAILY PO Last administered on 08/22/16 09:46; Admin Dose 20 MG; Start 08/22/16 at 09:00; Status Future Hold Bisoprolol Fumarate (Zebeta) 5 mg DAILY PO Last administered on 08/31/16 09:30 ; Admin Dose 5 MG; Start 08/22/16 at 09:00 Isosorbide Mononitrate (Imdur) 60 mg DAILY PO Last administered on 08/31/16 09 :30; Admin Dose 60 MG; Start 08/22/16 at 09:00 Tramadol HCl (Ultram) 50 mg Q6 PRN PO pain Last administered on 08/30/16 04:13 ; Admin Dose 50 MG; Start 08/22/16 at 03:00 Atorvastatin Calcium (Lipitor) 20 mg HS PO Last administered on 08/28/16 21:19 ; Admin Dose 20 MG; Start 08/22/16 at 21:00; Status Future Hold Morphine Sulfate (morphine) 2 mg Q4 PRN IV mod pain Last administered on 11:31; Admin Dose 2 MG; Start 08/22/16 at 04:30 Ondansetron HCl (Zofran Inj) 4 mg Q6H PRN IV NAUSEA AND/OR VOMITING Last administered on 08/22/16 13:20; Admin Dose 4 MG; Start 08/22/16 at 11:30 IV Flush 10 ml 10 ml PRN PRN IV IV PROTOCOL; Start 08/22/16 at 17:30 Diltiazem HCl (Cardizem-D5W 125 Mg/125 ml Drip) 125 ml @ 5 mls/hr TITRATE IV Last administered on 08/23/16 07:01; Admin Dose 5 MLS/HR; Start 08/22/16 at 20:30 Miscellaneous Information 1 ea NOTE XX ; Start 08/22/16 at 21:00 Glucose (Glutose) 15 gm Q15M PRN PO DECREASED GLUCOSE Last administered on 08:16; Admin Dose 15 GM; Start 08/22/16 at 21:00 Glucose (Glutose) 22.5 gm Q15M PRN PO DECREASED GLUCOSE; Start 08/22/16 at 21:00 Dextrose (D50w Syringe) 25 ml Q15M PRN IV DECREASED GLUCOSE; Start 08/22/16 at 21:00 Dextrose (D50w Syringe) 50 ml Q15M PRN IV DECREASED GLUCOSE; Start 08/22/16 at 21:00 Glucagon (Glucagen) 1 mg Q15M PRN IM DECREASED GLUCOSE; Start 08/22/16 at 21:00 Glucose (Glutose) 15 gm Q15M PRN BUCCAL DECREASED GLUCOSE; Start 08/22/16 at 21: 00 Diltiazem HCl (Cardizem) 60 mg Q6 PO Last administered on 08/31/16 05:36; Admin Dose 60 MG; Start 08/23/16 at 09:00 Diagnostic Test (Pha) (Accucheck) 1 ea 02 XX Last administered on 08/31/16 02: 41; Admin Dose 1 EA; Start 08/24/16 at 02:00 Insulin Glargine (Lantus) 12 unit QHS SC Last administered on 08/30/16 21:10; Admin Dose 12 UNIT; Start 08/24/16 at 21:00 Calcitriol (Rocaltrol) 0.25 mcg DAILY PO Last administered on 08/31/16 09:29; Admin Dose 0.25 MCG; Start 08/29/16 at 10:00 Calcium Carbonate (Oyster Shell Calcium) 1.25 gm DAILY PO Last administered on 08/31/16 09:30; Admin Dose 1.25 GM; Start 08/29/16 at 09:30 Warfarin Sodium (Coumadin) 5 mg DAILY@17 PO Last administered on 08/30/16 17: 28; Admin Dose 5 MG; Start 08/29/16 at 18:30 Pantoprazole (Protonix Tab) 40 mg DAILY@06 PO Last administered on 08/31/16 05 :36; Admin Dose 40 MG; Start 08/30/16 at 06:00 Polyethylene Glycol (Miralax) 17 gm BID PO Last administered on 08/31/16 09:30 ; Admin Dose 17 GM; Start 08/30/16 at 21:00 Docusate Sodium (Colace) 200 mg BID PO Last administered on 08/31/16 09:29; Admin Dose 200 MG; Start 08/30/16 at 21:00 Bisacodyl (Dulcolax) 10 mg DAILY PRN PO CONSTIPATION; Start 08/30/16 at 13:30 VIN GALLEGO NP Aug 31, 2016 12:29
--- NOTE | 2016-08-31 14:47 | CONS ---
Date/Time of Note Date/Time of Note DATE: 08/31/16 TIME: 14:45 Assessment/Plan Assessment/Plan Chief Complaint/Hosp Course Mechanical mitral valve replacement: normal function on echocardiogram Acute on chronic systolic and diastolic heart failure: LVEF 40-45% on echocardiogram, improved and euvolemic Chronic atrial fibrillation: rates controlled Retroperitoneal bleed: spontaneous in setting of supratherapeutic INR, managed conservatively and now stable Acute kidney injury on chronic kidney disease Diabetes mellitus Hypertension History of transient ischemic attack -continue heparin drip, transitioning back to warfarin with goal INR 2.5-3.5, monitor for bleeding -continue Lasix 20mg PO daily -continue bisoprolol, diltiazem for rate control -echocardiogram reviewed Problems: Consultation Date/Type/Reason Admit Date/Time Aug 22, 2016 at 01:44 Initial Consult Date 08/28/16 Type of Consultation: Cardiology 24 HR Interval Summary Free Text/Dictation No chest pain or shortness of breath. Hemoglobin stable. Detailed Summary Additional Comments 14 point review of systems without changes. Exam/Review of Systems Vital Signs Vitals Vital Signs Date Time Temp Pulse Resp B/P Pulse Ox O2 Delivery O2 Flow Rate FiO2 08/31/16 13:08 3.0 08/31/16 12:20 97.0 70 18 125/73 98 08/31/16 08:20 Nasal Cannula Intake and Output 08/30/16 08/30/16 08/31/16 15:00 23:00 07:00 Intake Total 192.5 ml 728.5 ml 550 ml Output Total 1400 ml 800 ml Balance 192.5 ml -671.5 ml -250 ml Exam Constitutional: alert, oriented Psych: nl mood/affect Head: atraumatic, normocephalic Neck: jvd (10cm) Respiratory: crackles/rales, No clear to auscultation Cardiovascular: other (crisp mechanical S1), systolic murmur (2/6), No regular rate and rhythm Gastrointestinal: other (abdominal wall hematoma noted ), soft Extremities: edema (1+) Neurological: nl mental status, nl speech Skin: No rash or lesions Results Result Diagram: 08/31/16 0340 08/31/16 0340 Results 24 hrs Laboratory Tests Test 08/30/16 16:58 08/30/16 19:10 08/30/16 21:03 08/31/16 02:37 Bedside Glucose 170 227 H 143 Activated Partial Thromboplast Time 50.2 H Test 08/31/16 03:40 08/31/16 08:25 08/31/16 11:40 08/31/16 12:01 Activated Partial Thromboplast Time 67.8 H 69.0 H Alanine Aminotransferase (ALT/SGPT) 54 Albumin 3.3 Alkaline Phosphatase 76 Anion Gap 16 Aspartate Amino Transf (AST/SGOT) 45 Basophils # 0.0 Basophils % 0.2 Blood Morphology Comment Blood Urea Nitrogen 37 H Calcium Level 5.9 *L Carbon Dioxide Level 29 Chloride Level 94 L Creatinine 1.84 H Direct Bilirubin 2.50 H Eosinophils # 0.0 Eosinophils % 0.4 Glucose Level 110 # Hematocrit 26.4 L Hemoglobin 9.1 L INR International Normalized Ratio 1.65 Indirect Bilirubin 2.0 H Lymphocytes # 0.4 L Lymphocytes % 3.9 L Magnesium Level 2.0 Mean Corpuscular Hemoglobin 31.0 Mean Corpuscular Hemoglobin Concent 34.4 Mean Corpuscular Volume 90.1 Mean Platelet Volume 7.1 L Monocytes # 0.8 Monocytes % 9.0 Neutrophils # 8.2 H Neutrophils % 86.5 H Nucleated Red Blood Cells # 0.0 Nucleated Red Blood Cells % 0.0 Phosphorus Level 3.3 Platelet Count 223 Potassium Level 3.7 Prothrombin Time 19.6 H Prothrombin Time Ratio 1.5 Red Blood Count 2.93 L Red Cell Distribution Width 17.8 H Sodium Level 135 Total Bilirubin 4.5 H Total Protein 6.7 White Blood Count 9.4 Bedside Glucose 86 110 Medications Medications Current Medications Amlodipine Besylate (Norvasc) 10 mg DAILY PO Last administered on 08/31/16 09: 30; Admin Dose 10 MG; Start 08/22/16 at 09:00 Benazepril HCl (Lotensin) 20 mg DAILY PO Last administered on 08/22/16 09:46; Admin Dose 20 MG; Start 08/22/16 at 09:00; Status Future Hold Bisoprolol Fumarate (Zebeta) 5 mg DAILY PO Last administered on 08/31/16 09:30 ; Admin Dose 5 MG; Start 08/22/16 at 09:00 Isosorbide Mononitrate (Imdur) 60 mg DAILY PO Last administered on 08/31/16 09 :30; Admin Dose 60 MG; Start 08/22/16 at 09:00 Tramadol HCl (Ultram) 50 mg Q6 PRN PO pain Last administered on 08/30/16 04:13 ; Admin Dose 50 MG; Start 08/22/16 at 03:00 Atorvastatin Calcium (Lipitor) 20 mg HS PO Last administered on 08/28/16 21:19 ; Admin Dose 20 MG; Start 08/22/16 at 21:00; Status Future Hold Morphine Sulfate (morphine) 2 mg Q4 PRN IV mod pain Last administered on 11:31; Admin Dose 2 MG; Start 08/22/16 at 04:30 Ondansetron HCl (Zofran Inj) 4 mg Q6H PRN IV NAUSEA AND/OR VOMITING Last administered on 08/22/16 13:20; Admin Dose 4 MG; Start 08/22/16 at 11:30 IV Flush 10 ml 10 ml PRN PRN IV IV PROTOCOL; Start 08/22/16 at 17:30 Diltiazem HCl (Cardizem-D5W 125 Mg/125 ml Drip) 125 ml @ 5 mls/hr TITRATE IV Last administered on 08/23/16 07:01; Admin Dose 5 MLS/HR; Start 08/22/16 at 20:30 Miscellaneous Information 1 ea NOTE XX ; Start 08/22/16 at 21:00 Glucose (Glutose) 15 gm Q15M PRN PO DECREASED GLUCOSE Last administered on 08:16; Admin Dose 15 GM; Start 08/22/16 at 21:00 Glucose (Glutose) 22.5 gm Q15M PRN PO DECREASED GLUCOSE; Start 08/22/16 at 21:00 Dextrose (D50w Syringe) 25 ml Q15M PRN IV DECREASED GLUCOSE; Start 08/22/16 at 21:00 Dextrose (D50w Syringe) 50 ml Q15M PRN IV DECREASED GLUCOSE; Start 08/22/16 at 21:00 Glucagon (Glucagen) 1 mg Q15M PRN IM DECREASED GLUCOSE; Start 08/22/16 at 21:00 Glucose (Glutose) 15 gm Q15M PRN BUCCAL DECREASED GLUCOSE; Start 08/22/16 at 21: 00 Diltiazem HCl (Cardizem) 60 mg Q6 PO Last administered on 08/31/16 12:45; Admin Dose 60 MG; Start 08/23/16 at 09:00 Diagnostic Test (Pha) (Accucheck) 1 ea 02 XX Last administered on 08/31/16 02: 41; Admin Dose 1 EA; Start 08/24/16 at 02:00 Insulin Glargine (Lantus) 12 unit QHS SC Last administered on 08/30/16 21:10; Admin Dose 12 UNIT; Start 08/24/16 at 21:00 Calcitriol (Rocaltrol) 0.25 mcg DAILY PO Last administered on 08/31/16 09:29; Admin Dose 0.25 MCG; Start 08/29/16 at 10:00 Calcium Carbonate (Oyster Shell Calcium) 1.25 gm DAILY PO Last administered on 08/31/16 09:30; Admin Dose 1.25 GM; Start 08/29/16 at 09:30 Warfarin Sodium (Coumadin) 5 mg DAILY@17 PO Last administered on 08/30/16 17: 28; Admin Dose 5 MG; Start 08/29/16 at 18:30 Pantoprazole (Protonix Tab) 40 mg DAILY@06 PO Last administered on 08/31/16 05 :36; Admin Dose 40 MG; Start 08/30/16 at 06:00 Polyethylene Glycol (Miralax) 17 gm BID PO Last administered on 08/31/16 09:30 ; Admin Dose 17 GM; Start 08/30/16 at 21:00 Docusate Sodium (Colace) 200 mg BID PO Last administered on 08/31/16 09:29; Admin Dose 200 MG; Start 08/30/16 at 21:00 Bisacodyl (Dulcolax) 10 mg DAILY PRN PO CONSTIPATION; Start 08/30/16 at 13:30 ARLYN LARIOS MD Aug 31, 2016 14:47
[2016-08-31] MEDS: FUROSEMIDE 20 MG TAB PO SCH (17:14)
[2016-08-31] MEDS: WARFARIN 5 MG TAB PO SCH (17:14)
[2016-08-31] MEDS: HEPARIN 25000 UNITS/250 ML 250 ML IV SCH ×2 (17:20→21:12)
[2016-08-31] MEDS: INSULIN GLARGINE [LANtus] 3 ML PEN SC SCH (20:29)
[2016-08-31 20:48] LABS: INR 2.06; PROTIME 23.4 Sec (12.2-14.2); PT RATIO 1.8
[2016-08-31 21:05] LABS: PARTIAL THROMBOPLASTIN TIME 85.5 Sec (25.0-35.0)
[2016-09-01] VITALS (11 sets, daily range): BP systolic 109–121; BP diastolic 56–69; PULSE 60–79; RESP 16–20
[2016-09-01] MEDS: ACCUCHECK XX SCH (02:06)
[2016-09-01] MEDS: ACETAMINOPHEN 325 MG TAB PO PRN (02:27)
[2016-09-01] MEDS: HEPARIN 25000 UNITS/250 ML 250 ML IV SCH (04:22)
[2016-09-01] MEDS: PANTOPRAZOLE (EC) 40 MG TAB PO SCH (05:33)
[2016-09-01] MEDS: FUROSEMIDE 20 MG TAB PO SCH (05:34)
[2016-09-01] MEDS: DILTIAZEM 60 MG TAB PO SCH ×4 (05:34→18:21)
[2016-09-01 07:29] LABS: HEMATOCRIT 23.2 % (37.0-47.0); MEAN CORPUSCULAR HEMOGLOBIN 31.3 pg (29.0-33.0); MEAN CORPUSCULAR HGB CONC 34.5 g/dl (32.0-37.0); MEAN CORPUSCULAR VOLUME 90.8 fl (82.0-101.0); MEAN PLATELET VOLUME 7.4 fl (7.4-10.4); PLATELET COUNT 233 10^3/UL (140-440); RED BLOOD COUNT 2.55 10^6/ul (4.20-5.40); RED CELL DISTRIBUTION WIDTH 17.8 % (11.5-14.5); UNCORRECTED WBC 7.4 10^3/ul (4.8-10.8); WHITE BLOOD COUNT 7.4 10^3/ul (4.8-10.8)
[2016-09-01 07:37] LABS: CONDITION 1; LH ANALYZER COMMENTS 1
[2016-09-01 07:43] LABS: INR 2.73; PROTIME 29.3 Sec (12.2-14.2); PT RATIO 2.3
[2016-09-01 07:53] LABS: POTASSIUM 3.1 mmol/L (3.5-5.1)
[2016-09-01 07:55] LABS: ALBUMIN/GLOBULIN RATIO 0.9; BILIRUBIN,DIRECT 3.5 mg/dl (0.00-0.20); BILIRUBIN,INDIRECT 1.8 mg/dl (0-1.1); BILIRUBIN,TOTAL 5.3 mg/dl (0.2-1.3); CREATININE 2.16 mg/dl (0.44-1.00); TOTAL PROTEIN 6.3 g/dl (6.1-8.1)
[2016-09-01] MEDS: INSULIN ASPART [NOVOLOG] 3 ML PEN SC SCH ×4 (08:00→20:20)
[2016-09-01 08:28] LABS: MAGNESIUM 1.9 mg/dl (1.7-2.5); PHOSPHORUS 3.7 mg/dl (2.5-4.9)
[2016-09-01] MEDS: AMLODIPINE 10 MG TAB PO SCH (09:00)
[2016-09-01] MEDS: ISOSORBIDE MONONITRATE(SR)60 MG TAB PO SCH (09:00)
[2016-09-01] MEDS: POLYETHYLENE GLYCOL 17 GM PACKET PO SCH ×3 (09:00→20:19)
[2016-09-01 09:35] LABS: ANISOCYTOSIS 1+; EOSINOPHILS # 0.1 10^3/ul (0.0-0.5); LYMPHOCYTES # 0.6 10^3/ul (0.8-2.9); MONOCYTE # 0.3 10^3/ul (0.3-0.9)
[2016-09-01] MEDS: CALCIUM CARBONATE 1.25 GM TAB PO SCH (09:48)
[2016-09-01] MEDS: CALCITRIOL 0.25 MCG CAP PO SCH (09:48)
[2016-09-01] MEDS: BISOPROLOL 5 MG TAB PO SCH (09:49)
[2016-09-01] MEDS: DOCUSATE SODIUM 100 MG CAP PO SCH ×2 (09:49→20:19)
[2016-09-01] MEDS ORDERED: POTASSIUM CHLORIDE (SR) 20 MEQ TAB PO STA (09:55)
[2016-09-01] MEDS: traMADol 50 MG TAB PO PRN (09:57)
[2016-09-01] MEDS: ALBUMIN HUMAN 25% 100 ML IV SCH ×2 (11:43→18:22)
--- NOTE | 2016-09-01 11:49 | PN ---
DATE: SUBJECTIVE: The patient is complaining about general pain, no other acute events noted. OBJECTIVE: VITAL SIGNS: Blood pressure is 112/59, respirations 20, pulse 53, temperature 97.6. HEENT: Head is normocephalic. NECK: Supple. HEART: Regular rate. LUNGS: Show diminished breath sounds at the base. ABDOMEN: Soft, nontender to palpation. No rebound or guarding. EXTREMITIES: Negative for clubbing, cyanosis. No edema. DERMATOLOGIC: No rashes. MUSCULOSKELETAL: No joint effusions. NEUROLOGIC: No change in exam. MEDICATIONS: Reviewed. LABORATORY DATA: Shows white count of 7.4, hemoglobin , hematocrit 23.2, platelet count 233. Sodium 134, potassium 3.1, chloride 34, BUN 39, creatinine 2.16. ASSESSMENT AND PLAN: 1. Nonoliguric acute kidney injury on top of chronic kidney disease stage IIIB/IV, with previous ba seline creatinine around 1.7 mg/dL. Etiology of acute is secondary to acute tubular necrosis. Joseline l function has stabilized. However, over the last 48 hours renal function has worsened. This is li uma due to diuretic therapy. Plan at this point is to hold Lasix. We will give patient a dose of albumin and monitor closely. 2. Acute congestive heart failure exacerbation. The patient now is euvolemic. Will hold the diure tic therapy as stated above due to worsening renal function and monitor. 3. Mineral bone disorder. Continue to monitor calcium and phosphorus levels. Calcium levels have been improving. Continue vitamin D analogs, calcitriol. 4. Acute retroperitoneal bleed secondary to coagulopathy. The patient has been stable, no plans fo r surgery. Continue to monitor H and H levels closely. 5. Mechanical heart valve. The patient is on Coumadin and heparin drip. Will continue. 6. Chronic atrial fibrillation, currently rate controlled. Continue current medical management. 7. Diabetes. Continue current insulin regimen. 8. Pneumonia. The patient is completing antibiotic course. 9. Hypertension. Blood pressure is currently well controlled. Continue to monitor closely. Dictated By: GARRETT FISHMAN/CHRISTEL Conf#: [id number] DID#: [id number]
--- NOTE | 2016-09-01 11:57 | PN ---
Date/Time of Note Date/Time of Note DATE: 09/01/16 TIME: 11:47 Assessment/Plan VTE Prophylaxis VTE Prophylaxis Intervention: other (Warfarin) Lines/Catheters IV Catheter Type (from [place]): PICC Line Central line still needed: Yes Urinary Cath still in place: Yes Reason Cath still needed: other (indicate) Assessment/Plan Chief Complaint/Hosp Course 1. Spontaneous retroperitoneal bleeding. Continue to monitor. General surgery on board. 2. Chronic atrial fibrillation. Rate controlled. Cardiology following. 3. Status post mitral valve replacement. Continue anticoagulation. 4. Acute on chronic kidney disease. Being followed by nephrology. Continue to monitor the BUN and creatinine closely. Avoid nephrotoxic medications. 5. Normocytic normochromic anemia. Acute. Most probably secondary to underlying bleeding. Status post 4 units of packed red blood cells transfusion. Stable hemoglobin and hematocrit. 6. Coagulopathy with elevated INR. Resolved. 7. Left pleural effusion. Continue diuretics. 8. Type 2 diabetes mellitus. Hemoglobin A1c 6.1. Continue sliding scale insulin. 9. Cardiomyopathy with ejection fraction of 40% to 45%. Continue beta- blockers. QUE inhibitors on hold because of worsening renal function. 10. Pulmonary hypertension. Pulmonary artery pressure of 56 mmHg as per 2D echocardiogram. Continue supplemental oxygen. Continue calcium channel blockers. 11. Hyperbilirubinemia. Etiology unclear. Will hold hepatotoxic medications. Will trend LFTs. 12. Hypocalcemia. Continue calcium supplements. Monitor fo any signs of tetany. 13. Fluid, electrolytes, and nutrition. Carbohydrate controlled, low cholesterol diet. 14. Deep venous thrombosis prophylaxis. On Warfarin. 15. Gastrointestinal prophylaxis. Proton pump inhibitors. 16. Plan. Continue current management. Replete potassium. Will hold the p.m. Coumadin dose since the patient has a history of spontaneous retroperitoneal bleed and coagulopathy. The patient's INR today is therapeutic. Case discussed with Dr. Umaña. The case was discussed with the surgeon. Problems: Subjective 24 Hr Interval Summary Free Text/Dictation Complains of abdominal pain. Exam/Review of Systems Vital Signs Vitals Vital Signs Date Time Temp Pulse Resp B/P Pulse Ox O2 Delivery O2 Flow Rate FiO2 09/01/16 08:22 65 09/01/16 08:16 97.6 20 112/59 98 09/01/16 04:58 3.0 08/31/16 23:30 Nasal Cannula Intake and Output 08/31/16 08/31/16 09/01/16 15:00 23:00 07:00 Intake Total 600 ml 120 ml Output Total 1000 ml 750 ml Balance -400 ml -630 ml Exam GENERAL: This is a thin, frail-looking [place] Citizen female lying in bed in no apparent distress. HEENT: Head normocephalic and atraumatic. Eyes: Icteric sclerae. Conjunctivae clear. ENT: Nasal septum is midline. Oral mucosa is moist. NECK: Supple. No JVD noticed. RESPIRATORY: Bilaterally diminished breath sounds. Use of accessory muscles of respiration (minimal). CARDIAC: Irregularly irregular rhythm with a grade II/ systolic ejection murmur heard at the left sternal border. ABDOMEN: Soft, nontender, and nondistended. Bowel sounds positive in all 4 quadrants. GENITOURINARY: Deferred. EXTREMITIES: No cyanosis, no clubbing, no edema. Peripheral pulses are palpable. NEUROLOGIC: The patient is awake, alert, and oriented. Cranial nerves are grossly intact. Results Result Diagram: 09/01/1638 09/01/1638 Results 24 hrs Laboratory Tests Test 08/31/16 12:01 08/31/16 18:01 08/31/16 20:20 08/31/16 20:25 Bedside Glucose 110 200 188 Activated Partial Thromboplast Time 85.5 *H INR International Normalized Ratio 2.06 Prothrombin Time 23.4 H Prothrombin Time Ratio 1.8 Test 09/01/16 02:50 09/01/16 06:30 09/01/16 06:38 09/01/16 08:02 Activated Partial Thromboplast Time 72.9 *H INR International Normalized Ratio 2.73 Prothrombin Time 29.3 #H Prothrombin Time Ratio 2.3 Alanine Aminotransferase (ALT/SGPT) 41 Albumin 3.0 L Albumin/Globulin Ratio 0.90 Alkaline Phosphatase 80 Anion Gap 14 Anisocytosis 1+ Aspartate Amino Transf (AST/SGOT) 29 Band Neutrophils % 6.0 H Blood Morphology Comment Blood Urea Nitrogen 39 H Calcium Level 6.0 L Carbon Dioxide Level 30 Chloride Level 93 L Creatinine 2.16 H Differential Comment MANUAL DIFF Direct Bilirubin 3.50 #H Eosinophils # 0.1 Eosinophils % 1.0 Globulin 3.30 H Glucose Level 86 Hematocrit 23.2 L Hemoglobin 8.0 L Indirect Bilirubin 1.8 H Lymphocytes # 0.6 L Lymphocytes % 8.0 L Magnesium Level 1.9 Mean Corpuscular Hemoglobin 31.3 Mean Corpuscular Hemoglobin Concent 34.5 Mean Corpuscular Volume 90.8 Mean Platelet Volume 7.4 Monocytes # 0.3 Monocytes % 4.0 Neutrophils # 6.0 Neutrophils % 81.0 H Phosphorus Level 3.7 Platelet Count 233 Potassium Level 3.1 L Red Blood Count 2.55 L Red Cell Distribution Width 17.8 H Sodium Level 134 L Total Bilirubin 5.3 H Total Protein 6.3 White Blood Count 7.4 # Bedside Glucose 109 Test 09/01/16 11:38 Bedside Glucose 161 Medications Medications Current Medications Amlodipine Besylate (Norvasc) 10 mg DAILY PO Last administered on 08/31/16 09: 30; Admin Dose 10 MG; Start 08/22/16 at 09:00 Benazepril HCl (Lotensin) 20 mg DAILY PO Last administered on 08/22/16 09:46; Admin Dose 20 MG; Start 08/22/16 at 09:00; Status Future Hold Bisoprolol Fumarate (Zebeta) 5 mg DAILY PO Last administered on 09/01/16 09:49 ; Admin Dose 5 MG; Start 08/22/16 at 09:00 Isosorbide Mononitrate (Imdur) 60 mg DAILY PO Last administered on 08/31/16 09 :30; Admin Dose 60 MG; Start 08/22/16 at 09:00 Tramadol HCl (Ultram) 50 mg Q6 PRN PO pain Last administered on 09/01/16 09:57 ; Admin Dose 50 MG; Start 08/22/16 at 03:00 Atorvastatin Calcium (Lipitor) 20 mg HS PO Last administered on 08/28/16 21:19 ; Admin Dose 20 MG; Start 08/22/16 at 21:00; Status Future Hold Morphine Sulfate (morphine) 2 mg Q4 PRN IV mod pain Last administered on 11:31; Admin Dose 2 MG; Start 08/22/16 at 04:30 Ondansetron HCl (Zofran Inj) 4 mg Q6H PRN IV NAUSEA AND/OR VOMITING Last administered on 08/22/16 13:20; Admin Dose 4 MG; Start 08/22/16 at 11:30 IV Flush 10 ml 10 ml PRN PRN IV IV PROTOCOL; Start 08/22/16 at 17:30 Diltiazem HCl (Cardizem-D5W 125 Mg/125 ml Drip) 125 ml @ 5 mls/hr TITRATE IV Last administered on 08/23/16 07:01; Admin Dose 5 MLS/HR; Start 08/22/16 at 20:30 Miscellaneous Information 1 ea NOTE XX ; Start 08/22/16 at 21:00 Glucose (Glutose) 15 gm Q15M PRN PO DECREASED GLUCOSE Last administered on 08:16; Admin Dose 15 GM; Start 08/22/16 at 21:00 Glucose (Glutose) 22.5 gm Q15M PRN PO DECREASED GLUCOSE; Start 08/22/16 at 21:00 Dextrose (D50w Syringe) 25 ml Q15M PRN IV DECREASED GLUCOSE; Start 08/22/16 at 21:00 Dextrose (D50w Syringe) 50 ml Q15M PRN IV DECREASED GLUCOSE; Start 08/22/16 at 21:00 Glucagon (Glucagen) 1 mg Q15M PRN IM DECREASED GLUCOSE; Start 08/22/16 at 21:00 Glucose (Glutose) 15 gm Q15M PRN BUCCAL DECREASED GLUCOSE; Start 08/22/16 at 21: 00 Diltiazem HCl (Cardizem) 60 mg Q6 PO Last administered on 09/01/16 05:34; Admin Dose 60 MG; Start 08/23/16 at 09:00 Diagnostic Test (Pha) (Accucheck) 1 ea 02 XX Last administered on 09/01/16 02: 06; Admin Dose 1 EA; Start 08/24/16 at 02:00 Insulin Glargine (Lantus) 12 unit QHS SC Last administered on 08/31/16 20:29; Admin Dose 12 UNIT; Start 08/24/16 at 21:00 Calcitriol (Rocaltrol) 0.25 mcg DAILY PO Last administered on 09/01/16 09:48; Admin Dose 0.25 MCG; Start 08/29/16 at 10:00 Calcium Carbonate (Oyster Shell Calcium) 1.25 gm DAILY PO Last administered on 09/01/16 09:48; Admin Dose 1.25 GM; Start 08/29/16 at 09:30 Warfarin Sodium (Coumadin) 5 mg DAILY@17 PO Last administered on 08/31/16 17: 14; Admin Dose 5 MG; Start 08/29/16 at 18:30 Pantoprazole (Protonix Tab) 40 mg DAILY@06 PO Last administered on 09/01/16 05 :33; Admin Dose 40 MG; Start 08/30/16 at 06:00 Polyethylene Glycol (Miralax) 17 gm BID PO Last administered on 09/01/16 09:47 ; Admin Dose 17 GM; Start 08/30/16 at 21:00 Docusate Sodium (Colace) 200 mg BID PO Last administered on 09/01/16 09:49; Admin Dose 200 MG; Start 08/30/16 at 21:00 Bisacodyl (Dulcolax) 10 mg DAILY PRN PO CONSTIPATION; Start 08/30/16 at 13:30 Acetaminophen 650 mg 650 mg Q4H PRN PO PAIN AND OR ELEVATED TEMP Last administered on 09/01/16 02:27; Admin Dose 650 MG; Start 09/01/16 at 01:30 Albumin Human (Albumin Human 25%) 100 ml @ 100 mls/hr Q8H IV ; Start 09/01/16 at 10:00; Stop 09/02/16 at 02:59 VIN GALLEGO NP Sep 01, 2016 11:57
--- NOTE | 2016-09-01 14:52 | CONS ---
Date/Time of Note Date/Time of Note DATE: 09/01/16 TIME: 14:48 Assessment/Plan Assessment/Plan Additional Assessment/Plan Hyperbilirubinemia * CT abdomen: 3.5 cm cyst on the superior left lobe. There is a 5 mm cyst on the inferior aspect of the right lobe of the liver. No gallstones are detected. No splenic, adrenal or pancreatic abnormality is seen. Kidneys are of normal size and contour. There is diverticulosis. Large extraperitoneal left flank hematoma * Trend labs * Acute hepatitis serology negative * Review autoimmune hepatitis serology (antinuclear antibodies, anti-smooth muscle antibodies, anti-liver/kidney microsomal antibodies type 1) Jaundice Anemia Coagulopathy Consultation Date/Type/Reason Admit Date/Time Aug 22, 2016 at 01:44 Hx of Present Illness 75-year-old female with elevation of bilirubin without transaminitis. CT abdomen notes: 3.5 cm cyst on the superior left lobe. There is a 5 mm cyst on the inferior aspect of the right lobe of the liver. No gallstones are detected. No splenic, adrenal or pancreatic abnormality is seen. Kidneys are of normal size and contour. There is diverticulosis. Large extraperitoneal left flank hematoma. Acute hepatitis serology negative. Elevation in bilirubin likely secondary to hematoma. Psychological: nl mood/affect Social History Smoking Status: Never smoker Exam/Review of Systems Vital Signs Vitals Vital Signs Date Time Temp Pulse Resp B/P Pulse Ox O2 Delivery O2 Flow Rate FiO2 09/01/16 12:44 60 09/01/16 08:16 97.6 20 112/59 98 09/01/16 04:58 3.0 08/31/16 23:30 Nasal Cannula Intake and Output 08/31/16 08/31/16 09/01/16 15:00 23:00 07:00 Intake Total 600 ml 120 ml Output Total 1000 ml 750 ml Balance -400 ml -630 ml Exam Constitutional: alert, oriented, other (Thin) Psych: no complaints Head: normocephalic Eyes: EOMI, icteric ENMT: nl external ears & nose, nl lips & teeth, nl nasal mucosa & septum Respiratory: normal air movement Cardiovascular: regular rate and rhythm Gastrointestinal: non-tender, soft Musculoskeletal: nl extremities to inspection Neurological: RN [facility] II-XII intact Results Result Diagram: 09/01/16 0638 09/01/16 0638 Results 24 hrs Laboratory Tests Test 08/31/16 18:01 08/31/16 20:20 08/31/16 20:25 09/01/16 02:50 Bedside Glucose 200 188 Activated Partial Thromboplast Time 85.5 *H 72.9 *H INR International Normalized Ratio 2.06 Prothrombin Time 23.4 H Prothrombin Time Ratio 1.8 Test 09/01/16 06:30 09/01/16 06:38 09/01/16 08:02 09/01/16 11:38 INR International Normalized Ratio 2.73 Prothrombin Time 29.3 #H Prothrombin Time Ratio 2.3 Alanine Aminotransferase (ALT/SGPT) 41 Albumin 3.0 L Albumin/Globulin Ratio 0.90 Alkaline Phosphatase 80 Anion Gap 14 Anisocytosis 1+ Aspartate Amino Transf (AST/SGOT) 29 Band Neutrophils % 6.0 H Blood Morphology Comment Blood Urea Nitrogen 39 H Calcium Level 6.0 L Carbon Dioxide Level 30 Chloride Level 93 L Creatinine 2.16 H Differential Comment MANUAL DIFF Direct Bilirubin 3.50 #H Eosinophils # 0.1 Eosinophils % 1.0 Globulin 3.30 H Glucose Level 86 Hematocrit 23.2 L Hemoglobin 8.0 L Indirect Bilirubin 1.8 H Lymphocytes # 0.6 L Lymphocytes % 8.0 L Magnesium Level 1.9 Mean Corpuscular Hemoglobin 31.3 Mean Corpuscular Hemoglobin Concent 34.5 Mean Corpuscular Volume 90.8 Mean Platelet Volume 7.4 Monocytes # 0.3 Monocytes % 4.0 Neutrophils # 6.0 Neutrophils % 81.0 H Phosphorus Level 3.7 Platelet Count 233 Potassium Level 3.1 L Red Blood Count 2.55 L Red Cell Distribution Width 17.8 H Sodium Level 134 L Total Bilirubin 5.3 H Total Protein 6.3 White Blood Count 7.4 # Bedside Glucose 109 161 Medications Medications Current Medications Amlodipine Besylate (Norvasc) 10 mg DAILY PO Last administered on 08/31/16 09: 30; Admin Dose 10 MG; Start 08/22/16 at 09:00 Benazepril HCl (Lotensin) 20 mg DAILY PO Last administered on 08/22/16 09:46; Admin Dose 20 MG; Start 08/22/16 at 09:00; Status Future Hold Bisoprolol Fumarate (Zebeta) 5 mg DAILY PO Last administered on 09/01/16 09:49 ; Admin Dose 5 MG; Start 08/22/16 at 09:00 Isosorbide Mononitrate (Imdur) 60 mg DAILY PO Last administered on 08/31/16 09 :30; Admin Dose 60 MG; Start 08/22/16 at 09:00 Tramadol HCl (Ultram) 50 mg Q6 PRN PO pain Last administered on 09/01/16 09:57 ; Admin Dose 50 MG; Start 08/22/16 at 03:00 Atorvastatin Calcium (Lipitor) 20 mg HS PO Last administered on 08/28/16 21:19 ; Admin Dose 20 MG; Start 08/22/16 at 21:00; Status Future Hold Morphine Sulfate (morphine) 2 mg Q4 PRN IV mod pain Last administered on 11:31; Admin Dose 2 MG; Start 08/22/16 at 04:30 Ondansetron HCl (Zofran Inj) 4 mg Q6H PRN IV NAUSEA AND/OR VOMITING Last administered on 08/22/16 13:20; Admin Dose 4 MG; Start 08/22/16 at 11:30 IV Flush 10 ml 10 ml PRN PRN IV IV PROTOCOL; Start 08/22/16 at 17:30 Diltiazem HCl (Cardizem-D5W 125 Mg/125 ml Drip) 125 ml @ 5 mls/hr TITRATE IV Last administered on 08/23/16 07:01; Admin Dose 5 MLS/HR; Start 08/22/16 at 20:30 Miscellaneous Information 1 ea NOTE XX ; Start 08/22/16 at 21:00 Glucose (Glutose) 15 gm Q15M PRN PO DECREASED GLUCOSE Last administered on 08:16; Admin Dose 15 GM; Start 08/22/16 at 21:00 Glucose (Glutose) 22.5 gm Q15M PRN PO DECREASED GLUCOSE; Start 08/22/16 at 21:00 Dextrose (D50w Syringe) 25 ml Q15M PRN IV DECREASED GLUCOSE; Start 08/22/16 at 21:00 Dextrose (D50w Syringe) 50 ml Q15M PRN IV DECREASED GLUCOSE; Start 08/22/16 at 21:00 Glucagon (Glucagen) 1 mg Q15M PRN IM DECREASED GLUCOSE; Start 08/22/16 at 21:00 Glucose (Glutose) 15 gm Q15M PRN BUCCAL DECREASED GLUCOSE; Start 08/22/16 at 21: 00 Diltiazem HCl (Cardizem) 60 mg Q6 PO Last administered on 09/01/16 11:59; Admin Dose 60 MG; Start 08/23/16 at 09:00 Diagnostic Test (Pha) (Accucheck) 1 ea 02 XX Last administered on 09/01/16 02: 06; Admin Dose 1 EA; Start 08/24/16 at 02:00 Insulin Glargine (Lantus) 12 unit QHS SC Last administered on 08/31/16 20:29; Admin Dose 12 UNIT; Start 08/24/16 at 21:00 Calcitriol (Rocaltrol) 0.25 mcg DAILY PO Last administered on 09/01/16 09:48; Admin Dose 0.25 MCG; Start 08/29/16 at 10:00 Calcium Carbonate (Oyster Shell Calcium) 1.25 gm DAILY PO Last administered on 09/01/16 09:48; Admin Dose 1.25 GM; Start 08/29/16 at 09:30 Warfarin Sodium (Coumadin) 5 mg DAILY@17 PO Last administered on 08/31/16 17: 14; Admin Dose 5 MG; Start 08/29/16 at 18:30; Status Future Hold Pantoprazole (Protonix Tab) 40 mg DAILY@06 PO Last administered on 09/01/16 05 :33; Admin Dose 40 MG; Start 08/30/16 at 06:00 Polyethylene Glycol (Miralax) 17 gm BID PO Last administered on 09/01/16 09:47 ; Admin Dose 17 GM; Start 08/30/16 at 21:00 Docusate Sodium (Colace) 200 mg BID PO Last administered on 09/01/16 09:49; Admin Dose 200 MG; Start 08/30/16 at 21:00 Bisacodyl (Dulcolax) 10 mg DAILY PRN PO CONSTIPATION; Start 08/30/16 at 13:30 Acetaminophen 650 mg 650 mg Q4H PRN PO PAIN AND OR ELEVATED TEMP Last administered on 09/01/16 02:27; Admin Dose 650 MG; Start 09/01/16 at 01:30 Albumin Human (Albumin Human 25%) 100 ml @ 100 mls/hr Q8H IV Last administered on 09/01/16 11:43; Admin Dose 100 MLS/HR; Start 09/01/16 at 10:00 ; Stop 09/02/16 at 02:59 MADINA MCDANIEL MD Sep 01, 2016 14:51 MADINA MCDANIEL MD Sep 01, 2016 14:51
--- NOTE | 2016-09-01 15:46 | CONS ---
Date/Time of Note Date/Time of Note DATE: 09/01/16 TIME: 15:44 Assessment/Plan Assessment/Plan Chief Complaint/Hosp Course Mechanical mitral valve replacement: normal function on echocardiogram Acute on chronic systolic and diastolic heart failure: LVEF 40-45% on echocardiogram, improved and euvolemic Chronic atrial fibrillation: rates controlled Retroperitoneal bleed: spontaneous in setting of supratherapeutic INR, managed conservatively and now stable Acute kidney injury on chronic kidney disease Diabetes mellitus Hypertension History of transient ischemic attack -discontinue heparin drip as INR therapeutic -continue warfarin with goal INR 2.5-3.5, monitor for bleeding -continue bisoprolol, diltiazem for rate control -echocardiogram reviewed Problems: Consultation Date/Type/Reason Admit Date/Time Aug 22, 2016 at 01:44 Initial Consult Date 08/28/16 Type of Consultation: Cardiology 24 HR Interval Summary Free Text/Dictation No acute events. INR therapeutic at 2.73. Detailed Summary Additional Comments 14 point review of systems without changes. Exam/Review of Systems Vital Signs Vitals Vital Signs Date Time Temp Pulse Resp B/P Pulse Ox O2 Delivery O2 Flow Rate FiO2 09/01/16 12:44 60 09/01/16 12:00 97.8 18 110/56 93 Nasal Cannula 3.0 Intake and Output 08/31/16 08/31/16 09/01/16 15:00 23:00 07:00 Intake Total 600 ml 120 ml Output Total 1000 ml 750 ml Balance -400 ml -630 ml Exam Constitutional: alert, oriented Psych: nl mood/affect Head: atraumatic, normocephalic Neck: jvd (10cm) Respiratory: crackles/rales, No clear to auscultation Cardiovascular: other (crisp mechanical S1), systolic murmur (2/6), No regular rate and rhythm Gastrointestinal: other (abdominal wall hematoma noted ), soft Extremities: edema (1+) Neurological: nl mental status, nl speech Skin: No rash or lesions Results Result Diagram: 09/01/1638 09/01/1638 Results 24 hrs Laboratory Tests Test 08/31/16 18:01 08/31/16 20:20 08/31/16 20:25 09/01/16 02:50 Bedside Glucose 200 188 Activated Partial Thromboplast Time 85.5 *H 72.9 *H INR International Normalized Ratio 2.06 Prothrombin Time 23.4 H Prothrombin Time Ratio 1.8 Test 09/01/16 06:30 09/01/16 06:38 09/01/16 08:02 09/01/16 11:38 INR International Normalized Ratio 2.73 Prothrombin Time 29.3 #H Prothrombin Time Ratio 2.3 Alanine Aminotransferase (ALT/SGPT) 41 Albumin 3.0 L Albumin/Globulin Ratio 0.90 Alkaline Phosphatase 80 Anion Gap 14 Anisocytosis 1+ Aspartate Amino Transf (AST/SGOT) 29 Band Neutrophils % 6.0 H Blood Morphology Comment Blood Urea Nitrogen 39 H Calcium Level 6.0 L Carbon Dioxide Level 30 Chloride Level 93 L Creatinine 2.16 H Differential Comment MANUAL DIFF Direct Bilirubin 3.50 #H Eosinophils # 0.1 Eosinophils % 1.0 Globulin 3.30 H Glucose Level 86 Hematocrit 23.2 L Hemoglobin 8.0 L Indirect Bilirubin 1.8 H Lymphocytes # 0.6 L Lymphocytes % 8.0 L Magnesium Level 1.9 Mean Corpuscular Hemoglobin 31.3 Mean Corpuscular Hemoglobin Concent 34.5 Mean Corpuscular Volume 90.8 Mean Platelet Volume 7.4 Monocytes # 0.3 Monocytes % 4.0 Neutrophils # 6.0 Neutrophils % 81.0 H Phosphorus Level 3.7 Platelet Count 233 Potassium Level 3.1 L Red Blood Count 2.55 L Red Cell Distribution Width 17.8 H Sodium Level 134 L Total Bilirubin 5.3 H Total Protein 6.3 White Blood Count 7.4 # Bedside Glucose 109 161 Medications Medications Current Medications Amlodipine Besylate (Norvasc) 10 mg DAILY PO Last administered on 08/31/16 09: 30; Admin Dose 10 MG; Start 08/22/16 at 09:00 Benazepril HCl (Lotensin) 20 mg DAILY PO Last administered on 08/22/16 09:46; Admin Dose 20 MG; Start 08/22/16 at 09:00; Status Future Hold Bisoprolol Fumarate (Zebeta) 5 mg DAILY PO Last administered on 09/01/16 09:49 ; Admin Dose 5 MG; Start 08/22/16 at 09:00 Isosorbide Mononitrate (Imdur) 60 mg DAILY PO Last administered on 08/31/16 09 :30; Admin Dose 60 MG; Start 08/22/16 at 09:00 Tramadol HCl (Ultram) 50 mg Q6 PRN PO pain Last administered on 09/01/16 09:57 ; Admin Dose 50 MG; Start 08/22/16 at 03:00 Atorvastatin Calcium (Lipitor) 20 mg HS PO Last administered on 08/28/16 21:19 ; Admin Dose 20 MG; Start 08/22/16 at 21:00; Status Future Hold Morphine Sulfate (morphine) 2 mg Q4 PRN IV mod pain Last administered on 11:31; Admin Dose 2 MG; Start 08/22/16 at 04:30 Ondansetron HCl (Zofran Inj) 4 mg Q6H PRN IV NAUSEA AND/OR VOMITING Last administered on 08/22/16 13:20; Admin Dose 4 MG; Start 08/22/16 at 11:30 IV Flush 10 ml 10 ml PRN PRN IV IV PROTOCOL; Start 08/22/16 at 17:30 Diltiazem HCl (Cardizem-D5W 125 Mg/125 ml Drip) 125 ml @ 5 mls/hr TITRATE IV Last administered on 08/23/16 07:01; Admin Dose 5 MLS/HR; Start 08/22/16 at 20:30 Miscellaneous Information 1 ea NOTE XX ; Start 08/22/16 at 21:00 Glucose (Glutose) 15 gm Q15M PRN PO DECREASED GLUCOSE Last administered on 08:16; Admin Dose 15 GM; Start 08/22/16 at 21:00 Glucose (Glutose) 22.5 gm Q15M PRN PO DECREASED GLUCOSE; Start 08/22/16 at 21:00 Dextrose (D50w Syringe) 25 ml Q15M PRN IV DECREASED GLUCOSE; Start 08/22/16 at 21:00 Dextrose (D50w Syringe) 50 ml Q15M PRN IV DECREASED GLUCOSE; Start 08/22/16 at 21:00 Glucagon (Glucagen) 1 mg Q15M PRN IM DECREASED GLUCOSE; Start 08/22/16 at 21:00 Glucose (Glutose) 15 gm Q15M PRN BUCCAL DECREASED GLUCOSE; Start 08/22/16 at 21: 00 Diltiazem HCl (Cardizem) 60 mg Q6 PO Last administered on 09/01/16 11:59; Admin Dose 60 MG; Start 08/23/16 at 09:00 Diagnostic Test (Pha) (Accucheck) 1 ea 02 XX Last administered on 09/01/16 02: 06; Admin Dose 1 EA; Start 08/24/16 at 02:00 Insulin Glargine (Lantus) 12 unit QHS SC Last administered on 08/31/16 20:29; Admin Dose 12 UNIT; Start 08/24/16 at 21:00 Calcitriol (Rocaltrol) 0.25 mcg DAILY PO Last administered on 09/01/16 09:48; Admin Dose 0.25 MCG; Start 08/29/16 at 10:00 Calcium Carbonate (Oyster Shell Calcium) 1.25 gm DAILY PO Last administered on 09/01/16 09:48; Admin Dose 1.25 GM; Start 08/29/16 at 09:30 Warfarin Sodium (Coumadin) 5 mg DAILY@17 PO Last administered on 08/31/16 17: 14; Admin Dose 5 MG; Start 08/29/16 at 18:30; Status Future Hold Pantoprazole (Protonix Tab) 40 mg DAILY@06 PO Last administered on 09/01/16 05 :33; Admin Dose 40 MG; Start 08/30/16 at 06:00 Polyethylene Glycol (Miralax) 17 gm BID PO Last administered on 09/01/16 09:47 ; Admin Dose 17 GM; Start 08/30/16 at 21:00 Docusate Sodium (Colace) 200 mg BID PO Last administered on 09/01/16 09:49; Admin Dose 200 MG; Start 08/30/16 at 21:00 Bisacodyl (Dulcolax) 10 mg DAILY PRN PO CONSTIPATION; Start 08/30/16 at 13:30 Acetaminophen 650 mg 650 mg Q4H PRN PO PAIN AND OR ELEVATED TEMP Last administered on 09/01/16 02:27; Admin Dose 650 MG; Start 09/01/16 at 01:30 Albumin Human (Albumin Human 25%) 100 ml @ 100 mls/hr Q8H IV Last administered on 09/01/16 11:43; Admin Dose 100 MLS/HR; Start 09/01/16 at 10:00 ; Stop 09/02/16 at 02:59 ARLYN LARIOS MD Sep 01, 2016 15:46
--- NOTE | 2016-09-01 17:33 | PN ---
Date/Time of Note Date/Time of Note DATE: 09/01/16 TIME: 17:32 Assessment/Plan Lines/Catheters IV Catheter Type (from [facility]): PICC Line [place] in Place (from [facility]): Yes Assessment/Plan Assessment/Plan [facility] Inpatient Progress Note Date of Service: 09/01/2016 Today's Assessment & Plan: Overall stable and doing well. No indication for acute surgical intervention. No indication for interventional radiology intervention. Hemoglobin stable on anticoagulation. Anticoagulation level needs to be adjusted. ? overall d/c plans (medical at this point). With above assessment, I've recommended the following for today: 1. Cont current cares 2. Cont PT and increase activity 3. Cont anticoagulation for heart 4. Will follow with you 5. D/c planning per primary team 6. Recommended d/c'ing heparin and holding Coumadin dose tonight with resumption of lower dose (? 2.5 mg) tomorrow with careful following of INR. Thank you again for your great care of this very pleasant lady and I'm certain her wonderful family. If there are any questions, please feel free to call me at [phone]. TOTAL VISIT TIME: 20 minutes of which more than half was spent in [id number] discussion with the patient as well as coordination of care between multiple physicians and providers. Disclaimer: Inadvertent spelling and grammatical errors are likely due to EHR/ dictation software use and do not reflect on the quality of delivered patient care. Also, please note that the electronic time recorded on this node does not necessarily reflect the actual time of the visit. Updated Clinical Summary: Very pleasant, but unfortunate 75-year-old lady with multiple comorbid issues; including atrial fibrillation requiring anticoagulation, congestive heart failure and perhaps other heart disease status post heart valve replacement, and a number of medical issues such as diabetes mellitus, hypertension, hyperlipidemia and gout, with TIA in the past; admitted to [facility] through the emergency department 08/21/2016 with a left flank hematoma that appeared to extend from the left hip area to mid flank region. Hemoglobin responded to PRBC (2 units 08/22/16; 2 units 08/23/16; 1 unit 08/26/16) and remained stable. Past and present comorbidity list: 1. Atrial fibrillation requiring anticoagulation. 2. Hypertension. 3. Congestive heart failure. 4. Diabetes mellitus. 5. Gout. 6. History of transient ischemic attacks in the past. 7. Dyslipidemia. 8. Bilateral cataract surgery. 9. History of heart valve replacement. Subjective: No major events or complaints; no significant abd pain and under control with medications; reports feeling well; no n/v/d; no sob or cp; + flatus; + BM; + activity Objective: Vitals: See below I's & O's: See below Exam: GENERAL: On exam, the patient was lying in bed and appeared to be comfortable and in no acute distress. ABDOMEN: Soft, non-tender to palpation in the left flank and not distended. There are no peritoneal signs or guarding. SKIN: Skin appears to be pink and feels warm to touch. NEUROLOGIC: Patient is awake, alert, and follows commands appropriately. Labs: See below Exam/Review of Systems Vital Signs Vitals Vital Signs Date Time Temp Pulse Resp B/P Pulse Ox O2 Delivery O2 Flow Rate FiO2 09/01/16 16:52 65 09/01/16 16:20 97.7 20 117/56 92 09/01/16 12:00 Nasal Cannula 3.0 Intake and Output 08/31/16 08/31/16 09/01/16 15:00 23:00 07:00 Intake Total 600 ml 120 ml Output Total 1000 ml 750 ml Balance -400 ml -630 ml Results Result Diagram: 09/01/16 0638 09/01/16 0638 ROSELYN WALLIS M.D. Sep 01, 2016 17:33
--- NOTE | 2016-09-01 19:33 | OPPN ---
Date/Time of Note Date/Time of Note DATE: 09/01/16 TIME: 19:32 Operative/Procedure Note Pre-Operative Diagnosis esrd Post-Operative Diagnosis esrd Procedure permcath Surgeon: SRIDEVI MATA MD Estimated blood loss: minimal Specimens: Not Applicable Complications: None Anesthesia type: general SRIDEVI MATA MD Sep 01, 2016 19:33
[2016-09-01] MEDS: INSULIN GLARGINE [LANtus] 3 ML PEN SC SCH (20:23)
[2016-09-02] VITALS (12 sets, daily range): BP systolic 112–125; BP diastolic 55–65; PULSE 66–84; RESP 16–19
[2016-09-02] MEDS: DILTIAZEM 60 MG TAB PO SCH ×3 (00:54→13:04)
[2016-09-02] MEDS: ALBUMIN HUMAN 25% 100 ML IV SCH (01:36)
[2016-09-02] MEDS: ACCUCHECK XX SCH (01:39)
[2016-09-02] MEDS: PANTOPRAZOLE (EC) 40 MG TAB PO SCH (05:28)
[2016-09-02 06:46] LABS: HEMATOCRIT 21.8 % (37.0-47.0); HEMOGLOBIN 7.5 g/dl (12.0-16.0); MEAN CORPUSCULAR HGB CONC 34.2 g/dl (32.0-37.0); MEAN CORPUSCULAR VOLUME 90.8 fl (82.0-101.0); MEAN PLATELET VOLUME 7.2 fl (7.4-10.4); PLATELET COUNT 242 10^3/UL (140-440); RED BLOOD COUNT 2.41 10^6/ul (4.20-5.40); RED CELL DISTRIBUTION WIDTH 17.5 % (11.5-14.5); UNCORRECTED WBC 6.8 10^3/ul (4.8-10.8); WHITE BLOOD COUNT 6.8 10^3/ul (4.8-10.8)
[2016-09-02 07:03] LABS: INR 3.45; PROTIME 35.3 Sec (12.2-14.2); PT RATIO 2.8
[2016-09-02 07:20] LABS: ALBUMIN 3.7 g/dl (3.3-4.9); CONDITION 1; LH ANALYZER COMMENTS 1; POTASSIUM 3.7 mmol/L (3.5-5.1)
[2016-09-02 07:22] LABS: BILIRUBIN,DIRECT 2.5 mg/dl (0.00-0.20); BILIRUBIN,TOTAL 4.5 mg/dl (0.2-1.3); CREATININE 1.98 mg/dl (0.44-1.00)
[2016-09-02 07:23] LABS: ALBUMIN/GLOBULIN RATIO 1.19; CALCIUM 6.5 mg/dl (8.4-10.2); TOTAL PROTEIN 6.8 g/dl (6.1-8.1)
[2016-09-02 07:50] LABS: POTASSIUM 3.7 mmol/L (3.5-5.1)
[2016-09-02 07:52] LABS: CREATININE 1.95 mg/dl (0.44-1.00)
[2016-09-02 07:53] LABS: CALCIUM 6.6 mg/dl (8.4-10.2); PHOSPHORUS 2.9 mg/dl (2.5-4.9)
[2016-09-02] MEDS: INSULIN ASPART [NOVOLOG] 3 ML PEN SC SCH ×4 (08:00→21:00)
[2016-09-02] MEDS: POLYETHYLENE GLYCOL 17 GM PACKET PO SCH ×2 (08:57→22:30)
[2016-09-02] MEDS: DOCUSATE SODIUM 100 MG CAP PO SCH ×2 (08:57→22:30)
[2016-09-02] MEDS: CALCITRIOL 0.25 MCG CAP PO SCH (08:57)
[2016-09-02] MEDS: CALCIUM CARBONATE 1.25 GM TAB PO SCH (08:57)
[2016-09-02] MEDS: ISOSORBIDE MONONITRATE(SR)60 MG TAB PO SCH (08:58)
[2016-09-02] MEDS: BISOPROLOL 5 MG TAB PO SCH (08:58)
[2016-09-02] MEDS: AMLODIPINE 10 MG TAB PO SCH (08:58)
[2016-09-02 10:42] LABS: ANISOCYTOSIS 1+; EOSINOPHILS # 0.1 10^3/ul (0.0-0.5); LYMPHOCYTES # 0.9 10^3/ul (0.8-2.9); NEUTROPHIL # 5.6 10^3/ul (1.6-7.5)
--- NOTE | 2016-09-02 12:13 | PN ---
DATE: 09/02/2016 SUBJECTIVE: The patient is stable. No acute events overnight. No fevers, chills, nausea or vomiti ng. No shortness of breath. OBJECTIVE: VITAL SIGNS: Blood pressure is 123/56, respirations 18, pulse 70, temperature 97.6. HEENT: Head is normocephalic. NECK: Supple. HEART: Regular rate. LUNGS: Show diminished breath sounds at the base. ABDOMEN: Soft, nontender to palpation. No rebound or guarding. EXTREMITIES: Negative for clubbing or cyanosis. No edema. DERMATOLOGIC: No rashes. MUSCULOSKELETAL: Have no joint effusion. NEUROLOGIC: No change in exam. MEDICATIONS: The patient medications have been reviewed. LABORATORY DATA: Shows sodium 137, potassium 3.7, chloride 95, BUN 38, creatinine 1.98. White coun t 6.8, hemoglobin 7.5, hematocrit 21.8, platelet count is 242, INR 3.45. ASSESSMENT AND PLAN: 1. Nonoliguric acute kidney injury on top of chronic kidney disease stage III B4, with a previous b aseline creatinine around 1.7 mg/dL. Etiology of acute kidney injury is secondary to acute tubular necrosis. Renal function has stabilized in the last 24 hours after holding diuretic therapy and giv ing gentle albumin bolus. Will continue to monitor closely, continue supportive care, renally dose all meds, and avoid nephrotoxins. 2. Congestive heart failure exacerbation. The patient appears euvolemic. Continue to monitor. Co ntinue to hold diuretic therapy in the setting of worsening renal function. 3. Mineral bone disorder. Continue to monitor calcium and phos levels. 4. Acute retroperitoneal bleed. The patient is being followed by surgery. Will continue to monito r. 5. Mechanical heart valve. The patient is on Coumadin and heparin. Continue to monitor. Defer to cardiology for management. 6. Chronic atrial fibrillation. Will continue current medical management. 7. Diabetes. Continue the current insulin regimen. 8. Hypertension. Blood pressure controlled. Continue to monitor. 9. Pneumonia. The patient is completing an antibiotic course. Dictated By: GARRETT FISHMAN/NTS Conf#: [id number] DID#: [id number]
--- NOTE | 2016-09-02 14:30 | PN ---
Date/Time of Note Date/Time of Note DATE: 09/02/16 TIME: 14:28 Assessment/Plan VTE Prophylaxis VTE Prophylaxis Intervention: other (Warfarin) Lines/Catheters [facility] Type ([facility] PICC Line Central line still needed: Yes Urinary Cath still in place: Yes Reason Cath still needed: other (indicate) Assessment/Plan Chief Complaint/Hosp Course 1. Spontaneous retroperitoneal bleeding. Continue to monitor. General surgery on board. 2. Chronic atrial fibrillation. Rate controlled. Cardiology following. 3. Status post mitral valve replacement. Continue anticoagulation. 4. Acute on chronic kidney disease. Being followed by nephrology. Continue to monitor the BUN and creatinine closely. Avoid nephrotoxic medications. 5. Normocytic normochromic anemia. Acute. Most probably secondary to underlying bleeding. Status post 4 units of packed red blood cells transfusion. Stable hemoglobin and hematocrit. 6. Coagulopathy with elevated INR. Resolved. 7. Left pleural effusion. Continue diuretics. 8. Type 2 diabetes mellitus. Hemoglobin A1c 6.1. Continue sliding scale insulin. 9. Cardiomyopathy with ejection fraction of 40% to 45%. Continue beta- blockers. QUE inhibitors on hold because of worsening renal function. 10. Pulmonary hypertension. Pulmonary artery pressure of 56 mmHg as per 2D echocardiogram. Continue supplemental oxygen. Continue calcium channel blockers. 11. Hyperbilirubinemia. Etiology unclear. Will hold hepatotoxic medications. Will trend LFTs. Gastroenterology following. 12. Hypocalcemia. Continue calcium supplements. Monitor fo any signs of tetany. 13. L wrist joint pain. Etiology unclear. Will obtain imaging studies. 14. Fluid, electrolytes, and nutrition. Carbohydrate controlled, low cholesterol diet. 15. Deep venous thrombosis prophylaxis. On Warfarin. 16. Gastrointestinal prophylaxis. Proton pump inhibitors. 17. Plan. Continue current management. Repeat H&H. Will hold the p.m. Coumadin dose since the patient has a history of spontaneous retroperitoneal bleed and coagulopathy. The patient's INR today is therapeutic. Case discussed with Dr. Umaña. Problems: Subjective 24 Hr Interval Summary Free Text/Dictation "Feeling better." Complains of pain at the left wrist joint that has been getting worse. Exam/Review of Systems Vital Signs Vitals Vital Signs Date Time Temp Pulse Resp B/P Pulse Ox O2 Delivery O2 Flow Rate FiO2 09/02/16 13:20 81 09/02/16 11:43 98.3 18 123/59 96 09/02/16 01:39 3.0 09/01/16 21:00 Nasal Cannula Intake and Output 09/01/16 09/01/16 09/02/16 15:00 23:00 07:00 Intake Total 240 ml Output Total 450 ml Balance -210 ml Exam GENERAL: This is a thin, frail-looking [place] female lying in bed in no apparent distress. HEENT: Head normocephalic and atraumatic. Eyes: Icteric sclerae. Conjunctivae clear. ENT: Nasal septum is midline. Oral mucosa is moist. NECK: Supple. No JVD noticed. RESPIRATORY: Bilaterally diminished breath sounds. Use of accessory muscles of respiration (minimal). CARDIAC: Irregularly irregular rhythm with a grade II/ systolic ejection murmur heard at the left sternal border. ABDOMEN: Soft, nontender, and nondistended. Bowel sounds positive in all 4 quadrants. GENITOURINARY: Deferred. EXTREMITIES: No cyanosis, no clubbing, no edema. Peripheral pulses are palpable. Left wrist joint edema and tenderness. NEUROLOGIC: The patient is awake, alert, and oriented. Cranial nerves are grossly intact Results Result Diagram: 09/02/16 0600 09/02/16 0600 Results 24 hrs Laboratory Tests Test 09/01/16 16:38 09/01/16 19:55 09/02/16 05:30 09/02/16 06:00 Bedside Glucose 162 146 Anion Gap 19 H 19 H Blood Urea Nitrogen 39 H 38 H Calcium Level 6.6 L 6.5 L Carbon Dioxide Level 27 27 Chloride Level 95 L 95 L Creatinine 1.95 H 1.98 H Glucose Level 100 100 Magnesium Level 2.0 Phosphorus Level 2.9 Potassium Level 3.7 3.7 Sodium Level 137 137 Alanine Aminotransferase (ALT/SGPT) 36 Albumin 3.7 Albumin/Globulin Ratio 1.19 Alkaline Phosphatase 77 Anisocytosis 1+ Aspartate Amino Transf (AST/SGOT) 29 Blood Morphology Comment Differential Comment MANUAL DIFF Direct Bilirubin 2.50 #H Eosinophils # 0.1 Eosinophils % 1.0 Globulin 3.10 Hematocrit 21.8 L Hemoglobin 7.5 L INR International Normalized Ratio 3.45 Indirect Bilirubin 2.0 H Lymphocytes # 0.9 Lymphocytes % 13.0 L Mean Corpuscular Hemoglobin 31.0 Mean Corpuscular Hemoglobin Concent 34.2 Mean Corpuscular Volume 90.8 Mean Platelet Volume 7.2 L Neutrophils # 5.6 Neutrophils % 83.0 H Platelet Count 242 Prothrombin Time 35.3 #H Prothrombin Time Ratio 2.8 Red Blood Count 2.41 L Red Cell Distribution Width 17.5 H Total Bilirubin 4.5 H Total Protein 6.8 White Blood Count 6.8 Test 09/02/16 08:07 09/02/16 12:04 Bedside Glucose 97 140 Medications Medications Current Medications Amlodipine Besylate (Norvasc) 10 mg DAILY PO Last administered on 09/02/16 08: 58; Admin Dose 10 MG; Start 08/22/16 at 09:00 Benazepril HCl (Lotensin) 20 mg DAILY PO Last administered on 08/22/16 09:46; Admin Dose 20 MG; Start 08/22/16 at 09:00; Status Future Hold Bisoprolol Fumarate (Zebeta) 5 mg DAILY PO Last administered on 09/02/16 08:58 ; Admin Dose 5 MG; Start 08/22/16 at 09:00 Isosorbide Mononitrate (Imdur) 60 mg DAILY PO Last administered on 09/02/16 08 :58; Admin Dose 60 MG; Start 08/22/16 at 09:00 Tramadol HCl (Ultram) 50 mg Q6 PRN PO pain Last administered on 09/01/16 09:57 ; Admin Dose 50 MG; Start 08/22/16 at 03:00 Atorvastatin Calcium (Lipitor) 20 mg HS PO Last administered on 08/28/16 21:19 ; Admin Dose 20 MG; Start 08/22/16 at 21:00; Status Future Hold Morphine Sulfate (morphine) 2 mg Q4 PRN IV mod pain Last administered on 11:31; Admin Dose 2 MG; Start 08/22/16 at 04:30 Ondansetron HCl (Zofran Inj) 4 mg Q6H PRN IV NAUSEA AND/OR VOMITING Last administered on 08/22/16 13:20; Admin Dose 4 MG; Start 08/22/16 at 11:30 IV Flush 10 ml 10 ml PRN PRN IV IV PROTOCOL; Start 08/22/16 at 17:30 Diltiazem HCl (Cardizem-D5W 125 Mg/125 ml Drip) 125 ml @ 5 mls/hr TITRATE IV Last administered on 08/23/16 07:01; Admin Dose 5 MLS/HR; Start 08/22/16 at 20:30 Miscellaneous Information 1 ea NOTE XX ; Start 08/22/16 at 21:00 Glucose (Glutose) 15 gm Q15M PRN PO DECREASED GLUCOSE Last administered on 08:16; Admin Dose 15 GM; Start 08/22/16 at 21:00 Glucose (Glutose) 22.5 gm Q15M PRN PO DECREASED GLUCOSE; Start 08/22/16 at 21:00 Dextrose (D50w Syringe) 25 ml Q15M PRN IV DECREASED GLUCOSE; Start 08/22/16 at 21:00 Dextrose (D50w Syringe) 50 ml Q15M PRN IV DECREASED GLUCOSE; Start 08/22/16 at 21:00 Glucagon (Glucagen) 1 mg Q15M PRN IM DECREASED GLUCOSE; Start 08/22/16 at 21:00 Glucose (Glutose) 15 gm Q15M PRN BUCCAL DECREASED GLUCOSE; Start 08/22/16 at 21: 00 Diltiazem HCl (Cardizem) 60 mg Q6 PO Last administered on 09/02/16 13:04; Admin Dose 60 MG; Start 08/23/16 at 09:00 Diagnostic Test (Pha) (Accucheck) 1 ea 02 XX Last administered on 09/01/16 02: 06; Admin Dose 1 EA; Start 08/24/16 at 02:00 Insulin Glargine (Lantus) 12 unit QHS SC Last administered on 09/01/16 20:23; Admin Dose 12 UNIT; Start 08/24/16 at 21:00 Calcitriol (Rocaltrol) 0.25 mcg DAILY PO Last administered on 09/02/16 08:57; Admin Dose 0.25 MCG; Start 08/29/16 at 10:00 Calcium Carbonate (Oyster Shell Calcium) 1.25 gm DAILY PO Last administered on 09/02/16 08:57; Admin Dose 1.25 GM; Start 08/29/16 at 09:30 Warfarin Sodium (Coumadin) 5 mg DAILY@17 PO Last administered on 08/31/16 17: 14; Admin Dose 5 MG; Start 08/29/16 at 18:30; Status Future Hold Pantoprazole (Protonix Tab) 40 mg DAILY@06 PO Last administered on 09/02/16 05 :28; Admin Dose 40 MG; Start 08/30/16 at 06:00 Polyethylene Glycol (Miralax) 17 gm BID PO Last administered on 09/02/16 08:57 ; Admin Dose 17 GM; Start 08/30/16 at 21:00 Docusate Sodium (Colace) 200 mg BID PO Last administered on 09/02/16 08:57; Admin Dose 200 MG; Start 08/30/16 at 21:00 Bisacodyl (Dulcolax) 10 mg DAILY PRN PO CONSTIPATION; Start 08/30/16 at 13:30 Acetaminophen (Tylenol Tab) 650 mg Q4H PRN PO PAIN AND OR ELEVATED TEMP Last administered on 09/01/16 02:27; Admin Dose 650 MG; Start 09/01/16 at 01:30 VIN GALLEGO NP Sep 02, 2016 14:30
[2016-09-02 15:02] LABS: HEMOGLOBIN 8.1 g/dl (12.0-16.0)
--- NOTE | 2016-09-02 15:33 | PN ---
Date/Time of Note Date/Time of Note DATE: 09/02/16 TIME: 15:28 Assessment/Plan Lines/Catheters IV Catheter Type (from [facility]): PICC Line [place] in Place (from [facility]): Yes Assessment/Plan Assessment/Plan [facility] In[facility] Progress Note Date of Service: 09/02/2016 Today's Assessment & Plan: Overall stable and doing well. No indication for acute surgical intervention. No indication for interventional radiology intervention. Hemoglobin stable on anticoagulation. Anticoagulation level being adjusted. Left arm weakness is new and needs evaluation as well. C. difficile just diagnosed and likely patient will have to stay over the weekend at a minimum.? overall d/c plans (medical at this point). With above assessment, I've recommended the following for today: 1. Cont current cares 2. Cont PT and increase activity 3. Cont anticoagulation for heart (agree with holding Coumadin today and check an INR tomorrow and if lower, to restart Coumadin at approximately 1 or 2 mg). She also needs solid plans for outpatient careful monitoring of Coumadin which can be done at one of our local Coumadin clinics. 4. Will follow with you 5. D/c planning per primary team 6. Formal evaluation of left arm weakness 7. C. difficile evaluation and treatment Thank you again for your great care of this very pleasant lady and I'm certain her wonderful family. If there are any questions, please feel free to call me at [phone]. TOTAL VISIT TIME: 20 minutes of which more than half was spent in [id number] discussion with the patient as well as coordination of care between multiple physicians and providers. Disclaimer: Inadvertent spelling and grammatical errors are likely due to EHR/ dictation software use and do not reflect on the quality of delivered patient care. Also, please note that the electronic time recorded on this node does not necessarily reflect the actual time of the visit. Updated Clinical Summary: Very pleasant, but unfortunate 75-year-old lady with multiple comorbid issues; including atrial fibrillation requiring anticoagulation, congestive heart failure and perhaps other heart disease status post heart valve replacement, and a number of medical issues such as diabetes mellitus, hypertension, hyperlipidemia and gout, with TIA in the past; admitted to [facility] through the emergency department 08/21/2016 with a left flank hematoma that appeared to extend from the left hip area to mid flank region. Hemoglobin responded to PRBC (2 units 08/22/16; 2 units 08/23/16; 1 unit 08/26/16) and remained stable. Past and present comorbidity list: 1. Atrial fibrillation requiring anticoagulation. 2. Hypertension. 3. Congestive heart failure. 4. Diabetes mellitus. 5. Gout. 6. History of transient ischemic attacks in the past. 7. Dyslipidemia. 8. Bilateral cataract surgery. 9. History of heart valve replacement. Subjective: No major events or complaints; no significant abd pain and under control with medications; reports feeling well; no n/v/d; no sob or cp; + flatus; + BM; + activity; left arm still with weakness Objective: Vitals: See below I's & O's: See below Exam: GENERAL: On exam, the patient was sitting up in her bed and appeared to be comfortable and in no acute distress. Being prepared by physical therapy for ambulation. Difficulty lifting her left arm fully. ABDOMEN: Soft, non-tender to palpation in the left flank and not distended. There are no peritoneal signs or guarding. SKIN: Skin appears to be pink and feels warm to touch. NEUROLOGIC: Patient is awake, alert, and follows commands appropriately. Labs: See below Exam/Review of Systems Vital Signs Vitals Vital Signs Date Time Temp Pulse Resp B/P Pulse Ox O2 Delivery O2 Flow Rate FiO2 09/02/16 13:20 81 09/02/16 11:43 98.3 18 123/59 96 09/02/16 01:39 3.0 09/01/16 21:00 Nasal Cannula Intake and Output 09/01/16 09/01/16 09/02/16 15:00 23:00 07:00 Intake Total 240 ml Output Total 450 ml Balance -210 ml Results Result Diagram: 09/02/16 1443 09/02/16 0600 ROSELYN WALLIS M.D. Sep 02, 2016 15:33
--- NOTE | 2016-09-02 16:58 | CONS ---
Date/Time of Note Date/Time of Note DATE: 09/02/16 TIME: 16:56 Assessment/Plan Assessment/Plan Additional Assessment/Plan Hyperbilirubinemia * CT abdomen: 3.5 cm cyst on the superior left lobe. There is a 5 mm cyst on the inferior aspect of the right lobe of the liver. No gallstones are detected. No splenic, adrenal or pancreatic abnormality is seen. Kidneys are of normal size and contour. There is diverticulosis. Large extraperitoneal left flank hematoma * Trend labs * Acute hepatitis serology negative * Review autoimmune hepatitis serology (antinuclear antibodies, anti-smooth muscle antibodies, anti-liver/kidney microsomal antibodies type 1) * Abdominal ultrasound to evaluate possible CBD dilation Jaundice Anemia Coagulopathy Further recommendations depend on clinical course Patient seen in collaboration with Dr. Gould Consultation Date/Type/Reason Admit Date/Time Aug 22, 2016 at 01:44 Initial Consult Date 08/28/16 Type of Consultation: GI 24 HR Interval Summary Free Text/Dictation Autoimmune Hepatitis serology in process Tolerating diet Abdominal ultrasound to evaluate CBD dilation Bilirubin trending up Exam/Review of Systems Vital Signs Vitals Vital Signs Date Time Temp Pulse Resp B/P Pulse Ox O2 Delivery O2 Flow Rate FiO2 09/02/16 16:16 98.0 50 18 112/55 95 09/02/16 01:39 3.0 09/01/16 21:00 Nasal Cannula Intake and Output 09/01/16 09/01/16 09/02/16 15:00 23:00 07:00 Intake Total 240 ml Output Total 450 ml Balance -210 ml Exam Constitutional: alert, oriented, other (Thin) Psych: no complaints Head: normocephalic Eyes: EOMI, icteric ENMT: nl external ears & nose, nl lips & teeth, nl nasal mucosa & septum Respiratory: normal air movement Cardiovascular: regular rate and rhythm Gastrointestinal: non-tender, soft Musculoskeletal: nl extremities to inspection Neurological: MATERIALS SCIENTIST II-XII intact Results Result Diagram: 09/02/16 1443 09/02/16 0600 Results 24 hrs Laboratory Tests Test 09/01/16 19:55 09/02/16 05:30 09/02/16 06:00 09/02/16 08:07 Bedside Glucose 146 97 Anion Gap 19 H 19 H Blood Urea Nitrogen 39 H 38 H Calcium Level 6.6 L 6.5 L Carbon Dioxide Level 27 27 Chloride Level 95 L 95 L Creatinine 1.95 H 1.98 H Glucose Level 100 100 Magnesium Level 2.0 Phosphorus Level 2.9 Potassium Level 3.7 3.7 Sodium Level 137 137 Alanine Aminotransferase (ALT/SGPT) 36 Albumin 3.7 Albumin/Globulin Ratio 1.19 Alkaline Phosphatase 77 Anisocytosis 1+ Aspartate Amino Transf (AST/SGOT) 29 Blood Morphology Comment Differential Comment MANUAL DIFF Direct Bilirubin 2.50 #H Eosinophils # 0.1 Eosinophils % 1.0 Globulin 3.10 Hematocrit 21.8 L Hemoglobin 7.5 L INR International Normalized Ratio 3.45 Indirect Bilirubin 2.0 H Lymphocytes # 0.9 Lymphocytes % 13.0 L Mean Corpuscular Hemoglobin 31.0 Mean Corpuscular Hemoglobin Concent 34.2 Mean Corpuscular Volume 90.8 Mean Platelet Volume 7.2 L Neutrophils # 5.6 Neutrophils % 83.0 H Platelet Count 242 Prothrombin Time 35.3 #H Prothrombin Time Ratio 2.8 Red Blood Count 2.41 L Red Cell Distribution Width 17.5 H Total Bilirubin 4.5 H Total Protein 6.8 White Blood Count 6.8 Test 09/02/16 12:04 09/02/16 14:43 Bedside Glucose 140 Hematocrit 24.0 L Hemoglobin 8.1 L Medications Medications Current Medications Amlodipine Besylate (Norvasc) 10 mg DAILY PO Last administered on 09/02/16 08: 58; Admin Dose 10 MG; Start 08/22/16 at 09:00 Benazepril HCl (Lotensin) 20 mg DAILY PO Last administered on 08/22/16 09:46; Admin Dose 20 MG; Start 08/22/16 at 09:00; Status Future Hold Bisoprolol Fumarate (Zebeta) 5 mg DAILY PO Last administered on 09/02/16 08:58 ; Admin Dose 5 MG; Start 08/22/16 at 09:00 Isosorbide Mononitrate (Imdur) 60 mg DAILY PO Last administered on 09/02/16 08 :58; Admin Dose 60 MG; Start 08/22/16 at 09:00 Tramadol HCl (Ultram) 50 mg Q6 PRN PO pain Last administered on 09/01/16 09:57 ; Admin Dose 50 MG; Start 08/22/16 at 03:00 Atorvastatin Calcium (Lipitor) 20 mg HS PO Last administered on 08/28/16 21:19 ; Admin Dose 20 MG; Start 08/22/16 at 21:00; Status Future Hold Morphine Sulfate (morphine) 2 mg Q4 PRN IV mod pain Last administered on 11:31; Admin Dose 2 MG; Start 08/22/16 at 04:30 Ondansetron HCl (Zofran Inj) 4 mg Q6H PRN IV NAUSEA AND/OR VOMITING Last administered on 08/22/16 13:20; Admin Dose 4 MG; Start 08/22/16 at 11:30 IV Flush 10 ml 10 ml PRN PRN IV IV PROTOCOL; Start 08/22/16 at 17:30 Diltiazem HCl (Cardizem-D5W 125 Mg/125 ml Drip) 125 ml @ 5 mls/hr TITRATE IV Last administered on 08/23/16 07:01; Admin Dose 5 MLS/HR; Start 08/22/16 at 20:30 Miscellaneous Information 1 ea NOTE XX ; Start 08/22/16 at 21:00 Glucose (Glutose) 15 gm Q15M PRN PO DECREASED GLUCOSE Last administered on 08:16; Admin Dose 15 GM; Start 08/22/16 at 21:00 Glucose (Glutose) 22.5 gm Q15M PRN PO DECREASED GLUCOSE; Start 08/22/16 at 21:00 Dextrose (D50w Syringe) 25 ml Q15M PRN IV DECREASED GLUCOSE; Start 08/22/16 at 21:00 Dextrose (D50w Syringe) 50 ml Q15M PRN IV DECREASED GLUCOSE; Start 08/22/16 at 21:00 Glucagon (Glucagen) 1 mg Q15M PRN IM DECREASED GLUCOSE; Start 08/22/16 at 21:00 Glucose (Glutose) 15 gm Q15M PRN BUCCAL DECREASED GLUCOSE; Start 08/22/16 at 21: 00 Diltiazem HCl (Cardizem) 60 mg Q6 PO Last administered on 09/02/16 13:04; Admin Dose 60 MG; Start 08/23/16 at 09:00 Diagnostic Test (Pha) (Accucheck) 1 ea 02 XX Last administered on 09/01/16 02: 06; Admin Dose 1 EA; Start 08/24/16 at 02:00 Insulin Glargine (Lantus) 12 unit QHS SC Last administered on 09/01/16 20:23; Admin Dose 12 UNIT; Start 08/24/16 at 21:00 Calcitriol (Rocaltrol) 0.25 mcg DAILY PO Last administered on 09/02/16 08:57; Admin Dose 0.25 MCG; Start 08/29/16 at 10:00 Calcium Carbonate (Oyster Shell Calcium) 1.25 gm DAILY PO Last administered on 09/02/16 08:57; Admin Dose 1.25 GM; Start 08/29/16 at 09:30 Warfarin Sodium (Coumadin) 5 mg DAILY@17 PO Last administered on 08/31/16 17: 14; Admin Dose 5 MG; Start 08/29/16 at 18:30; Status Future Hold Pantoprazole (Protonix Tab) 40 mg DAILY@06 PO Last administered on 09/02/16 05 :28; Admin Dose 40 MG; Start 08/30/16 at 06:00 Polyethylene Glycol (Miralax) 17 gm BID PO Last administered on 09/02/16 08:57 ; Admin Dose 17 GM; Start 08/30/16 at 21:00 Docusate Sodium (Colace) 200 mg BID PO Last administered on 09/02/16 08:57; Admin Dose 200 MG; Start 08/30/16 at 21:00 Bisacodyl (Dulcolax) 10 mg DAILY PRN PO CONSTIPATION; Start 08/30/16 at 13:30 Acetaminophen (Tylenol Tab) 650 mg Q4H PRN PO PAIN AND OR ELEVATED TEMP Last administered on 09/01/16 02:27; Admin Dose 650 MG; Start 09/01/16 at 01:30 Metronidazole (Flagyl) 500 mg Q8 PO ; Start 09/02/16 at 15:30 FORTUNATO OCAMPO Sep 02, 2016 16:58
--- NOTE | 2016-09-02 17:00 | CONS ---
Date/Time of Note Date/Time of Note DATE: 09/02/16 TIME: 16:57 Assessment/Plan Assessment/Plan Chief Complaint/Hosp Course Mechanical mitral valve replacement: normal function on echocardiogram Acute on chronic systolic and diastolic heart failure: LVEF 40-45% on echocardiogram, improved and euvolemic Chronic atrial fibrillation: rates controlled Retroperitoneal bleed: spontaneous in setting of supratherapeutic INR, managed conservatively and now stable Acute kidney injury on chronic kidney disease Diabetes mellitus Hypertension History of transient ischemic attack -continue warfarin with goal INR 2.5-3.5, monitor for bleeding -continue bisoprolol, diltiazem (change to extended release) for rate control -echocardiogram reviewed Problems: Consultation Date/Type/Reason Admit Date/Time Aug 22, 2016 at 01:44 Initial Consult Date 08/28/16 Type of Consultation: Cardiology 24 HR Interval Summary Free Text/Dictation No acute events. Detailed Summary Additional Comments 14 point review of systems without changes. Exam/Review of Systems Vital Signs Vitals Vital Signs Date Time Temp Pulse Resp B/P Pulse Ox O2 Delivery O2 Flow Rate FiO2 09/02/16 16:16 98.0 50 18 112/55 95 09/02/16 01:39 3.0 09/01/16 21:00 Nasal Cannula Intake and Output 09/01/16 09/01/16 09/02/16 15:00 23:00 07:00 Intake Total 240 ml Output Total 450 ml Balance -210 ml Exam Constitutional: alert, oriented Psych: nl mood/affect Head: atraumatic, normocephalic Neck: jvd (10cm) Respiratory: crackles/rales, No clear to auscultation Cardiovascular: other (crisp mechanical S1), systolic murmur (2/6), No regular rate and rhythm Gastrointestinal: other (abdominal wall hematoma noted ), soft Extremities: edema (1+) Neurological: nl mental status, nl speech Skin: No rash or lesions Results Result Diagram: 09/02/16 1443 09/02/16 0600 Results 24 hrs Laboratory Tests Test 09/01/16 19:55 09/02/16 05:30 09/02/16 06:00 09/02/16 08:07 Bedside Glucose 146 97 Anion Gap 19 H 19 H Blood Urea Nitrogen 39 H 38 H Calcium Level 6.6 L 6.5 L Carbon Dioxide Level 27 27 Chloride Level 95 L 95 L Creatinine 1.95 H 1.98 H Glucose Level 100 100 Magnesium Level 2.0 Phosphorus Level 2.9 Potassium Level 3.7 3.7 Sodium Level 137 137 Alanine Aminotransferase (ALT/SGPT) 36 Albumin 3.7 Albumin/Globulin Ratio 1.19 Alkaline Phosphatase 77 Anisocytosis 1+ Aspartate Amino Transf (AST/SGOT) 29 Blood Morphology Comment Differential Comment MANUAL DIFF Direct Bilirubin 2.50 #H Eosinophils # 0.1 Eosinophils % 1.0 Globulin 3.10 Hematocrit 21.8 L Hemoglobin 7.5 L INR International Normalized Ratio 3.45 Indirect Bilirubin 2.0 H Lymphocytes # 0.9 Lymphocytes % 13.0 L Mean Corpuscular Hemoglobin 31.0 Mean Corpuscular Hemoglobin Concent 34.2 Mean Corpuscular Volume 90.8 Mean Platelet Volume 7.2 L Neutrophils # 5.6 Neutrophils % 83.0 H Platelet Count 242 Prothrombin Time 35.3 #H Prothrombin Time Ratio 2.8 Red Blood Count 2.41 L Red Cell Distribution Width 17.5 H Total Bilirubin 4.5 H Total Protein 6.8 White Blood Count 6.8 Test 09/02/16 12:04 09/02/16 14:43 Bedside Glucose 140 Hematocrit 24.0 L Hemoglobin 8.1 L Medications Medications Current Medications Amlodipine Besylate (Norvasc) 10 mg DAILY PO Last administered on 09/02/16 08: 58; Admin Dose 10 MG; Start 08/22/16 at 09:00 Benazepril HCl (Lotensin) 20 mg DAILY PO Last administered on 08/22/16 09:46; Admin Dose 20 MG; Start 08/22/16 at 09:00; Status Future Hold Bisoprolol Fumarate (Zebeta) 5 mg DAILY PO Last administered on 09/02/16 08:58 ; Admin Dose 5 MG; Start 08/22/16 at 09:00 Isosorbide Mononitrate (Imdur) 60 mg DAILY PO Last administered on 09/02/16 08 :58; Admin Dose 60 MG; Start 08/22/16 at 09:00 Tramadol HCl (Ultram) 50 mg Q6 PRN PO pain Last administered on 09/01/16 09:57 ; Admin Dose 50 MG; Start 08/22/16 at 03:00 Atorvastatin Calcium (Lipitor) 20 mg HS PO Last administered on 08/28/16 21:19 ; Admin Dose 20 MG; Start 08/22/16 at 21:00; Status Future Hold Morphine Sulfate (morphine) 2 mg Q4 PRN IV mod pain Last administered on 11:31; Admin Dose 2 MG; Start 08/22/16 at 04:30 Ondansetron HCl (Zofran Inj) 4 mg Q6H PRN IV NAUSEA AND/OR VOMITING Last administered on 08/22/16 13:20; Admin Dose 4 MG; Start 08/22/16 at 11:30 IV Flush 10 ml 10 ml PRN PRN IV IV PROTOCOL; Start 08/22/16 at 17:30 Diltiazem HCl (Cardizem-D5W 125 Mg/125 ml Drip) 125 ml @ 5 mls/hr TITRATE IV Last administered on 08/23/16 07:01; Admin Dose 5 MLS/HR; Start 08/22/16 at 20:30 Miscellaneous Information 1 ea NOTE XX ; Start 08/22/16 at 21:00 Glucose (Glutose) 15 gm Q15M PRN PO DECREASED GLUCOSE Last administered on 08:16; Admin Dose 15 GM; Start 08/22/16 at 21:00 Glucose (Glutose) 22.5 gm Q15M PRN PO DECREASED GLUCOSE; Start 08/22/16 at 21:00 Dextrose (D50w Syringe) 25 ml Q15M PRN IV DECREASED GLUCOSE; Start 08/22/16 at 21:00 Dextrose (D50w Syringe) 50 ml Q15M PRN IV DECREASED GLUCOSE; Start 08/22/16 at 21:00 Glucagon (Glucagen) 1 mg Q15M PRN IM DECREASED GLUCOSE; Start 08/22/16 at 21:00 Glucose (Glutose) 15 gm Q15M PRN BUCCAL DECREASED GLUCOSE; Start 08/22/16 at 21: 00 Diltiazem HCl (Cardizem) 60 mg Q6 PO Last administered on 09/02/16 13:04; Admin Dose 60 MG; Start 08/23/16 at 09:00 Diagnostic Test (Pha) (Accucheck) 1 ea 02 XX Last administered on 09/01/16 02: 06; Admin Dose 1 EA; Start 08/24/16 at 02:00 Insulin Glargine (Lantus) 12 unit QHS SC Last administered on 09/01/16 20:23; Admin Dose 12 UNIT; Start 08/24/16 at 21:00 Calcitriol (Rocaltrol) 0.25 mcg DAILY PO Last administered on 09/02/16 08:57; Admin Dose 0.25 MCG; Start 08/29/16 at 10:00 Calcium Carbonate (Oyster Shell Calcium) 1.25 gm DAILY PO Last administered on 09/02/16 08:57; Admin Dose 1.25 GM; Start 08/29/16 at 09:30 Warfarin Sodium (Coumadin) 5 mg DAILY@17 PO Last administered on 08/31/16 17: 14; Admin Dose 5 MG; Start 08/29/16 at 18:30; Status Future Hold Pantoprazole (Protonix Tab) 40 mg DAILY@06 PO Last administered on 09/02/16 05 :28; Admin Dose 40 MG; Start 08/30/16 at 06:00 Polyethylene Glycol (Miralax) 17 gm BID PO Last administered on 09/02/16 08:57 ; Admin Dose 17 GM; Start 08/30/16 at 21:00 Docusate Sodium (Colace) 200 mg BID PO Last administered on 09/02/16 08:57; Admin Dose 200 MG; Start 08/30/16 at 21:00 Bisacodyl (Dulcolax) 10 mg DAILY PRN PO CONSTIPATION; Start 08/30/16 at 13:30 Acetaminophen (Tylenol Tab) 650 mg Q4H PRN PO PAIN AND OR ELEVATED TEMP Last administered on 09/01/16 02:27; Admin Dose 650 MG; Start 09/01/16 at 01:30 Metronidazole (Flagyl) 500 mg Q8 PO ; Start 09/02/16 at 15:30 ARLYN LARIOS MD Sep 02, 2016 16:59
[2016-09-02] MEDS: metroNIDAZOLE 500 MG TAB PO SCH ×2 (17:46→22:30)
--- NOTE | 2016-09-02 19:25 | RADRPT ---
PROCEDURE: US Abdomen (right upper quadrant). CLINICAL INDICATION: Hyperbilirubinemia. TECHNIQUE: Multiple real-time longitudinal and transverse images of the right upper quadrant of th e abdomen were acquired utilizing a curved array transducer. Images were reviewed on a high-resoluti on PACS workstation. COMPARISON: None FINDINGS: The liver is normal in size and echogenicity. There is no focal hepatic lesion. Color Doppler and pulsed Doppler sonography demonstrate normal an tegrade flow in the portal vein. There is sludge within the gallbladder. The gallbladder is otherwise normal with no stones or wall thickening. There is no pericholecystic fluid collection. The bile ducts are normal with the common bile duct measuring 3.7 mm in diameter. The visualized portions of the pancreas are unremarkable with obscuration of the tail of the pancrea s. No free fluid is present. The right kidney measures 8.1 cm. There is increased echogenicity of the right kidney and thinning of the right renal parenchyma. There is no perinephric fluid collection. No hydronephrosis, mass, or calculus is seen. IMPRESSION: 1. Sludge in the gallbladder. No gallstones or evidence of cholecystitis. 2. Atrophic right kidney. 3. Otherwise unremarkable study. RPTAT: QQ .Isaiah Khanna MD, Date Time Electronically viewed and signed by .Isaiah Khanna MD, on 09/02/2016 19:25 .R/
--- NOTE | 2016-09-02 19:32 | RADRPT ---
PROCEDURE: Left wrist radiographs. CLINICAL INDICATION: Trauma. Left wrist pain. TECHNIQUE: Four views. Frontal, lateral, and obliques. COMPARISON: No prior studies are available for comparison. FINDINGS: There is no fracture or dislocation. The soft tissues are normal. Articular surfaces are intact. There is no lytic or blastic lesion. There is no radiopaque foreign body. IMPRESSION: 1. Normal images of the left wrist. RPTAT: QQ .Isaiah Khanna MD, MD Date Time Electronically viewed and signed by .Isaiah Khanna MD, on 09/02/2016 19:31 .R/
[2016-09-02] MEDS: INSULIN GLARGINE [LANtus] 3 ML PEN SC SCH (22:36)
[2016-09-03] VITALS (11 sets, daily range): BP systolic 116–135; BP diastolic 54–61; PULSE 56–100; RESP 18–21
[2016-09-03] MEDS: ACCUCHECK XX SCH (02:00)
[2016-09-03] MEDS: PANTOPRAZOLE (EC) 40 MG TAB PO SCH (06:10)
[2016-09-03] MEDS: metroNIDAZOLE 500 MG TAB PO SCH ×3 (06:10→21:01)
[2016-09-03] MEDS: INSULIN ASPART [NOVOLOG] 3 ML PEN SC SCH ×4 (08:00→21:00)
[2016-09-03] MEDS: ISOSORBIDE MONONITRATE(SR)60 MG TAB PO SCH (08:33)
[2016-09-03] MEDS: AMLODIPINE 10 MG TAB PO SCH (08:35)
[2016-09-03 08:53] LABS: EOSINOPHILS % 0.5 % (0.0-7.0); HEMATOCRIT 23.4 % (37.0-47.0); HEMOGLOBIN 7.9 g/dl (12.0-16.0); LYMPHOCYTES # 0.6 10^3/ul (0.8-2.9); LYMPHOCYTES % 7.4 % (15.0-51.0); MEAN CORPUSCULAR HEMOGLOBIN 30.8 pg (29.0-33.0); MEAN CORPUSCULAR HGB CONC 33.6 g/dl (32.0-37.0); MEAN CORPUSCULAR VOLUME 91.7 fl (82.0-101.0); MEAN PLATELET VOLUME 7.2 fl (7.4-10.4); MONOCYTE # 0.6 10^3/ul (0.3-0.9); MONOCYTES % 7.3 % (0.0-11.0); NEUTROPHIL # 6.4 10^3/ul (1.6-7.5); NEUTROPHILS % 84.8 % (39.0-77.0); PLATELET COUNT 334 10^3/UL (140-440); RED BLOOD COUNT 2.55 10^6/ul (4.20-5.40); RED CELL DISTRIBUTION WIDTH 18.5 % (11.5-14.5); UNCORRECTED WBC 7.5 10^3/ul (4.8-10.8); WHITE BLOOD COUNT 7.5 10^3/ul (4.8-10.8)
[2016-09-03 09:00] LABS: INR 2.14; PROTIME 24.1 Sec (12.2-14.2); PT RATIO 1.9
[2016-09-03] MEDS: POLYETHYLENE GLYCOL 17 GM PACKET PO SCH (09:00)
[2016-09-03] MEDS: DOCUSATE SODIUM 100 MG CAP PO SCH (09:00)
[2016-09-03 09:06] LABS: ALBUMIN/GLOBULIN RATIO 1.28
[2016-09-03 09:07] LABS: POTASSIUM 3.7 mmol/L (3.5-5.1)
[2016-09-03 09:09] LABS: ALBUMIN 3.6 g/dl (3.3-4.9); BILIRUBIN,DIRECT 1.5 mg/dl (0.00-0.20); BILIRUBIN,INDIRECT 2.2 mg/dl (0-1.1); BILIRUBIN,TOTAL 3.7 mg/dl (0.2-1.3); CALCIUM 6.9 mg/dl (8.4-10.2); CREATININE 1.74 mg/dl (0.44-1.00); POTASSIUM 3.9 mmol/L (3.5-5.1); TOTAL PROTEIN 6.4 g/dl (6.1-8.1)
[2016-09-03 09:10] LABS: CREATININE 1.82 mg/dl (0.44-1.00)
[2016-09-03 09:11] LABS: CALCIUM 6.8 mg/dl (8.4-10.2); PHOSPHORUS 2.5 mg/dl (2.5-4.9)
[2016-09-03] MEDS: BISOPROLOL 5 MG TAB PO SCH (09:33)
[2016-09-03] MEDS: DILTIAZEM (CD) 240 MG CAP PO SCH (09:33)
[2016-09-03] MEDS: CALCIUM CARBONATE 1.25 GM TAB PO SCH (09:33)
[2016-09-03] MEDS: CALCITRIOL 0.25 MCG CAP PO SCH (09:33)
[2016-09-03 09:34] LABS: CONDITION 1; LH ANALYZER COMMENTS 1
--- NOTE | 2016-09-03 09:50 | PN ---
DATE: 09/03/2016 SUBJECTIVE: The patient continues to have generalized abdominal pain. No other acute events noted overnight. No hemoptysis, hematemesis or hematochezia. OBJECTIVE: VITAL SIGNS: Blood pressure ____/60, respirations ____, pulse 90, temperature 98.1. HEENT: Head is normocephalic. NECK: Supple. HEART: Regular rate. The patient does have positive click. No change. LUNGS: Show diminished breath sounds at the base. ABDOMEN: Soft, mild tenderness to palpation without rebound or guarding. EXTREMITIES: Negative for clubbing, cyanosis, or edema. DERMATOLOGIC: No rashes. MUSCULOSKELETAL: No joint effusions. NEUROLOGIC: No change in exam. LABORATORY DATA: Currently pending. IMAGING: Abdominal ultrasound reviewed, shows gallbladder sludge. ASSESSMENT AND PLAN: 1. Nonoliguric acute kidney injury on top of chronic kidney disease stage IIIB/IV with a previous b aseline creatinine 1.7 mg/dL. Etiology of acute kidney injury is secondary to acute tubular necrosi s. Renal function has appeared to have stabilized over the last 24 hours after holding diuretic the rapy. At this point, will continue current treatment plan, supportive care, renally dose all meds, avoid nephrotoxins. 2. Congestive heart failure exacerbation. The patient appears euvolemic. Continue current treatme nt plan. Continue to hold diuretic therapy and follow up with cardiology. 3. Mineral bone disorder. Continue to monitor calcium and phosphorus levels. 4. Acute retroperitoneal bleed. The patient had been evaluated by surgery, no plan for interventio n at this time. 5. Mechanical heart failure. Continue Coumadin, heparin drip. 6. Anemia secondary to acute retroperitoneal bleed. Continue to monitor H and H levels. 7. Chronic atrial fibrillation, continue current medical management. 8. Diabetes. Continue Accu-Cheks and sliding scale. 9. Hypertension. Continue current blood pressure regimen. 10. Pneumonia. The patient is completing antibiotic course. Dictated By: GARRETT CALDWELL DO NR/NTS Conf#: [id number] DID#: [id number]
--- NOTE | 2016-09-03 13:03 | CONS ---
Date/Time of Note Date/Time of Note DATE: 09/03/16 TIME: 12:48 Assessment/Plan Assessment/Plan Chief Complaint/Hosp Course Impression: 1. Hyperbilirubinemia: mostly indirect, less likely to be a hepatobiliary issue. Likely due to resorption of the large extraperitoneal left flank hematoma. - Acute hepatitis serology negative - CT abdomen: 3.5 cm cyst on the superior left lobe. There is a 5 mm cyst on the inferior aspect of the right lobe of the liver. No gallstones are detected. No splenic, adrenal or pancreatic abnormality is seen. Kidneys are of normal size and contour. There is diverticulosis. Large extraperitoneal left flank hematoma - Abdominal ultrasound 09-02-16 did not show CBD dilation, gallstones or cholecystitis. 2. Jaundice secondary to #1. 3. Anemia 4. Coagulopathy 5. C. diff colitis, positive stool 09-02-16 Recommendations: 1. Review autoimmune hepatitis serology (antinuclear antibodies, anti-smooth muscle antibodies, anti-liver/kidney microsomal antibodies type 1) 2. agree with flagyl. If no improvement recommend oral vancomycin as there has been high resistance with flagyl. Problems: Consultation Date/Type/Reason Admit Date/Time Aug 22, 2016 at 01:44 Initial Consult Date 08/28/16 Type of Consultation: GI 24 HR Interval Summary Free Text/Dictation sleepy but arousable, tolerating PO, no n/v. Constitutional: improved Exam/Review of Systems Vital Signs Vitals Vital Signs Date Time Temp Pulse Resp B/P Pulse Ox O2 Delivery O2 Flow Rate FiO2 09/03/16 12:05 85 09/03/16 12:03 98.3 21 123/57 94 09/03/16 11:10 Nasal Cannula 3.0 Intake and Output 09/02/16 09/02/16 09/03/16 15:00 23:00 07:00 Intake Total 400 ml Output Total 450 ml Balance -50 ml Exam Head: atraumatic, normocephalic Eyes: EOMI, icteric ENMT: mucosa pink and moist, nl external ears & nose, nl lips & teeth, nl nasal mucosa & septum Neck: non-tender, supple Respiratory: clear to auscultation, normal air movement Cardiovascular: nl pulses Gastrointestinal: bowel sounds, non-tender, soft Results Result Diagram: 09/03/16 0812 09/03/16 0812 Results 24 hrs Laboratory Tests Test 09/02/16 14:43 09/02/16 17:25 09/02/16 22:27 09/03/16 08:08 Hematocrit 24.0 L Hemoglobin 8.1 L Bedside Glucose 104 177 136 Test 09/03/16 08:12 09/03/16 12:05 Alanine Aminotransferase (ALT/SGPT) 39 Albumin 3.6 Albumin/Globulin Ratio 1.28 Alkaline Phosphatase 97 Anion Gap 20 H Aspartate Amino Transf (AST/SGOT) 25 Basophils # 0.0 Basophils % 0.0 Blood Morphology Comment Blood Urea Nitrogen 37 H Calcium Level 6.9 L Carbon Dioxide Level 25 Chloride Level 99 Creatinine 1.74 H Direct Bilirubin 1.50 #H Eosinophils # 0.0 Eosinophils % 0.5 Globulin 2.80 Glucose Level 128 Hematocrit 23.4 L Hemoglobin 7.9 L INR International Normalized Ratio 2.14 Indirect Bilirubin 2.2 H Lymphocytes # 0.6 L Lymphocytes % 7.4 L Magnesium Level 2.0 Mean Corpuscular Hemoglobin 30.8 Mean Corpuscular Hemoglobin Concent 33.6 Mean Corpuscular Volume 91.7 Mean Platelet Volume 7.2 L Monocytes # 0.6 Monocytes % 7.3 Neutrophils # 6.4 Neutrophils % 84.8 H Nucleated Red Blood Cells # 0.0 Nucleated Red Blood Cells % 0.0 Phosphorus Level 2.5 Platelet Count 334 # Potassium Level 3.9 Prothrombin Time 24.1 #H Prothrombin Time Ratio 1.9 Red Blood Count 2.55 L Red Cell Distribution Width 18.5 H Sodium Level 140 Total Bilirubin 3.7 H Total Protein 6.4 White Blood Count 7.5 Bedside Glucose 166 Medications Medications Current Medications Amlodipine Besylate (Norvasc) 10 mg DAILY PO Last administered on 09/02/16 08: 58; Admin Dose 10 MG; Start 08/22/16 at 09:00 Benazepril HCl (Lotensin) 20 mg DAILY PO Last administered on 08/22/16 09:46; Admin Dose 20 MG; Start 08/22/16 at 09:00; Status Future Hold Bisoprolol Fumarate (Zebeta) 5 mg DAILY PO Last administered on 09/03/16 09:33 ; Admin Dose 5 MG; Start 08/22/16 at 09:00 Isosorbide Mononitrate (Imdur) 60 mg DAILY PO Last administered on 09/02/16 08 :58; Admin Dose 60 MG; Start 08/22/16 at 09:00 Tramadol HCl (Ultram) 50 mg Q6 PRN PO pain Last administered on 09/01/16 09:57 ; Admin Dose 50 MG; Start 08/22/16 at 03:00 Atorvastatin Calcium (Lipitor) 20 mg HS PO Last administered on 08/28/16 21:19 ; Admin Dose 20 MG; Start 08/22/16 at 21:00; Status Future Hold Morphine Sulfate (morphine) 2 mg Q4 PRN IV mod pain Last administered on 11:31; Admin Dose 2 MG; Start 08/22/16 at 04:30 Ondansetron HCl (Zofran Inj) 4 mg Q6H PRN IV NAUSEA AND/OR VOMITING Last administered on 08/22/16 13:20; Admin Dose 4 MG; Start 08/22/16 at 11:30 IV Flush 10 ml 10 ml PRN PRN IV IV PROTOCOL; Start 08/22/16 at 17:30 Diltiazem HCl (Cardizem-D5W 125 Mg/125 ml Drip) 125 ml @ 5 mls/hr TITRATE IV Last administered on 08/23/16 07:01; Admin Dose 5 MLS/HR; Start 08/22/16 at 20:30 Miscellaneous Information 1 ea NOTE XX ; Start 08/22/16 at 21:00 Glucose (Glutose) 15 gm Q15M PRN PO DECREASED GLUCOSE Last administered on 08:16; Admin Dose 15 GM; Start 08/22/16 at 21:00 Glucose (Glutose) 22.5 gm Q15M PRN PO DECREASED GLUCOSE; Start 08/22/16 at 21:00 Dextrose (D50w Syringe) 25 ml Q15M PRN IV DECREASED GLUCOSE; Start 08/22/16 at 21:00 Dextrose (D50w Syringe) 50 ml Q15M PRN IV DECREASED GLUCOSE; Start 08/22/16 at 21:00 Glucagon (Glucagen) 1 mg Q15M PRN IM DECREASED GLUCOSE; Start 08/22/16 at 21:00 Glucose (Glutose) 15 gm Q15M PRN BUCCAL DECREASED GLUCOSE; Start 08/22/16 at 21: 00 Diagnostic Test (Pha) (Accucheck) 1 ea 02 XX Last administered on 09/01/16 02: 06; Admin Dose 1 EA; Start 08/24/16 at 02:00 Insulin Glargine (Lantus) 12 unit QHS SC Last administered on 09/02/16 22:36; Admin Dose 12 UNIT; Start 08/24/16 at 21:00 Calcitriol (Rocaltrol) 0.25 mcg DAILY PO Last administered on 09/03/16 09:33; Admin Dose 0.25 MCG; Start 08/29/16 at 10:00 Calcium Carbonate (Oyster Shell Calcium) 1.25 gm DAILY PO Last administered on 09/03/16 09:33; Admin Dose 1.25 GM; Start 08/29/16 at 09:30 Warfarin Sodium (Coumadin) 5 mg DAILY@17 PO Last administered on 08/31/16 17: 14; Admin Dose 5 MG; Start 08/29/16 at 18:30; Status Future Hold Pantoprazole (Protonix Tab) 40 mg DAILY@06 PO Last administered on 09/03/16 06 :10; Admin Dose 40 MG; Start 08/30/16 at 06:00 Polyethylene Glycol (Miralax) 17 gm BID PO Last administered on 09/02/16 22:30 ; Admin Dose 17 GM; Start 08/30/16 at 21:00 Docusate Sodium (Colace) 200 mg BID PO Last administered on 09/02/16 22:30; Admin Dose 200 MG; Start 08/30/16 at 21:00 Bisacodyl (Dulcolax) 10 mg DAILY PRN PO CONSTIPATION; Start 08/30/16 at 13:30 Acetaminophen (Tylenol Tab) 650 mg Q4H PRN PO PAIN AND OR ELEVATED TEMP Last administered on 09/01/16 02:27; Admin Dose 650 MG; Start 09/01/16 at 01:30 Metronidazole (Flagyl) 500 mg Q8 PO Last administered on 09/03/16 06:10; Admin Dose 500 MG; Start 09/02/16 at 15:30 Diltiazem HCl (Cardizem Cd) 240 mg DAILY PO Last administered on 09/03/16 09: 33; Admin Dose 240 MG; Start 09/03/16 at 09:00 ALLYSON BOOTHE MD Sep 03, 2016 12:58
--- NOTE | 2016-09-03 13:45 | PN ---
Date/Time of Note Date/Time of Note DATE: 09/03/16 TIME: 13:41 Assessment/Plan VTE Prophylaxis VTE Prophylaxis Intervention: other (Warfarin) Lines/Catheters IV Catheter Type (from [facility]): PICC Line Central line still needed: Yes Urinary Cath still in place: Yes Reason Cath still needed: other (indicate) Assessment/Plan Chief Complaint/Hosp Course 1. Spontaneous retroperitoneal bleeding. Continue to monitor. General surgery on board. 2. Chronic atrial fibrillation. Rate controlled. Cardiology following. 3. Status post mitral valve replacement. Continue anticoagulation. 4. Acute on chronic kidney disease. Being followed by nephrology. Continue to monitor the BUN and creatinine closely. Avoid nephrotoxic medications. 5. Normocytic normochromic anemia. Acute. Most probably secondary to underlying bleeding. Status post 4 units of packed red blood cells transfusion. Stable hemoglobin and hematocrit. 6. C. difficile colitis. Continue antibiotics. Enteric precautions. 7. Left pleural effusion. Continue diuretics. 8. Type 2 diabetes mellitus. Hemoglobin A1c 6.1. Continue sliding scale insulin. 9. Cardiomyopathy with ejection fraction of 40% to 45%. Continue beta- blockers. QUE inhibitors on hold because of worsening renal function. 10. Pulmonary hypertension. Pulmonary artery pressure of 56 mmHg as per 2D echocardiogram. Continue supplemental oxygen. Continue calcium channel blockers. 11. Hyperbilirubinemia. Etiology unclear. Will hold hepatotoxic medications. Will trend LFTs. Gastroenterology following. 12. Hypocalcemia. Continue calcium supplements. Monitor fo any signs of tetany. 13. L wrist joint pain. Etiology unclear. X-ray negative for any injuries. 14. Fluid, electrolytes, and nutrition. Carbohydrate controlled, low cholesterol diet. 15. Deep venous thrombosis prophylaxis. On Warfarin. 16. Gastrointestinal prophylaxis. Proton pump inhibitors. 17. Plan. Continue current management. Will give low-dose of Coumadin for today. Case discussed with Dr. Umaña. Problems: Subjective 24 Hr Interval Summary Free Text/Dictation "Feeling better." Left hand pain better. Exam/Review of Systems Vital Signs Vitals Vital Signs Date Time Temp Pulse Resp B/P Pulse Ox O2 Delivery O2 Flow Rate FiO2 09/03/16 12:05 85 09/03/16 12:03 98.3 21 123/57 94 09/03/16 11:10 Nasal Cannula 3.0 Intake and Output 09/02/16 09/02/16 09/03/16 15:00 23:00 07:00 Intake Total 400 ml Output Total 450 ml Balance -50 ml Exam GENERAL: This is a thin, frail-looking [place] female lying in bed in no apparent distress. HEENT: Head normocephalic and atraumatic. Eyes: Icteric sclerae. Conjunctivae clear. ENT: Nasal septum is midline. Oral mucosa is moist. NECK: Supple. No JVD noticed. RESPIRATORY: Bilaterally diminished breath sounds. Use of accessory muscles of respiration (minimal). CARDIAC: Irregularly irregular rhythm with a grade II/ systolic ejection murmur heard at the left sternal border. ABDOMEN: Soft, nontender, and nondistended. Bowel sounds positive in all 4 quadrants. GENITOURINARY: Deferred. EXTREMITIES: No cyanosis, no clubbing, no edema. Peripheral pulses are palpable. Left wrist joint edema and tenderness. NEUROLOGIC: The patient is awake, alert, and oriented. Cranial nerves are grossly intact Results Result Diagram: 09/03/16 0812 09/03/16 0812 Results 24 hrs Laboratory Tests Test 09/02/16 14:43 09/02/16 17:25 09/02/16 22:27 09/03/16 08:08 Hematocrit 24.0 L Hemoglobin 8.1 L Bedside Glucose 104 177 136 Test 09/03/16 08:12 09/03/16 12:05 Alanine Aminotransferase (ALT/SGPT) 39 Albumin 3.6 Albumin/Globulin Ratio 1.28 Alkaline Phosphatase 97 Anion Gap 20 H Aspartate Amino Transf (AST/SGOT) 25 Basophils # 0.0 Basophils % 0.0 Blood Morphology Comment Blood Urea Nitrogen 37 H Calcium Level 6.9 L Carbon Dioxide Level 25 Chloride Level 99 Creatinine 1.74 H Direct Bilirubin 1.50 #H Eosinophils # 0.0 Eosinophils % 0.5 Globulin 2.80 Glucose Level 128 Hematocrit 23.4 L Hemoglobin 7.9 L INR International Normalized Ratio 2.14 Indirect Bilirubin 2.2 H Lymphocytes # 0.6 L Lymphocytes % 7.4 L Magnesium Level 2.0 Mean Corpuscular Hemoglobin 30.8 Mean Corpuscular Hemoglobin Concent 33.6 Mean Corpuscular Volume 91.7 Mean Platelet Volume 7.2 L Monocytes # 0.6 Monocytes % 7.3 Neutrophils # 6.4 Neutrophils % 84.8 H Nucleated Red Blood Cells # 0.0 Nucleated Red Blood Cells % 0.0 Phosphorus Level 2.5 Platelet Count 334 # Potassium Level 3.9 Prothrombin Time 24.1 #H Prothrombin Time Ratio 1.9 Red Blood Count 2.55 L Red Cell Distribution Width 18.5 H Sodium Level 140 Total Bilirubin 3.7 H Total Protein 6.4 White Blood Count 7.5 Bedside Glucose 166 Medications Medications Current Medications Amlodipine Besylate (Norvasc) 10 mg DAILY PO Last administered on 09/02/16 08: 58; Admin Dose 10 MG; Start 08/22/16 at 09:00 Benazepril HCl (Lotensin) 20 mg DAILY PO Last administered on 08/22/16 09:46; Admin Dose 20 MG; Start 08/22/16 at 09:00; Status Future Hold Bisoprolol Fumarate (Zebeta) 5 mg DAILY PO Last administered on 09/03/16 09:33 ; Admin Dose 5 MG; Start 08/22/16 at 09:00 Isosorbide Mononitrate (Imdur) 60 mg DAILY PO Last administered on 09/02/16 08 :58; Admin Dose 60 MG; Start 08/22/16 at 09:00 Tramadol HCl (Ultram) 50 mg Q6 PRN PO pain Last administered on 09/01/16 09:57 ; Admin Dose 50 MG; Start 08/22/16 at 03:00 Atorvastatin Calcium (Lipitor) 20 mg HS PO Last administered on 08/28/16 21:19 ; Admin Dose 20 MG; Start 08/22/16 at 21:00; Status Future Hold Morphine Sulfate (morphine) 2 mg Q4 PRN IV mod pain Last administered on 11:31; Admin Dose 2 MG; Start 08/22/16 at 04:30 Ondansetron HCl (Zofran Inj) 4 mg Q6H PRN IV NAUSEA AND/OR VOMITING Last administered on 08/22/16 13:20; Admin Dose 4 MG; Start 08/22/16 at 11:30 IV Flush 10 ml 10 ml PRN PRN IV IV PROTOCOL; Start 08/22/16 at 17:30 Diltiazem HCl (Cardizem-D5W 125 Mg/125 ml Drip) 125 ml @ 5 mls/hr TITRATE IV Last administered on 08/23/16 07:01; Admin Dose 5 MLS/HR; Start 08/22/16 at 20:30 Miscellaneous Information 1 ea NOTE XX ; Start 08/22/16 at 21:00 Glucose (Glutose) 15 gm Q15M PRN PO DECREASED GLUCOSE Last administered on 08:16; Admin Dose 15 GM; Start 08/22/16 at 21:00 Glucose (Glutose) 22.5 gm Q15M PRN PO DECREASED GLUCOSE; Start 08/22/16 at 21:00 Dextrose (D50w Syringe) 25 ml Q15M PRN IV DECREASED GLUCOSE; Start 08/22/16 at 21:00 Dextrose (D50w Syringe) 50 ml Q15M PRN IV DECREASED GLUCOSE; Start 08/22/16 at 21:00 Glucagon (Glucagen) 1 mg Q15M PRN IM DECREASED GLUCOSE; Start 08/22/16 at 21:00 Glucose (Glutose) 15 gm Q15M PRN BUCCAL DECREASED GLUCOSE; Start 08/22/16 at 21: 00 Diagnostic Test (Pha) (Accucheck) 1 ea 02 XX Last administered on 09/01/16 02: 06; Admin Dose 1 EA; Start 08/24/16 at 02:00 Insulin Glargine (Lantus) 12 unit QHS SC Last administered on 09/02/16 22:36; Admin Dose 12 UNIT; Start 08/24/16 at 21:00 Calcitriol (Rocaltrol) 0.25 mcg DAILY PO Last administered on 09/03/16 09:33; Admin Dose 0.25 MCG; Start 08/29/16 at 10:00 Calcium Carbonate (Oyster Shell Calcium) 1.25 gm DAILY PO Last administered on 09/03/16 09:33; Admin Dose 1.25 GM; Start 08/29/16 at 09:30 Warfarin Sodium (Coumadin) 5 mg DAILY@17 PO Last administered on 08/31/16 17: 14; Admin Dose 5 MG; Start 08/29/16 at 18:30; Status Future Hold Pantoprazole (Protonix Tab) 40 mg DAILY@06 PO Last administered on 09/03/16 06 :10; Admin Dose 40 MG; Start 08/30/16 at 06:00 Bisacodyl (Dulcolax) 10 mg DAILY PRN PO CONSTIPATION; Start 08/30/16 at 13:30 Acetaminophen (Tylenol Tab) 650 mg Q4H PRN PO PAIN AND OR ELEVATED TEMP Last administered on 09/01/16 02:27; Admin Dose 650 MG; Start 09/01/16 at 01:30 Metronidazole (Flagyl) 500 mg Q8 PO Last administered on 09/03/16 06:10; Admin Dose 500 MG; Start 09/02/16 at 15:30 Diltiazem HCl (Cardizem Cd) 240 mg DAILY PO Last administered on 09/03/16 09: 33; Admin Dose 240 MG; Start 09/03/16 at 09:00 Warfarin Sodium (Coumadin) 2 mg ONCE@17 ONCE NGT ; Start 09/03/16 at 17:00; Stop 09/03/16 at 17:01 VIN GALLEGO NP Sep 03, 2016 13:45
[2016-09-03 14:26] LABS: ANA SCREEN NEGATIVE (NEGATIVE)
[2016-09-03] MEDS ORDERED: WARFARIN 2 MG TAB NGT ONE (17:00)
[2016-09-03] MEDS: ATORVASTATIN 20 MG TAB PO SCH (21:00)
[2016-09-03] MEDS: ACETAMINOPHEN 325 MG TAB PO PRN (21:01)
[2016-09-03] MEDS: INSULIN GLARGINE [LANtus] 3 ML PEN SC SCH (21:04)
[2016-09-04] VITALS (12 sets, daily range): BP systolic 114–121; BP diastolic 51–58; PULSE 60–90; RESP 18–22
[2016-09-04] MEDS: ACCUCHECK XX SCH (02:00)
[2016-09-04] MEDS: metroNIDAZOLE 500 MG TAB PO SCH ×3 (05:35→21:41)
[2016-09-04] MEDS: PANTOPRAZOLE (EC) 40 MG TAB PO SCH (05:35)
--- NOTE | 2016-09-04 07:42 | CONS ---
Date/Time of Note Date/Time of Note DATE: 09/04/16 TIME: 07:37 Assessment/Plan Assessment/Plan Chief Complaint/Hosp Course Impression: 1. Hyperbilirubinemia: mostly indirect, less likely to be a hepatobiliary issue. Likely due to resorption of the large extraperitoneal left flank hematoma. - Acute hepatitis serology negative - CT abdomen: 3.5 cm cyst on the superior left lobe. There is a 5 mm cyst on the inferior aspect of the right lobe of the liver. No gallstones are detected. No splenic, adrenal or pancreatic abnormality is seen. Kidneys are of normal size and contour. There is diverticulosis. Large extraperitoneal left flank hematoma - Abdominal ultrasound 09-02-16 did not show CBD dilation, gallstones or cholecystitis. 2. Jaundice secondary to #1. 3. Anemia 4. Coagulopathy 5. C. diff colitis, positive stool 09-02-16 6. Reduced PO intake. Recommendations: 1. Review autoimmune hepatitis serology (antinuclear antibodies, anti-smooth muscle antibodies, anti-liver/kidney microsomal antibodies type 1) 2. agree with flagyl. If no improvement recommend oral vancomycin as there has been high resistance with flagyl. 3. I already dc'd standing bowel regimen as it likly contributed to patient's persistent diarrhea. 4. due to the reduced po intake, I will order IVF with D5 Problems: Consultation Date/Type/Reason Admit Date/Time Aug 22, 2016 at 01:44 Initial Consult Date 08/28/16 Type of Consultation: GI 24 HR Interval Summary Free Text/Dictation discussed with patient and nurse. Patient has continued diarrhea. Not eating much. Exam/Review of Systems Vital Signs Vitals Vital Signs Date Time Temp Pulse Resp B/P Pulse Ox O2 Delivery O2 Flow Rate FiO2 09/04/16 04:01 80 09/04/16 04:00 98.0 22 120/51 94 09/03/16 23:48 3.0 09/03/16 20:00 Nasal Cannula Intake and Output 09/03/16 09/03/16 09/04/16 15:00 23:00 07:00 Intake Total 480 ml 400 ml Output Total 400 ml 450 ml Balance 80 ml -50 ml Exam Constitutional: alert, frail, oriented Psych: nl mood/affect, no complaints Head: atraumatic, normocephalic Eyes: EOMI, nl conjunctiva, nl lids, nl sclera ENMT: mucosa pink and moist, nl external ears & nose, nl lips & teeth, nl nasal mucosa & septum Neck: non-tender, supple Respiratory: clear to auscultation, normal air movement Cardiovascular: nl pulses, regular rate and rhythm Gastrointestinal: bowel sounds, non-tender, soft Results Result Diagram: 09/03/16 0812 09/03/16 0812 Results 24 hrs Laboratory Tests Test 09/03/16 08:08 09/03/16 08:12 09/03/16 12:05 09/03/16 15:00 Bedside Glucose 136 166 Alanine Aminotransferase (ALT/SGPT) 39 Albumin 3.6 Albumin/Globulin Ratio 1.28 Alkaline Phosphatase 97 Anion Gap 20 H Aspartate Amino Transf (AST/SGOT) 25 Basophils # 0.0 Basophils % 0.0 Blood Morphology Comment Blood Urea Nitrogen 37 H Calcium Level 6.9 L Carbon Dioxide Level 25 Chloride Level 99 Creatinine 1.74 H Direct Bilirubin 1.50 #H Eosinophils # 0.0 Eosinophils % 0.5 Globulin 2.80 Glucose Level 128 Hematocrit 23.4 L Hemoglobin 7.9 L INR International Normalized Ratio 2.14 Indirect Bilirubin 2.2 H Lymphocytes # 0.6 L Lymphocytes % 7.4 L Magnesium Level 2.0 Mean Corpuscular Hemoglobin 30.8 Mean Corpuscular Hemoglobin Concent 33.6 Mean Corpuscular Volume 91.7 Mean Platelet Volume 7.2 L Monocytes # 0.6 Monocytes % 7.3 Neutrophils # 6.4 Neutrophils % 84.8 H Nucleated Red Blood Cells # 0.0 Nucleated Red Blood Cells % 0.0 Phosphorus Level 2.5 Platelet Count 334 # Potassium Level 3.9 Prothrombin Time 24.1 #H Prothrombin Time Ratio 1.9 Red Blood Count 2.55 L Red Cell Distribution Width 18.5 H Sodium Level 140 Total Bilirubin 3.7 H Total Protein 6.4 White Blood Count 7.5 Stool Occult Blood NEGATIVE Test 09/03/16 16:43 09/03/16 20:53 09/04/16 07:30 Bedside Glucose 196 173 138 Medications Medications Current Medications Amlodipine Besylate (Norvasc) 10 mg DAILY PO Last administered on 09/02/16 08: 58; Admin Dose 10 MG; Start 08/22/16 at 09:00 Benazepril HCl (Lotensin) 20 mg DAILY PO Last administered on 08/22/16 09:46; Admin Dose 20 MG; Start 08/22/16 at 09:00; Status Future Hold Bisoprolol Fumarate (Zebeta) 5 mg DAILY PO Last administered on 09/03/16 09:33 ; Admin Dose 5 MG; Start 08/22/16 at 09:00 Isosorbide Mononitrate (Imdur) 60 mg DAILY PO Last administered on 09/02/16 08 :58; Admin Dose 60 MG; Start 08/22/16 at 09:00 Tramadol HCl (Ultram) 50 mg Q6 PRN PO pain Last administered on 09/01/16 09:57 ; Admin Dose 50 MG; Start 08/22/16 at 03:00 Atorvastatin Calcium (Lipitor) 20 mg HS PO Last administered on 08/28/16 21:19 ; Admin Dose 20 MG; Start 08/22/16 at 21:00; Status Future hold Morphine Sulfate (morphine) 2 mg Q4 PRN IV mod pain Last administered on 11:31; Admin Dose 2 MG; Start 08/22/16 at 04:30 Ondansetron HCl (Zofran Inj) 4 mg Q6H PRN IV NAUSEA AND/OR VOMITING Last administered on 08/22/16 13:20; Admin Dose 4 MG; Start 08/22/16 at 11:30 IV Flush 10 ml 10 ml PRN PRN IV IV PROTOCOL; Start 08/22/16 at 17:30 Diltiazem HCl (Cardizem-D5W 125 Mg/125 ml Drip) 125 ml @ 5 mls/hr TITRATE IV Last administered on 08/23/16 07:01; Admin Dose 5 MLS/HR; Start 08/22/16 at 20:30 Miscellaneous Information 1 ea NOTE XX ; Start 08/22/16 at 21:00 Glucose (Glutose) 15 gm Q15M PRN PO DECREASED GLUCOSE Last administered on 08:16; Admin Dose 15 GM; Start 08/22/16 at 21:00 Glucose (Glutose) 22.5 gm Q15M PRN PO DECREASED GLUCOSE; Start 08/22/16 at 21:00 Dextrose (D50w Syringe) 25 ml Q15M PRN IV DECREASED GLUCOSE; Start 08/22/16 at 21:00 Dextrose (D50w Syringe) 50 ml Q15M PRN IV DECREASED GLUCOSE; Start 08/22/16 at 21:00 Glucagon (Glucagen) 1 mg Q15M PRN IM DECREASED GLUCOSE; Start 08/22/16 at 21:00 Glucose (Glutose) 15 gm Q15M PRN BUCCAL DECREASED GLUCOSE; Start 08/22/16 at 21: 00 Diagnostic Test (Pha) (Accucheck) 1 ea 02 XX Last administered on 09/01/16 02: 06; Admin Dose 1 EA; Start 08/24/16 at 02:00 Insulin Glargine (Lantus) 12 unit QHS SC Last administered on 09/03/16 21:04; Admin Dose 12 UNIT; Start 08/24/16 at 21:00 Calcitriol (Rocaltrol) 0.25 mcg DAILY PO Last administered on 09/03/16 09:33; Admin Dose 0.25 MCG; Start 08/29/16 at 10:00 Calcium Carbonate (Oyster Shell Calcium) 1.25 gm DAILY PO Last administered on 09/03/16 09:33; Admin Dose 1.25 GM; Start 08/29/16 at 09:30 Warfarin Sodium (Coumadin) 5 mg DAILY@17 PO Last administered on 08/31/16 17: 14; Admin Dose 5 MG; Start 08/29/16 at 18:30; Status Future Hold Pantoprazole (Protonix Tab) 40 mg DAILY@06 PO Last administered on 09/04/16 05 :35; Admin Dose 40 MG; Start 08/30/16 at 06:00 Bisacodyl (Dulcolax) 10 mg DAILY PRN PO CONSTIPATION; Start 08/30/16 at 13:30 Acetaminophen (Tylenol Tab) 650 mg Q4H PRN PO PAIN AND OR ELEVATED TEMP Last administered on 09/03/16 21:01; Admin Dose 650 MG; Start 09/01/16 at 01:30 Metronidazole (Flagyl) 500 mg Q8 PO Last administered on 09/04/16 05:35; Admin Dose 500 MG; Start 09/02/16 at 15:30 Diltiazem HCl (Cardizem Cd) 240 mg DAILY PO Last administered on 09/03/16 09: 33; Admin Dose 240 MG; Start 09/03/16 at 09:00 ALLYSON BOOTHE MD Sep 04, 2016 07:42
[2016-09-04 07:48] LABS: EOSINOPHILS # 0.1 10^3/ul (0.0-0.5); EOSINOPHILS % 1.6 % (0.0-7.0); HEMATOCRIT 24.2 % (37.0-47.0); HEMOGLOBIN 8.2 g/dl (12.0-16.0); LYMPHOCYTES # 0.3 10^3/ul (0.8-2.9); LYMPHOCYTES % 4.3 % (15.0-51.0); MEAN CORPUSCULAR HEMOGLOBIN 30.8 pg (29.0-33.0); MEAN CORPUSCULAR VOLUME 90.6 fl (82.0-101.0); MEAN PLATELET VOLUME 7.3 fl (7.4-10.4); MONOCYTE # 0.7 10^3/ul (0.3-0.9); MONOCYTES % 8.5 % (0.0-11.0); NEUTROPHIL # 6.6 10^3/ul (1.6-7.5); NEUTROPHILS % 85.6 % (39.0-77.0); PLATELET COUNT 411 10^3/UL (140-440); RED BLOOD COUNT 2.68 10^6/ul (4.20-5.40); RED CELL DISTRIBUTION WIDTH 17.7 % (11.5-14.5); UNCORRECTED WBC 7.7 10^3/ul (4.8-10.8); WHITE BLOOD COUNT 7.7 10^3/ul (4.8-10.8)
[2016-09-04 07:58] LABS: CONDITION 1; LH ANALYZER COMMENTS 1
[2016-09-04 08:00] LABS: ALBUMIN 3.6 g/dl (3.3-4.9)
[2016-09-04] MEDS: INSULIN ASPART [NOVOLOG] 3 ML PEN SC SCH ×4 (08:00→21:00)
[2016-09-04 08:01] LABS: POTASSIUM 3.3 mmol/L (3.5-5.1)
[2016-09-04 08:03] LABS: ALBUMIN/GLOBULIN RATIO 1.16; BILIRUBIN,DIRECT 0.5 mg/dl (0.00-0.20); BILIRUBIN,INDIRECT 1.9 mg/dl (0-1.1); BILIRUBIN,TOTAL 2.4 mg/dl (0.2-1.3); CREATININE 1.42 mg/dl (0.44-1.00); TOTAL PROTEIN 6.7 g/dl (6.1-8.1)
[2016-09-04 08:04] LABS: CALCIUM 7.1 mg/dl (8.4-10.2)
[2016-09-04 08:06] LABS: INR 2.51; PROTIME 27.4 Sec (12.2-14.2); PT RATIO 2.1
[2016-09-04] MEDS: ISOSORBIDE MONONITRATE(SR)60 MG TAB PO SCH (08:50)
[2016-09-04] MEDS: AMLODIPINE 10 MG TAB PO SCH (08:51)
[2016-09-04] MEDS: D5-LR + KCL 20 MEQ 1,000 ML IV SCH ×2 (08:51→21:20)
[2016-09-04] MEDS: CALCITRIOL 0.25 MCG CAP PO SCH (08:54)
[2016-09-04] MEDS: FAMOTIDINE 20 MG INJ IV SCH (08:54)
[2016-09-04] MEDS: CALCIUM CARBONATE 1.25 GM TAB PO SCH (08:54)
[2016-09-04] MEDS: DILTIAZEM (CD) 240 MG CAP PO SCH (08:55)
[2016-09-04] MEDS: BISOPROLOL 5 MG TAB PO SCH (10:33)
[2016-09-04 12:39] LABS: MAGNESIUM 2.1 mg/dl (1.7-2.5); PHOSPHORUS 2.4 mg/dl (2.5-4.9)
--- NOTE | 2016-09-04 12:52 | PN ---
Date/Time of Note Date/Time of Note DATE: 09/04/16 TIME: 12:49 Assessment/Plan VTE Prophylaxis VTE Prophylaxis Intervention: other (warfarin) Lines/Catheters [facility]): PICC Line Central line still needed: Yes Urinary Cath still in place: Yes Reason Cath still needed: other (indicate) Assessment/Plan Chief Complaint/Hosp Course 1. Spontaneous retroperitoneal bleeding. Continue to monitor. General surgery on board. 2. Chronic atrial fibrillation. Rate controlled. Cardiology following. 3. Status post mitral valve replacement. Continue anticoagulation. 4. Acute on chronic kidney disease. Being followed by nephrology. Continue to monitor the BUN and creatinine closely. Avoid nephrotoxic medications. 5. Normocytic normochromic anemia. Acute. Most probably secondary to underlying bleeding. Status post 4 units of packed red blood cells transfusion. Stable hemoglobin and hematocrit. 6. C. difficile colitis. Continue antibiotics. Enteric precautions. 7. Left pleural effusion. Continue diuretics as per nephrology. 8. Type 2 diabetes mellitus. Hemoglobin A1c 6.1. Continue sliding scale insulin. 9. Cardiomyopathy with ejection fraction of 40% to 45%. Continue beta- blockers. QUE inhibitors on hold because of worsening renal function. 10. Pulmonary hypertension. Pulmonary artery pressure of 56 mmHg as per 2D echocardiogram. Continue supplemental oxygen. Continue calcium channel blockers. 11. Hyperbilirubinemia. Etiology unclear. Will trend LFTs. Gastroenterology following. 12. Hypocalcemia. Continue calcium supplements. Monitor fo any signs of tetany. 13. L wrist joint pain. Etiology unclear. X-ray negative for any injuries. 14. Fluid, electrolytes, and nutrition. Carbohydrate controlled, low cholesterol diet. 15. Deep venous thrombosis prophylaxis. On Warfarin. 16. Gastrointestinal prophylaxis. Proton pump inhibitors. 17. Plan. Continue current management. Will give low-dose of Coumadin for today. Pending physical therapy evaluation. Patient overall remains stable. However, she is deconditioned because of the prolonged bedrest. Needs physical therapy evaluation before the patient can be discharged. Case discussed with Dr. Umaña. The plan of care was explained to the patient's family, who was at the bedside. Problems: Subjective 24 Hr Interval Summary Free Text/Dictation Complains of left hand pain. Exam/Review of Systems Vital Signs Vitals Vital Signs Date Time Temp Pulse Resp B/P Pulse Ox O2 Delivery O2 Flow Rate FiO2 1/15/17 12:14 98.4 79 18 121/58 99 09/04/16 11:05 Nasal Cannula 3.0 Intake and Output 09/03/16 09/03/16 09/04/16 15:00 23:00 07:00 Intake Total 480 ml 400 ml Output Total 400 ml 450 ml Balance 80 ml -50 ml Exam GENERAL: This is a thin, frail-looking Citizen Of [place] female lying in bed in no apparent distress. HEENT: Head normocephalic and atraumatic. Eyes: Icteric sclerae. Conjunctivae clear. ENT: Nasal septum is midline. Oral mucosa is moist. NECK: Supple. No JVD noticed. RESPIRATORY: Bilaterally diminished breath sounds. Use of accessory muscles of respiration (minimal). CARDIAC: Irregularly irregular rhythm with a grade II/ systolic ejection murmur heard at the left sternal border. ABDOMEN: Soft, nontender, and nondistended. Bowel sounds positive in all 4 quadrants. GENITOURINARY: Deferred. EXTREMITIES: No cyanosis, no clubbing, no edema. Peripheral pulses are palpable. Left wrist joint edema and tenderness. NEUROLOGIC: The patient is awake, alert, and oriented. Cranial nerves are grossly intact Results Result Diagram: 09/04/16 0636 09/04/16 0635 Results 24 hrs Laboratory Tests Test 09/03/16 15:00 09/03/16 16:43 09/03/16 20:53 09/04/16 06:35 Stool Occult Blood NEGATIVE Bedside Glucose 196 173 Alanine Aminotransferase (ALT/SGPT) 34 Albumin 3.6 Albumin/Globulin Ratio 1.16 Alkaline Phosphatase 99 Anion Gap 16 Aspartate Amino Transf (AST/SGOT) 26 Blood Urea Nitrogen 31 H Calcium Level 7.1 L Carbon Dioxide Level 26 Chloride Level 100 Creatinine 1.42 H Direct Bilirubin 0.50 #H Globulin 3.10 Glucose Level 134 INR International Normalized Ratio 2.51 Indirect Bilirubin 1.9 H Magnesium Level 2.1 Phosphorus Level 2.4 L Potassium Level 3.3 L Prothrombin Time 27.4 H Prothrombin Time Ratio 2.1 Sodium Level 139 Total Bilirubin 2.4 H Total Protein 6.7 Test 09/04/16 06:36 09/04/16 07:30 09/04/16 11:55 Basophils # 0.0 Basophils % 0.0 Blood Morphology Comment Eosinophils # 0.1 Eosinophils % 1.6 Hematocrit 24.2 L Hemoglobin 8.2 L Lymphocytes # 0.3 L Lymphocytes % 4.3 L Mean Corpuscular Hemoglobin 30.8 Mean Corpuscular Hemoglobin Concent 34.0 Mean Corpuscular Volume 90.6 Mean Platelet Volume 7.3 L Monocytes # 0.7 Monocytes % 8.5 Neutrophils # 6.6 Neutrophils % 85.6 H Nucleated Red Blood Cells # 0.0 Nucleated Red Blood Cells % 0.0 Platelet Count 411 # Red Blood Count 2.68 L Red Cell Distribution Width 17.7 H White Blood Count 7.7 Bedside Glucose 138 207 Medications Medications Current Medications Amlodipine Besylate (Norvasc) 10 mg DAILY PO Last administered on 09/02/16 08: 58; Admin Dose 10 MG; Start 08/22/16 at 09:00 Benazepril HCl (Lotensin) 20 mg DAILY PO Last administered on 08/22/16 09:46; Admin Dose 20 MG; Start 08/22/16 at 09:00; Status Future Hold Bisoprolol Fumarate (Zebeta) 5 mg DAILY PO Last administered on 09/04/16 10:33 ; Admin Dose 5 MG; Start 08/22/16 at 09:00 Isosorbide Mononitrate (Imdur) 60 mg DAILY PO Last administered on 09/02/16 08 :58; Admin Dose 60 MG; Start 08/22/16 at 09:00 Tramadol HCl (Ultram) 50 mg Q6 PRN PO pain Last administered on 09/01/16 09:57 ; Admin Dose 50 MG; Start 08/22/16 at 03:00 Atorvastatin Calcium (Lipitor) 20 mg HS PO Last administered on 08/28/16 21:19 ; Admin Dose 20 MG; Start 08/22/16 at 21:00; Status Future hold Morphine Sulfate (morphine) 2 mg Q4 PRN IV mod pain Last administered on 11:31; Admin Dose 2 MG; Start 08/22/16 at 04:30 Ondansetron HCl (Zofran Inj) 4 mg Q6H PRN IV NAUSEA AND/OR VOMITING Last administered on 08/22/16 13:20; Admin Dose 4 MG; Start 08/22/16 at 11:30 IV Flush 10 ml 10 ml PRN PRN IV IV PROTOCOL; Start 08/22/16 at 17:30 Diltiazem HCl (Cardizem-D5W 125 Mg/125 ml Drip) 125 ml @ 5 mls/hr TITRATE IV Last administered on 08/23/16 07:01; Admin Dose 5 MLS/HR; Start 08/22/16 at 20:30 Miscellaneous Information 1 ea NOTE XX ; Start 08/22/16 at 21:00 Glucose (Glutose) 15 gm Q15M PRN PO DECREASED GLUCOSE Last administered on 08:16; Admin Dose 15 GM; Start 08/22/16 at 21:00 Glucose (Glutose) 22.5 gm Q15M PRN PO DECREASED GLUCOSE; Start 08/22/16 at 21:00 Dextrose (D50w Syringe) 25 ml Q15M PRN IV DECREASED GLUCOSE; Start 08/22/16 at 21:00 Dextrose (D50w Syringe) 50 ml Q15M PRN IV DECREASED GLUCOSE; Start 08/22/16 at 21:00 Glucagon (Glucagen) 1 mg Q15M PRN IM DECREASED GLUCOSE; Start 08/22/16 at 21:00 Glucose (Glutose) 15 gm Q15M PRN BUCCAL DECREASED GLUCOSE; Start 08/22/16 at 21: 00 Diagnostic Test (Pha) (Accucheck) 1 ea 02 XX Last administered on 09/01/16 02: 06; Admin Dose 1 EA; Start 08/24/16 at 02:00 Insulin Glargine (Lantus) 12 unit QHS SC Last administered on 09/03/16 21:04; Admin Dose 12 UNIT; Start 08/24/16 at 21:00 Calcitriol (Rocaltrol) 0.25 mcg DAILY PO Last administered on 09/04/16 08:54; Admin Dose 0.25 MCG; Start 08/29/16 at 10:00 Calcium Carbonate (Oyster Shell Calcium) 1.25 gm DAILY PO Last administered on 09/04/16 08:54; Admin Dose 1.25 GM; Start 08/29/16 at 09:30 Warfarin Sodium (Coumadin) 5 mg DAILY@17 PO Last administered on 08/31/16 17: 14; Admin Dose 5 MG; Start 08/29/16 at 18:30; Status Future Hold Bisacodyl (Dulcolax) 10 mg DAILY PRN PO CONSTIPATION; Start 08/30/16 at 13:30 Acetaminophen (Tylenol Tab) 650 mg Q4H PRN PO PAIN AND OR ELEVATED TEMP Last administered on 09/03/16 21:01; Admin Dose 650 MG; Start 09/01/16 at 01:30 Metronidazole (Flagyl) 500 mg Q8 PO Last administered on 09/04/16 05:35; Admin Dose 500 MG; Start 09/02/16 at 15:30 Diltiazem HCl 240 mg 240 mg DAILY PO Last administered on 09/04/16 08:55; Admin Dose 240 MG; Start 09/03/16 at 09:00 Potassium Cl/ Dextrose/Lact Ringer's (D5-Lr + KCl 20 Meq) 1,000 ml @ 75 mls/hr [id number] IV Last administered on 09/04/16 08:51; Admin Dose 75 MLS/HR; Start at 08:00 Famotidine (Pepcid Iv) 20 mg DAILY IV Last administered on 09/04/16 08:54; Admin Dose 20 MG; Start 09/04/16 at 09:00 VIN GALLEGO NP Sep 04, 2016 12:52
--- NOTE | 2016-09-04 14:14 | PN ---
Date/Time of Note Date/Time of Note DATE: 09/03/16 TIME: 14:12 Assessment/Plan Lines/Catheters IV Catheter Type (from Nrs): PICC Line Peraza in Place (from Nrs): Yes Assessment/Plan Assessment/Plan [facility] Progress Note (late entry) Date of Service: 09/03/2016 Today's Assessment & Plan: Overall stable and doing well. No indication for acute surgical intervention. No indication for interventional radiology intervention. Hemoglobin stable on anticoagulation. Anticoagulation level being adjusted. + C-diff. T-bili elevation due to resorbing hematoma. With above assessment, I've recommended the following for today: 1. Cont current cares 2. Cont PT and increase activity 3. Cont anticoagulation for heart. She also needs solid plans for outpatient careful monitoring of Coumadin which can be done at one of our local Coumadin clinics. 4. Will follow with you 5. D/c planning per primary team 6. Formal evaluation of left arm weakness 7. C. difficile evaluation and treatment Thank you again for your great care of this very pleasant lady and I'm certain her wonderful family. If there are any questions, please feel free to call me at [phone]. TOTAL VISIT TIME: 20 minutes of which more than half was spent in [id number] discussion with the patient as well as coordination of care between multiple physicians and providers. Disclaimer: Inadvertent spelling and grammatical errors are likely due to EHR/ dictation software use and do not reflect on the quality of delivered patient care. Also, please note that the electronic time recorded on this node does not necessarily reflect the actual time of the visit. Updated Clinical Summary: Very pleasant, but unfortunate 75-year-old lady with multiple comorbid issues; including atrial fibrillation requiring anticoagulation, congestive heart failure and perhaps other heart disease status post heart valve replacement, and a number of medical issues such as diabetes mellitus, hypertension, hyperlipidemia and gout, with TIA in the past; admitted to [facility] through the emergency department 08/21/2016 with a left flank hematoma that appeared to extend from the left hip area to mid flank region. Hemoglobin responded to PRBC (2 units 08/22/16; 2 units 08/23/16; 1 unit 08/26/16) and remained stable. Past and present comorbidity list: 1. Atrial fibrillation requiring anticoagulation. 2. Hypertension. 3. Congestive heart failure. 4. Diabetes mellitus. 5. Gout. 6. History of transient ischemic attacks in the past. 7. Dyslipidemia. 8. Bilateral cataract surgery. 9. History of heart valve replacement. Subjective: No major events or complaints other than C-diff +; no significant abd pain and under control with medications; reports feeling well; no n/v/d; no sob or cp; + flatus; + BM; + activity; left arm still with weakness Objective: Vitals: See below I's & O's: See below Exam: GENERAL: On exam, the patient was sitting up in her bed and appeared to be comfortable and in no acute distress. ABDOMEN: Soft, non-tender to palpation in the left flank and not distended. There are no peritoneal signs or guarding. SKIN: Skin appears to be pink and feels warm to touch. NEUROLOGIC: Patient is awake, alert, and follows commands appropriately. Labs: See below Exam/Review of Systems Vital Signs Vitals Vital Signs Date Time Temp Pulse Resp B/P Pulse Ox O2 Delivery O2 Flow Rate FiO2 09/04/16 12:14 98.4 79 18 121/58 99 09/04/16 11:05 Nasal Cannula 3.0 Intake and Output 09/03/16 09/03/16 09/04/16 15:00 23:00 07:00 Intake Total 480 ml 400 ml Output Total 400 ml 450 ml Balance 80 ml -50 ml Results Result Diagram: 09/04/16 0636 09/04/16 0635 ROSELYN WALLIS M.D. Sep 04, 2016 14:14
--- NOTE | 2016-09-04 14:53 | PN ---
Date/Time of Note Date/Time of Note DATE: 09/04/16 TIME: 14:50 Assessment/Plan Lines/Catheters IV Catheter Type (from [facility]): PICC Line Peraza in Place (from [facility]): Yes Assessment/Plan Assessment/Plan [facility] Progress Note Date of Service: 09/04/2016 Today's Assessment & Plan: Overall stable and doing well. No indication for acute surgical intervention. No indication for interventional radiology intervention. Hemoglobin stable on anticoagulation. Anticoagulation level being adjusted. + C-diff. T-bili elevation due to resorbing hematoma. L arm seems improved. With above assessment, I've recommended the following for today: 1. Cont current cares 2. Cont PT and increase activity 3. Cont anticoagulation for heart. She also needs solid plans for outpatient careful monitoring of Coumadin which can be done at one of our local Coumadin clinics. 4. Will follow with you 5. D/c planning per primary team 6. C. difficile evaluation and treatment Thank you again for your great care of this very pleasant lady and I'm certain her wonderful family. If there are any questions, please feel free to call me at [phone]. TOTAL VISIT TIME: 20 minutes of which more than half was spent in [id number] discussion with the patient as well as coordination of care between multiple physicians and providers. Disclaimer: Inadvertent spelling and grammatical errors are likely due to EHR/ dictation software use and do not reflect on the quality of delivered patient care. Also, please note that the electronic time recorded on this node does not necessarily reflect the actual time of the visit. Updated Clinical Summary: Very pleasant, but unfortunate 75-year-old lady with multiple comorbid issues; including atrial fibrillation requiring anticoagulation, congestive heart failure and perhaps other heart disease status post heart valve replacement, and a number of medical issues such as diabetes mellitus, hypertension, hyperlipidemia and gout, with TIA in the past; admitted to [facility] through the emergency department 08/21/2016 with a left flank hematoma that appeared to extend from the left hip area to mid flank region. Hemoglobin responded to PRBC (2 units 08/22/16; 2 units 08/23/16; 1 unit 08/26/16) and remained stable. Past and present comorbidity list: 1. Atrial fibrillation requiring anticoagulation. 2. Hypertension. 3. Congestive heart failure. 4. Diabetes mellitus. 5. Gout. 6. History of transient ischemic attacks in the past. 7. Dyslipidemia. 8. Bilateral cataract surgery. 9. History of heart valve replacement. Subjective: No major events or complaints other than C-diff +; no significant abd pain and under control with medications; reports feeling well; no n/v/d; no sob or cp; + flatus; + BM; + activity; able to lift left arm without difficulty Objective: Vitals: See below I's & O's: See below Exam: GENERAL: On exam, the patient was sitting up in her bed and appeared to be comfortable and in no acute distress. ABDOMEN: Soft, non-tender to palpation in the left flank and not distended. There are no peritoneal signs or guarding. SKIN: Skin appears to be pink and feels warm to touch. NEUROLOGIC: Patient is awake, alert, and follows commands appropriately. Labs: See below Exam/Review of Systems Vital Signs Vitals Vital Signs Date Time Temp Pulse Resp B/P Pulse Ox O2 Delivery O2 Flow Rate FiO2 09/04/16 14:49 79 09/04/16 12:14 98.4 18 121/58 99 09/04/16 11:05 Nasal Cannula 3.0 Intake and Output 09/03/16 09/03/16 09/04/16 15:00 23:00 07:00 Intake Total 480 ml 400 ml Output Total 400 ml 450 ml Balance 80 ml -50 ml Results Result Diagram: 09/04/16 0636 09/04/16 0635 ROSELYN WALLIS M.D. Sep 04, 2016 14:53
--- NOTE | 2016-09-04 16:19 | PN ---
DATE: 09/04/2016 SUBJECTIVE: The patient continues to have diarrhea, was initiated on IV fluids. No other acute sukhdev nts noted. OBJECTIVE: VITAL SIGNS: Blood pressure 121/58, respiration 19, pulse 78, temperature 98.6. HEENT: Head is normocephalic. NECK: Supple. HEART: Regular rate. LUNGS: Show diminished breath sounds at base. ABDOMEN: Soft, nontender to palpation without rebound or guarding. EXTREMITIES: Negative for clubbing, cyanosis, no edema. DERMATOLOGIC: No rashes. MUSCULOSKELETAL: No joint effusions. NEUROLOGIC: No change in exam. MEDICATIONS: Reviewed. LABORATORY DATA: Shows sodium 139, potassium 4.3, chloride 100, BUN 31, creatinine 1.42. White cou nt 7.7, hemoglobin 8.2, hematocrit 24.2, platelet count is 411. ASSESSMENT AND PLAN: 1. Nonoliguric acute kidney injury on top of chronic kidney disease stage IIIB/IV with a baseline c reatinine of 1.7 mg/dL. Etiology of acute kidney injury is secondary to acute tubular necrosis. Re nal function has improved, currently back at baseline. Continue current treatment plan, supportive care, renally dose meds, avoid nephrotoxins. 2. Congestive heart failure exacerbation. The patient is clinically euvolemic to hypovolemic. The patient is currently on IV fluids and monitor closely. 3. Mineral bone disorder. Continue to monitor calcium and phosphorus levels. Continue current krishna atment plan with vitamin D calcium carbonate. Calcium levels have been improving. 4. Acute retroperitoneal bleed. Hemoglobin levels have stabilized. No plan for intervention. 5. Mechanical heart valve. Continue Coumadin. 6. Anemia. Continue to monitor hemoglobin and hematocrit levels. 7. Chronic atrial fibrillation. Continue current medical management. Follow up with cardiology. 8. Diabetes, continue Accu-Cheks and sliding scale. 9. Hypertension. Continue current blood pressure regimen. 10. Hypokalemia. Continue IV fluids and potassium chloride. 11. Clostridium difficile colitis. Continue medical management. Continue Flagyl. 12. Pneumonia. The patient has completed antibiotic course. Dictated By: GARRETT CALDWELL DO NR/NTS Conf#: [id number] DID#: [id number]
[2016-09-04] MEDS ORDERED: WARFARIN 2 MG TAB PO ONE (17:00)
[2016-09-04] MEDS: ACETAMINOPHEN 325 MG TAB PO PRN (17:15)
[2016-09-04] MEDS: ATORVASTATIN 20 MG TAB PO SCH (21:41)
[2016-09-04] MEDS: INSULIN GLARGINE [LANtus] 3 ML PEN SC SCH (21:44)
[2016-09-05] VITALS (11 sets, daily range): BP systolic 112–120; BP diastolic 52–62; PULSE 60–77; RESP 16–22
[2016-09-05] MEDS: ACCUCHECK XX SCH (02:00)
[2016-09-05] MEDS: metroNIDAZOLE 500 MG TAB PO SCH ×3 (05:32→22:19)
--- NOTE | 2016-09-05 06:46 | CONS ---
Date/Time of Note Date/Time of Note DATE: 09/05/16 TIME: 06:44 Assessment/Plan Assessment/Plan Chief Complaint/Hosp Course Impression: 1. Hyperbilirubinemia: mostly indirect, less likely to be a hepatobiliary issue. Likely due to resorption of the large extraperitoneal left flank hematoma. - Acute hepatitis serology negative - CT abdomen: 3.5 cm cyst on the superior left lobe. There is a 5 mm cyst on the inferior aspect of the right lobe of the liver. No gallstones are detected. No splenic, adrenal or pancreatic abnormality is seen. Kidneys are of normal size and contour. There is diverticulosis. Large extraperitoneal left flank hematoma - Abdominal ultrasound 09-02-16 did not show CBD dilation, gallstones or cholecystitis. 2. Jaundice secondary to #1. 3. Anemia 4. Coagulopathy 5. C. diff colitis, positive stool 09-02-16 6. Reduced PO intake. Recommendations: 1. Review autoimmune hepatitis serology (antinuclear antibodies, anti-smooth muscle antibodies, anti-liver/kidney microsomal antibodies type 1) 2. agree with flagyl. If no improvement recommend oral vancomycin as there has been high resistance with flagyl. 3. encourage PO intake 4. continue IVF 5. Dr. Gould to resume care of this patient tomorrow. Problems: Consultation Date/Type/Reason Admit Date/Time Aug 22, 2016 at 01:44 Initial Consult Date 08/28/16 Type of Consultation: GI 24 HR Interval Summary Free Text/Dictation resting comfortably, no n/v Exam/Review of Systems Vital Signs Vitals Vital Signs Date Time Temp Pulse Resp B/P Pulse Ox O2 Delivery O2 Flow Rate FiO2 09/05/16 04:00 98.2 74 20 112/56 98 Nasal Cannula 3.0 Intake and Output 09/04/16 09/04/16 09/05/16 15:00 23:00 07:00 Intake Total 1125 ml 400 ml Output Total 700 ml 450 ml Balance 425 ml -50 ml Exam Constitutional: frail Psych: nl mood/affect, no complaints Head: atraumatic, normocephalic Eyes: EOMI, icteric ENMT: mucosa pink and moist, nl external ears & nose, nl lips & teeth, nl nasal mucosa & septum Neck: non-tender, supple Respiratory: clear to auscultation, normal air movement Cardiovascular: nl pulses, regular rate and rhythm Gastrointestinal: bowel sounds, non-tender, soft Results Result Diagram: 09/04/16 0636 09/04/16 0635 Results 24 hrs Laboratory Tests Test 09/04/16 07:30 09/04/16 11:55 09/04/16 17:10 09/04/16 21:05 Bedside Glucose 138 207 220 170 Medications Medications Current Medications Amlodipine Besylate (Norvasc) 10 mg DAILY PO Last administered on 09/02/16 08: 58; Admin Dose 10 MG; Start 08/22/16 at 09:00 Benazepril HCl (Lotensin) 20 mg DAILY PO Last administered on 08/22/16 09:46; Admin Dose 20 MG; Start 08/22/16 at 09:00; Status Future Hold Bisoprolol Fumarate (Zebeta) 5 mg DAILY PO Last administered on 09/04/16 10:33 ; Admin Dose 5 MG; Start 08/22/16 at 09:00 Isosorbide Mononitrate (Imdur) 60 mg DAILY PO Last administered on 09/02/16 08 :58; Admin Dose 60 MG; Start 08/22/16 at 09:00 Tramadol HCl (Ultram) 50 mg Q6 PRN PO pain Last administered on 09/01/16 09:57 ; Admin Dose 50 MG; Start 08/22/16 at 03:00 Atorvastatin Calcium (Lipitor) 20 mg HS PO Last administered on 09/04/16 21:41 ; Admin Dose 20 MG; Start 08/22/16 at 21:00 Morphine Sulfate (morphine) 2 mg Q4 PRN IV mod pain Last administered on 11:31; Admin Dose 2 MG; Start 08/22/16 at 04:30 Ondansetron HCl (Zofran Inj) 4 mg Q6H PRN IV NAUSEA AND/OR VOMITING Last administered on 08/22/16 13:20; Admin Dose 4 MG; Start 08/22/16 at 11:30 IV Flush 10 ml 10 ml PRN PRN IV IV PROTOCOL; Start 08/22/16 at 17:30 Diltiazem HCl (Cardizem-D5W 125 Mg/125 ml Drip) 125 ml @ 5 mls/hr TITRATE IV Last administered on 08/23/16 07:01; Admin Dose 5 MLS/HR; Start 08/22/16 at 20:30 Miscellaneous Information 1 ea NOTE XX ; Start 08/22/16 at 21:00 Glucose (Glutose) 15 gm Q15M PRN PO DECREASED GLUCOSE Last administered on 08:16; Admin Dose 15 GM; Start 08/22/16 at 21:00 Glucose (Glutose) 22.5 gm Q15M PRN PO DECREASED GLUCOSE; Start 08/22/16 at 21:00 Dextrose (D50w Syringe) 25 ml Q15M PRN IV DECREASED GLUCOSE; Start 08/22/16 at 21:00 Dextrose (D50w Syringe) 50 ml Q15M PRN IV DECREASED GLUCOSE; Start 08/22/16 at 21:00 Glucagon (Glucagen) 1 mg Q15M PRN IM DECREASED GLUCOSE; Start 08/22/16 at 21:00 Glucose (Glutose) 15 gm Q15M PRN BUCCAL DECREASED GLUCOSE; Start 08/22/16 at 21: 00 Diagnostic Test (Pha) (Accucheck) 1 ea 02 XX Last administered on 09/01/16 02: 06; Admin Dose 1 EA; Start 08/24/16 at 02:00 Insulin Glargine (Lantus) 12 unit QHS SC Last administered on 09/04/16 21:44; Admin Dose 12 UNIT; Start 08/24/16 at 21:00 Calcitriol (Rocaltrol) 0.25 mcg DAILY PO Last administered on 09/04/16 08:54; Admin Dose 0.25 MCG; Start 08/29/16 at 10:00 Calcium Carbonate (Oyster Shell Calcium) 1.25 gm DAILY PO Last administered on 09/04/16 08:54; Admin Dose 1.25 GM; Start 08/29/16 at 09:30 Warfarin Sodium (Coumadin) 5 mg DAILY@17 PO Last administered on 08/31/16 17: 14; Admin Dose 5 MG; Start 08/29/16 at 18:30; Status Future Hold Bisacodyl (Dulcolax) 10 mg DAILY PRN PO CONSTIPATION; Start 08/30/16 at 13:30 Acetaminophen (Tylenol Tab) 650 mg Q4H PRN PO PAIN AND OR ELEVATED TEMP Last administered on 09/04/16 17:15; Admin Dose 650 MG; Start 09/01/16 at 01:30 Metronidazole (Flagyl) 500 mg Q8 PO Last administered on 09/05/16 05:32; Admin Dose 500 MG; Start 09/02/16 at 15:30 Diltiazem HCl 240 mg 240 mg DAILY PO Last administered on 09/04/16 08:55; Admin Dose 240 MG; Start 09/03/16 at 09:00 Potassium Cl/ Dextrose/Lact Ringer's (D5-Lr + KCl 20 Meq) 1,000 ml @ 75 mls/hr [id number] IV Last administered on 09/04/16 21:20; Admin Dose 75 MLS/HR; Start at 08:00 Famotidine (Pepcid Iv) 20 mg DAILY IV Last administered on 09/04/16 08:54; Admin Dose 20 MG; Start 09/04/16 at 09:00 ALLYSON BOOTHE MD Sep 05, 2016 06:46
[2016-09-05 07:23] LABS: ALBUMIN 3.2 g/dl (3.3-4.9)
[2016-09-05 07:24] LABS: INR 3.33; POTASSIUM 3.5 mmol/L (3.5-5.1); PROTIME 34.3 Sec (12.2-14.2); PT RATIO 2.7
[2016-09-05 07:26] LABS: ALBUMIN/GLOBULIN RATIO 1.06; BILIRUBIN,INDIRECT 1.3 mg/dl (0-1.1); BILIRUBIN,TOTAL 1.3 mg/dl (0.2-1.3); CALCIUM 7.4 mg/dl (8.4-10.2); CREATININE 1.34 mg/dl (0.44-1.00); TOTAL PROTEIN 6.2 g/dl (6.1-8.1)
[2016-09-05 07:38] LABS: BASOPHILS % 0.1 % (0.0-2.0); EOSINOPHILS # 0.1 10^3/ul (0.0-0.5); EOSINOPHILS % 1.4 % (0.0-7.0); HEMATOCRIT 23.3 % (37.0-47.0); HEMOGLOBIN 7.9 g/dl (12.0-16.0); LYMPHOCYTES # 1.2 10^3/ul (0.8-2.9); LYMPHOCYTES % 19.4 % (15.0-51.0); MEAN CORPUSCULAR HEMOGLOBIN 30.9 pg (29.0-33.0); MEAN CORPUSCULAR VOLUME 90.9 fl (82.0-101.0); MEAN PLATELET VOLUME 7.2 fl (7.4-10.4); MONOCYTE # 0.3 10^3/ul (0.3-0.9); MONOCYTES % 5.3 % (0.0-11.0); NEUTROPHIL # 4.5 10^3/ul (1.6-7.5); NEUTROPHILS % 73.8 % (39.0-77.0); PLATELET COUNT 427 10^3/UL (140-440); RED BLOOD COUNT 2.56 10^6/ul (4.20-5.40); RED CELL DISTRIBUTION WIDTH 18.7 % (11.5-14.5)
[2016-09-05 07:42] LABS: PHOSPHORUS 2.3 mg/dl (2.5-4.9)
[2016-09-05 07:43] LABS: MAGNESIUM 1.9 mg/dl (1.7-2.5)
[2016-09-05 08:06] LABS: CONDITION 1; LH ANALYZER COMMENTS 1
[2016-09-05] MEDS: ISOSORBIDE MONONITRATE(SR)60 MG TAB PO SCH (09:00)
[2016-09-05] MEDS: AMLODIPINE 10 MG TAB PO SCH (09:00)
[2016-09-05] MEDS: CALCIUM CARBONATE 1.25 GM TAB PO SCH (09:09)
[2016-09-05] MEDS: FAMOTIDINE 20 MG INJ IV SCH (09:09)
[2016-09-05] MEDS: CALCITRIOL 0.25 MCG CAP PO SCH (09:09)
[2016-09-05] MEDS: DILTIAZEM (CD) 240 MG CAP PO SCH (09:10)
[2016-09-05] MEDS: BISOPROLOL 5 MG TAB PO SCH (09:10)
[2016-09-05] MEDS: INSULIN ASPART [NOVOLOG] 3 ML PEN SC SCH ×4 (09:20→21:00)
[2016-09-05] MEDS ORDERED: NEUTRA-PHOS 250 MG PACKET PO ONE (11:00)
[2016-09-05] MEDS: D5-LR + KCL 20 MEQ 1,000 ML IV SCH (12:05)
--- NOTE | 2016-09-05 12:30 | PN ---
Date/Time of Note Date/Time of Note DATE: 09/05/16 TIME: 12:25 Assessment/Plan VTE Prophylaxis VTE Prophylaxis Intervention: other (Coumadin) Lines/Catheters IV Catheter Type (from Nrs): PICC Line Central line still needed: Yes Urinary Cath still in place: Yes Reason Cath still needed: urinary retention Assessment/Plan Chief Complaint/Hosp Course Assessment/Plan 75 F with: 1. Spontaneous retroperitoneal bleeding - stable presently - Continue to monitor. - General surgery on board - no surgical intervention at this time 2. Chronic atrial fibrillation. Rate controlled. - monitor,continue bisoprolol, diltiazem for rate control 3. Status post mitral valve replacement - mechanical valve - Continue anticoagulation (goal INR = 2.5 -3.5) 4. Acute on chronic kidney disease. Being followed by nephrology. -Continue to monitor the BUN and creatinine closely. - Avoid nephrotoxic medications. 5. Normocytic normochromic anemia. Acute. Most probably secondary to underlying bleeding. Status post 4 units of packed red blood cells transfusion earlier this admission. Hgb = 7.9 today - no signs of bleeding - monitor, per surgery team, transfuse if Hgb < 7.0 6. C. difficile colitis. Continue antibiotics. Enteric precautions. 7. Left pleural effusion. Continue diuretics as per nephrology. 8. Type 2 diabetes mellitus. Hemoglobin A1c 6.1. Continue sliding scale insulin. 9. Cardiomyopathy with ejection fraction of 40% to 45%. Continue beta- blockers. QUE inhibitors on hold because of worsening renal function. 10. Pulmonary hypertension. Pulmonary artery pressure of 56 mmHg as per 2D echocardiogram. Continue supplemental oxygen. Continue calcium channel blockers. 11. Hyperbilirubinemia. Etiology unclear. Will trend LFTs. Gastroenterology following. 12. Hypocalcemia. Continue calcium supplements. Monitor fo any signs of tetany. 13. L wrist joint pain. Etiology unclear. X-ray negative for any injuries. 14. Fluid, electrolytes, and nutrition. Carbohydrate controlled, low cholesterol diet. 15. Deep venous thrombosis prophylaxis. On Warfarin. 16. Gastrointestinal prophylaxis. Proton pump inhibitors. 17. Plan. Continue current management. Pending physical therapy evaluation. Patient overall remains stable. However, she is deconditioned because of the prolonged bedrest. Needs physical therapy evaluation before the patient can be discharged - consider SNF as well. Problems: Subjective 24 Hr Interval Summary Free Text/Dictation No acute events overnight, still weak, seen by renal team. Exam/Review of Systems Vital Signs Vitals Vital Signs Date Time Temp Pulse Resp B/P Pulse Ox O2 Delivery O2 Flow Rate FiO2 09/05/16 11:42 98.3 82 18 120/62 94 09/05/16 07:46 Nasal Cannula 3.0 Intake and Output 09/04/16 09/04/16 09/05/16 14:59 22:59 06:59 Intake Total 1125 ml 400 ml Output Total 700 ml 450 ml Balance 425 ml -50 ml Exam GENERAL: This is a thin, frail-looking [place] Citizen female lying in bed in no apparent distress. HEENT: Head normocephalic and atraumatic. Eyes: Icteric sclerae. Conjunctivae clear. ENT: Nasal septum is midline. Oral mucosa is moist. NECK: Supple. No JVD noticed. RESPIRATORY: Bilaterally diminished breath sounds. Use of accessory muscles of respiration (minimal). CARDIAC: Irregularly irregular rhythm with a grade II/ systolic ejection murmur heard at the left sternal border. ABDOMEN: Soft, nontender, and nondistended. Bowel sounds positive in all 4 quadrants. GENITOURINARY: Deferred. EXTREMITIES: No cyanosis, no clubbing, no edema. Peripheral pulses are palpable. Left wrist joint edema and tenderness. NEUROLOGIC: Cranial nerves are grossly intact Results Result Diagram: 09/05/16 0533 09/05/16 0533 Results 24 hrs Laboratory Tests Test 09/04/16 17:10 09/04/16 21:05 09/05/16 05:33 09/05/16 07:30 Bedside Glucose 220 170 166 Alanine Aminotransferase (ALT/SGPT) 27 Albumin 3.2 L Albumin/Globulin Ratio 1.06 Alkaline Phosphatase 70 Anion Gap 14 Aspartate Amino Transf (AST/SGOT) 19 Basophils # 0.0 Basophils % 0.1 Blood Morphology Comment Blood Urea Nitrogen 23 H Calcium Level 7.4 L Carbon Dioxide Level 28 Chloride Level 103 Creatinine 1.34 H Direct Bilirubin 0.00 # Eosinophils # 0.1 Eosinophils % 1.4 Globulin 3.00 Glucose Level 144 Hematocrit 23.3 L Hemoglobin 7.9 L INR International Normalized Ratio 3.33 Indirect Bilirubin 1.3 H Lymphocytes # 1.2 Lymphocytes % 19.4 Magnesium Level 1.9 Mean Corpuscular Hemoglobin 30.9 Mean Corpuscular Hemoglobin Concent 34.0 Mean Corpuscular Volume 90.9 Mean Platelet Volume 7.2 L Monocytes # 0.3 Monocytes % 5.3 Neutrophils # 4.5 Neutrophils % 73.8 Nucleated Red Blood Cells # 0.0 Nucleated Red Blood Cells % 0.0 Phosphorus Level 2.3 L Platelet Count 427 Potassium Level 3.5 Prothrombin Time 34.3 #H Prothrombin Time Ratio 2.7 Red Blood Count 2.56 L Red Cell Distribution Width 18.7 H Sodium Level 141 Total Bilirubin 1.3 Total Protein 6.2 White Blood Count 6.0 # Test 09/05/16 11:26 Bedside Glucose 204 Medications Medications Current Medications Amlodipine Besylate (Norvasc) 10 mg DAILY PO Last administered on 09/02/16 08: 58; Admin Dose 10 MG; Start 08/22/16 at 09:00 Benazepril HCl (Lotensin) 20 mg DAILY PO Last administered on 08/22/16 09:46; Admin Dose 20 MG; Start 08/22/16 at 09:00; Status Future Hold Bisoprolol Fumarate (Zebeta) 5 mg DAILY PO Last administered on 09/05/16 09:10 ; Admin Dose 5 MG; Start 08/22/16 at 09:00 Isosorbide Mononitrate (Imdur) 60 mg DAILY PO Last administered on 09/02/16 08 :58; Admin Dose 60 MG; Start 08/22/16 at 09:00 Tramadol HCl (Ultram) 50 mg Q6 PRN PO pain Last administered on 09/01/16 09:57 ; Admin Dose 50 MG; Start 08/22/16 at 03:00 Atorvastatin Calcium (Lipitor) 20 mg HS PO Last administered on 09/04/16 21:41 ; Admin Dose 20 MG; Start 08/22/16 at 21:00 Morphine Sulfate (morphine) 2 mg Q4 PRN IV mod pain Last administered on 11:31; Admin Dose 2 MG; Start 08/22/16 at 04:30 Ondansetron HCl (Zofran Inj) 4 mg Q6H PRN IV NAUSEA AND/OR VOMITING Last administered on 08/22/16 13:20; Admin Dose 4 MG; Start 08/22/16 at 11:30 IV Flush 10 ml 10 ml PRN PRN IV IV PROTOCOL; Start 08/22/16 at 17:30 Diltiazem HCl (Cardizem-D5W 125 Mg/125 ml Drip) 125 ml @ 5 mls/hr TITRATE IV Last administered on 08/23/16 07:01; Admin Dose 5 MLS/HR; Start 08/22/16 at 20:30 Miscellaneous Information 1 ea NOTE XX ; Start 08/22/16 at 21:00 Glucose (Glutose) 15 gm Q15M PRN PO DECREASED GLUCOSE Last administered on 08:16; Admin Dose 15 GM; Start 08/22/16 at 21:00 Glucose (Glutose) 22.5 gm Q15M PRN PO DECREASED GLUCOSE; Start 08/22/16 at 21:00 Dextrose (D50w Syringe) 25 ml Q15M PRN IV DECREASED GLUCOSE; Start 08/22/16 at 21:00 Dextrose (D50w Syringe) 50 ml Q15M PRN IV DECREASED GLUCOSE; Start 08/22/16 at 21:00 Glucagon (Glucagen) 1 mg Q15M PRN IM DECREASED GLUCOSE; Start 08/22/16 at 21:00 Glucose (Glutose) 15 gm Q15M PRN BUCCAL DECREASED GLUCOSE; Start 08/22/16 at 21: 00 Diagnostic Test (Pha) (Accucheck) 1 ea 02 XX Last administered on 09/01/16 02: 06; Admin Dose 1 EA; Start 08/24/16 at 02:00 Insulin Glargine (Lantus) 12 unit QHS SC Last administered on 09/04/16 21:44; Admin Dose 12 UNIT; Start 08/24/16 at 21:00 Calcitriol (Rocaltrol) 0.25 mcg DAILY PO Last administered on 09/05/16 09:09; Admin Dose 0.25 MCG; Start 08/29/16 at 10:00 Calcium Carbonate (Oyster Shell Calcium) 1.25 gm DAILY PO Last administered on 09/05/16 09:09; Admin Dose 1.25 GM; Start 08/29/16 at 09:30 Warfarin Sodium (Coumadin) 5 mg DAILY@17 PO Last administered on 08/31/16 17: 14; Admin Dose 5 MG; Start 08/29/16 at 18:30; Status Future Hold Bisacodyl (Dulcolax) 10 mg DAILY PRN PO CONSTIPATION; Start 08/30/16 at 13:30 Acetaminophen (Tylenol Tab) 650 mg Q4H PRN PO PAIN AND OR ELEVATED TEMP Last administered on 09/04/16 17:15; Admin Dose 650 MG; Start 09/01/16 at 01:30 Metronidazole (Flagyl) 500 mg Q8 PO Last administered on 09/05/16 05:32; Admin Dose 500 MG; Start 09/02/16 at 15:30 Diltiazem HCl 240 mg 240 mg DAILY PO Last administered on 09/05/16 09:10; Admin Dose 240 MG; Start 09/03/16 at 09:00 Potassium Cl/ Dextrose/Lact Ringer's (D5-Lr + KCl 20 Meq) 1,000 ml @ 75 mls/hr [id number] IV Last administered on 09/05/16 12:05; Admin Dose 75 MLS/HR; Start at 08:00 Famotidine (Pepcid Iv) 20 mg DAILY IV Last administered on 09/05/16 09:09; Admin Dose 20 MG; Start 09/04/16 at 09:00 NEAL MCNEILL Sep 05, 2016 12:30
--- NOTE | 2016-09-05 14:37 | PN ---
DATE: 09/05/2016 SUBJECTIVE: The patient is stable, no acute events overnight. No fevers, chills, nausea, vomiting. OBJECTIVE: VITAL SIGNS: Blood pressure 112/52, respirations 18, pulse 77, temperature 98.1. HEENT: Head is normocephalic. NECK: Supple. HEART: Regular rate. LUNGS: Show diminished breath sounds at the base. ABDOMEN: Soft, nontender to palpation. No rebound or guarding. EXTREMITIES: Negative for clubbing, cyanosis, no edema. DERMATOLOGIC: No rashes. MUSCULOSKELETAL: No joint effusions. NEUROLOGIC: No change in exam. MEDICATIONS: The patient's medications have been reviewed. LABORATORY DATA: Showed sodium 141, potassium 3.5, BUN 23, creatinine 1.34, phosphorus 2.3. White count 6.9, hemoglobin 7.9, hematocrit 22.3, platelet count is 427. ASSESSMENT AND PLAN: 1. Nonoliguric acute kidney injury on top of chronic kidney disease stage III/IV with a previous ba seline creatinine 1.7 mg/dL. Etiology of acute kidney injury is secondary to acute tubular necrosis . Renal function is improved. Continue supportive care, renally dose all meds, avoid nephrotoxins. 2. Congestive heart failure exacerbation. The patient is currently euvolemic, monitor closely on I V fluids. 3. Mineral bone disorder. The patient is hypophosphatemic. Will replete with Neutra-Phos. 4. Acute retroperitoneal bleed. Continue to monitor. 5. Mechanical heart valve. Continue Coumadin, monitor INR. 6. Anemia. Continue to monitor hemoglobin and hematocrit levels, transfuse as needed. 7. Chronic atrial fibrillation. Continue medical management. 8. Diabetes. Continue Accu-Cheks and insulin sliding scale. 9. Hypertension. Continue current blood pressure regimen. 10. Clostridium difficile colitis. Continue medical management. Continue Flagyl. 11. Pneumonia. The patient has completed antibiotic course. Dictated By: GARRETT FISHMAN/CHRISTEL Conf#: [id number] DID#: [id number]
[2016-09-05] MEDS ORDERED: WARFARIN 2 MG TAB NGT ONE (17:00)
--- NOTE | 2016-09-05 17:11 | PN ---
Date/Time of Note Date/Time of Note DATE: 09/05/16 TIME: 17:10 Assessment/Plan Lines/Catheters IV Catheter Type (from [facility] PICC Line Peraza in Place (from [facility]): Yes Assessment/Plan Assessment/Plan [facility] Progress Note Date of Service: 09/05/2016 Today's Assessment & Plan: Overall stable and doing well. No indication for acute surgical intervention. No indication for interventional radiology intervention. Hemoglobin stable on anticoagulation. Anticoagulation level being adjusted. + C-diff. T-bili elevation due to resorbing hematoma. No further issues with L arm. With above assessment, I've recommended the following for today: 1. Cont current cares 2. Cont PT and increase activity 3. Cont anticoagulation for heart. She also needs solid plans for outpatient careful monitoring of Coumadin which can be done at one of our local Coumadin clinics. 4. Will follow with you 5. D/c planning per primary team 6. C. difficile evaluation and treatment Thank you again for your great care of this very pleasant lady and I'm certain her wonderful family. If there are any questions, please feel free to call me at [phone]. TOTAL VISIT TIME: 20 minutes of which more than half was spent in [id number] discussion with the patient as well as coordination of care between multiple physicians and providers. Disclaimer: Inadvertent spelling and grammatical errors are likely due to EHR/ dictation software use and do not reflect on the quality of delivered patient care. Also, please note that the electronic time recorded on this node does not necessarily reflect the actual time of the visit. Updated Clinical Summary: Very pleasant, but unfortunate 75-year-old lady with multiple comorbid issues; including atrial fibrillation requiring anticoagulation, congestive heart failure and perhaps other heart disease status post heart valve replacement, and a number of medical issues such as diabetes mellitus, hypertension, hyperlipidemia and gout, with TIA in the past; admitted to [facility] through the emergency department 08/21/2016 with a left flank hematoma that appeared to extend from the left hip area to mid flank region. Hemoglobin responded to PRBC (2 units 08/22/16; 2 units 08/23/16; 1 unit 08/26/16) and remained stable. Past and present comorbidity list: 1. Atrial fibrillation requiring anticoagulation. 2. Hypertension. 3. Congestive heart failure. 4. Diabetes mellitus. 5. Gout. 6. History of transient ischemic attacks in the past. 7. Dyslipidemia. 8. Bilateral cataract surgery. 9. History of heart valve replacement. Subjective: No major events or complaints other than C-diff +; no abd pain; reports feeling well but tired today; no n/v/d; no sob or cp; + flatus; + BM; + activity; no diarrhea today Objective: Vitals: See below I's & O's: See below Exam: GENERAL: On exam, the patient was sitting up in her bed and appeared to be comfortable and in no acute distress. ABDOMEN: Soft, non-tender to palpation in the left flank and not distended. There are no peritoneal signs or guarding. SKIN: Skin appears to be pink and feels warm to touch. NEUROLOGIC: Patient is awake, alert, and follows commands appropriately. Labs: See below Exam/Review of Systems Vital Signs Vitals Vital Signs Date Time Temp Pulse Resp B/P Pulse Ox O2 Delivery O2 Flow Rate FiO2 09/05/16 16:39 62 09/05/16 15:30 97.9 16 115/59 98 09/05/16 07:46 Nasal Cannula 3.0 Intake and Output 09/04/16 09/04/16 09/05/16 15:00 23:00 07:00 Intake Total 1125 ml 400 ml Output Total 700 ml 450 ml Balance 425 ml -50 ml Results Result Diagram: 09/05/16 0533 09/05/16 0533 ROSELYN WALLIS M.D. Sep 05, 2016 17:11
--- NOTE | 2016-09-05 17:57 | CONS ---
Date/Time of Note Date/Time of Note DATE: 09/05/16 TIME: 17:56 Assessment/Plan Assessment/Plan Chief Complaint/Hosp Course Mechanical mitral valve replacement: normal function on echocardiogram Acute on chronic systolic and diastolic heart failure: LVEF 40-45% on echocardiogram, improved and euvolemic Chronic atrial fibrillation: rates controlled Retroperitoneal bleed: spontaneous in setting of supratherapeutic INR, managed conservatively and now stable Acute kidney injury on chronic kidney disease Diabetes mellitus Hypertension History of transient ischemic attack -continue warfarin with goal INR 2.5-3.5, monitor for bleeding -continue bisoprolol, diltiazem Problems: Consultation Date/Type/Reason Admit Date/Time Aug 22, 2016 at 01:44 Initial Consult Date 08/28/16 Type of Consultation: Cardiology 24 HR Interval Summary Free Text/Dictation No acute events. INR therapeutic. Detailed Summary Additional Comments 14 point review of systems without changes. Exam/Review of Systems Vital Signs Vitals Vital Signs Date Time Temp Pulse Resp B/P Pulse Ox O2 Delivery O2 Flow Rate FiO2 09/05/16 16:39 62 09/05/16 15:30 97.9 16 115/59 98 09/05/16 07:46 Nasal Cannula 3.0 Intake and Output 09/04/16 09/04/16 09/05/16 15:00 23:00 07:00 Intake Total 1125 ml 400 ml Output Total 700 ml 450 ml Balance 425 ml -50 ml Exam Constitutional: alert, oriented Psych: nl mood/affect Head: atraumatic, normocephalic Neck: jvd (10cm) Respiratory: crackles/rales, No clear to auscultation Cardiovascular: other (crisp mechanical S1), systolic murmur (2/6), No regular rate and rhythm Gastrointestinal: other (abdominal wall hematoma noted ), soft Extremities: edema (1+) Neurological: nl mental status, nl speech Skin: No rash or lesions Results Result Diagram: 09/05/16 0533 09/05/16 0533 Results 24 hrs Laboratory Tests Test 09/04/16 21:05 09/05/16 05:33 09/05/16 07:30 09/05/16 11:26 Bedside Glucose 170 166 204 Alanine Aminotransferase (ALT/SGPT) 27 Albumin 3.2 L Albumin/Globulin Ratio 1.06 Alkaline Phosphatase 70 Anion Gap 14 Aspartate Amino Transf (AST/SGOT) 19 Basophils # 0.0 Basophils % 0.1 Blood Morphology Comment Blood Urea Nitrogen 23 H Calcium Level 7.4 L Carbon Dioxide Level 28 Chloride Level 103 Creatinine 1.34 H Direct Bilirubin 0.00 # Eosinophils # 0.1 Eosinophils % 1.4 Globulin 3.00 Glucose Level 144 Hematocrit 23.3 L Hemoglobin 7.9 L INR International Normalized Ratio 3.33 Indirect Bilirubin 1.3 H Lymphocytes # 1.2 Lymphocytes % 19.4 Magnesium Level 1.9 Mean Corpuscular Hemoglobin 30.9 Mean Corpuscular Hemoglobin Concent 34.0 Mean Corpuscular Volume 90.9 Mean Platelet Volume 7.2 L Monocytes # 0.3 Monocytes % 5.3 Neutrophils # 4.5 Neutrophils % 73.8 Nucleated Red Blood Cells # 0.0 Nucleated Red Blood Cells % 0.0 Phosphorus Level 2.3 L Platelet Count 427 Potassium Level 3.5 Prothrombin Time 34.3 #H Prothrombin Time Ratio 2.7 Red Blood Count 2.56 L Red Cell Distribution Width 18.7 H Sodium Level 141 Total Bilirubin 1.3 Total Protein 6.2 White Blood Count 6.0 # Test 09/05/16 17:17 Bedside Glucose 208 Medications Medications Current Medications Amlodipine Besylate (Norvasc) 10 mg DAILY PO Last administered on 09/02/16 08: 58; Admin Dose 10 MG; Start 08/22/16 at 09:00 Benazepril HCl (Lotensin) 20 mg DAILY PO Last administered on 08/22/16 09:46; Admin Dose 20 MG; Start 08/22/16 at 09:00; Status Future Hold Bisoprolol Fumarate (Zebeta) 5 mg DAILY PO Last administered on 09/05/16 09:10 ; Admin Dose 5 MG; Start 08/22/16 at 09:00 Isosorbide Mononitrate (Imdur) 60 mg DAILY PO Last administered on 09/02/16 08 :58; Admin Dose 60 MG; Start 08/22/16 at 09:00 Tramadol HCl (Ultram) 50 mg Q6 PRN PO pain Last administered on 09/01/16 09:57 ; Admin Dose 50 MG; Start 08/22/16 at 03:00 Atorvastatin Calcium (Lipitor) 20 mg HS PO Last administered on 09/04/16 21:41 ; Admin Dose 20 MG; Start 08/22/16 at 21:00 Morphine Sulfate (morphine) 2 mg Q4 PRN IV mod pain Last administered on 11:31; Admin Dose 2 MG; Start 08/22/16 at 04:30 Ondansetron HCl (Zofran Inj) 4 mg Q6H PRN IV NAUSEA AND/OR VOMITING Last administered on 08/22/16 13:20; Admin Dose 4 MG; Start 08/22/16 at 11:30 IV Flush (NS 10 ml) 10 ml PRN PRN IV IV PROTOCOL; Start 08/22/16 at 17:30 Miscellaneous Information 1 ea NOTE XX ; Start 08/22/16 at 21:00 Glucose (Glutose) 15 gm Q15M PRN PO DECREASED GLUCOSE Last administered on 08:16; Admin Dose 15 GM; Start 08/22/16 at 21:00 Glucose (Glutose) 22.5 gm Q15M PRN PO DECREASED GLUCOSE; Start 08/22/16 at 21:00 Dextrose (D50w Syringe) 25 ml Q15M PRN IV DECREASED GLUCOSE; Start 08/22/16 at 21:00 Dextrose (D50w Syringe) 50 ml Q15M PRN IV DECREASED GLUCOSE; Start 08/22/16 at 21:00 Glucagon (Glucagen) 1 mg Q15M PRN IM DECREASED GLUCOSE; Start 08/22/16 at 21:00 Glucose (Glutose) 15 gm Q15M PRN BUCCAL DECREASED GLUCOSE; Start 08/22/16 at 21: 00 Diagnostic Test (Pha) (Accucheck) 1 ea 02 XX Last administered on 09/01/16 02: 06; Admin Dose 1 EA; Start 08/24/16 at 02:00 Insulin Glargine (Lantus) 12 unit QHS SC Last administered on 09/04/16 21:44; Admin Dose 12 UNIT; Start 08/24/16 at 21:00 Calcitriol (Rocaltrol) 0.25 mcg DAILY PO Last administered on 09/05/16 09:09; Admin Dose 0.25 MCG; Start 08/29/16 at 10:00 Calcium Carbonate (Oyster Shell Calcium) 1.25 gm DAILY PO Last administered on 09/05/16 09:09; Admin Dose 1.25 GM; Start 08/29/16 at 09:30 Bisacodyl (Dulcolax) 10 mg DAILY PRN PO CONSTIPATION; Start 08/30/16 at 13:30 Acetaminophen (Tylenol Tab) 650 mg Q4H PRN PO PAIN AND OR ELEVATED TEMP Last administered on 09/04/16 17:15; Admin Dose 650 MG; Start 09/01/16 at 01:30 Metronidazole (Flagyl) 500 mg Q8 PO Last administered on 09/05/16 13:45; Admin Dose 500 MG; Start 09/02/16 at 15:30 Diltiazem HCl 240 mg 240 mg DAILY PO Last administered on 09/05/16 09:10; Admin Dose 240 MG; Start 09/03/16 at 09:00 Potassium Cl/ Dextrose/Lact Ringer's (D5-Lr + KCl 20 Meq) 1,000 ml @ 75 mls/hr [id number] IV Last administered on 09/05/16 12:05; Admin Dose 75 MLS/HR; Start at 08:00 Famotidine (Pepcid Iv) 20 mg DAILY IV Last administered on 09/05/16 09:09; Admin Dose 20 MG; Start 09/04/16 at 09:00 ARLYN LARIOS MD Sep 05, 2016 17:57
[2016-09-05] MEDS: ATORVASTATIN 20 MG TAB PO SCH (20:54)
[2016-09-05] MEDS: INSULIN GLARGINE [LANtus] 3 ML PEN SC SCH (21:02)
[2016-09-06] VITALS (10 sets, daily range): BP systolic 111–125; BP diastolic 52–60; PULSE 60–68; RESP 18–20
[2016-09-06] MEDS: ACCUCHECK XX SCH (02:00)
[2016-09-06] MEDS: D5-LR + KCL 20 MEQ 1,000 ML IV SCH ×2 (02:34→14:29)
[2016-09-06] MEDS: metroNIDAZOLE 500 MG TAB PO SCH ×2 (04:58→14:27)
[2016-09-06 07:16] LABS: INR 3.63; PROTIME 36.7 Sec (12.2-14.2); PT RATIO 2.9
[2016-09-06 07:21] LABS: BASOPHILS % 0.2 % (0.0-2.0); EOSINOPHILS # 0.1 10^3/ul (0.0-0.5); EOSINOPHILS % 0.9 % (0.0-7.0); HEMATOCRIT 23.1 % (37.0-47.0); HEMOGLOBIN 7.8 g/dl (12.0-16.0); LYMPHOCYTES # 0.8 10^3/ul (0.8-2.9); LYMPHOCYTES % 12.8 % (15.0-51.0); MEAN CORPUSCULAR HEMOGLOBIN 30.7 pg (29.0-33.0); MEAN CORPUSCULAR HGB CONC 33.9 g/dl (32.0-37.0); MEAN CORPUSCULAR VOLUME 90.8 fl (82.0-101.0); MEAN PLATELET VOLUME 7.2 fl (7.4-10.4); MONOCYTE # 0.5 10^3/ul (0.3-0.9); MONOCYTES % 9.1 % (0.0-11.0); NEUTROPHIL # 4.6 10^3/ul (1.6-7.5); PLATELET COUNT 474 10^3/UL (140-440); RED BLOOD COUNT 2.54 10^6/ul (4.20-5.40); UNCORRECTED WBC 5.9 10^3/ul (4.8-10.8); WHITE BLOOD COUNT 5.9 10^3/ul (4.8-10.8)
[2016-09-06 07:34] LABS: POTASSIUM 4.1 mmol/L (3.5-5.1)
[2016-09-06 07:35] LABS: CONDITION 1; LH ANALYZER COMMENTS 1
[2016-09-06 07:36] LABS: CREATININE 1.17 mg/dl (0.44-1.00)
[2016-09-06 07:37] LABS: CALCIUM 7.6 mg/dl (8.4-10.2); PHOSPHORUS 2.4 mg/dl (2.5-4.9)
[2016-09-06 07:38] LABS: MAGNESIUM 1.7 mg/dl (1.7-2.5)
[2016-09-06] MEDS: ISOSORBIDE MONONITRATE(SR)60 MG TAB PO SCH (08:40)
[2016-09-06] MEDS: CALCIUM CARBONATE 1.25 GM TAB PO SCH (08:40)
[2016-09-06] MEDS: AMLODIPINE 10 MG TAB PO SCH (08:40)
[2016-09-06] MEDS: CALCITRIOL 0.25 MCG CAP PO SCH (08:41)
[2016-09-06] MEDS: BISOPROLOL 5 MG TAB PO SCH (08:41)
[2016-09-06] MEDS: FAMOTIDINE 20 MG INJ IV SCH (08:41)
[2016-09-06] MEDS: DILTIAZEM (CD) 240 MG CAP PO SCH (08:41)
[2016-09-06] MEDS: INSULIN ASPART [NOVOLOG] 3 ML PEN SC SCH ×3 (08:44→17:46)
[2016-09-06] MEDS ORDERED: NEUTRA-PHOS 250 MG PACKET PO ONE (10:00)
--- NOTE | 2016-09-06 11:23 | PN ---
Date/Time of Note Date/Time of Note DATE: 09/06/16 TIME: 08:22 Assessment/Plan Lines/Catheters IV Catheter Type (from [facility]): PICC Line Peraza in Place (from [facility]): Yes Assessment/Plan Assessment/Plan [facility] Progress Note Date of Service: 09/06/2016 Today's Assessment & Plan: Overall stable and doing well. No indication for acute surgical intervention. No indication for interventional radiology intervention. Hemoglobin stable on anticoagulation. Anticoagulation level being adjusted (very sensitive; expect final dosing to be around 1 mg per day). + C-diff. T-bili elevation due to resorbing hematoma. No further issues with L arm. With above assessment, I've recommended the following for today: 1. Cont current cares 2. Cont PT and increase activity 3. Cont anticoagulation for heart. She also needs solid plans for outpatient careful monitoring of Coumadin which can be done at one of our local Coumadin clinics. 4. Will follow with you 5. D/c planning per primary team 6. C. difficile evaluation and treatment Thank you again for your great care of this very pleasant lady and I'm certain her wonderful family. If there are any questions, please feel free to call me at [phone]. TOTAL VISIT TIME: 20 minutes of which more than half was spent in [id number] discussion with the patient as well as coordination of care between multiple physicians and providers. Disclaimer: Inadvertent spelling and grammatical errors are likely due to EHR/ dictation software use and do not reflect on the quality of delivered patient care. Also, please note that the electronic time recorded on this node does not necessarily reflect the actual time of the visit. Updated Clinical Summary: Very pleasant, but unfortunate 75-year-old lady with multiple comorbid issues; including atrial fibrillation requiring anticoagulation, congestive heart failure and perhaps other heart disease status post heart valve replacement, and a number of medical issues such as diabetes mellitus, hypertension, hyperlipidemia and gout, with TIA in the past; admitted to [facility] through the emergency department 08/21/2016 with a left flank hematoma that appeared to extend from the left hip area to mid flank region. Hemoglobin responded to PRBC (2 units 08/22/16; 2 units 08/23/16; 1 unit 08/26/16) and remained stable. Past and present comorbidity list: 1. Atrial fibrillation requiring anticoagulation. 2. Hypertension. 3. Congestive heart failure. 4. Diabetes mellitus. 5. Gout. 6. History of transient ischemic attacks in the past. 7. Dyslipidemia. 8. Bilateral cataract surgery. 9. History of heart valve replacement. Subjective: No major events or complaints other than C-diff + and mild dysrhythmia last night; no abd pain; no n/v/d; no sob or cp; + flatus; + BM; + activity; no diarrhea Objective: Vitals: See below I's & O's: See below Exam: GENERAL: On exam, the patient was sitting up in her bed and appeared to be comfortable and in no acute distress. ABDOMEN: Soft, non-tender to palpation in the left flank and not distended. There are no peritoneal signs or guarding. SKIN: Skin appears to be pink and feels warm to touch. NEUROLOGIC: Patient is awake, alert, and follows commands appropriately. Labs: See below Exam/Review of Systems Vital Signs Vitals Vital Signs Date Time Temp Pulse Resp B/P Pulse Ox O2 Delivery O2 Flow Rate FiO2 09/06/16 08:31 68 09/06/16 07:59 98.2 18 124/60 96 09/06/16 07:30 Nasal Cannula 3.0 Intake and Output 09/05/16 09/05/16 09/06/16 15:00 23:00 07:00 Intake Total 1000 ml 900 ml 1230.0 ml Output Total 550 ml 800 ml Balance 1000 ml 350 ml 430.0 ml Results Result Diagram: 09/06/16 0555 09/06/16 0555 ROSELYN WALLIS M.D. Sep 06, 2016 11:23
--- NOTE | 2016-09-06 11:28 | PN ---
DATE: 09/06/2016 SUBJECTIVE: The patient is stable, no acute events overnight. No fevers, chills, nausea/vomiting, no shortness of breath. OBJECTIVE: VITAL SIGNS: Blood pressure is 124/60, respiration 18, pulse 89, temperature 98.2. HEENT: Head is normocephalic. NECK: Supple. HEART: Regular rate. LUNGS: Show diminished breath sounds at base. ABDOMEN: Soft, nontender to palpation. No rebound or guarding. EXTREMITIES: Negative for clubbing, cyanosis, no edema. DERMATOLOGIC: No rashes. MUSCULOSKELETAL: No joint effusions. NEUROLOGIC: No change in exam. MEDICATIONS: Have been reviewed. LABORATORY DATA: Shows a white count 5.9, hemoglobin 7.8, platelet count 474. Sodium 142, potassiu m 4.1, chloride 106, BUN 15, creatinine 1.17, phosphorus 2.4. ASSESSMENT AND PLAN: 1. Nonoliguric acute kidney injury on top of chronic kidney disease stage IIIB/IV, with previous ba seline creatinine 1.7 mg/dL. Etiology of acute kidney injury is secondary to acute tubular necrosis . Renal function has improved. Currently, creatinine is below previous baseline. At this point, rosalba vincent current treatment plan. 2. Congestive heart failure exacerbation. The patient appears euvolemic. Continue to monitor clos refugio on IV fluids. 3. Mineral bone disorder. The patient is hypophosphatemic, will continue to monitor and replete wi th Neutra-Phos 4. Acute retroperitoneal bleed, stable. Continue to monitor. 5. Mechanical felt continue Coumadin and defer to cardiology for management. 6. Anemia. Continue to monitor hemoglobin and hematocrit levels. 7. Chronic atrial fibrillation. Continue current treatment plan. 8. Diabetes. Continue Accu-Cheks and sliding scale. 9. Hypertension. Continue current blood pressure regimen. 10. Clostridium difficile colitis. Continue Flagyl. 11. Pneumonia. The patient is completing antibiotic course. Dictated By: GARRETT FISHMAN/CHRISTEL Conf#: [id number] DID#: [id number]
--- NOTE | 2016-09-06 15:19 | DS ---
DATE OF ADMISSION: 08/22/2016 DATE OF DISCHARGE: 09/06/2016 A 75-year-old female originally admitted on 08/22/2014 being discharged to long-term facility on 09/06/2016. HOSPITAL COURSE: The patient initially came in with abdominal pain and weakness. She was seen by jarod ma specialists during this hospital stay including renal team, hepatobiliary surgery team, pulm onary team, cardiology team and GI team. The patient with stable spontaneous retroperitoneal bleedi ng and had imaging studies performed on this. Again surgery team was on board and indicated no surg ical intervention at this time. The patient also was found with renal insufficiency and seen by ana paula horvath team for that and was treated successfully. The patient also had an echocardiogram performed marta t showed normal function on echocardiogram. Ejection fraction of 40% to 45% and she was found with a cute on chronic systolic and diastolic heart failure. The patient's INR was checked because she had a history of mechanical heart valve and the goal INR is between 2.5 and 3.5. After the surgery landon olievra determined that the retroperitoneal bleed was stable and did not require any further surgical inte rvention and appeared to not be increasing in size, it was determined that the patient would be cont inued on her Coumadin and this was continued to keep goal INR between 2.5 and 3.5, which it was. T he patient is also treated for C. diff colitis as well and given antibiotics for that. She worked w [facility] physical therapy to increase her activity as well. She was tolerating diet, but also required s ome D5 IV fluids as well. She has hyperbilirubinemia as well, mostly to be indirect and likely to b e a hepatobiliary issue likely due to resorption of the large extraperitoneal left flank hematoma th at was mentioned above and acute hepatitis serology was checked and it was negative and labs were ju st monitored for that. There were some autoimmune hepatitis serology studies including antinuclear antibodies, anti-smooth muscle antibodies and anti-liver and kidney microsomal antibodies type 1 marta t were ordered. The final results still pending on that. The patient's C. diff improved. Her abdo madison pain symptoms improved. Her retroperitoneal bleed was determined to be stable as mentioned ab ove. She was able to be back at baseline status. Her vital signs were stable. Her labs were stabl e as well. She will be discharged to long-term facility today in improved condition. She will need to have an INR checked tomorrow as well but she will go there with the following medic ations: 1. Tylenol 650 q.4h. p.r.n. 2. DuoNeb inhaled q. 4 p.r.n. 3. Norvasc 10 mg daily. 4. Lipitor 20 mg at bedtime. 5. Lotensin 20 mg daily. 6. Dulcolax 10 mg p.o. daily p.r.n. 7. Bisoprolol 5 mg daily. 8. Calcitriol 0.25 mcg daily. 9. Calcium carbonate 1.25 grams daily. 10. Cardizem 240 mg daily. 11. Pepcid 20 mg p.o. daily. 12. Lasix 20 mg p.o. b.i.d. 13. NovoLog insulin sliding scale. 14. Lantus 12 units subcutaneous at bedtime. 15. Imdur 60 mg daily. 16. D5 LR +20 mEq KCl IV at 75 mL an hour. 17. Flagyl 500 mg p.o. q. 8 hours for 7 more days. 18. Morphine 2 mg IV q.4h. p.r.n. 19. Zofran 4 mg p.o. q.6h. p.r.n. 20. Tramadol 50 mg p.o. q. p.r.n. Again, she will need to have an INR checked tomorrow in the next 24 hours and the goal INR is to be between 2.5 and 3.5 because of her mechanical heart valve. This will need to be carefully done as a n outpatient including possibly further followup with local Coumadin clinic. FINAL DIAGNOSES: 1. Spontaneous retroperitoneal bleed presently stable, no surgical intervention at this time. Cont inue to monitor for now. 2. Chronic atrial fibrillation, rate control now on Diltiazem and Bisoprolol. 3. History of mitral valve replacement, mechanical with goal anticoagulation to be 2.5 to 3.5 on in termittent doses of Coumadin to help keep INR in that range. 4. Acute on chronic kidney disease, resolving. 5. Normochromic normocytic anemia, most likely secondary to underlying bleeding. She did receive 4 units of PRBC transfusion earlier this admission. Present, hemoglobin of 7.8, no signs of any blee ding. 6. Clostridium difficile colitis. 7. Left pleural effusion on diuretics. 8. Type 2 diabetes. A1c is 6.1. 9. Cardiomyopathy with ejection fraction of 40% to 45% on beta jean marie and QUE inhibitor. 10. History of pulmonary hypertension. 11. Hyperbilirubinemia, mostly indirect, mostly due to reabsorption of the large extraperitoneal le ft flank hematoma and not the hepatobiliary issue. 12. Hypocalcemia on supplementation. 13. Gout. 14. History of transient ischemic attack in the past. 15. Hypertension. Time spent discharging patient 50 minutes. Dictated By: NEAL WOODALL Conf#: [id number] DID#: [id number]
--- NOTE | 2016-09-06 17:54 | PDOCDIS ---
Discharge Instructions CONDITION Patient Condition: Stable HOME CARE INSTRUCTIONS: Special Diet: Renal NEAL MCNEILL Sep 06, 2016 17:53
== END 2016-09-06 19:00 | DRG 393 ==
LOC: E/R 21:12 → TEL 08-22 01:44 → ICU 08-22 13:54 → MS4 08-24 16:54
PROVIDERS: ADMIT Family Medicine; ATTEND Family Medicine
PROC: 30233K1 Transfusion of Nonautologous Frozen Plasma into Peripheral Vein, Percutaneous Approach (ICD-10-PCS; principal; 2016-08-22)
PROC: 30233N1 Transfusion of Nonautologous Red Blood Cells into Peripheral Vein, Percutaneous Approach (ICD-10-PCS; 2016-08-22)
DX: K66.1 Hemoperitoneum (principal); I50.43 Acute on chronic combined systolic (congestive) and diastolic (congestive) heart failure; N17.0 Acute kidney failure with tubular necrosis; J18.9 Pneumonia, unspecified organism; A04.7 Enterocolitis due to Clostridium difficile; N18.4 Chronic kidney disease, stage 4 (severe); I48.91 Unspecified atrial fibrillation; I13.0 Hypertensive heart and chronic kidney disease with heart failure and stage 1 through stage 4 chronic kidney disease, or unspecified chronic kidney disease; E11.9 Type 2 diabetes mellitus without complications; E87.6 Hypokalemia; D64.9 Anemia, unspecified; Z79.01 Long term (current) use of anticoagulants; R73.9 Hyperglycemia, unspecified; Z95.2 Presence of prosthetic heart valve; M25.532 Pain in left wrist
CPT/HCPCS: 36415; 36430; 36569; 36600; 70450; 71010; 71250; 74176; 76705; 76775; 76937; 80048; 80053; 80076; 81001; 81003; 82043; 82247; 82248; 82270; 82330; 82803; 82962; 83036; 83605; 83690; 83735; 83880; 84100; 84155; 84300; 84484; 85014; 85018; 85025; 85610; 85730; 86038; 86255; 86376; 86704; 86709; 86803; 86850; 86900; 86901; 86920; 87040; 87075; 87081; 87086; 87340; 93005; 93306; 94664; 96372; 96374; 96375; 97110; 97162; 97530; J1940; C9113; J0610; J1644; J1815; J2270; J2405; J3370; J3475; J3480; J7030; J7040; P9016; P9047; P9059

== ENCOUNTER 2017-12-05 04:01 | Inpatient (IN) | END 2017-12-10 11:52 | disposition home or self-care (01) | DRG 291 ==

== ENCOUNTER 2018-03-02 02:47 | Emergency (ER) | END 2018-03-02 07:36 | disposition home or self-care (01) ==

== ENCOUNTER 2018-04-24 09:44 | Emergency (ER) | END 2018-04-24 12:42 | disposition home or self-care (01) ==